=== PATIENT | female | born 1940 | race Caucasian/White ===

== ENCOUNTER → 2019-07-14 10:45 | Outpatient (CLI) | payer MEDICARE, OTHER, SELFPAY ==
--- NOTE | ~2019-07-14 | XR_ITS ---
XR lumbar spine 2-3V 07/14/2019 11:20 Indication: Low back pain Procedure: 3 views lumbar spine Comparison: 04/01/2016 Findings: There are compression fractures of T11-L4 with associated vertebroplasty changes. No acute fracture or traumatic malalignment. There is disc narrowing at all lumbar levels. No evidence for spo ndylolisthesis. There is mild multilevel facet hypertrophy. Impression: 1: Multiple lower thoracic and lumbar compression fractures treated with vertebroplasty. No acute abn ormality of the lumbar spine identified. Reviewed, dictated and finalized at location A. ENTICE PAINTER NECKTIES Impression: 1: Multiple lower thoracic and lumbar compression fractures treated with verteb roplasty. No acute abnormality of the lumbar spine identified.
--- NOTE | ~2019-07-14 | XR_ITS ---
XR thoracic spine 2V DATE: 07/14/2019 11:20 INDICATION: Thoracic back pain. Low back pain. TECHNIQUE: AP, lateral, swimmer views COMPARISON: None FINDINGS: Diffuse osteopenia. Status post vertebroplasty at T11, T12 and L1.There are compression fracture deformities of T11 and T 12. L1 is not optimally evaluated on this thoracic spine radiographic examination. There is degenerative spurring of the thoracic spine. There is old pulmonary granulomatous disease. There are pacemaker leads in the right atrium, right ventricle, coronary sinus. IMPRESSION: Status post vertebroplasty at T11, T12, L1 Diffuse osteopenia Reviewed, dictated and finalized at location B. ESSOR OF ENGINEERING
== END ==
PROVIDERS: PCP Nurse Practitioner Family; Visit Provider Nurse Practitioner Family
DX: M54.5 Low back pain (principal); M54.6 Pain in thoracic spine; M85.88 Other specified disorders of bone density and structure, other site
CPT/HCPCS: 72070; 72100

== ENCOUNTER → 2019-07-21 13:22 | Outpatient (CLI) | payer MEDICARE, OTHER, SELFPAY ==
--- NOTE | ~2019-07-21 | CT_ITS ---
EXAMINATION: CT lumbar spine wo con DATE: 07/21/2019 13:45 INDICATION: Lumbar spondylosis without myelopathy or radiculopathy. TECHNIQUE: Computed tomography (CT) of the lumbar spine was performed without intravenous contrast. A utomated exposure control and iterative reconstruction technique were employed. The dose-length produ ct was 930.57 mGy-cm. COMPARISON: CT lumbar spine 04/22/2016 FINDINGS: There is 8 degrees levocurvature of thoracolumbar spine. There is a burst fracture of T10 w ith less than 1/5 loss of height. There are chronic burst fractures of T11-L4 vertebral bodies with c hanges of vertebroplasty at each level. There is severely decreased disc height at L1-L2, mildly decr eased disc height at L2-L3 and L3-L4, severely decreased disc height at L4-L5, and moderately decreas ed disc height at L5-S1. The following disc levels are specifically discussed: L1-L2: The disc is bulging. There is mild bilateral facet joint osteoarthritis. There is moderate gillian ateral neural foraminal stenosis. There is mild central canal stenosis. L2-L3: The disc is bulging. There is severe bilateral facet joint osteoarthritis. There is moderate b ilateral neural foraminal stenosis. There is mild central canal stenosis. L3-L4: The disc is bulging. There is severe bilateral facet joint osteoarthritis. There is moderate b ilateral neural foraminal stenosis. There is mild central canal stenosis. L4-L5: The disc is bulging. There is ankylosis of the facet joints with severe hypertrophy. There is moderate bilateral neural foraminal stenosis. There is mild central canal stenosis. L5-S1: The disc is bulging. There is severe bilateral facet joint osteoarthritis. There is mild right and moderate left neural foraminal stenosis. There is mild central canal stenosis. IMPRESSION: 1. Acute versus subacute burst fracture of T10. 2. Severe lumbar spondylosis. Reviewed, dictated and finalized at location A. ORT DRIVER
== END ==
PROVIDERS: Visit Provider Nurse Practitioner Family
DX: M47.816 Spondylosis without myelopathy or radiculopathy, lumbar region (principal)
CPT/HCPCS: 72131

== ENCOUNTER 2020-02-10 00:57 | Inpatient (IN) | payer MEDICARE, OTHER, SELFPAY ==
[2020-02-10] VITALS (20 sets, daily range): BP systolic 111–151; BP diastolic 52–85; PULSE 72–91; RESP 14–24; TEMP 35.6–37.2; O2SAT 95–100; BMI 54.8
--- NOTE | ~2020-02-10 | XR_ITS ---
EXAMINATION: XR chest 2V DATE: 02/12/2020 11:13 INDICATION: Shortness of breath. TECHNIQUE: Frontal and lateral views of the chest were obtained. COMPARISON: Chest single view 02/10/2020, chest CT 02/10/2020 FINDINGS: There are mild airspace opacities in right lower lung zone. A calcified right lung nodule a nd calcified right hilar lymph nodes are consistent with old granulomatous disease. No pleural effusi on or pneumothorax. Cardiomegaly is noted. There is a left chest pacer with leads in right atrium, ri ght ventricle, and coronary sinus. There are changes of vertebroplasty at 3 levels. IMPRESSION: 1. Mild airspace opacities in right lower lung zone, consistent with atelectasis versus pneumonia. 2. Cardiomegaly. Reviewed, dictated and finalized at location A. IMPRESSION: 1. Mild airspace opacities in right lower lung zone, consistent with atelectasi s versus pneumonia. 2. Cardiomegaly.
--- NOTE | ~2020-02-10 | CT_ITS ---
EXAMINATION: CT brain wo con DATE: 02/12/2020 11:05 INDICATION: Cerebrovascular accident TECHNIQUE: Computed tomography (CT) of the head was performed without intravenous contrast. The mA wa s adjusted according to patient size. Iterative reconstruction technique was employed. Exam dose: 60 5.33 mGy-cm total exam DLP. COMPARISON: 02/10/[address] brain FINDINGS: There is vertebral, basilar and carotid siphon internal carotid artery calcification. There is nonspecific diminished attenuation of the cerebral white matter, likely due to chronic small vessel ischemic changes. Chronic small lacunar infarct of left basal ganglia. Minimal bilateral basal ganglia calcification. There is moderate cerebral and cerebellar volume loss. No intracranial mass lesion or hemorrhage, midline shift or mass effects. No subdural or epidural hem atoma. No fracture or bone destruction of the cranial vault. Included paranasal sinuses and mastoid air cells are normally developed and aerated. No fracture or b one destruction of the cranial vault. IMPRESSION: Cerebral atherosclerosis and chronic small vessel ischemic changes of the cerebral white matter; small lacunar infarct of the left basal ganglia Reviewed, dictated and finalized at Location A. Reviewed, dictated and finalized at location A.
--- NOTE | ~2020-02-10 | XR_ITS ---
EXAMINATION: XR chest 1V portable EXAM DATE: 02/10/2020 01:36 INDICATION: Transient alteration of awareness. TECHNIQUE: Portable AP frontal chest x-ray was obtained. Comparison is made to prior examination from 01/13/2019. FINDINGS: There is triple lead pacemaker/AICD device. Cardiomegaly and pulmonary vascular congestion. Right midlung zone granulomata. No confluent consolidation, pneumothorax or pleural effusion suspect ed. The bones are osteopenic. There are bony degenerative changes. IMPRESSION: 1. Cardiomegaly, congestive changes. Reviewed, dictated and finalized at location A.
--- NOTE | ~2020-02-10 | CT_ITS ---
EXAMINATION: CT chest abdomen pelvis wo con DATE: 02/10/2020 08:13 CDT INDICATION: Altered mental status. Low blood sugar. Sepsis. TECHNIQUE: Computed tomography (CT) of the chest, abdomen, and pelvis was performed without intraveno us contrast. The dose-length product was 1858.77 mGy-cm. Automated exposure control and iterative rec onstruction technique were employed. COMPARISON: None FINDINGS: CHEST CT: Cardiomegaly. There is atherosclerosis. No mediastinal or hilar lymphadenopathy. There are pacemaker leads present. Dependent atelectasis. No significant pleural or pericardial effusion. There is an 8 m m balloon some solid nodule in the right upper lobe calcified granulomas right lung base. 7 mm ground glass nodule in the lingula, image 59. No endobronchial lesions. ABDOMEN/PELVIS CT: There are calcified granulomas of the liver and spleen. There is pneumobilia. There is cirrhosis of t he liver. There is an atrophic left kidney with nonobstructing left renal stone. Colonic diverticulos is without diverticulitis. Nonobstructive bowel gas pattern. Uterus not visualized, likely surgically absent. There are multiple lower thoracic and lumbar compression fractures with vertebroplasty frank es. Advanced multilevel spondylosis. IMPRESSION: 1. No acute abnormality of the chest, abdomen or pelvis. 2: Bilateral subsolid nodules measuring up to 8 mm. Follow-up low dose CT chest in 3 months recommend ed. Reviewed, dictated and finalized at location B. IMPRESSION: 1. No acute abnormality of the chest, abdomen or pelvis. 2: Bilateral subsolid nodules measuring up to 8 mm. Follow-up low dose CT chest in 3 months recommended.
--- NOTE | ~2020-02-10 | CT_ITS ---
EXAMINATION: CT brain wo con EXAM DATE: 02/10/2020 01:33 INDICATION: Change in mental status. Unresponsive episode. Transient alteration of awareness. TECHNIQUE: Spiral CT of the head was performed without contrast. Axial, coronal and sagittal images were reviewed. The dose-length product (DLP) for this examination was 605.33 mGy-cm. The exposure w as tailored according to patient size, and iterative reconstruction (ASIR) was used as additional dos e reduction technique. Comparison is made to prior examination from 08/28/2015. FINDINGS: There is no acute intraparenchymal hemorrhage. No evidence of intraparenchymal brain mass lesion. No evidence of acute infarction. Please note that initial head CT has limited sensitivity f or small or acute infarctions. Old left basal ganglia lacunar infarction. There is mild periventric ular and subcortical hypodensity, nonspecific but probably related to small vessel ischemic disease. There is mild prominence of the sulci and ventricles related to cerebral atrophy. There is intrac ranial carotid arteriosclerosis. There are no extra-axial collections. There is no mass effect or m idline shift. Patient has had bilateral ocular lens surgery. Soft tissue is unremarkable. The visu alized sinuses and mastoid air cells are well aerated. IMPRESSION: 1. No acute intracranial findings. 2. Chronic age related findings. Reviewed, dictated and finalized at location A.
--- NOTE | 2020-02-10 01:03 | ECG_ITS ---
Measurements Intervals [place] Rate: 76 P: -79 DE: 204 QRS: 190 QRSD: 157 T: 32 QT: 485 QTc: 547 Interpretive Statements ELECTRONIC ATRIAL PACEMAKER ELECTRONIC VENTRICULAR PACEMAKER NO FURTHER INTERPRETATION IS POSSIBLE ATYPICAL ECG Electronically Signed On 02-10-2020 7:35:49 CDT by Yovany Forte D.O.
--- NOTE | 2020-02-10 01:03 | ED.RECABL ---
HPI - Recheck/Abnormal Lab/Rx General Chief Complaint: Recheck/Abnormal Lab/Rx Stated Complaint: UNRESPONSIVE Time Seen by Provider: 02/10/20 01:03 Source: family and EMS Mode of arrival: EMS Limitations: altered mental status History of Present Illness HPI narrative: Patient is an 80-year-old female with a history of hypertension, obstructive sleep apnea, diabetes who presents for evaluation of altered mental status. History is obtained solely through EMS and the patient's family. Patient's daughter reports that she heard her mother moaning this evening from her bedroom. They went to check on her mother, she was moaning and not responsive to them. They did a glucometer check and glucose was 29. Thus, they called EMS. At the time of EMS arrived, they confirmed hypoglycemia and gave the patient intramuscular glucose, began an IV and give the patient dextrose. Patient was moaning, however she was protecting her airway. She is not able to provide any history. Patient was transported to our facility with repeat glucoses in the 100s. Patient's daughter states she had a normal day today and typically is able to converse without any difficulty. Daughter did state the patient reported feeling tired, they did attend the of a family member today. Patient's daughter states that she had denied any chest pain, cough, fever, abdominal pain. No recent medication changes. Patient is DNR/DNI. Related Data Allergies Allergy/AdvReac Type Severity Reaction Status Date / Time meperidine Allergy Mild Itching Verified 01/13/19 15:10 niacin Allergy Mild Rash Verified 01/13/19 15:10 quetiapine Allergy Mild Swelling Verified 01/13/19 15:10 bupropion Allergy Unknown JERKY Verified 01/13/19 15:10 MOVEMENTS codeine Allergy Unknown Verified 01/13/19 15:10 enalapril Allergy Unknown Verified 01/13/19 15:10 fluoxetine Allergy Unknown Verified 01/13/19 15:10 lorazepam Allergy Unknown Verified 01/13/19 15:10 morphine Allergy Unknown Verified 01/13/19 15:10 Penicillins Allergy Unknown Verified 01/13/19 15:10 trazodone Allergy Unknown Dizziness Verified 01/13/19 15:10 enalaprilat AdvReac Mild PERSISTENT Verified 01/13/19 15:10 COUGH modafinil AdvReac Mild SORES Verified 01/13/19 15:10 oxycodone AdvReac Mild GI DISTRESS Verified 01/13/19 15:10 Review of Systems Review of Systems: ROS unobtainable: Yes unobtainable due to mental status PMFSH Family History Family History (Updated 12/22/15 @ 23:19 by DOCTOR UNKNOWN) Father Carcinoma of colon, Onset Age: 86 Family history of renal failure Mother Family history of diabetes mellitus in first degree relative, Onset Age: 80 Sibling No family history of malignant neoplasm Other Diabetes mellitus Family history of arthritis Family history of heart disease in male family member before age 55 Family history of malignant neoplasm Family history of mental disorder Family history of seizure disorder Hypertension Social History Social History Smoking status: Never smoker Alcohol intake: never Gender identity (if verbalized by the patient): Female Exam Narrative: Exam Narrative: GENERAL: Somnolent, arousable to painful and verbal stimuli, not conversant, moaning HEAD: Normocephalic, atraumatic. EYES: 3+ PERRLA and EOMI. patient cannot track when prompted. ENT: Nares clear, no rhinorrhea or epistaxis. Mucous membranes dry. NECK: Supple. CHEST: Shallow respirations, coarse lung sounds, no wheezing, mildly tachypneic HEART: Regular rate, sinus rhythm ABDOMEN: Obese, non distended, no grimace with palpation EXTREMITIES: Normal range of motion. No edema. SKIN: Warm, dry, no rash. NEURO:No focal deficits observed on assessment. Patient does not have any posturing. She is moving all extremities spontaneously. No clonus bilaterally. No hyperreflexia. Patient is able to complete digital advisor strength when prompted it is 4 out of 5 bilaterally. Not able to follow more complex comman
[2020-02-10 01:25] LABS: Basophils Absolute Auto 0.1 K/mm3 (0.0-0.1); Basophils Percent Auto 0.5 % (0.2-1.2); Eosinophils Absolute Auto 0.3 K/mm3 (0-0.3); Eosinophils Percent Auto 2.3 % (0-4.4); Hematocrit 40.3 % (37.0-47.0); Immature Granulocyte Absolute 0.03 K/mm3 (0.00-0.031); Immature Granulocyte Percent A 0.3 % (0-0.5); Lymphocytes Absolute Auto 1.89 K/mm3 (0.9-3.2); Lymphocytes Percent Auto 17.7 % (18.3-44.2); Mean Corpuscular HGB Conc 34.7 g/dl (32-36); Mean Corpuscular Hemoglobin 32.6 pg (26-34); Mean Corpuscular Volume 93.9 fl (80-100); Mean Platelet Volume 10.6 fl (7.4-10.4); Monocytes Absolute Auto 0.7 K/mm3 (0.1-0.6); Monocytes Percent Auto 6.2 % (2.6-8.5); Neutrophils Absolute Auto 7.8 K/mm3 (1.3-6.7); Platelet Count Result 123 k/mm3 (150-375); Red Blood Count 4.29 M/mm3 (4.2-5.4); Red Cell Distribution Width 12.3 % (11.5-14.5); White Blood Count 10.7 K/mm3 (4.5-10.0)
[2020-02-10 01:34] LABS: INR 1.2; Prothrombin Time 14.7 Seconds (11.1-14.7)
[2020-02-10 01:35] LABS: Partial Thromboplastin Time 34.9 SECONDS (22.3-36.8)
[2020-02-10 01:39] LABS: Lactic Acid Reflex 0.8 mmol/L (0.7-2.1)
[2020-02-10 01:40] LABS: Ammonia 10 umol/L (9-30)
[2020-02-10 01:41] LABS: Glucose Point of Care 183 (65-105)
[2020-02-10 01:45] LABS: Anion Gap 8 mmol/L (8-16); Blood Urea Nitrogen 85 mg/dL (7-17); Calcium 8.9 mg/dL (8.4-10.2); Carbon Dioxide 32 mmol/L (22-30); Chloride 95 mmol/L (98-107); Estimated Glomerular Filt Rate 19; Glucose 175 mg/dL (65-105); Sodium 135 mmol/L (137-145)
[2020-02-10 01:47] LABS: CRP 0.5 mg/dL (<1.0)
[2020-02-10 01:52] LABS: Troponin I 0.013 ng/mL (0.000-0.034)
[2020-02-10 02:48] LABS: Add Urine Microscopic? YES; Appearance Urine Cloudy (Clear); Bacteria Urine Trace /hpf; Bilirubin Urine Negative (Negative); Color Urine Yellow (Yellow); Glucose Urine UA Negative (Negative); Ketones Urine Negative (Negative); Leukocyte Esterase Ur 3+ LEU/UL (Negative); Nitrate Urine Positive (Negative); Protein Urine Negative (Negative); Specific Grav Ur 1.013 (1.001-1.035); Urobilinogen Urine Negative mg/dL (<2.0); WBC Urine >75 /hpf
[2020-02-10 03:09] LABS: Alveolar/Arterial O2 Gradient 37.1 mmHg; Base Excess ABG 3.9 mEq/l (+/-2.0); Carboxyhemoglobin 1.2 % THb (0-2.0); Device NASAL CANNULA; Fractional Inspired Oxygen 28 %; Methemoglobin ABG 0.3 %THb (0-1.5); Modified Allen's Test Unable to perform; Oxygen Content ABG 19.1 %vol (16.0-22.0); Oxygen Saturation ABG 96.9 % (95.0-100.0); Oxyhemoglobin 95.3 % THb (90.0-100.0); PCO2 ABG 56.9 mmHg (35.0-45.0); PO2 ABG 95.4 mmHg (80.0-100.0); PO2 FiO2 Ratio Arterial Blood 3.41 %; Reduced Hemoglobin 3.2 %THb (0-5.0); Site Drawn LEFT RADIAL; Total Hemoglobin 14.2 g/dL (12.0-18.0); pH ABG 7.354 (7.350-7.450)
[2020-02-10 03:19] LABS: Blood Urine Negative (Negative)
[2020-02-10 05:00] LABS: Glucose Point of Care 190 (65-105)
[2020-02-10] MEDS: levETIRAcetam 1000MG/NACL100ML 1,000 MG/100 ML BAG 400 MG IVPB (05:12)
[2020-02-10] MEDS: LORazepam INJ (*CRX) 2 MG/ML VIAL 0.5 MG IV PUSH (05:12)
--- NOTE | 2020-02-10 05:38 | PM.IMHP ---
H&P: HPI History of Present Illness Date/Time: 02/10/20 05:38 Chief complaint: Delirium, UTI, Hypoglycemia Narrative: This is an 80 year old Diabetic female who presented to the hospital for acute altered mental satatus. The patient's daughter is at bedside and explains that the patient is normally wheelchair bound and yesterday went to a and was talking to her family at that time. After dinner this evening her daughter heard her mother moaning in her bedroom. She found her mother poorly responsive. Blood sugar was checked and found to be 29. It's unknown how long the patient was like that but she had been in her room for about 3 hours. The family did not witness any seizure like activity. They do not believe that the patient has had any falls. The patient's blood sugar has been stable although she is very poorly responsive. She was found to be in hypercapnic respiratory failure on ABG. Bipap was initiated. CT brain was obtained. On my encounter with the patient she barely opens her eyes to painful stimuli. The patient's daughter verbalized to me that the patient is DNR/DNI and that the family does not want a central line placed or vasopressors. Routine labs demonstrated an abnormal urinalysis. In the ER the patient appeared to be possibly having a seizure with diffuse shaking and locked jaw. She was treated with Ativan and Neurology was consulted. Review of Systems Review of Systems: ROS unobtainable: Yes unobtainable due to mental status PMFSH Past Medical History Medical History (Updated 02/10/20 @ 06:09 by Gautam He MD) Diabetes mellitus Surgical History Surgical History (Updated 02/10/20 @ 06:00 by Gautam He MD) History of cholecystectomy Family History Family History (Updated 12/22/15 @ 23:19 by DOCTOR UNKNOWN) Father Carcinoma of colon, Onset Age: 86 Family history of renal failure Mother Family history of diabetes mellitus in first degree relative, Onset Age: 80 Sibling No family history of malignant neoplasm Other Diabetes mellitus Family history of arthritis Family history of heart disease in male family member before age 55 Family history of malignant neoplasm Family history of mental disorder Family history of seizure disorder Hypertension Social History Social History Smoking status: Never smoker Alcohol intake: former Substance use: never Gender identity (if verbalized by the patient): Female Spiritual care concerns: No Meds Home Medications and Allergies Allergies Allergy/AdvReac Type Severity Reaction Status Date / Time meperidine Allergy Mild Itching Verified 01/13/19 15:10 niacin Allergy Mild Rash Verified 01/13/19 15:10 quetiapine Allergy Mild Swelling Verified 01/13/19 15:10 bupropion Allergy Unknown JERKY Verified 01/13/19 15:10 MOVEMENTS codeine Allergy Unknown Verified 01/13/19 15:10 enalapril Allergy Unknown Verified 01/13/19 15:10 fluoxetine Allergy Unknown Verified 01/13/19 15:10 lorazepam Allergy Unknown Verified 01/13/19 15:10 morphine Allergy Unknown Verified 01/13/19 15:10 Penicillins Allergy Unknown Verified 01/13/19 15:10 trazodone Allergy Unknown Dizziness Verified 01/13/19 15:10 enalaprilat AdvReac Mild PERSISTENT Verified 01/13/19 15:10 COUGH modafinil AdvReac Mild SORES Verified 01/13/19 15:10 oxycodone AdvReac Mild GI DISTRESS Verified 01/13/19 15:10 Vital Signs Vital Signs - 24 hr 02/10/20 00:58 02/10/20 02:01 02/10/20 02:27 Temperature 37.2 C Pulse Rate 76 90 Respiratory Rate 23 H 19 Blood Pressure 111/53 L 130/85 Pulse Oximetry 95 98 97 02/10/20 03:15 02/10/20 03:55 02/10/20 04:01 Temperature Pulse Rate 79 87 76 Respiratory Rate 19 14 17 Blood Pressure 127/72 122/56 L Pulse Oximetry 100 99 98 02/10/20 04:37 02/10/20 05:32 Temperature Pulse Rate 91 76 Respiratory Rate 16 15 Blood Pressure 132/62 124/64 Pulse Oximetry 100 99 Exam Const: Gen
[2020-02-10] MEDS: SODIUM CHLORIDE 0.9% IV 1,000 ML 125 ML IV CONT ×2 (06:07→13:55)
[2020-02-10 06:24] LABS: Glucose Point of Care 238 (65-105)
--- NOTE | 2020-02-10 07:35 | ADMGEN ---
This patient, Roosevelt Penn, was admitted to IMU Room 206-01 FROM ER 0557 02/10/20 . Patient/family oriented to hospital policies and general routines including ID bracelet, bed and alarms, visiting hours, pain management, procedures, bathroom and other care routines, personal items, smoking policy, room service/diet, and visiting hours. Valuables list has been completed. Information on how to activate the Rapid Response Team has been discussed. Patient/Family are encouraged to report perceived risks to care and to ask questions if they do not understand what they are told or what they should do.
[2020-02-10 08:07] LABS: Vitamin B12 > 1000.0 pg/mL (239-931)
[2020-02-10 08:10] LABS: Alveolar/Arterial O2 Gradient 61.1 mmHg; Base Excess ABG 1.1 mEq/l (+/-2.0); Fractional Inspired Oxygen 28 %; HCO3 ABG 27.2 mEq/l (22.0-26.0); Oxygen Content ABG 18.5 %vol (16.0-22.0); Oxygen Saturation ABG 95.5 % (95.0-100.0); Oxyhemoglobin 94.3 % THb (90.0-100.0); PCO2 ABG 48.8 mmHg (35.0-45.0); PO2 FiO2 Ratio Arterial Blood 2.89 %; Total Hemoglobin 13.9 g/dL (12.0-18.0); pH ABG 7.364 (7.350-7.450)
[2020-02-10 08:11] LABS: Device BIPAP; Modified Allen's Test Pass; Site Drawn RIGHT RADIAL
[2020-02-10 08:12] LABS: Expiratory Pressure 5 cmH2O; Inspiratory Pressure 15 cmH2O
[2020-02-10 08:26] LABS: Folic Acid > 20.0 ng/mL (2.76->20)
[2020-02-10 09:11] LABS: Glucose Point of Care 193 (65-105)
--- NOTE | 2020-02-10 10:23 | WPDNEURCNPN ---
Assessment and Plan Assessment and plan (1) Acute on chronic renal failure: Qualifiers: Acute renal failure type: unspecified Chronic kidney disease stage: stage 3 (moderate) Qualified Code(s): N17.9 - Acute kidney failure, unspecified; N18.3 - Chronic kidney disease, stage 3 (moderate) Code(s): N17.9 - Acute kidney failure, unspecified; N18.9 - Chronic kidney disease, unspecified Status: Acute (2) Diabetes mellitus: Qualifiers: Diabetes mellitus type: type 2 Diabetes mellitus halfway insulin use: with costume shop coordinator use Diabetes mellitus complication status: with hypoglycemia Diabetes mellitus complication detail: with coma Qualified Code(s): E11.641 - Type 2 diabetes mellitus with hypoglycemia with coma; Z79.4 - [facility] (current) use of insulin Code(s): E11.9 - Type 2 diabetes mellitus without complications Status: Chronic (3) Acute encephalopathy: Code(s): G93.40 - Encephalopathy, unspecified Status: Acute Additional Plan patient will benefit from the ears observation considering the whole cord status if necessary we can obtain the EEG and the family wants to pursue further, further management can be done according Consult date: 02/10/20 Time Seen: 10:00 HPI: Roosevelt Penn is a 80 year old female has been admitted to the hospital for the complaints of change in the mental status when she was seen by Dr. gamez will add her daughter was at the bedside with reported to him the patient is normally wheelchair-bound and yesterday went to a and was talking to her family at that time after dinner in the evening her daughter heard her mother morning in her bedroom she found her poorly responsive blood sugar only 29 it was not clear how long the patient was out family did not witness any seizure-like activity and also they did not think that she had any falls since then the blood sugar was stable she was found to be hypercapnic in respiratory failure BiPAP was initiated CT of the brain was obtained patient does carry the history of DNR and they did not want any central lines placed in her UA was abnormal in the ER it was suggested that she could very well have had a seizure evaluation up until known documented normal CBC with low platelet count creatinine of 2.4 with BUN 85 and GFR only 19 B12 and folates are normal UA abnormal CT of the head revealed no acute finding on CT chest and abdominal documented only sub solid nodules bilaterally of 8mm size for which a repeat study was recommended Review of Systems Review of Systems: All systems reviewed & are unremarkable except as noted in HPI and below PMFSH Past Medical History Medical History (Updated 02/10/20 @ 06:09 by Gautam eH MD) Diabetes mellitus Surgical History Surgical History (Updated 02/10/20 @ 06:00 by Gautam He MD) History of cholecystectomy Family History Family History (Updated 12/22/15 @ 23:19 by DOCTOR UNKNOWN) Father Carcinoma of colon, Onset Age: 86 Family history of renal failure Mother Family history of diabetes mellitus in first degree relative, Onset Age: 80 Sibling No family history of malignant neoplasm Other Diabetes mellitus Family history of arthritis Family history of heart disease in male family member before age 55 Family history of malignant neoplasm Family history of mental disorder Family history of seizure disorder Hypertension Social History Social History Smoking status: Never smoker Alcohol intake: former Substance use: never Gender identity (if verbalized by the patient): Female Sexual Orientation (if Verbalized by the Patient): Straight or Heterosexual Spiritual care concerns: No Meds Home Medications and Allergies Home Medications Medication Instructions Recorded Confirmed Type allopurinol 100 mg PO DAILY 02/10/20 02/10/20 History amlodipine 5 mg PO DAILY 02/10/20 02/10/20 History aspirin 81 mg PO BID 02/10/20
--- NOTE | 2020-02-10 10:46 | PCNEURO ---
EEG on hold due to patient condition. Nurse will contact neurology dept when patient is able to tolerate.
--- NOTE | 2020-02-10 11:38 | PCOTNOTE ---
Attempted OT evaluation, pt. unresponsive at this time. Not medically appropriate. Hold per nursing.
--- NOTE | 2020-02-10 12:00 | PCPTNOTE ---
Attempted PT evaluation this date however RN stated that pt was unresponsive and to hold PT for today. Will attempt at a later date/time.
[2020-02-10 13:14] LABS: Glucose Point of Care 143 (65-105)
--- NOTE | 2020-02-10 13:31 | PM.IMPN ---
Progress Note: A&P Assessment and Plan (1) Acute encephalopathy: Code(s): G93.40 - Encephalopathy, unspecified Status: Acute Assessment and Plan: CT head negative, seen by neurology awaiting MRI. Pt is currently on IV keppra. much improvement with neurological status. Encephalopathy secondary to infection or seizure activity and hypoglycemia (2) Acute respiratory failure with hypercapnia: Code(s): J96.02 - Acute respiratory failure with hypercapnia Status: Acute Assessment and Plan: Pt can be weaned off BIPAP doing much better. (3) Hypoglycemia: Code(s): E16.2 - Hypoglycemia, unspecified Status: Resolved Assessment and Plan: Hypoglycemic orders are already ordered (4) Acute UTI: Code(s): N39.0 - Urinary tract infection, site not specified Status: Acute Assessment and Plan: Continue IV cefepimie and vancomycin, urine culture pending.CT chest abdo and pelvis shows- Bilateral subsolid nodules measuring up to 8 mm. Follow-up low dose CT chest in 3 months recommended. (5) Acute on chronic renal failure: Qualifiers: Acute renal failure type: unspecified Chronic kidney disease stage: stage 3 (moderate) Qualified Code(s): N17.9 - Acute kidney failure, unspecified; N18.3 - Chronic kidney disease, stage 3 (moderate) Code(s): N17.9 - Acute kidney failure, unspecified; N18.9 - Chronic kidney disease, unspecified Status: Acute Assessment and Plan: continue IV hydration. Creat is 2.4, pt can start eating and drinking. Continue to monitor kidney function (6) Diabetes mellitus: Qualifiers: Diabetes mellitus type: type 2 Diabetes mellitus superintendent marine oil terminal insulin use: with snf use Diabetes mellitus complication status: with hypoglycemia Diabetes mellitus complication detail: with coma Qualified Code(s): E11.641 - Type 2 diabetes mellitus with hypoglycemia with coma; Z79.4 - group home (current) use of insulin Code(s): E11.9 - Type 2 diabetes mellitus without complications Status: Chronic Assessment and Plan: Low dose SSI pt is eating now. hold pts home DM medications today. can restart tomorrow. Subjective Date/time seen: 02/10/20 13:31 Interval history: 80 year old Diabetic female who presented to the hospital for acute altered mental status, pts blood sugar was low on admission. pt was placed on BIPAP for hypercapnic respiratory failure. Pt is doing much better today sitting up off BIPAP. more alert. Review of Systems Constitutional: Constitutional: Reports fatigue and Reports weakness Respiratory: Respiratory: Reports dyspnea Genitourinary: Genitourinary: Reports nocturia and Reports dysuria Exam Const: Nutritional Appearance: obese morbidly obese Resp: Effort & Inspection: normal respiratory effort Auscultation: clear to auscultation bilaterally Cardio: Rate: regular rate Rhythm: regular rhythm Heart sounds: no murmurs GI: Inspection: normal to inspection Auscultation: normal bowel sounds Skin: General skin exam: normal color and no rashes or lesions noted Neuro: Other: Alert sitting up awake Extrem: General: normal to inspection and edema Objective Data Vital Signs Vital Signs: Vital Signs - 24 hr 02/10/20 00:58 02/10/20 02:01 02/10/20 02:27 Temperature 37.2 C Pulse Rate 76 90 Respiratory Rate 23 H 19 Blood Pressure 111/53 L 130/85 Pulse Oximetry 95 98 97 02/10/20 03:15 02/10/20 03:55 02/10/20 04:01 Temperature Pulse Rate 79 87 76 Respiratory Rate 19 14 17 Blood Pressure 127/72 122/56 L Pulse Oximetry 100 99 98 02/10/20 04:37 02/10/20 05:32 02/10/20 05:40 Temperature 37.0 C Pulse Rate 91 76 80 Respiratory Rate 16 15 19 Blood Pressure 132/62 124/64 124/64 Pulse Oximetry 100 99 100 02/10/20 06:00 02/10/20 06:07 02/10/20 08:00 Temperature 36.6 C 35.8 C L Pulse Rate 80 78 73 Respiratory Rate 20 22 H Blood Pressure 1
[2020-02-10] MEDS: levETIRAcetam 500MG/NACL 100ML 500 MG/100 ML BAG 400 MG IVPB (16:55)
[2020-02-10] MEDS: LIPASE/AMYLASE/PROTEASE 12,000 UNITS CAP 1 CAP PO (16:56)
[2020-02-10 17:38] LABS: Glucose Point of Care 116 (65-105)
[2020-02-10 21:08] LABS: Glucose Point of Care 189 (65-105)
[2020-02-10] MEDS: PANTOPRAZOLE 40 MG TABLET PO (21:29)
[2020-02-10] MEDS: carvediloL 12.5 MG TABLET PO (21:29)
[2020-02-10] MEDS: INSULIN GLARGINE (*BKC) 100 UNITS/ML 20 UNITS SUB-Q (21:29)
[2020-02-10] MEDS: LIPASE/AMYLASE/PROTEASE 12,000 UNITS CAP 2 CAP PO (21:30)
--- NOTE | 2020-02-10 22:00 | PC.NURSE ---
Received patient from IMU via bed. Belongings list was verified with patient at bedside.
--- NOTE | 2020-02-10 22:07 | PC.NURSE ---
This patient, Roosevelt Penn, was transferred to [facility] 02/10/20 at 2145. Personal belongings sent with patient. Belongings list checked and signed with receiving [ ]. Report given to MADONNA JUAREZ. Appropriate documentation sent with patient.
[2020-02-11] VITALS (12 sets, daily range): BP systolic 122–166; BP diastolic 50–66; PULSE 69–84; RESP 17–26; TEMP 36.3–37.2; O2SAT 92–99
[2020-02-11] MEDS: SODIUM CHLORIDE 0.9% IV 1,000 ML 125 ML IV CONT ×4 (04:10→20:21)
[2020-02-11] MEDS: levETIRAcetam 500MG/NACL 100ML 500 MG/100 ML BAG 400 MG IVPB ×2 (06:20→19:02)
[2020-02-11 06:47] LABS: Basophils Absolute Auto 0.1 K/mm3 (0.0-0.1); Basophils Percent Auto 0.8 % (0.2-1.2); Eosinophils Absolute Auto 0.4 K/mm3 (0-0.3); Eosinophils Percent Auto 4.3 % (0-4.4); Hematocrit 36.9 % (37.0-47.0); Hemoglobin 12.7 g/dL (12.0-15.0); Immature Granulocyte Absolute 0.03 K/mm3 (0.00-0.031); Immature Granulocyte Percent A 0.4 % (0-0.5); Immature Platelet Fraction Pct 2.6 % (0.9-11.2); Lymphocytes Absolute Auto 2.18 K/mm3 (0.9-3.2); Mean Corpuscular HGB Conc 34.4 g/dl (32-36); Mean Corpuscular Hemoglobin 32.8 pg (26-34); Mean Corpuscular Volume 95.3 fl (80-100); Mean Platelet Volume 10.8 fl (7.4-10.4); Monocytes Absolute Auto 0.5 K/mm3 (0.1-0.6); Monocytes Percent Auto 5.8 % (2.6-8.5); Neutrophils Absolute Auto 5.3 K/mm3 (1.3-6.7); Neutrophils Percent Auto 62.7 % (45.5-73.1); Platelet Count Result 125 k/mm3 (150-375); Red Blood Count 3.87 M/mm3 (4.2-5.4); Red Cell Distribution Width 12.5 % (11.5-14.5); White Blood Count 8.4 K/mm3 (4.5-10.0)
[2020-02-11 07:05] LABS: Anion Gap 6 mmol/L (8-16); Blood Urea Nitrogen 64 mg/dL (7-17); Calcium 8.6 mg/dL (8.4-10.2); Carbon Dioxide 28 mmol/L (22-30); Chloride 103 mmol/L (98-107); Estimated CRCL calculation 33 ml/min; Estimated Glomerular Filt Rate 29; Glucose 118 mg/dL (65-105); Potassium 4.1 mmol/L (3.4-5.0); Sodium 137 mmol/L (137-145)
[2020-02-11] MEDS: PYRIDOXINE HCL 50 MG TABLET 400 MG PO (08:52)
[2020-02-11] MEDS: LIPASE/AMYLASE/PROTEASE 12,000 UNITS CAP 1 CAP PO ×3 (08:53→17:30)
[2020-02-11] MEDS: PANTOPRAZOLE 40 MG TABLET PO ×2 (08:53→20:20)
[2020-02-11] MEDS: FUROSEMIDE 20 MG TABLET 60 MG PO (08:53)
[2020-02-11] MEDS: FLUTICASONE PROPIONATE 0.05% NA SPR 16 GM BTL (*BKC) 2 SPRAY NASAL (08:54)
[2020-02-11] MEDS: carvediloL 12.5 MG TABLET PO ×2 (08:54→20:20)
[2020-02-11] MEDS: amLODIPine BESYLATE 5 MG TABLET PO (08:54)
[2020-02-11] MEDS: metOLazone 2.5 MG TABLET PO (08:55)
[2020-02-11] MEDS: SPIRONOLACTONE 25 MG TABLET PO (08:55)
[2020-02-11] MEDS: VENLAFAXINE HCL XR 75 MG CAP.ER.24H 150 MG PO (08:55)
--- NOTE | 2020-02-11 09:08 | PCOTNOTE ---
On 02/11/20, the student, Dary Gunn, provided care and completed [facility] documentation on this patient. I have reviewed the student's documentation and agree with the findings.
[2020-02-11 10:11] LABS: Glucose Point of Care 112 (65-105)
--- NOTE | 2020-02-11 12:22 | WPDNEUROLOGY ---
Neurology EEG Report General Information Date of Study: 02/11/20 TEST EEG DIAGNOSIS change in the mental status with possibility of the seizure as the patient was found unresponsive and shaking all over CONDITION OF RECORDING drowsy and sleep EEG NUMBER [id number] CLINICAL HISTORY patient was found unresponsive and shaking which change in the mental status raising the possibility of seizures EEG DESCRIPTION background rhythm consists of low to medium voltage 5 to 7 hertz per 2nd theta admixed with intermittent 3 to 4 hertz per 2nd delta activity. And very poor amount of 8 to 9 hertz per 2nd low voltage alpha posteriorly. No evidence of paroxysmal discharge throughout the tracing. Non paroxysmal nonfocal. Nonlateralizing IMPRESSION abnormal EEG due to the presence of excessive amount of theta with bilateral delta activity raising the possibility of postictal state and the possibility of the encephalopathy clinical correlation recommended there is no evidence of paroxysmal discharge possibility of the focal structural lesion cannot be ruled out
[2020-02-11 12:58] LABS: Glucose Point of Care 217 (65-105)
--- NOTE | 2020-02-11 13:21 | WPDNEURCNPN ---
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 Diabetes mellitus complication status: with hypoglycemia Diabetes mellitus complication detail: with coma Qualified Code(s): E11.641 - Type 2 diabetes mellitus with hypoglycemia with coma; Z79.4 - retirement (current) use of insulin Code(s): E11.9 - Type 2 diabetes mellitus without complications Status: Chronic (3) Hypoglycemia: Code(s): E16.2 - Hypoglycemia, unspecified Status: Resolved (4) Acute alteration in mental status: Code(s): R41.82 - Altered mental status, unspecified Status: Acute (5) Delirium: Code(s): R41.0 - Disorientation, unspecified Status: Acute (6) Acute UTI: Code(s): N39.0 - Urinary tract infection, site not specified Status: Acute (7) Seizures: Code(s): R56.9 - Unspecified convulsions Status: Acute Additional Plan other the repeat CT head for tomorrow and continue the present management Consult date: 02/11/20 Time Seen: 12:30 HPI: Roosevelt Penn is a 80 year old female initially seen by my partner Dr. Dior because of what I suspect hypoglycemic seizure she is much more awake and alert she is crying and grieving the of the family member however able to recognize me her daughter's sitting at the bedside and gave me the same story as she had given about the a seizure which happened in the background of having had a sugar of in the 20s according to the daughter the patient's memory has not been the best in the past year so particularly the short-term and however wonders whether not she had stroke unfortunately we cannot do the brain MRI but we can certainly repeat the CT head at a later date the patient denies any headache nausea vomiting chest pain shortness of breath fever chills sore throat Review of Systems Review of Systems: All systems reviewed & are unremarkable except as noted in HPI and below PMFSH Past Medical History Medical History Diabetes mellitus Surgical History Surgical History History of cholecystectomy Family History Family History Father Carcinoma of colon, Onset Age: 86 Family history of renal failure Mother Family history of diabetes mellitus in first degree relative, Onset Age: 80 Sibling No family history of malignant neoplasm Other Diabetes mellitus Family history of arthritis Family history of heart disease in male family member before age 55 Family history of malignant neoplasm Family history of mental disorder Family history of seizure disorder Hypertension Social History Social History Smoking status: Never smoker Alcohol intake: former Substance use: never Gender identity (if verbalized by the patient): Female Sexual Orientation (if Verbalized by the Patient): Straight or Heterosexual Spiritual care concerns: No Meds Home Medications and Allergies Home Medications Medication Instructions Recorded Confirmed Type allopurinol 100 mg PO DAILY 02/10/20 02/10/20 History amlodipine 5 mg PO DAILY 02/10/20 02/10/20 History aspirin 81 mg PO BID 02/10/20 02/10/20 History carvedilol 12.5 mg PO BID 02/10/20 02/10/20 History cetirizine 10 mg PO DAILY 02/10/20 02/10/20 History cyanocobalamin (vitamin B-12) 400 mcg PO DAILY 02/10/20 02/10/20 History [Vitamin B-
[2020-02-11] MEDS: INSULIN ASPART (*BKC) 100 UNITS/ML SUB-Q (14:01)
--- NOTE | 2020-02-11 16:41 | PM.IMPN ---
Progress Note: A&P Assessment and Plan (1) Acute encephalopathy: Code(s): G93.40 - Encephalopathy, unspecified Status: Acute Assessment and Plan: CT head negative, seen by neurology awaiting MRI. Pt is currently on IV keppra. much improvement with neurological status. Encephalopathy secondary to infection or seizure activity and hypoglycemia 80 year old Diabetic female who presented to the hospital for acute altered mental status, pts blood sugar was low in 20s at the time of seizures, today 02/10 patient was seen by neurologist and suspect her seizure may have been related to hypoglycemia with blood sugar of 20s, though her CT scan of the head was negative for any acute injury. neurologist also concerned the patient may have stroke, however unable to do MRI because the body habitus, will repeat CT scan of the head and 3 days to further evaluate, currently patient having EEG will follow-up, will have a PT OT evaluate the patient, patient is quite under stress and depressed recently her family member , will have a PT OT evaluate the the patient patient will benefit home health and physical therapy at home. (2) Acute respiratory failure with hypercapnia: Code(s): J96.02 - Acute respiratory failure with hypercapnia Status: Acute Assessment and Plan: Pt can be weaned off BIPAP doing much better. patient is doing much better on room air (3) Hypoglycemia: Code(s): E16.2 - Hypoglycemia, unspecified Status: Resolved Assessment and Plan: Hypoglycemic orders are already ordered (4) Acute UTI: Code(s): N39.0 - Urinary tract infection, site not specified Status: Acute Assessment and Plan: Continue IV cefepimie and vancomycin, urine culture is growing Proteus mirabilis will follow-up on sensitivity and further recommendation to follow, CT chest abdo and pelvis shows- Bilateral subsolid nodules measuring up to 8 mm. Follow-up low dose CT chest in 3 months recommended. (5) Acute on chronic renal failure: Qualifiers: Acute renal failure type: unspecified Chronic kidney disease stage: stage 3 (moderate) Qualified Code(s): N17.9 - Acute kidney failure, unspecified; N18.3 - Chronic kidney disease, stage 3 (moderate) Code(s): N17.9 - Acute kidney failure, unspecified; N18.9 - Chronic kidney disease, unspecified Status: Acute Assessment and Plan: continue IV hydration. Creat is 2.4, pt can start eating and drinking. 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 hold pts home DM medications today. can restart tomorrow. Subjective Date/time seen: 02/11/20 16:41 Interval history: 80 year old Diabetic female who presented to the hospital for acute altered mental status, pts blood sugar was low in 20s at the time of seizures, today 02/10 patient was seen by neurologist and suspect her seizure may have been related to hypoglycemia with blood sugar of 20s, though her CT scan of the head was negative for any acute injury. neurologist also concerned the patient may have stroke, however unable to do MRI because the body habitus, will repeat CT scan of the head and 3 days to further evaluate, currently patient having EEG will follow-up, will have a PT OT evaluate the patient, patient is quite under stress and depressed recently her family member , will have a PT OT evaluate the the patient patient will benefit home health an
[2020-02-11 17:37] LABS: Glucose Point of Care 184 (65-105)
[2020-02-11] MEDS: ONDANSETRON INJ 4 MG/2 ML VIAL IV PUSH (19:02)
[2020-02-11] MEDS: LIPASE/AMYLASE/PROTEASE 12,000 UNITS CAP 2 CAP PO (20:21)
[2020-02-11 22:29] LABS: Glucose Point of Care 199 (65-105)
[2020-02-11] MEDS: hydrOXYzine HCL 25 MG TABLET PO (23:21)
[2020-02-12] VITALS (10 sets, daily range): BP systolic 121–144; BP diastolic 53–79; PULSE 68–90; RESP 20–34; TEMP 36.7–37; O2SAT 92–100
--- NOTE | 2020-02-12 00:32 | ECG_ITS ---
Measurements Intervals [place] Rate: 77 P: 205 PA: 208 QRS: 217 QRSD: 133 T: 31 QT: 462 QTc: 523 Interpretive Statements ELECTRONIC ATRIAL PACEMAKER ELECTRONIC VENTRICULAR PACEMAKER BASELINE ARTIFACT- I, II, III, AVR, AVL, AVF NO FURTHER INTERPRETATION IS POSSIBLE ATYPICAL ECG Electronically Signed On 02-12-2020 7:00:57 CDT by Yovany Forte D.O.
[2020-02-12 00:53] LABS: Glucose Point of Care 181 (65-105)
[2020-02-12 01:27] LABS: Troponin I 0.017 ng/mL (0.000-0.034)
--- NOTE | 2020-02-12 03:03 | PC.NURSE ---
At 2300 the patient called and began to complain of shortness of breath. Patient hyperventilating. Vital signs obtained and stable. Oxygen saturation 99% on room air. RN/RN FLOAT agreed to stay with patient. Complaints by the patient of extreme nervousness and multiple requests to see her daughter. The patient's daughter was called and the RN spoke with her on the phone personally. She said that her mother has anxiety attacks when she is admitted to the hospital and that she believes it is due to her IV fluids going at too fast a rate she believes that the patient begins 3rd spacing her fluids and feels like she cannot breathe . RN explained that the patient's oxygen saturation and the rest of her vitals are normal and stable other than her respiratory rate, due to her anxiety. Both patient and daughter requested that the daughter be allowed to stay overnight, RN explained current visitor policies to the both of them, but explained that I would ask the house officer if there was anything we could do. Patient began to complain of nausea, and PRN hydroxyzine given. Both synthetic department supervisor and Dr. Mccormick were notified of the situation and no new medication orders were received. synthetic department supervisor came and talked with the patient and assessed her personally. Precautionary EKG ordered due to patient new complaint of burning in her chest. Dr. Mccormick called again and Troponin level STAT and 2V chest x-ray ordered for the morning. Patient taken to the bathroom and placed in a recliner with a chair alarm. Began to say she felt a little bit better. patient calmed down enough for the RN to believe that she was safe to be left alone. Call light placed within reach of the patient. Patient has been and will continue to be monitored closely throughout the night.
[2020-02-12] MEDS: ONDANSETRON INJ 4 MG/2 ML VIAL IV PUSH (03:46)
[2020-02-12] MEDS: levETIRAcetam 500MG/NACL 100ML 500 MG/100 ML BAG 400 MG IVPB ×2 (05:34→17:38)
[2020-02-12] MEDS: hydrOXYzine HCL 25 MG TABLET PO ×2 (05:34→21:53)
[2020-02-12] MEDS: OLANZapine 10 MG INJ VIAL 2.5 MG IM ×2 (09:40→20:06)
[2020-02-12 09:45] LABS: Glucose Point of Care 194 (65-105)
[2020-02-12] MEDS: SODIUM CHLORIDE 0.9% IV 1,000 ML 125 ML IV CONT (09:55)
[2020-02-12] MEDS: LIPASE/AMYLASE/PROTEASE 12,000 UNITS CAP 1 CAP PO ×3 (10:00→17:38)
[2020-02-12] MEDS: PYRIDOXINE HCL 50 MG TABLET 400 MG PO (10:00)
[2020-02-12] MEDS: VENLAFAXINE HCL XR 75 MG CAP.ER.24H 150 MG PO (10:01)
[2020-02-12] MEDS: FLUTICASONE PROPIONATE 0.05% NA SPR 16 GM BTL (*BKC) 2 SPRAY NASAL (10:01)
[2020-02-12] MEDS: amLODIPine BESYLATE 5 MG TABLET PO (10:01)
[2020-02-12] MEDS: FUROSEMIDE 20 MG TABLET 60 MG PO (10:01)
[2020-02-12] MEDS: PANTOPRAZOLE 40 MG TABLET PO ×2 (10:01→20:06)
[2020-02-12] MEDS: carvediloL 12.5 MG TABLET PO ×2 (10:02→20:05)
[2020-02-12] MEDS: SPIRONOLACTONE 25 MG TABLET PO (10:03)
[2020-02-12] MEDS: metOLazone 2.5 MG TABLET PO (10:03)
[2020-02-12 10:29] LABS: Hematocrit 37.5 % (37.0-47.0); Immature Platelet Fraction Pct 2.4 % (0.9-11.2); Mean Corpuscular HGB Conc 34.7 g/dl (32-36); Mean Corpuscular Hemoglobin 32.7 pg (26-34); Mean Corpuscular Volume 94.2 fl (80-100); Mean Platelet Volume 10.8 fl (7.4-10.4); Platelet Count Result 120 k/mm3 (150-375); Red Blood Count 3.98 M/mm3 (4.2-5.4); Red Cell Distribution Width 12.4 % (11.5-14.5); White Blood Count 7.2 K/mm3 (4.5-10.0)
[2020-02-12 11:11] LABS: Anion Gap 8 mmol/L (8-16); Blood Urea Nitrogen 50 mg/dL (7-17); Carbon Dioxide 23 mmol/L (22-30); Chloride 105 mmol/L (98-107); Estimated CRCL calculation 29 ml/min; Estimated Glomerular Filt Rate 31; Glucose 200 mg/dL (65-105); Magnesium 1.8 mg/dL (1.6-2.3); Sodium 136 mmol/L (137-145)
[2020-02-12] MEDS: DOCUSATE SODIUM LIQ 100 MG/10 ML UDC 250 MG PO (12:20)
[2020-02-12 12:35] LABS: Glucose Point of Care 181 (65-105)
--- NOTE | 2020-02-12 14:59 | PM.IMPN ---
Progress Note: A&P Assessment and Plan (1) Acute encephalopathy: Code(s): G93.40 - Encephalopathy, unspecified Status: Acute Assessment and Plan: 02/12/20 14:59 CT head negative, seen by neurology awaiting MRI. Pt is currently on IV keppra. much improvement with neurological status. Encephalopathy secondary to infection or seizure activity and hypoglycemia 80 year old Diabetic female who presented to the hospital for acute altered mental status, pts blood sugar was low in 20s at the time of seizures, today 02/10 patient was seen by neurologist and suspect her seizure may have been related to hypoglycemia with blood sugar of 20s, though her CT scan of the head was negative for any acute injury. neurologist also concerned the patient may have stroke, however unable to do MRI because the body habitus, will repeat CT scan of the head and 3 days to further evaluate, today patient is quite anxious and somewhat agitated patient was given low-dose of Zyprexa time, daughter is present in the room, patient does have a psychiatric history and seen by psychiatrist, patient had a repeat CT scan of the head which is negative for any acute injury suggesting patient did not have a stroke patient clinically stable, EEG pending, and no seizure while in the hospital, patient urine is growing Proteus mirabilis sensitive to cefepime will continue and stop vancomycin, will stop the IV fluids as patient eating and drinking to avoid volume overload, will have a PT OT evaluate the patient and further recommendation to follow (2) Acute respiratory failure with hypercapnia: Code(s): J96.02 - Acute respiratory failure with hypercapnia Status: Acute Assessment and Plan: Pt can be weaned off BIPAP doing much better. patient is doing much better on room air (3) Hypoglycemia: Code(s): E16.2 - Hypoglycemia, unspecified Status: Resolved Assessment and Plan: Hypoglycemic orders are already ordered (4) Acute UTI: Code(s): N39.0 - Urinary tract infection, site not specified Status: Acute Assessment and Plan: Continue IV cefepimie and vancomycin, urine culture is growing Proteus mirabilis will follow-up on sensitivity and further recommendation to follow, CT chest abdo and pelvis shows- Bilateral subsolid nodules measuring up to 8 mm. Follow-up low dose CT chest in 3 months recommended. (5) Acute on chronic renal failure: Qualifiers: Acute renal failure type: unspecified Chronic kidney disease stage: stage 3 (moderate) Qualified Code(s): N17.9 - Acute kidney failure, unspecified; N18.3 - Chronic kidney disease, stage 3 (moderate) Code(s): N17.9 - Acute kidney failure, unspecified; N18.9 - Chronic kidney disease, unspecified Status: Acute Assessment and Plan: continue IV hydration. Creat is 2.4, pt can start eating and drinking. 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 hold pts home DM medications today. can restart tomorrow. Subjective Date/time seen: 02/12/20 14:59 CT head negative, seen by neurology awaiting MRI. Pt is currently on IV keppra. much improvement with neurological status. Encephalopathy secondary to infection or seizure activity and hypoglycemia 80 year old Diabetic female who presented to the hospital for acute altered mental status, pts blood sugar was low in 20s at the time of seizures, today 02/10 patient was seen by miah
[2020-02-12 17:36] LABS: Glucose Point of Care 236 (65-105)
[2020-02-12] MEDS: BENZONATATE 100 MG CAPSULE 200 MG PO (17:37)
[2020-02-12] MEDS: guaiFENesin 200 MG/10 ML UDC PO ×2 (17:37→21:53)
[2020-02-12] MEDS: INSULIN ASPART (*BKC) 100 UNITS/ML SUB-Q (17:39)
[2020-02-12] MEDS: INSULIN GLARGINE (*BKC) 100 UNITS/ML 20 UNITS SUB-Q (17:40)
[2020-02-12] MEDS: LIPASE/AMYLASE/PROTEASE 12,000 UNITS CAP 2 CAP PO (20:06)
[2020-02-12] MEDS: TOLNAFTATE 1% POWDER 45 GM BTL 1 APPLIC TOPICAL (20:10)
[2020-02-12 21:12] LABS: Glucose Point of Care 180 (65-105)
[2020-02-13 00:10] VITALS: BP 136/82; PULSE 89; RESP 42; O2SAT 98
[2020-02-13 00:39] LABS: Alveolar/Arterial O2 Gradient 99.8 mmHg; Base Excess ABG 2.4 mEq/l (+/-2.0); Carboxyhemoglobin 0.3 % THb (0-2.0); Fractional Inspired Oxygen 28 %; HCO3 ABG 18.9 mEq/l (22.0-26.0); Methemoglobin ABG 0.1 %THb (0-1.5); Oxygen Content ABG 19.5 %vol (16.0-22.0); Oxygen Saturation ABG 98.2 % (95.0-100.0); Oxyhemoglobin 96.8 % THb (90.0-100.0); PO2 ABG 82.3 mmHg (80.0-100.0); PO2 FiO2 Ratio Arterial Blood 2.94 %; Reduced Hemoglobin 2.8 %THb (0-5.0); Total Hemoglobin 14.3 g/dL (12.0-18.0)
[2020-02-13 00:42] LABS: Modified Allen's Test Pass; PCO2 ABG 14.9 mmHg (35.0-45.0); Site Drawn LEFT RADIAL
[2020-02-13 00:43] LABS: Device CPAP
[2020-02-13] MEDS: diazePAM INJ (*CRX) 10 MG/2 ML SYRINGE 2.5 MG IV PUSH (00:58)
[2020-02-13 01:20] VITALS: O2SAT 96
--- NOTE | 2020-02-13 02:00 | PC.NURSE ---
Patient is hyperventilating and will not follow commands on proper breathing. Patient is very anxious and will not keep her CPAP on.Patient wants someone at bedside at all times. This nurse stayed in the room with her and tried talk her through her breathing but will not follow direction. MD was notified and PRN medication was given and no change in breathing. Patient was instructed to breathing in paper bag with the help of this nurse and she refused several times. When patient finally used the paper bag her breathing slowed down and she became less anxious but continues to refuse to use bag after a minute of proper breathing.
[2020-02-13 06:00] VITALS: BP 148/68; PULSE 85; RESP 20; TEMP 36.8; O2SAT 96
[2020-02-13 06:10] LABS: Hematocrit 38.6 % (37.0-47.0); Mean Corpuscular HGB Conc 33.7 g/dl (32-36); Mean Corpuscular Hemoglobin 32.2 pg (26-34); Mean Corpuscular Volume 95.5 fl (80-100); Mean Platelet Volume 10.2 fl (7.4-10.4); Platelet Count Result 118 k/mm3 (150-375); Red Blood Count 4.04 M/mm3 (4.2-5.4); Red Cell Distribution Width 12.3 % (11.5-14.5); White Blood Count 7.9 K/mm3 (4.5-10.0)
[2020-02-13] MEDS: levETIRAcetam 500MG/NACL 100ML 500 MG/100 ML BAG 400 MG IVPB (06:24)
[2020-02-13 06:39] LABS: Anion Gap 6 mmol/L (8-16); Blood Urea Nitrogen 46 mg/dL (7-17); Calcium 9.3 mg/dL (8.4-10.2); Carbon Dioxide 30 mmol/L (22-30); Chloride 101 mmol/L (98-107); Estimated CRCL calculation 26 ml/min; Estimated Glomerular Filt Rate 27; Glucose 209 mg/dL (65-105); Potassium 3.7 mmol/L (3.4-5.0); Sodium 137 mmol/L (137-145)
[2020-02-13 08:00] VITALS: PULSE 85; RESP 20; O2SAT 96
[2020-02-13] MEDS: OLANZapine 10 MG INJ VIAL 5 MG IM (08:28)
[2020-02-13 09:47] LABS: Glucose Point of Care 148 (65-105)
--- NOTE | 2020-02-13 10:40 | PM.DS ---
DS: Admitting Diagnosis Admitting Diagnosis Admitting Diagnosis: Delirium, UTI, Hypoglycemia DS: Discharge Diagnosis Discharge Diagnosis (1) Acute encephalopathy: Code(s): G93.40 - Encephalopathy, unspecified Status: Acute Assessment and Plan: 02/12/20 14:59 CT head negative, seen by neurology awaiting MRI. Pt is currently on IV keppra. much improvement with neurological status. Encephalopathy secondary to infection or seizure activity and hypoglycemia 80 year old Diabetic female who presented to the hospital for acute altered mental status, pts blood sugar was low in 20s at the time of seizures, today 02/10 patient was seen by neurologist and suspect her seizure may have been related to hypoglycemia with blood sugar of 20s, though her CT scan of the head was negative for any acute injury. neurologist also concerned the patient may have stroke, however unable to do MRI because the body habitus, will repeat CT scan of the head and 3 days to further evaluate, today patient is quite anxious and somewhat agitated patient was given low-dose of Zyprexa time, daughter is present in the room, patient does have a psychiatric history and seen by psychiatrist, patient had a repeat CT scan of the head which is negative for any acute injury suggesting patient did not have a stroke patient clinically stable, EEG pending, and no seizure while in the hospital, patient urine is growing Proteus mirabilis sensitive to cefepime will continue and stop vancomycin, will stop the IV fluids as patient eating and drinking to avoid volume overload, will have a PT OT evaluate the patient and further recommendation to follow (2) Acute respiratory failure with hypercapnia: Code(s): J96.02 - Acute respiratory failure with hypercapnia Status: Acute Assessment and Plan: Pt can be weaned off BIPAP doing much better. patient is doing much better on room air (3) Hypoglycemia: Code(s): E16.2 - Hypoglycemia, unspecified Status: Resolved Assessment and Plan: Hypoglycemic orders are already ordered (4) Acute UTI: Code(s): N39.0 - Urinary tract infection, site not specified Status: Acute Assessment and Plan: Continue IV cefepimie and vancomycin, urine culture is growing Proteus mirabilis will follow-up on sensitivity and further recommendation to follow, CT chest abdo and pelvis shows- Bilateral subsolid nodules measuring up to 8 mm. Follow-up low dose CT chest in 3 months recommended. (5) Acute on chronic renal failure: Qualifiers: Acute renal failure type: unspecified Chronic kidney disease stage: stage 3 (moderate) Qualified Code(s): N17.9 - Acute kidney failure, unspecified; N18.3 - Chronic kidney disease, stage 3 (moderate) Code(s): N17.9 - Acute kidney failure, unspecified; N18.9 - Chronic kidney disease, unspecified Status: Acute Assessment and Plan: continue IV hydration. Creat is 2.4, pt can start eating and drinking. 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 hold pts home DM medications today. can restart tomorrow. DS: Summary Hospital Course Reason for hospitalization: Chief complaint: Delirium, UTI, Hypoglycemia Narrative: This is an 80 year old Diabetic female who presented to the hospital for acute altered mental satatus. The patient's daughter is at bedside and explains that the patient is normally wheelchair bound and yest
[2020-03-14 11:05] LABS: Glucose Point of Care < 20 (65-105)
[2020-03-14 11:07] LABS: Glucose Point of Care < 20 (65-105)
== END 2020-02-13 11:30 | disposition home health service (06) | DRG 689 ==
LOC: ANHED 05:13 → ANHIMU 05:35 → ANH3MEDSUR 02-11 13:13 → ANHIMU 02-16 13:44
PROVIDERS: Internal Medicine; Admitting Provider Family Medicine; Emergency Provider Emergency Medicine; PCP Internal Medicine; Visit Provider Family Medicine
DX: N39.0 Urinary tract infection, site not specified (principal); J96.02 Acute respiratory failure with hypercapnia; E11.641 Type 2 diabetes mellitus with hypoglycemia with coma; G93.40 Encephalopathy, unspecified; N17.9 Acute kidney failure, unspecified; N18.3 Chronic kidney disease, stage 3 (moderate); B96.4 Proteus (mirabilis) (morganii) as the cause of diseases classified elsewhere
CPT/HCPCS: 36415; 36600; 51701; 70450; 71045; 71046; 71250; 74176; 80048; 81001; 82140; 82375; 82607; 82746; 82805; 82948; 83050; 83605; 83735; 84443; 84484; 85025; 85027; 85055; 85610; 85730; 86140; 87040; 87077; 87086; 87088; 87186; 93005; 95816; 96361; 96365; 96367; 96375; 97110; 97161; 97165; 97530; 99285; A9270; G0378; J0692; J1815; J1953; J2060; J2405; J3360; J3370; J7030

== ENCOUNTER 2020-10-24 16:44 | Emergency (ER) | payer MEDICARE, OTHER, SELFPAY ==
[2020-10-24 16:50] VITALS: BP 148/74; PULSE 82; RESP 24; TEMP 37.2; O2SAT 100
--- NOTE | 2020-10-24 16:57 | ED.FEMALEGU ---
HPI - Female Genitourinary General Chief complaint: Urogenital-Female Stated complaint: epigastric pain/painful urination Time Seen by Provider: 10/24/20 16:57 Source: patient and RN notes reviewed Mode of arrival: ambulatory Limitations: no limitations History of Present Illness HPI Narrative: 80-year-old female presents with concern for bilateral upper abdominal pain, dysuria. Reports 3-week history of worsening upper abdominal pain, 2-week history of dysuria. She reports shortness of breath and swollen feet. She denies nausea, vomiting, diarrhea, constipation, decreased appetite. Reports she has been without her lift chair and has been having to lift herself manually from seated position to which she attributes the abdominal pain. MD elicited complaint: dysuria Related Data Home Medications Medication Instructions Recorded Confirmed Airborne Gummy 250 mg PO DAILY 02/10/20 02/10/20 Creon 1 cap PO HS 02/10/20 02/10/20 Creon 1 cap PO TID 02/10/20 02/10/20 Lantus U-100 Insulin 20 unit SUBCUT QPM 02/10/20 02/10/20 Lantus U-100 Insulin 50 unit SUBCUT DAILY 02/10/20 02/10/20 Linzess 75 mcg PO DAILY 02/10/20 02/10/20 amlodipine 5 mg PO DAILY 02/10/20 02/10/20 aspirin 81 mg PO BID 02/10/20 02/10/20 carvedilol 12.5 mg PO BID 02/10/20 02/10/20 cyanocobalamin (vitamin B-12) 400 mcg PO DAILY 02/10/20 02/10/20 [Vitamin B-12] docusate sodium [Colace] 250 mg PO QNOON 02/10/20 02/10/20 ergocalciferol (vitamin D2) 50,000 unit PO WEEKLY 02/10/20 02/10/20 fluticasone propionate [Flonase 2 spray INTRANASAL DAILY 02/10/20 02/10/20 Allergy Relief] furosemide 60 mg PO DAILY 02/10/20 02/10/20 gabapentin 300 mg PO QID 02/10/20 02/10/20 glucosamine sulfate [Glucosamine] 500 mg PO QNOON 02/10/20 02/10/20 insulin aspart U-100 [Novolog 1 sliding scale dose SUBCUT AC 02/10/20 02/10/20 U-100 Insulin aspart] insulin aspart U-100 [Novolog 1 sliding scale dose SUBCUT TID 02/10/20 02/10/20 U-100 Insulin aspart] levothyroxine [Synthroid] 150 mcg PO DAILY 02/10/20 02/10/20 nystatin [Nystop] 1 applic TOPICAL BID PRN 02/10/20 02/10/20 omeprazole 40 mg PO DAILY 02/10/20 02/10/20 pyridoxine (vitamin B6) 400 mg PO DAILY 02/10/20 02/10/20 spironolactone 25 mg PO DAILY 02/10/20 02/10/20 venlafaxine 150 mg PO DAILY 02/10/20 02/10/20 Allergies Allergy/AdvReac Type Severity Reaction Status Date / Time meperidine Allergy Mild Itching Verified 01/13/19 15:10 niacin Allergy Mild Rash Verified 01/13/19 15:10 quetiapine Allergy Mild Swelling Verified 01/13/19 15:10 bupropion Allergy Unknown JERKY Verified 01/13/19 15:10 MOVEMENTS codeine Allergy Unknown Verified 01/13/19 15:10 enalapril Allergy Unknown Verified 01/13/19 15:10 fluoxetine Allergy Unknown Verified 01/13/19 15:10 lorazepam Allergy Unknown Verified 01/13/19 15:10 morphine Allergy Unknown Verified 01/13/19 15:10 Penicillins Allergy Unknown Verified 01/13/19 15:10 trazodone Allergy Unknown Dizziness Verified 01/13/19 15:10 enalaprilat AdvReac Mild PERSISTENT Verified 01/13/19 15:10 COUGH modafinil AdvReac Mild SORES Verified 01/13/19 15:10 oxycodone AdvReac Mild GI DISTRESS Verified 01/13/19 15:10 Review of Systems Review of Systems: Narrative: CONSTITUTIONAL: Denies malaise, chills, sweats, or fever. ENT: Denies rhinorrhea, congestion, sinus pain, otalgia or sore throat. CARDIOVASCULAR: Denies chest pain, palpitations. Reports bilateral lower leg edema. RESPIRATORY: Denies cough. Reports dyspnea. GASTROINTESTINAL: Reports bilateral upper abdominal pain, nausea. Denies vomiting, diarrhea, bloody, or mucous stools. GENITOURINARY: Reports dysuria, foul-smelling urine SKIN: Denies bruising, redness, open skin MUSCULOSKELETAL: Denies back pain, joint pain, or myalgia. NEUROLOGIC: Denies numbness, weakness, confusion, or headache. All systems reviewed & are unremarkable except as noted in HPI and below PMFSH Past Medical History Medical History (Updated 10/24/20 @ 17:19 by Marce Jon
[2020-10-24 17:05] VITALS: BP 148/74; PULSE 82; RESP 24; TEMP 37.2; O2SAT 100
== END 2020-10-24 17:21 | disposition short-term general hospital (02) ==
PROVIDERS: Emergency Provider Nurse Practitioner
DX: R10.12 Left upper quadrant pain (principal); R10.11 Right upper quadrant pain; E11.9 Type 2 diabetes mellitus without complications; Z79.4 Long term (current) use of insulin; Z79.82 Long term (current) use of aspirin; I48.91 Unspecified atrial fibrillation; E78.00 Pure hypercholesterolemia, unspecified; I10 Essential (primary) hypertension; Z95.0 Presence of cardiac pacemaker; J44.9 Chronic obstructive pulmonary disease, unspecified; G47.30 Sleep apnea, unspecified; Z98.1 Arthrodesis status; M19.90 Unspecified osteoarthritis, unspecified site; E89.0 Postprocedural hypothyroidism; F41.9 Anxiety disorder, unspecified; F32.9 Major depressive disorder, single episode, unspecified
CPT/HCPCS: 81003; 99212; G0463

== ENCOUNTER 2020-10-24 17:48 | Inpatient (IN) | payer MEDICARE, OTHER, SELFPAY ==
[2020-10-24] VITALS (8 sets, daily range): BP systolic 132–180; BP diastolic 49–79; PULSE 79–89; RESP 16–22; TEMP 36.4–36.8; O2SAT 95–100; BMI 41.7
--- NOTE | ~2020-10-24 | XR_ITS ---
EXAMINATION: XR abdomen obstructive series DATE: 10/26/2020 10:45 INDICATION: Elevated lactic acid. Diarrhea. TECHNIQUE: Frontal supine and upright views of the abdomen were obtained. COMPARISON: None. FINDINGS: Moderate amount of gas and stool scattered throughout the colon. No dilated gas-filled loops of bowel to suggest obstruction. No free intraperitoneal gas. Calcified nodules in the right lower lung and c alcified bilateral hilar lymph nodes consistent with old granulomatous disease. Cardiomegaly. Three l ead pacemaker seen with leads projecting over the expected locations of the right atrial appendage, a pex of the right ventricle and overlying the left ventricle likely having traversed the coronary sinu s. Multiple chronic compression fractures with change of vertebroplasty at T11-L4. IMPRESSION: 1. No free intraperitoneal gas or dilated gas-filled loops of bowel to suggest obstruction. Reviewed, dictated and finalized at location A.
--- NOTE | ~2020-10-24 | CT_ITS ---
EXAMINATION: CT brain wo con DATE: 10/26/2020 09:28 INDICATION: Altered mental status. TECHNIQUE: Computed tomography (CT) of the head was performed without intravenous contrast. The mA wa s adjusted according to patient size. Iterative reconstruction technique was employed. The dose-lengt h product was 605.33 mGy-cm. COMPARISON: Head CT 02/12/2020 FINDINGS: There is an old lacunar infarct in the canelo. There are scattered areas of low attenuation i n the cerebral white matter. There is no intracranial hemorrhage, acute infarction, or abnormal intra cranial mass lesion. The ventricles are normal in size. The paranasal sinuses are clear. The mastoid air cells are normal. There are likely changes of ocular lens replacement surgeries. There are multip le areas of skin thickening of the scalp. IMPRESSION: 1. 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 2. Stable moderate nonspecific cerebral white matter disease, which likely represents chronic small v essel ischemic disease. Reviewed, dictated and finalized at location A. IMPRESSION: 1. 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 2. Stable moderate nonspecific cerebral white matter disease, which likely repr esents chronic small vessel ischemic disease.
--- NOTE | ~2020-10-24 | XR_ITS ---
XR chest 1V portable DATE: 10/27/2020 16:31 INDICATION: Shortness of breath. Atrial fibrillation, COPD, hypertension TECHNIQUE: Portable AP chest on 10/27/2020 at 1629 hours COMPARISON: 02/11/2022 view chest FINDINGS: Left-sided triple lead pacemaker device with leads overlying right atrium, right ventricle and coronary sinus. Cardiomegaly. There is old pulmonary granulomatous disease. Minimal infiltrate or atelectasis in the lower lung zones. The lungs are otherwise clear. No pulmonar y vascular congestion or pleural effusion or pneumothorax. Diffuse osteopenia. Vertebroplasty is noted at the included 2 contiguous lower thoracic vertebral bod ies. IMPRESSION: Cardiomegaly Triple lead left-sided pacemaker device Minimal infiltrate or atelectasis at the lung bases Reviewed, dictated and finalized at location A.
--- NOTE | ~2020-10-24 | CT_ITS ---
EXAMINATION: CT abdomen pelvis wo con DATE: 10/24/2020 18:27 INDICATION: Generalized abdominal pain. Recent urinary tract infection. TECHNIQUE: Computed tomography (CT) of the abdomen and pelvis was performed without intravenous contr ast. Automated exposure control and iterative reconstruction technique were employed. Exam dose: 111 5.77 mGy-cm total exam DLP. COMPARISON: None. FINDINGS: Cardiomegaly. Right atrial, right ventricular and coronary sinus pacemaker leads. No perica rdial effusion. Small sliding hiatal hernia. There is pneumobilia. There is one or more common bile duct stone(s) or common bile duct mass measuring up to 10.7 x 19 mm maximal dimension. Consider MRCP or ERCP for further evaluation. Status post cholecystectomy. There is surface nodularity of the lower suggesting possible cirrhosis; clinical correlation is recommended. The spleen measures 12.4 cm vertical dimension, with 14 cm being upper limits of normal. There are numerous hepatic and splenic calcified granulomas consistent with old granulomatous disease. There is severe atrophy and scarring of the left kidney. Approximately 2 subtle nonobstructing pinpoi nt left renal calculi are noted. No other urinary tract calculi are evident. There is moderate diffuse thickening of the wall of the urinary bladder. Status post hysterectomy. There is atherosclerotic calcification of the abdominal aorta and branches but no abdominal aortic an eurysm. No intraperitoneal or retroperitoneal or pelvic mass lesion or adenopathy or ascites is evide nt. Diverticulosis of the colon; no CT evidence of diverticulitis. The appendix is not visualized. No bowel obstruction, bowel wall thickening, pneumatosis or intraperi toneal free air. Small fat-containing umbilical hernia, bilateral fat-containing inguinal hernias, larger on the left. Numerous lower thoracic and lumbar vertebral fracture deformities and vertebroplasties. Multilevel de generative disc disease. IMPRESSION: Cardiomegaly; triple lead pacemaker Small sliding hiatal hernia Status post cholecystectomy; pneumobilia 10.7 x 19 mm common bile duct stone(s) or mass Surface nodularity of liver suggesting cirrhosis, borderline splenic size Severe atrophy and scarring of left kidney 2. 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 Reviewed, dictated and finalized at location A. IMPRESSION: Cardiomegaly; triple lead pacemaker Small sliding hiatal hernia Status post cholecystectomy; pneumobilia 10.7 x 19 mm common bile duct stone(s) or mass Surface nodularity of liver suggesting cirrhosis, borderline splenic size Severe atrophy and scarring of left kidney 2. 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
--- NOTE | ~2020-10-24 | XR_ITS ---
XR ERCP DATE: 10/25/2020 16:51 INDICATION: Cholelithiasis TECHNIQUE: 3 spot C-arm images of the right upper quadrant 276.9 seconds fluoroscopy time 81.99 mGy COMPARISON: 10/24/2020 CT abdomen pelvis FINDINGS: An endoscope is present on 2 of 3 views, with guidewire and catheter extending into the gillian iary tree and some injection of contrast material, with opacification of some intrahepatic bile ducts . The extrahepatic bile ducts are largely if not completely unopacified. Some air is noted within the biliary tree. IMPRESSION: Recommend reference to the endoscopic procedure report. Reviewed, dictated and finalized at [facility]. Reviewed, dictated and finalized at location A.
[2020-10-24] MEDS: SODIUM CHLORIDE 0.9% IV 500 ML 999 ML IV CONT (18:39)
[2020-10-24 18:46] LABS: Basophils Absolute Auto 0.1 K/mm3 (0.0-0.1); Basophils Percent Auto 0.7 % (0.2-1.2); Eosinophils Absolute Auto 0.2 K/mm3 (0-0.3); Eosinophils Percent Auto 2.6 % (0-4.4); Hematocrit 39.1 % (37.0-47.0); Hemoglobin 13.1 g/dL (12.0-15.0); Immature Granulocyte Absolute 0.03 K/mm3 (0.00-0.031); Immature Granulocyte Percent A 0.3 % (0-0.5); Immature Platelet Fraction Pct 4.5 % (0.9-11.2); Lymphocytes Absolute Auto 1.92 K/mm3 (0.9-3.2); Lymphocytes Percent Auto 20.5 % (18.3-44.2); Mean Corpuscular HGB Conc 33.5 g/dl (32-36); Mean Corpuscular Hemoglobin 32.3 pg (26-34); Mean Corpuscular Volume 96.5 fl (80-100); Monocytes Absolute Auto 0.6 K/mm3 (0.1-0.6); Monocytes Percent Auto 6.2 % (2.6-8.5); Neutrophils Absolute Auto 6.5 K/mm3 (1.3-6.7); Neutrophils Percent Auto 69.7 % (45.5-73.1); Platelet Count Result 136 k/mm3 (150-375); Red Blood Count 4.05 M/mm3 (4.2-5.4); Red Cell Distribution Width 12.4 % (11.5-14.5); White Blood Count 9.4 K/mm3 (4.5-10.0)
[2020-10-24 18:53] LABS: Alanine Aminotransferase 52 U/L (4-35); Albumin Level 4.1 g/dL (3.5-5.1); Alkaline Phosphatase 149 U/L (38-126); Anion Gap 9 mmol/L (8-16); Aspartate Amino Transferase 78 U/L (14-36); Bilirubin,Total 0.8 mg/dL (0.2-1.3); Blood Urea Nitrogen 49 mg/dL (7-17); Calcium 9.3 mg/dL (8.4-10.2); Carbon Dioxide 30 mmol/L (22-30); Chloride 100 mmol/L (98-107); Estimated CRCL calculation 24 ml/min; Estimated Glomerular Filt Rate 25; Glucose 115 mg/dL (65-105); Lipase 200 U/L (23-300); Potassium 4.9 mmol/L (3.4-5.0); Sodium 139 mmol/L (137-145)
[2020-10-24] MEDS: PROMETHAZINE HCL 25 MG/ML AMPUL 12.5 MG IV PUSH (19:02)
[2020-10-24 19:15] LABS: Add Urine Microscopic? YES; Appearance Urine Cloudy (Clear); Bacteria Urine Trace /hpf; Bilirubin Urine Negative (Negative); Color Urine Yellow (Yellow); Glucose Urine UA Negative (Negative); Ketones Urine Negative (Negative); Leukocyte Esterase Ur 3+ LEU/UL (Negative); Nitrate Urine Negative (Negative); Protein Urine Negative (Negative); Squamous Epithelial Cell Urine Rare /hpf (Few); Urobilinogen Urine Negative mg/dL (<2.0); WBC Clumps Urine Present /HPF; WBC Urine >75 /hpf
[2020-10-24 19:16] LABS: Blood Urine Negative (Negative)
--- NOTE | 2020-10-24 19:41 | ED.ABDPAIN ---
HPI - Abdominal Pain General Chief Complaint: Abdominal Pain Stated Complaint: abd pain, possible uti, from urgent care Time Seen by Provider: 10/24/20 18:01 Source: patient, family, RN notes reviewed and old records reviewed Mode of arrival: ambulatory Limitations: no limitations History of Present Illness HPI narrative: Patient is a 80-year-old female who presents with several days of worsening abdominal pain that is generalized in nature patient was seen at an urgent care diagnosed with urinary tract infection but referred to ER for abdominal pain patient notes some nausea denies emesis no she has had frequent urinary tract infections. Patient has not taken anything for her symptoms on arrival appears uncomfortable but not distressed Related Data Home Medications Medication Instructions Recorded Confirmed Airborne Gummy 250 mg PO DAILY 02/10/20 02/10/20 Creon 1 cap PO HS 02/10/20 02/10/20 Creon 1 cap PO TID 02/10/20 02/10/20 Lantus U-100 Insulin 20 unit SUBCUT QPM 02/10/20 02/10/20 Lantus U-100 Insulin 50 unit SUBCUT DAILY 02/10/20 02/10/20 Linzess 75 mcg PO DAILY 02/10/20 02/10/20 amlodipine 5 mg PO DAILY 02/10/20 02/10/20 aspirin 81 mg PO BID 02/10/20 02/10/20 carvedilol 12.5 mg PO BID 02/10/20 02/10/20 cyanocobalamin (vitamin B-12) 400 mcg PO DAILY 02/10/20 02/10/20 [Vitamin B-12] docusate sodium [Colace] 250 mg PO QNOON 02/10/20 02/10/20 ergocalciferol (vitamin D2) 50,000 unit PO WEEKLY 02/10/20 02/10/20 fluticasone propionate [Flonase 2 spray INTRANASAL DAILY 02/10/20 02/10/20 Allergy Relief] furosemide 60 mg PO DAILY 02/10/20 02/10/20 gabapentin 300 mg PO QID 02/10/20 02/10/20 glucosamine sulfate [Glucosamine] 500 mg PO QNOON 02/10/20 02/10/20 insulin aspart U-100 [Novolog 1 sliding scale dose SUBCUT AC 02/10/20 02/10/20 U-100 Insulin aspart] insulin aspart U-100 [Novolog 1 sliding scale dose SUBCUT TID 02/10/20 02/10/20 U-100 Insulin aspart] levothyroxine [Synthroid] 150 mcg PO DAILY 02/10/20 02/10/20 nystatin [Nystop] 1 applic TOPICAL BID PRN 02/10/20 02/10/20 omeprazole 40 mg PO DAILY 02/10/20 02/10/20 pyridoxine (vitamin B6) 400 mg PO DAILY 02/10/20 02/10/20 spironolactone 25 mg PO DAILY 02/10/20 02/10/20 venlafaxine 150 mg PO DAILY 02/10/20 02/10/20 Allergies Allergy/AdvReac Type Severity Reaction Status Date / Time meperidine Allergy Mild Itching Verified 10/24/20 18:11 niacin Allergy Mild Rash Verified 10/24/20 18:11 quetiapine Allergy Mild Swelling Verified 10/24/20 18:11 bupropion Allergy Unknown JERKY Verified 10/24/20 18:11 MOVEMENTS codeine Allergy Unknown Unknown Verified 10/24/20 18:11 enalapril Allergy Unknown Unknown Verified 10/24/20 18:11 fluoxetine Allergy Unknown Unknown Verified 10/24/20 18:11 lorazepam Allergy Unknown Unknown Verified 10/24/20 18:11 morphine Allergy Unknown Unknown Verified 10/24/20 18:11 Penicillins Allergy Unknown Unknown Verified 10/24/20 18:11 trazodone Allergy Unknown Dizziness Verified 10/24/20 18:11 enalaprilat AdvReac Mild PERSISTENT Verified 10/24/20 18:11 COUGH modafinil AdvReac Mild SORES Verified 10/24/20 18:11 oxycodone AdvReac Mild GI DISTRESS Verified 10/24/20 18:11 Review of Systems Review of Systems: All systems reviewed & are unremarkable except as noted in HPI and below PMFSH Past Medical History Medical History Diabetes mellitus Hypertension Surgical History Surgical History History of cholecystectomy Family History Family History Father Carcinoma of colon, Onset Age: 86 Family history of renal failure Mother Family history of diabetes mellitus in first degree relative, Onset Age: 80 Sibling No family history of malignant neoplasm Other Diabetes mellitus Family history of arthritis Family history of heart disease in male family member before age 55 Family
--- NOTE | 2020-10-24 20:58 | PC.NURSE ---
Report given to Lena RN on [facility], Nurse to call when room is clean.
--- NOTE | 2020-10-24 21:50 | ADMGEN ---
This patient, Roosevelt Penn, was admitted to Medical Room 341-01. Patient/family oriented to hospital policies and general routines including ID bracelet, bed and alarms, visiting hours, pain management, procedures, bathroom and other care routines, personal items, smoking policy, room service/diet, and visiting hours. Information on how to activate the Rapid Response Team has been discussed. Patient/Family are encouraged to report perceived risks to care and to ask questions if they do not understand what they are told or what they should do.
[2020-10-24 22:11] LABS: Glucose Point of Care 112 mg/dl (65-105)
[2020-10-24] MEDS: FAMOTIDINE 20 MG/2 ML VIAL IV PUSH (22:16)
[2020-10-24] MEDS: LACTATED RINGERS 1,000 ML 80 ML IV CONT (22:16)
--- NOTE | 2020-10-24 22:51 | PM.IMHP ---
H&P: HPI History of Present Illness Date/Time: 10/24/20 22:51 Chief Complaint: abdominal pain Narrative: Patient is a 80-year-old female who presents with 3 days of suddenly worsening abdominal pain that is generalized in nature, but mostly in the upper abdominal area. She was initially seen in the urgent care and was referee to ED. she reports she does get frequent UTi and this was also going on since past week or so. she admits to getting frequent UTIs. she denies any fever, chills. she started having sudden onset abdominal pain which was new and in hte upper area. she was evaluated in the ed to find a uti. however ct also revels pneumobilia when compared from ct done last year was much more pronounced. she also has possible stone or mass in CBD and hence getting admitted for further evaluation. Review of Systems Review of Systems: Narrative: - CONSTITUTIONAL: Denies weight loss, fever and chills. - HEENT: Denies changes in vision and hearing - RESPIRATORY: Denies SOB and cough. - CV: Denies palpitations and CP. - GI: reports abdominal pain, denies nausea, vomiting and diarrhea. - : reports dysuria and urinary frequency. - MSK: Denies myalgia and joint pain. - SKIN: Denies rash and pruritus. - NEUROLOGICAL: Denies headache and syncope. - PSYCHIATRIC: Denies recent changes in mood. Denies anxiety and depression. All systems reviewed & are unremarkable except as noted in HPI and below Constitutional: Constitutional: Reports fatigue and Reports weakness Neurologic: Reports weakness Endocrine: Endocrine: Reports fatigue PMFSH Past Medical History Medical History (Updated 10/25/20 @ 02:02 by Td Lloyd MD) Anxiety Arthritis Atrial fibrillation COPD (chronic obstructive pulmonary disease) Depression Diabetes mellitus Hypercholesteremia Hypertension Hypothyroidism Pacemaker Sleep apnea Surgical History Surgical History (Updated 10/25/20 @ 01:56 by Td Lloyd MD) History of cholecystectomy Hx of thyroidectomy Family History Family History Father Carcinoma of colon, Onset Age: 86 Family history of renal failure Mother Family history of diabetes mellitus in first degree relative, Onset Age: 80 Sibling No family history of malignant neoplasm Other Diabetes mellitus Family history of arthritis Family history of heart disease in male family member before age 55 Family history of malignant neoplasm Family history of mental disorder Family history of seizure disorder Hypertension Social History Social History (Updated 10/24/20 @ 22:30 by Liana Lyn RN) Smoking status: Never smoker Alcohol intake: former Substance use: never Living arrangements: with family Occupation/Education: retired Gender identity (if verbalized by the patient): Female Spiritual care concerns: No Meds Home Medications and Allergies Home Medications Medication Instructions Recorded Confirmed Type Airborne Gummy 250 mg PO DAILY 02/10/20 10/24/20 History Creon 1 cap PO HS 02/10/20 10/24/20 History Creon 1 cap PO TID 02/10/20 10/24/20 History Lantus U-100 Insulin 20 unit SUBCUT QPM 02/10/20 10/24/20 History Lantus U-100 Insulin 50 unit SUBCUT DAILY 02/10/20 10/24/20 History Linzess 75 mcg PO DAILY 02/10/20 10/24/20 History amlodipine 5 mg PO HS 02/10/20 10/24/20 History aspirin 81 mg PO DAILY 02/10/20 10/24/20 History carvedilol 12.5 mg PO BID 02/10/20 10/24/20 History docusate sodium [Colace] 250 mg PO QNOON 02/10/20 10/24/20 History ergocalciferol (vitamin D2) 50,000 unit PO WEEKLY 02/10/20 10/24/20 History fluticasone propionate [Flonase 2 spray INTRANASAL DAILY PRN 02/10/20 10/24/20 History Allergy Relief] furosemide 60 mg PO DAILY 02/10/20 10/24/20 History gabapentin 300 mg PO QID 02/10/20 10/24/20 History glucosamine sulfate [Glucosamine] 500 mg PO BID 02/10/20 10/24/20 History insulin aspart U-100 [Novolog 1
[2020-10-25] VITALS (12 sets, daily range): BP systolic 137–176; BP diastolic 55–92; PULSE 70–90; RESP 18–31; TEMP 36.2–36.4; O2SAT 95–100
[2020-10-25] MEDS: metroNIDAZOLE 500 MG/ISO 100ML 500 MG/100 ML BAG 100 MG IVPB ×3 (01:15→19:16)
[2020-10-25 05:45] LABS: Basophils Absolute Auto 0.1 K/mm3 (0.0-0.1); Eosinophils Absolute Auto 0.3 K/mm3 (0-0.3); Eosinophils Percent Auto 4.2 % (0-4.4); Hematocrit 35.7 % (37.0-47.0); Hemoglobin 12.2 g/dL (12.0-15.0); Immature Granulocyte Absolute 0.02 K/mm3 (0.00-0.031); Immature Granulocyte Percent A 0.3 % (0-0.5); Immature Platelet Fraction Pct 4.3 % (0.9-11.2); Lymphocytes Absolute Auto 2.22 K/mm3 (0.9-3.2); Lymphocytes Percent Auto 32.2 % (18.3-44.2); Mean Corpuscular HGB Conc 34.2 g/dl (32-36); Mean Corpuscular Hemoglobin 32.2 pg (26-34); Mean Corpuscular Volume 94.2 fl (80-100); Mean Platelet Volume 10.9 fl (7.4-10.4); Monocytes Absolute Auto 0.4 K/mm3 (0.1-0.6); Monocytes Percent Auto 6.4 % (2.6-8.5); Neutrophils Absolute Auto 3.9 K/mm3 (1.3-6.7); Neutrophils Percent Auto 55.9 % (45.5-73.1); Platelet Count Result 115 k/mm3 (150-375); Red Blood Count 3.79 M/mm3 (4.2-5.4); Red Cell Distribution Width 12.2 % (11.5-14.5); White Blood Count 6.9 K/mm3 (4.5-10.0)
[2020-10-25 05:52] LABS: Alanine Aminotransferase 43 U/L (4-35); Albumin Level 3.5 g/dL (3.5-5.1); Alkaline Phosphatase 120 U/L (38-126); Anion Gap 7 mmol/L (8-16); Aspartate Amino Transferase 49 U/L (14-36); Bilirubin,Total 0.8 mg/dL (0.2-1.3); Blood Urea Nitrogen 43 mg/dL (7-17); Calcium 9.1 mg/dL (8.4-10.2); Carbon Dioxide 27 mmol/L (22-30); Chloride 104 mmol/L (98-107); Estimated CRCL calculation 27 ml/min; Estimated Glomerular Filt Rate 29; Glucose 86 mg/dL (65-105); Potassium 4.3 mmol/L (3.4-5.0); Sodium 138 mmol/L (137-145)
[2020-10-25] MEDS: LEVOTHYROXINE SODIUM 150 MCG TABLET PO (06:13)
--- NOTE | 2020-10-25 07:53 | WPDGICN ---
Assessment and Plan Assessment and plan (1) Common bile duct mass: Code(s): K83.8 - Other specified diseases of biliary tract Status: Acute Assessment and Plan: will assess with ercp with spyglass (? stone, stricture, mass), she had cholecystectomy pain for last 3 days and still uncomfortable she is agreeable for ERCP today (2) Cirrhosis: Code(s): K74.60 - Unspecified cirrhosis of liver Status: Acute Assessment and Plan: diagnosed few years ago by biopsy, ? MARCUS compensated will get INR (3) Pneumobilia: Code(s): K83.8 - Other specified diseases of biliary tract Status: Acute Assessment and Plan: noted in previous CT Scan 2019, I wonder if she had ERCP in the past (4) Thrombocytopenia: Code(s): D69.6 - Thrombocytopenia, unspecified Status: Acute Assessment and Plan: probably from cirrhosis (5) History of cholecystectomy: Code(s): Z90.49 - Acquired absence of other specified parts of digestive tract Status: Acute (6) Diabetes mellitus: Qualifiers: Diabetes mellitus complication detail: with coma Diabetes mellitus complication status: with hypoglycemia 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 Diabetes mellitus type: type 2 Qualified Code(s): E11.641 - Type 2 diabetes mellitus with hypoglycemia with coma; 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 Code(s): E11.9 - Type 2 diabetes mellitus without complications Status: Chronic (7) Acute on chronic renal failure: Qualifiers: Acute renal failure type: unspecified Chronic kidney disease stage: stage 3 (moderate) Qualified Code(s): N17.9 - Acute kidney failure, unspecified; N18.3 - Chronic kidney disease, stage 3 (moderate) Code(s): N17.9 - Acute kidney failure, unspecified; N18.9 - Chronic kidney disease, unspecified Status: Acute Assessment and Plan: medical treatment (8) Acute UTI: Code(s): N39.0 - Urinary tract infection, site not specified Status: Acute Assessment and Plan: she is on antibiotics GI Consult Note Consult date/time: 10/25/20 07:53 Reason for consult: upper abdominal pain, lesion in bile duct HPI: Roosevelt Penn is a 80 year old female with history of HTN, DM, CKD stage 3, cirrhosis (diagnosed about 7 years ago with biopsy), previous cholecystectomy, s/p pacemaker, constipation here with new onset of 3 days of worsening general abdominal pain but mostly localized in upper abdoment that got severe day of admission, initially went to urgent care because thought could be UTI. She denies any fever, chills. CT scan a/p reviewed and showed cardiomegaly; triple lead pacemaker, small sliding hiatal hernia, status post cholecystectomy with pneumobilia 10.7 x 19 mm common bile duct stone(s) or mass, surface nodularity of liver suggesting cirrhosis, borderline splenic size, severe atrophy and scarring of left kidney, diffuse thickening of the urinary bladder wall; cannot exclude cystitis, status post hysterectomy, diverticulosis of the colon, numerous fracture deformities and vertebroplasty of the thoracic and lumbar spine. Blood work showed platelets 115, transaminases 40-50, bili 0.8, creat 1.7 (near baseline), also UTI started on antibiotics. She is still having abdominal pain and nausea. Review of Systems Constitutional: Constitutional: Denies chills Eyes: Eyes: Denies blurry vision ENT: Reports Normal hearing present Cardiovascular: Cardiovascular: Denies chest pain Respiratory: Respiratory: Denies dyspnea Gastrointestinal: Gastrointestinal: Reports abdominal pain and Reports nausea Genitourinary: Genitourinary: Denies hematuria Musculoskeletal: Musculoskeletal: Denies neck pain Integumentary/Breasts: Skin/Breast: Denies dry skin Neurologic: Denies headache(s) Psychiatric: Psychiatric: Reports no additional psychiatric complaints PMFSH Past Medical History Medic
[2020-10-25 08:16] LABS: Glucose Point of Care 102 mg/dl (65-105)
[2020-10-25] MEDS: FLUTICASONE PROPIONATE 0.05% NA SPR 16 GM BTL (*BKC) 2 SPRAY NASAL (08:52)
[2020-10-25] MEDS: FAMOTIDINE 20 MG/2 ML VIAL IV PUSH ×2 (08:52→20:17)
[2020-10-25] MEDS: FUROSEMIDE 20 MG TABLET 60 MG PO (08:53)
[2020-10-25] MEDS: VENLAFAXINE HCL XR 75 MG CAP.ER.24H 150 MG PO (08:53)
[2020-10-25] MEDS: SPIRONOLACTONE 25 MG TABLET PO (08:54)
[2020-10-25] MEDS: GABAPENTIN 300 MG CAPSULE PO ×2 (08:55→20:18)
[2020-10-25] MEDS: carvediloL 12.5 MG TABLET PO ×2 (08:55→20:18)
[2020-10-25 09:41] LABS: INR 1.1
--- NOTE | 2020-10-25 12:22 | PM.IMPN ---
Progress Note: A&P Assessment and Plan (1) Common bile duct mass: Code(s): K83.8 - Other specified diseases of biliary tract Status: Acute Assessment and Plan: Ct shows 10.7 x 19 mm common bile duct stone(s) or mass with pneumobilia -liver enzymes slightly elevated -s/p cholecystectomy in the past -Pt unable to get an MRCP due to pacemaker -Plan for ERCP later today -Pt continues to have pain but more so in the left upper quadrant with a borderline splenic size. -Continue ceftriaxone and flagyl (2) Acute UTI: Code(s): N39.0 - Urinary tract infection, site not specified Status: Acute Assessment and Plan: UA suggestive of UTI but pt not having any pain to palpation but is having frquency -continue ceftriaxone and flagyl (3) Seizures: Code(s): R56.9 - Unspecified convulsions Status: Acute Assessment and Plan: Pt states she has seizures if her glucose gets too low and that the gabapentin is for neuropathy -Last stay she was placed on keppra but I don't believe she takes it anymore (4) Diabetes mellitus: Qualifiers: Diabetes mellitus type: type 2 Diabetes mellitus fdc insulin use: with fdc use Diabetes mellitus complication status: with hypoglycemia Diabetes mellitus complication detail: with coma Qualified Code(s): E11.641 - Type 2 diabetes mellitus with hypoglycemia with coma; Z79.4 - assisted (current) use of insulin Code(s): E11.9 - Type 2 diabetes mellitus without complications Status: Chronic Assessment and Plan: T2DM with her Last glucose 102 -Pt takes a lot of insulin at home (40u aspart in the AM, 25 at noon, 40u in the PM). She also takes 20u lantus in the PM and 50 in the AM -Will hold her scheduled insulin at this time and start SSI. I do suspect this will need to be adjusted once she starts eating -Will continue half the dose of her nighttime lantus -Will increase insulin as needed -check a1c in the AM (5) Sleep apnea: Code(s): G47.30 - Sleep apnea, unspecified Status: Inactive Assessment and Plan: Chronic (6) Pacemaker: Code(s): Z95.0 - Presence of cardiac pacemaker Status: Inactive Assessment and Plan: Chronic, no issues (7) Hypothyroidism: Code(s): E03.9 - Hypothyroidism, unspecified Status: Inactive Assessment and Plan: continue levothyroxine (8) Hypertension: Code(s): I10 - Essential (primary) hypertension Status: Inactive Assessment and Plan: Last blood pressure 149/60 -Continue norvasc, carvediolol, lasix and spironolactone (9) COPD (chronic obstructive pulmonary disease): Code(s): J44.9 - Chronic obstructive pulmonary disease, unspecified Status: Inactive Assessment and Plan: No acute problems (10) Atrial fibrillation: Code(s): I48.91 - Unspecified atrial fibrillation Status: Inactive Assessment and Plan: Pt has an A/V pacemaker -Rate controlled -not on any anticoagulation (11) Pneumobilia: Code(s): K83.8 - Other specified diseases of biliary tract Status: Acute Assessment and Plan: Await ERCP (12) CHF (congestive heart failure): Code(s): I50.9 - Heart failure, unspecified Status: Acute Assessment and Plan: Unknown type and pt can't remember her chief communications officer's name but knows he is in [facility] -worrisome for systolic dysfunction due to home medications of spironolactone and carvedilol although I cannot confirm and patient does not know -will stop IV fluids at this time as the ERCP is soon and she sounds a bit crackly. Continue Lasix -will place back on fluids if she continues to be NPO or looks dehydrated Time Spent With Patient Time with patient: 25 - 35 minutes Subjective Date/time seen: 10/25/20 12:22 Interval history: Pt is a 80 year old female her
[2020-10-25] MEDS: PROMETHAZINE HCL 25 MG/ML AMPUL 12.5 MG IV PUSH (12:52)
[2020-10-25] MEDS: LACTATED RINGERS 1,000 ML 150 ML IV CONT (13:35)
[2020-10-25 13:36] LABS: Glucose Point of Care 135 mg/dl (65-105)
--- NOTE | 2020-10-25 13:40 | WPDANESEPPF ---
Anes - Initial Pre Proc Eval Procedure: Operation Date: 10/25/20 14:30 Proposed Procedures p Endoscopic Retro Cholangiopancreatogram - Jair Sepulveda MD Date/Time: 10/25/20 13:40 Surgeon: Demetra Nazario PA-C Pre Op Diagnosis: UTI, common bile duct stone Patient Data Age: 80 Gender: F Height: 5 ft 3 in Weight: 106.9 kg Last Vital Signs Temp 97.2 F L 10/25/20 13:30 Pulse 75 10/25/20 13:30 Resp 18 10/25/20 13:30 BP 138/55 L 10/25/20 13:30 Pulse Ox 99 10/25/20 13:30 Allergies Allergy/AdvReac Type Severity Reaction Status Date / Time meperidine Allergy Mild Itching Verified 10/24/20 22:26 niacin Allergy Mild Rash Verified 10/24/20 22:26 quetiapine Allergy Mild Swelling Verified 10/24/20 22:26 allopurinol Allergy Unknown Unknown Verified 10/24/20 23:34 bupropion Allergy Unknown JERKY Verified 10/24/20 22:26 MOVEMENTS carbamazepine Allergy Unknown Unknown Verified 10/24/20 23:34 [From Carbatrol] codeine Allergy Unknown Unknown Verified 10/24/20 22:26 enalapril Allergy Unknown Unknown Verified 10/24/20 22:26 fluoxetine Allergy Unknown Unknown Verified 10/24/20 22:26 lorazepam Allergy Unknown Unknown Verified 10/24/20 22:26 morphine Allergy Unknown Unknown Verified 10/24/20 22:26 Penicillins Allergy Unknown Rash Verified 10/24/20 23:30 trazodone Allergy Unknown Dizziness Verified 10/24/20 22:26 enalaprilat AdvReac Mild PERSISTENT Verified 10/24/20 22:26 COUGH modafinil AdvReac Mild SORES Verified 10/24/20 22:26 oxycodone AdvReac Mild GI DISTRESS Verified 10/24/20 22:26 Home Medications Medication Instructions Recorded Confirmed Type Airborne Gummy 250 mg PO DAILY 02/10/20 10/24/20 History Creon 1 cap PO HS 02/10/20 10/24/20 History Creon 1 cap PO TID 02/10/20 10/24/20 History Lantus U-100 Insulin 20 unit SUBCUT QPM 02/10/20 10/24/20 History Lantus U-100 Insulin 50 unit SUBCUT DAILY 02/10/20 10/24/20 History Linzess 72 mcg PO DAILY 02/10/20 10/25/20 History amlodipine 5 mg PO HS 02/10/20 10/24/20 History aspirin 81 mg PO DAILY 02/10/20 10/24/20 History carvedilol 12.5 mg PO BID 02/10/20 10/24/20 History docusate sodium [Colace] 250 mg PO QNOON 02/10/20 10/24/20 History ergocalciferol (vitamin D2) 50,000 unit PO WEEKLY 02/10/20 10/24/20 History fluticasone propionate [Flonase 2 spray INTRANASAL DAILY PRN 02/10/20 10/24/20 History Allergy Relief] furosemide 60 mg PO DAILY 02/10/20 10/24/20 History gabapentin 300 mg PO QID 02/10/20 10/24/20 History glucosamine sulfate [Glucosamine] 500 mg PO BID 02/10/20 10/24/20 History insulin aspart U-100 [Novolog 1 sliding scale dose SUBCUT AC 02/10/20 10/24/20 History U-100 Insulin aspart] insulin aspart U-100 [Novolog 1 sliding scale dose SUBCUT TID 02/10/20 10/24/20 History U-100 Insulin aspart] levothyroxine [Synthroid] 150 mcg PO DAILY 02/10/20 10/24/20 History nystatin [Nystop] 1 applic TOPICAL BID PRN 02/10/20 10/24/20 History omeprazole 40 mg PO DAILY 02/10/20 10/24/20 History pyridoxine (vitamin B6) 400 mg PO DAILY 02/10/20 10/24/20 History spironolactone 25 mg PO DAILY 02/10/20 10/24/20 History venlafaxine 150 mg PO DAILY 02/10/20 10/24/20 History budesonide 0.25 mg INHALATION BID 10/24/20 10/24/20 History cetirizine [Zyrtec] 10 mg PO DAILY 10/24/20 10/24/20 History cyanocobalamin (vitamin B-12) 5,000 mcg PO DAILY 10/24/20 10/24/20 History hydroxyzine HCl [Atarax] 25 mg PO QID PRN 10/24/20 10/24/20 History ipratropium-albuterol 3 ml INHALATION QID PRN 10/24/20 10/24/20 History melatonin 3 mg PO HS PRN 10/24/20 10/24/20 History vqsrtwawchph-xgpimvmm-zzgzvt 1 tablet PO DAILY 10/24/20 10/24/20 History [Centrum Silver] oxycodone 5 mg PO Q8H PRN 10/24/20 10/24/20 History polyethylene glycol 3350 [Miralax] 17 g PO DAILY 10/24/20 10/24/20 History Laboratory Tests 10/24/20 10/24/20 10/24/20 18:36 18:36 18:57 WBC 9.4 K/mm3 K/mm3 (4.5-10.0) RBC 4.05 M/mm3 L M/mm3 (4.2-5.4) Hgb 13.1 g/dL g/dL
--- NOTE | 2020-10-25 13:41 | SUR.PREOP ---
DR MIRANDA NOTIFIED PT ALERT AND ORIENTED X3, HALLUCINATING OCCASIONALLY. PT STATES SHE SEES A PIG IN THE AIR VENT AND THEN SHE SAW A MAN, A WOMAN, AND A BABY STANDING ON THE CEILING. PT MADE AWARE THAT THOSE IMAGES ARE NOT ACTUALLY THERE. PT STATES UNDERSTANDING BUT CAN STILL SEE THEM. LARRY KAN ALSO MADE AWARE. DR MIRANDA SEEING PT. NO NEW ORDERS.
[2020-10-25 16:59] LABS: Glucose Point of Care 139 mg/dl (65-105)
--- NOTE | 2020-10-25 18:00 | PCRCNOTE ---
Window of time for administration has passed. See next scheduled administration.
[2020-10-25 18:17] LABS: Glucose Point of Care 168 mg/dl (65-105)
[2020-10-25] MEDS: ONDANSETRON INJ 4 MG/2 ML VIAL IV PUSH ×2 (18:33→22:25)
[2020-10-25] MEDS: hydrOXYzine HCL 25 MG TABLET PO (18:41)
[2020-10-25] MEDS: ASPIRIN 81 MG CHEWABLE TABLET PO (18:51)
[2020-10-25] MEDS: LIPASE/AMYLASE/PROTEASE 12,000 UNITS CAP 1 CAP PO (18:51)
[2020-10-25] MEDS: PANTOPRAZOLE 40 MG TABLET PO (18:51)
[2020-10-25] MEDS: amLODIPine BESYLATE 5 MG TABLET PO (20:18)
[2020-10-25] MEDS: LIPASE/AMYLASE/PROTEASE 12,000 UNITS CAP 2 CAP PO (20:19)
[2020-10-25] MEDS: BUDESONIDE RESPULE NEB 0.5 MG/2 ML AMP 0.25 MG INHALATION (21:03)
[2020-10-25 22:10] LABS: Glucose Point of Care 245 mg/dl (65-105)
[2020-10-25] MEDS: BENZONATATE 100 MG CAPSULE 200 MG PO (22:32)
[2020-10-26] VITALS (14 sets, daily range): BP systolic 112–150; BP diastolic 50–64; PULSE 76–89; RESP 18–28; TEMP 35.9–37.1; O2SAT 94–99
[2020-10-26] MEDS: metroNIDAZOLE 500 MG/ISO 100ML 500 MG/100 ML BAG 100 MG IVPB ×4 (00:02→18:42)
[2020-10-26] MEDS: oxyCODONE HCL (*CRX) 5 MG TAB IR PO (01:00)
[2020-10-26 05:57] LABS: Hematocrit 36.2 % (37.0-47.0); Hemoglobin 12.7 g/dL (12.0-15.0); Mean Corpuscular HGB Conc 35.1 g/dl (32-36); Mean Corpuscular Hemoglobin 32.9 pg (26-34); Mean Corpuscular Volume 93.8 fl (80-100); Mean Platelet Volume 11.2 fl (7.4-10.4); Platelet Count Result 117 k/mm3 (150-375); Red Blood Count 3.86 M/mm3 (4.2-5.4); Red Cell Distribution Width 12.2 % (11.5-14.5); White Blood Count 16.8 K/mm3 (4.5-10.0)
[2020-10-26 06:06] LABS: Alanine Aminotransferase 153 U/L (4-35); Albumin Level 3.6 g/dL (3.5-5.1); Alkaline Phosphatase 274 U/L (38-126); Anion Gap 12 mmol/L (8-16); Aspartate Amino Transferase 245 U/L (14-36); Bilirubin Direct 3.7 mg/dL (0-0.3); Bilirubin,Total 5.9 mg/dL (0.2-1.3); Blood Urea Nitrogen 45 mg/dL (7-17); Carbon Dioxide 24 mmol/L (22-30); Chloride 100 mmol/L (98-107); Estimated CRCL calculation 21 ml/min; Estimated Glomerular Filt Rate 21; Glucose 267 mg/dL (65-105); Magnesium 1.6 mg/dL (1.6-2.3); Potassium 5.1 mmol/L (3.4-5.0); Sodium 136 mmol/L (137-145)
[2020-10-26] MEDS: LEVOTHYROXINE SODIUM 150 MCG TABLET PO (06:11)
[2020-10-26] MEDS: MORPHINE SULFATE (*CRX) 2 MG/ML INJ IV PUSH (06:12)
--- NOTE | 2020-10-26 07:54 | WPDANESPN ---
Anes - Prog Note Post-Op Date/Time: 10/26/20 07:55 Cardiovascular status: normal Respiratory status: normal Airway patency: baseline Mental status: baseline Post-Op hydration status: normal Vital Signs: Last Vital Signs Temp 37.1 C 10/26/20 05:14 Pulse 89 10/26/20 05:14 Resp 20 10/26/20 05:14 BP 135/56 L 10/26/20 05:14 Pulse Ox 95 10/26/20 05:14 Pain Score (VAS): 06/04 I/O: Intake & Output 10/25/20 10/25/20 10/26/20 15:59 23:59 07:59 Intake Total 750 100 Output Total 500 600 Balance 250 -500 Laboratory Tests 10/26/20 05:28 10/26/20 05:28 10/25/20 10/25/20 10/25/20 08:12 09:08 13:34 WBC RBC Hgb Hct MCV MCH MCHC RDW Plt Count MPV PT 15.0 H INR 1.1 Sodium Potassium Chloride Carbon Dioxide Anion Gap BUN Creatinine Estim Creat Clear Calc Estimated GFR Glucose POC Capillary Glucose 102 135 H Hemoglobin A1c Calcium Magnesium Total Bilirubin Direct Bilirubin AST ALT Alkaline Phosphatase Total Protein Albumin 10/25/20 10/25/20 10/25/20 16:56 18:10 22:08 WBC RBC Hgb Hct MCV MCH MCHC RDW Plt Count MPV PT INR Sodium Potassium Chloride Carbon Dioxide Anion Gap BUN Creatinine Estim Creat Clear Calc Estimated GFR Glucose POC Capillary Glucose 139 H 168 H 245 H Hemoglobin A1c Calcium Magnesium Total Bilirubin Direct Bilirubin AST ALT Alkaline Phosphatase Total Protein Albumin 10/26/20 10/26/20 10/26/20 05:28 05:28 05:28 WBC 16.8 H RBC 3.86 L Hgb 12.7 Hct 36.2 L MCV 93.8 MCH 32.9 MCHC 35.1 RDW 12.2 Plt Count 117 L MPV 11.2 H PT INR Sodium 136 L Potassium 5.1 H Chloride 100 Carbon Dioxide 24 Anion Gap 12 BUN 45 H Creatinine 2.20 H Estim Creat Clear Calc 21 Estimated GFR 21 L Glucose 267 H POC Capillary Glucose Hemoglobin A1c 6.0 H Calcium 9.0 Magnesium 1.6 Total Bilirubin 5.9 H Direct Bilirubin 3.7 H AST 245 H ALT 153 H Alkaline Phosphatase 274 H Total Protein 7.0 Albumin 3.6 Microbiology 10/24/20 18:57 Urine Clean Catch Urine Culture - Final Post-procedural complaints: none Patient Feedback: Patient satisfied with anesthetic care.
[2020-10-26 08:19] LABS: Glucose Point of Care 261 mg/dl (65-105)
[2020-10-26] MEDS: INSULIN ASPART (*BKC) 100 UNITS/ML SUB-Q ×4 (08:28→17:10)
[2020-10-26] MEDS: VENLAFAXINE HCL XR 75 MG CAP.ER.24H 150 MG PO (08:35)
[2020-10-26] MEDS: LIPASE/AMYLASE/PROTEASE 12,000 UNITS CAP 1 CAP PO ×3 (08:35→17:11)
[2020-10-26] MEDS: carvediloL 12.5 MG TABLET PO ×2 (08:36→21:48)
[2020-10-26] MEDS: FAMOTIDINE 20 MG/2 ML VIAL IV PUSH ×2 (08:38→21:48)
[2020-10-26] MEDS: CYANOCOBALAMIN 1,000 MCG TABLET 5000 MCG PO (08:38)
[2020-10-26] MEDS: FUROSEMIDE 20 MG TABLET 60 MG PO (08:38)
[2020-10-26] MEDS: LORATADINE 10 MG TABLET PO (08:39)
[2020-10-26] MEDS: OPTI-GEN TAB 1 TABLET PO (08:39)
[2020-10-26] MEDS: GABAPENTIN 300 MG CAPSULE PO ×4 (08:39→21:48)
[2020-10-26] MEDS: MULTIVITAMINS THERAPEUTIC TAB (*BKC) 1 TABLET PO (08:39)
[2020-10-26] MEDS: polyethylene glycoL 3350 17 GM POWD.PACK PO (08:40)
[2020-10-26] MEDS: SPIRONOLACTONE 25 MG TABLET PO (08:40)
[2020-10-26] MEDS: PANTOPRAZOLE 40 MG TABLET PO ×2 (08:40→17:11)
[2020-10-26] MEDS: PYRIDOXINE HCL 50 MG TABLET 400 MG PO (08:54)
[2020-10-26] MEDS: BUDESONIDE RESPULE NEB 0.5 MG/2 ML AMP 0.25 MG INHALATION ×2 (08:55→17:58)
[2020-10-26] MEDS: IPRATROPIUM BR 0.02% INH SOLN 0.5 MG/2.5 ML VIAL INHALATION (09:00)
[2020-10-26] MEDS: ALBUTEROL SULFATE NEB 2.5 MG/0.5 ML INH INHALATION (09:00)
--- NOTE | 2020-10-26 09:12 | PM.IMPN ---
Progress Note: A&P Assessment and Plan (1) Choledocholithiasis: Code(s): K80.50 - Calculus of bile duct without cholangitis or cholecystitis without obstruction Status: Acute Assessment and Plan: CT showed a 10.7x19mm stone in the CBD on admission and pt was having abdominal pain -ERCP showed a stone which was treated with EHL which broke them into smaller pieces and removed with the balloon extractor -Continue ceftriaxone and flagyl per GI -WBC elevated today, likely due to procedure. Will order blood cultures to be sure. Pt is afebrile but more confused today. -Continue with GI recommendations and advance diet as tolerated (2) Acute metabolic encephalopathy: Code(s): G93.41 - Metabolic encephalopathy Status: Acute Assessment and Plan: New this morning, no neurological deficits on exam except for confusion -CT of the brain neg for acute pathology -Will order lactic and ammonia level since WBC and liver enzymes are up -pt daughter states that this happens when she is sick or gets anesthesia -Continue neurochecks -Pt used cpap overnight, o2 sat on exam was 96% on room air. glucose 261 co2 on BNP 24 -Monitor throughout the day, nurse to call if it worsens (3) Elevated liver enzymes: Code(s): R74.8 - Abnormal levels of other serum enzymes Status: Acute Assessment and Plan: Likely due to procedure and hopefully will trend down with time -Pt also has a hx of possible cirrhosis with mild elevated in liver enzymes at baseline (daughter just states she has liver disease ) -monitor with daily labs, check ammonia due to confusion (4) Leukocytosis: Code(s): D72.829 - Elevated white blood cell count, unspecified Status: Acute Assessment and Plan: Likely due to procedure since pt is afebrile -it is concerning she is more confused today, blood cultures were drawn -contiue ceftriaxone and flagyl at this time per GI. Consider broadening if pt worsens (5) Seizures: Code(s): R56.9 - Unspecified convulsions Status: Acute Assessment and Plan: Pt states she has seizures if her glucose gets too low and that the gabapentin is for neuropathy -Last stay she was placed on keppra but I don't believe she takes it anymore. 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 Diabetes mellitus type: type 2 Qualified Code(s): E11.641 - Type 2 diabetes mellitus with hypoglycemia with coma; Z79.4 - FPC (current) use of insulin Code(s): E11.9 - Type 2 diabetes mellitus without complications Status: Chronic Assessment and Plan: Last glucose 261 now that she is eating -Pt was 102-130 yesterday and was NPO so her home regimen was held -A1c 6.0; I suspect this is a little too low for her at 80 and would recommend lowering her insulin at d/c -She is on clear liquids this morning and will be advanced as tolerated -For now i'll do 15u on lantus this morning (since she is just eating liquids) and this will need to be increased if she tolerates at diet -Continue SSI but change it to high dose sliding scale. She may need scheduled insulin once she is eating more -Will do 15u of lantus at night for now (usually she takes 20) -Will adjust throughout the day if she continues to run high but daughter states she has brittle diabetes especially when she is sick and has gotten down as low as 20 in the past. insulin regimen as follows at home: in the morning: No matter what her glucose is she gets Lantus 50u in the morning. She has 40u novolog pretty often 90% of the time. Sometimes this is decreased if her glucose is low per daughter at lunch time: she takes 25 units of NovoLog everyday. dinner: Lantus 20 at night. The Novolog is adjusted the mos here, and she usually gets abou
[2020-10-26 10:02] LABS: Ammonia < 9 umol/L (9-30)
[2020-10-26] MEDS: LACTATED RINGERS 500 ML 100 ML IV CONT ×2 (10:53→18:38)
[2020-10-26 11:41] LABS: Glucose Point of Care 320 mg/dl (65-105)
[2020-10-26] MEDS: INSULIN GLARGINE (*BKC) 100 UNITS/ML 15 UNITS SUB-Q (11:52)
[2020-10-26] MEDS: ASPIRIN 81 MG CHEWABLE TABLET PO (11:54)
[2020-10-26] MEDS: DOCUSATE SODIUM 100 MG CAPSULE 200 MG PO (11:54)
[2020-10-26 12:52] LABS: Reflex Lactic Acid Yes or No Add Lactic
[2020-10-26 13:26] LABS: Lactic Acid 3.1 mmol/L (0.7-2.1)
--- NOTE | 2020-10-26 14:38 | WPDGIPROGNO ---
Progress Note: A&P Assessment and Plan (1) Choledocholithiasis: Code(s): K80.50 - Calculus of bile duct without cholangitis or cholecystitis without obstruction Status: Acute Assessment and Plan: yesterday ercp with ehl, expected to have elevated lft but continue to monitor on iv antibiotics advance diet as tolerated (2) Elevated liver enzymes: Code(s): R74.8 - Abnormal levels of other serum enzymes Status: Acute Assessment and Plan: monitor (3) Cirrhosis: Code(s): K74.60 - Unspecified cirrhosis of liver Status: Acute Assessment and Plan: compensated, ? aguilera (4) Delirium: Code(s): R41.0 - Disorientation, unspecified Status: Acute Subjective Date/time seen: 10/26/20 08:00 Interval history: yesterday ERCP with large bile duct stone, used spyglass with EHL and removed stone fragments. had abdominal pain last night but improved yesterday and tolerating diet Review of Systems Review of Systems: All systems reviewed & are unremarkable except as noted in HPI and below Exam Const: General: comfortable and no acute distress Other: obese HENMT: General nose exam: Normal nares present Eyes: General: appearance normal, both eyes and all related structures Neck: Neck: supple Resp: Auscultation: clear to auscultation bilaterally Cardio: Rate: regular rate GI: Inspection: non-distended GI Palp: Yes Soft to palpation and Yes Tenderness to palpation present (GI) (less ttp in ruq and epigastric, no rebound) Auscultation: normal bowel sounds Skin: General skin exam: normal color Neuro: Speech: normal speech Motor exam (neuro): Normal motor muscle tone present throughout Extrem: General: normal to inspection Psych: Other: she has been slightly confused earlier Objective Data Vital Signs Vital Signs: Vital Signs - 24 hr 10/25/20 16:39 10/25/20 16:49 10/25/20 16:59 Temperature 97.6 F Pulse Rate 90 77 78 Respiratory Rate 26 H 29 H 31 H Blood Pressure 176/92 H 164/70 H 156/82 H Pulse Oximetry 99 100 97 10/25/20 17:09 10/25/20 17:19 10/25/20 17:29 Temperature Pulse Rate 70 77 76 Respiratory Rate 22 H 25 H 23 H Blood Pressure 139/84 140/85 137/91 H Pulse Oximetry 95 97 96 10/25/20 20:18 10/25/20 21:05 10/25/20 21:10 Temperature Pulse Rate 72 76 80 Respiratory Rate 20 20 Blood Pressure Pulse Oximetry 97 10/26/20 00:00 10/26/20 05:14 10/26/20 08:00 Temperature 97.7 F 98.7 F 96.9 F L Pulse Rate 82 89 87 Respiratory Rate 24 H 20 28 H Blood Pressure 150/64 H 135/56 L 140/58 L Pulse Oximetry 99 95 95 10/26/20 08:36 10/26/20 08:55 10/26/20 09:13 Temperature Pulse Rate 87 80 76 Respiratory Rate 24 H 20 Blood Pressure Pulse Oximetry 95 10/26/20 12:51 10/26/20 13:00 10/26/20 13:55 Temperature 97.2 F L 96.6 F L Pulse Rate 78 82 Respiratory Rate 18 22 H 24 H Blood Pressure 124/53 L 129/58 L Pulse Oximetry 96 94 Intake/Output Intake/Output: Intake & Output 10/23/20 10/24/20 10/25/20 10/26/20 23:59 23:59 23:59 23:59 Intake Total 650 1015 1750 Output Total 800 1000 850 Balance -150 15 900 Meds/Results Medications: Active Medications Generic Name Dose Route Start Last Admin Trade Name Freq PRN Reason Stop Dose Admin Albuterol 2.5 mg 10/26/20 09:03 10/26/20 09:00 Albuterol Sulfate Neb 2.5 Mg/0.5 Ml Inh INHALATION 2.5 mg Q6HRT PRN Administration Shortness Of Breath Amlodipine Besylate 5 mg 10/25/20 03:30 10/25/20 20:18 Amlodipine Besylate 5 Mg Tablet PO 5 mg HS MILIND Administration Lipase/Protease/Amylase 1 cap 10/25/20 08:00 10/26/20 11:54 Lipase/Amylase/Protease 12,000 Units Cap PO 1 cap TIDWM MILIND Administration Lipase/Protease/Amylase 2 cap 10/25/20 21:00 10/25/20 20:19 Lipase/Amylase/Protease 12,000 Units Cap PO 11/24/20 21:01 2 cap HS MILIND Administration Aspirin 81 mg 10/25/20 08:00 10/26/20 11:54 Aspirin 81 Mg
--- NOTE | 2020-10-26 15:42 | PC.NURSE ---
On 10/26/20, the student, [ Ryan Cornell], provided care and completed [facility] documentation on this patient. I have reviewed the student's documentation and agree with the findings.
[2020-10-26] MEDS: ACETAMINOPHEN 325 MG TABLET 650 MG PO (15:55)
[2020-10-26 16:06] LABS: Hematocrit 35.3 % (37.0-47.0); Hemoglobin 11.7 g/dL (12.0-15.0); Immature Platelet Fraction Pct 5.3 % (0.9-11.2); Mean Corpuscular HGB Conc 33.1 g/dl (32-36); Mean Corpuscular Hemoglobin 32.1 pg (26-34); Mean Platelet Volume 11.1 fl (7.4-10.4); Platelet Count Result 115 k/mm3 (150-375); Red Blood Count 3.64 M/mm3 (4.2-5.4); Red Cell Distribution Width 12.8 % (11.5-14.5); White Blood Count 12.4 K/mm3 (4.5-10.0)
[2020-10-26 16:17] LABS: Lactic Acid Reflex 2.8 mmol/L (0.7-2.1)
[2020-10-26 16:17] LABS: Anion Gap 11 mmol/L (8-16); Blood Urea Nitrogen 54 mg/dL (7-17); Calcium 8.8 mg/dL (8.4-10.2); Carbon Dioxide 24 mmol/L (22-30); Chloride 96 mmol/L (98-107); Estimated CRCL calculation 17 ml/min; Estimated Glomerular Filt Rate 16; Glucose 333 mg/dL (65-105); Sodium 131 mmol/L (137-145)
[2020-10-26] MEDS: INSULIN GLARGINE (*BKC) 100 UNITS/ML 20 UNITS SUB-Q (17:08)
[2020-10-26 17:10] LABS: Glucose Point of Care 325 mg/dl (65-105)
[2020-10-26] MEDS: amLODIPine BESYLATE 5 MG TABLET PO (21:48)
[2020-10-26] MEDS: LIPASE/AMYLASE/PROTEASE 12,000 UNITS CAP 2 CAP PO (21:48)
[2020-10-26 22:05] LABS: Glucose Point of Care 234 mg/dl (65-105)
[2020-10-27] VITALS (15 sets, daily range): BP systolic 118–146; BP diastolic 50–70; PULSE 68–87; RESP 18–24; TEMP 36.1–38.8; O2SAT 91–99
[2020-10-27] MEDS: metroNIDAZOLE 500 MG/ISO 100ML 500 MG/100 ML BAG 100 MG IVPB ×3 (00:16→12:38)
[2020-10-27] MEDS: ONDANSETRON INJ 4 MG/2 ML VIAL IV PUSH ×2 (00:25→14:32)
[2020-10-27] MEDS: MORPHINE SULFATE (*CRX) 2 MG/ML INJ IV PUSH (00:29)
[2020-10-27] MEDS: oxyCODONE HCL (*CRX) 5 MG TAB IR PO ×2 (01:38→12:54)
[2020-10-27] MEDS: ACETAMINOPHEN 325 MG TABLET 650 MG PO (05:24)
[2020-10-27] MEDS: LEVOTHYROXINE SODIUM 150 MCG TABLET PO (05:24)
[2020-10-27 06:05] LABS: Basophils Percent Auto 0.1 % (0.2-1.2); Eosinophils Percent Auto 0.2 % (0-4.4); Hematocrit 34.6 % (37.0-47.0); Hemoglobin 11.4 g/dL (12.0-15.0); Immature Granulocyte Absolute 0.04 K/mm3 (0.00-0.031); Immature Granulocyte Percent A 0.4 % (0-0.5); Immature Platelet Fraction Pct 5.8 % (0.9-11.2); Lymphocytes Absolute Auto 0.79 K/mm3 (0.9-3.2); Lymphocytes Percent Auto 8.9 % (18.3-44.2); Mean Corpuscular HGB Conc 32.9 g/dl (32-36); Mean Corpuscular Hemoglobin 31.5 pg (26-34); Mean Corpuscular Volume 95.6 fl (80-100); Mean Platelet Volume 11.7 fl (7.4-10.4); Monocytes Absolute Auto 0.5 K/mm3 (0.1-0.6); Monocytes Percent Auto 5.2 % (2.6-8.5); Neutrophils Absolute Auto 7.6 K/mm3 (1.3-6.7); Neutrophils Percent Auto 85.2 % (45.5-73.1); Platelet Count Result 105 k/mm3 (150-375); Red Blood Count 3.62 M/mm3 (4.2-5.4); Red Cell Distribution Width 12.7 % (11.5-14.5); White Blood Count 8.9 K/mm3 (4.5-10.0)
[2020-10-27 06:17] LABS: Alanine Aminotransferase 151 U/L (4-35); Albumin Level 3.5 g/dL (3.5-5.1); Alkaline Phosphatase 208 U/L (38-126); Anion Gap 13 mmol/L (8-16); Aspartate Amino Transferase 140 U/L (14-36); Bilirubin Direct 3.7 mg/dL (0-0.3); Bilirubin,Total 6.2 mg/dL (0.2-1.3); Blood Urea Nitrogen 65 mg/dL (7-17); Calcium 8.9 mg/dL (8.4-10.2); Carbon Dioxide 24 mmol/L (22-30); Chloride 96 mmol/L (98-107); Estimated CRCL calculation 15 ml/min; Estimated Glomerular Filt Rate 14; Glucose 202 mg/dL (65-105); Potassium 4.9 mmol/L (3.4-5.0); Sodium 133 mmol/L (137-145)
[2020-10-27 08:17] LABS: Lipase 21 U/L (23-300)
[2020-10-27 08:35] LABS: Glucose Point of Care 179 mg/dl (65-105)
[2020-10-27] MEDS: BUDESONIDE RESPULE NEB 0.5 MG/2 ML AMP 0.25 MG INHALATION ×2 (08:35→21:05)
[2020-10-27] MEDS: polyethylene glycoL 3350 17 GM POWD.PACK PO (08:49)
[2020-10-27] MEDS: MULTIVITAMINS THERAPEUTIC TAB (*BKC) 1 TABLET PO (08:50)
[2020-10-27] MEDS: CYANOCOBALAMIN 1,000 MCG TABLET 5000 MCG PO (08:50)
[2020-10-27] MEDS: FAMOTIDINE 20 MG/2 ML VIAL IV PUSH ×2 (08:50→21:55)
[2020-10-27] MEDS: FLUTICASONE PROPIONATE 0.05% NA SPR 16 GM BTL (*BKC) 2 SPRAY NASAL (08:50)
[2020-10-27] MEDS: PYRIDOXINE HCL 50 MG TABLET 400 MG PO (08:50)
[2020-10-27] MEDS: LIPASE/AMYLASE/PROTEASE 12,000 UNITS CAP 1 CAP PO ×3 (08:50→18:23)
[2020-10-27] MEDS: VENLAFAXINE HCL XR 75 MG CAP.ER.24H 150 MG PO (08:51)
[2020-10-27] MEDS: OPTI-GEN TAB 1 TABLET PO (08:51)
[2020-10-27] MEDS: PANTOPRAZOLE 40 MG TABLET PO ×2 (08:51→18:23)
[2020-10-27] MEDS: GABAPENTIN 300 MG CAPSULE PO ×4 (08:51→21:52)
[2020-10-27] MEDS: ASPIRIN 81 MG CHEWABLE TABLET PO (08:51)
[2020-10-27] MEDS: LORATADINE 10 MG TABLET PO (08:51)
[2020-10-27] MEDS: ERGOCALCIFEROL 50,000 UNIT CAPSULE 50000 UNITS PO (08:51)
[2020-10-27] MEDS: carvediloL 12.5 MG TABLET PO ×2 (08:51→21:51)
[2020-10-27] MEDS: INSULIN ASPART (*BKC) 100 UNITS/ML SUB-Q ×5 (08:56→18:28)
[2020-10-27] MEDS: INSULIN GLARGINE (*BKC) 100 UNITS/ML 25 UNITS SUB-Q (08:59)
--- NOTE | 2020-10-27 09:10 | PM.IMPN ---
Progress Note: A&P Assessment and Plan (1) Choledocholithiasis: Code(s): K80.50 - Calculus of bile duct without cholangitis or cholecystitis without obstruction Status: Acute Assessment and Plan: CT showed a 10.7x19mm stone in the CBD on admission and pt was having abdominal pain -ERCP showed a stone which was treated with EHL which broke them into smaller pieces and removed with the balloon extractor 10/26/20 -remains on ceftriaxone and flagyl pt febrile this morning -leukocytosis resolved -Continue with GI recommendations and advance diet as tolerated (2) Acute metabolic encephalopathy: Code(s): G93.41 - Metabolic encephalopathy Status: Acute Assessment and Plan: RESOLVED New this morning, no neurological deficits on exam today AAOx3 -CT of the brain neg for acute pathology -Continue neurochecks -Pt used cpap overnight, o2 sat on exam was 96% on room air. glucose 261 co2 on BNP 24 (3) Elevated liver enzymes: Code(s): R74.8 - Abnormal levels of other serum enzymes Status: Acute Assessment and Plan: Likely due to procedure and hopefully will trend down with time -Pt also has a hx of possible cirrhosis with mild elevated in liver enzymes at baseline (daughter just states she has liver disease ) -monitor with daily labs -GI on board (4) Leukocytosis: Code(s): D72.829 - Elevated white blood cell count, unspecified Status: Acute Assessment and Plan: RESOLVED Likely due to procedure since pt is afebrile -blood cultures were drawn -contiue ceftriaxone and flagyl at this time per GI. Consider broadening if pt worsens (5) Seizures: Code(s): R56.9 - Unspecified convulsions Status: Acute Assessment and Plan: No seizure activity since admission Pt states she has seizures if her glucose gets too low and that the gabapentin is for neuropathy -Last stay she was placed on keppra but I don't believe she takes it anymore. 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 Diabetes mellitus type: type 2 Qualified Code(s): E11.641 - Type 2 diabetes mellitus with hypoglycemia with coma; Z79.4 - detention (current) use of insulin Code(s): E11.9 - Type 2 diabetes mellitus without complications Status: Chronic Assessment and Plan: BG in the 200s this morning will watch today to assess changes made to insulin dosing yesterday and then adjust again in am -A1c 6.0; this appears a little too low for her at 80 and would recommend lowering her insulin at d/c -She is on clear liquids this morning and will be advanced as tolerated -For now i'll do 15u on lantus this morning (since she is just eating liquids) and this will need to be increased if she tolerates at diet -Continue SSI but change it to high dose sliding scale. She may need scheduled insulin once she is eating more insulin regimen as follows at home: in the morning: No matter what her glucose is she gets Lantus 50u in the morning. She has 40u novolog pretty often 90% of the time. Sometimes this is decreased if her glucose is low per daughter at lunch time: she takes 25 units of NovoLog everyday. dinner: Lantus 20 at night. The Novolog is adjusted the mos here, and she usually gets about 25 at night but 40 is ordered by her doctor. (7) Sleep apnea: Code(s): G47.30 - Sleep apnea, unspecified Status: Inactive Assessment and Plan: Chronic -she uses her cpap at night and with naps (8) Pacemaker: Code(s): Z95.0 - Presence of cardiac pacemaker Status: Inactive Assessment and Plan: Chronic, no issues (9) Hypothyroidism: Code(s): E03.9 - Hypothyroidism, unspecified Status: Inactive Assessment and Plan:
[2020-10-27] MEDS: FUROSEMIDE INJ 40 MG/4 ML VIAL IV PUSH (10:07)
--- NOTE | 2020-10-27 11:26 | PCOTNOTE ---
Attempted to see pt for therapy this AM. Pt observed to shake her head No and states that she is too tired and does not want to do anything. Will attempt later today if able. Will continue per POC frequency/duration tomorrow.
--- NOTE | 2020-10-27 12:32 | PCPTNOTE ---
Attempted to see patient at 11:21 AM and pt. stated that she was too tired and wanted to sleep. RN notified. Attempted to see patient again at 12:29 PM and patient refused to do exercises and ambulate. Pt. stated, I don't think so. Patient's daughter was in the room and stated that she did not think that patient looked as good as what she did yesterday. RN notified of patient refusing and what patient's daughter said.
[2020-10-27] MEDS: DOCUSATE SODIUM 100 MG CAPSULE 200 MG PO (12:40)
[2020-10-27 13:27] LABS: Glucose Point of Care 275 mg/dl (65-105)
--- NOTE | 2020-10-27 14:58 | PC.NURSE ---
On 10/27/20, the student, [Ryan Cornell ], provided care and completed [facility] documentation on this patient. I have reviewed the student's documentation and agree with the findings.
--- NOTE | 2020-10-27 16:22 | WPDGIPROGNO ---
Progress Note: A&P Assessment and Plan (1) Choledocholithiasis: Code(s): K80.50 - Calculus of bile duct without cholangitis or cholecystitis without obstruction Status: Acute Assessment and Plan: had ercp 10/25, found to have large stone and treated with sphincterotomy and EHL using spyglass, large amount of debris after lithotripsy removed from bile duct. noted elevated liver enzymes after procedure and also leukocytosis with elevated lactic- now trending down, also had KUB she has been on antibiotics all this time (flagyl and rocephin), discussed with primary and will expand antibiotic coverage, also blood cultures obtained yesterday (2) Acute metabolic encephalopathy: Code(s): G93.41 - Metabolic encephalopathy Status: Acute Assessment and Plan: get abg (h/o william), maybe sepsis ammonia level normal (she has h/o cirrhosis) CT head no acute findings (3) Elevated liver enzymes: Code(s): R74.8 - Abnormal levels of other serum enzymes Status: Acute Assessment and Plan: trend liver enzymes and check lactic again (4) Acute on chronic kidney failure: Code(s): N17.9 - Acute kidney failure, unspecified; N18.9 - Chronic kidney disease, unspecified Status: Acute Assessment and Plan: raising creatinine (she has ckd), monitor and may need nephrology consult (5) Leukocytosis: Code(s): D72.829 - Elevated white blood cell count, unspecified Status: Acute Assessment and Plan: today normal (6) Cirrhosis: Code(s): K74.60 - Unspecified cirrhosis of liver Status: Acute (7) Acute respiratory failure with hypercapnia: Code(s): J96.02 - Acute respiratory failure with hypercapnia Status: Acute Assessment and Plan: get abg, supportive care, she got lasix by primary team Subjective Date/time seen: 10/27/20 16:22 Interval history: she has been more tachypneic today and confused, also moaning and seems uncomfortable Review of Systems Review of Systems: All systems reviewed & are unremarkable except as noted in HPI and below Exam Const: General: uncomfortable Other: tachypneic with RR 24 HENMT: General nose exam: Normal nares present Neck: Neck: supple Resp: Auscultation: diminished lung sounds Cardio: Rate: regular rate GI: Inspection: distended GI Palp: Yes Tenderness to palpation present (GI) (epigastric area, no rebound) Auscultation: normal bowel sounds Skin: General skin exam: no erythema Neuro: Cognition (Neuro): abnormal cognition Other: more confused today Extrem: General: pedal edema Objective Data Vital Signs Vital Signs: Vital Signs - 24 hr 10/26/20 17:59 10/26/20 18:07 10/26/20 21:48 Temperature Pulse Rate 78 78 78 Respiratory Rate 20 20 Blood Pressure Pulse Oximetry 10/26/20 22:03 10/27/20 05:17 10/27/20 05:24 Temperature 97.6 F 101.8 F H 101.8 F H Pulse Rate 76 80 Respiratory Rate 20 20 Blood Pressure 112/50 L 140/50 L Pulse Oximetry 94 91 10/27/20 06:24 10/27/20 08:35 10/27/20 08:51 Temperature 99.9 F H Pulse Rate 80 80 Respiratory Rate 20 Blood Pressure Pulse Oximetry 10/27/20 09:35 10/27/20 11:11 10/27/20 12:00 Temperature 97.9 F 97.0 F L Pulse Rate 77 78 Respiratory Rate 22 H 18 Blood Pressure 129/69 118/70 Pulse Oximetry 99 94 96 10/27/20 14:05 10/27/20 14:33 Temperature 97 F L Pulse Rate 82 Respiratory Rate 24 H Blood Pressure 142/59 H Pulse Oximetry 99 Intake/Output Intake/Output: Intake & Output 10/24/20 10/25/20 10/26/20 10/27/20 23:59 23:59 23:59 23:59 Intake Total 650 1015 2900 1540 Output Total 800 1000 1350 400 Balance -712 02 1888 1140 Meds/Results Medications: Active Medications Generic Name Dose Route Start Last Admin Trade Name Freq PRN Reason Stop Dose Admin Albuterol 2.5 mg 10/26/20 09:03 10/26/20 09:00 Albuterol Sulfate Neb 2.5 Mg/0.5 Ml Inh INHALATION 2.5 mg Q
[2020-10-27 16:26] LABS: Base Excess ABG 0.8 mEq/l (+/-2.0); Fractional Inspired Oxygen 21 %; HCO3 ABG 25.5 mEq/l (22.0-26.0); Oxygen Content ABG 15.6 %vol (16.0-22.0); Oxygen Saturation ABG 91.3 % (95.0-100.0); Oxyhemoglobin 91.6 % THb (90.0-100.0); PCO2 ABG 40.8 mmHg (35.0-45.0); PO2 ABG 59.9 mmHg (80.0-100.0); PO2 FiO2 Ratio Arterial Blood 2.85 %; Total Hemoglobin 12.1 g/dL (12.0-18.0); pH ABG 7.413 (7.350-7.450)
[2020-10-27 16:28] LABS: Device ROOM AIR; Modified Allen's Test Pass; Site Drawn LEFT RADIAL
[2020-10-27 17:32] LABS: Glucose Point of Care 233 mg/dl (65-105)
[2020-10-27 17:43] LABS: Lactic Acid Reflex 1.3 mmol/L (0.7-2.1)
[2020-10-27 17:44] LABS: Alanine Aminotransferase 132 U/L (4-35); Albumin Level 3.6 g/dL (3.5-5.1); Alkaline Phosphatase 208 U/L (38-126); Anion Gap 13 mmol/L (8-16); Aspartate Amino Transferase 109 U/L (14-36); Bilirubin,Total 5.9 mg/dL (0.2-1.3); Blood Urea Nitrogen 66 mg/dL (7-17); Calcium 8.8 mg/dL (8.4-10.2); Carbon Dioxide 23 mmol/L (22-30); Chloride 96 mmol/L (98-107); Estimated CRCL calculation 15 ml/min; Estimated Glomerular Filt Rate 14; Glucose 231 mg/dL (65-105); Potassium 4.8 mmol/L (3.4-5.0); Sodium 132 mmol/L (137-145)
[2020-10-27] MEDS: SODIUM CHLORIDE 0.9% IV 1,000 ML 50 ML IV CONT (18:21)
[2020-10-27] MEDS: hydrOXYzine HCL 25 MG TABLET 50 MG PO (18:23)
[2020-10-27] MEDS: INSULIN GLARGINE (*BKC) 100 UNITS/ML 20 UNITS SUB-Q (18:27)
[2020-10-27] MEDS: ALBUTEROL SULFATE NEB 2.5 MG/0.5 ML INH INHALATION (21:05)
[2020-10-27] MEDS: IPRATROPIUM BR 0.02% INH SOLN 0.5 MG/2.5 ML VIAL INHALATION (21:05)
[2020-10-27] MEDS: amLODIPine BESYLATE 5 MG TABLET PO (21:53)
[2020-10-27] MEDS: LIPASE/AMYLASE/PROTEASE 12,000 UNITS CAP 2 CAP PO (21:53)
[2020-10-27] MEDS: diphenhydrAMINE HCl INJ 50 MG/ML VIAL IV PUSH (21:57)
[2020-10-27 22:00] LABS: Glucose Point of Care 167 mg/dl (65-105)
[2020-10-28] VITALS (14 sets, daily range): BP systolic 129–149; BP diastolic 51–67; PULSE 73–86; RESP 17–20; TEMP 36.1–36.6; O2SAT 94–99
[2020-10-28] MEDS: LEVOTHYROXINE SODIUM 150 MCG TABLET PO (05:30)
[2020-10-28 06:25] LABS: Lactic Acid Reflex 0.8 mmol/L (0.7-2.1)
[2020-10-28 06:30] LABS: INR 1.3; Prothrombin Time 16.9 Seconds (11.1-14.7)
[2020-10-28 06:37] LABS: Alanine Aminotransferase 117 U/L (4-35); Albumin Level 3.4 g/dL (3.5-5.1); Alkaline Phosphatase 209 U/L (38-126); Anion Gap 14 mmol/L (8-16); Aspartate Amino Transferase 95 U/L (14-36); Bilirubin,Total 5.8 mg/dL (0.2-1.3); Blood Urea Nitrogen 68 mg/dL (7-17); Calcium 8.9 mg/dL (8.4-10.2); Carbon Dioxide 23 mmol/L (22-30); Chloride 96 mmol/L (98-107); Estimated CRCL calculation 16 ml/min; Estimated Glomerular Filt Rate 16; Glucose 117 mg/dL (65-105); Potassium 4.2 mmol/L (3.4-5.0); Sodium 133 mmol/L (137-145)
[2020-10-28] MEDS: FAMOTIDINE 20 MG/2 ML VIAL IV PUSH ×2 (08:23→22:27)
[2020-10-28] MEDS: CYANOCOBALAMIN 1,000 MCG TABLET 5000 MCG PO (08:23)
[2020-10-28] MEDS: FLUTICASONE PROPIONATE 0.05% NA SPR 16 GM BTL (*BKC) 2 SPRAY NASAL (08:23)
[2020-10-28] MEDS: carvediloL 12.5 MG TABLET PO ×2 (08:24→21:58)
[2020-10-28] MEDS: PANTOPRAZOLE 40 MG TABLET PO ×2 (08:24→17:15)
[2020-10-28] MEDS: MULTIVITAMINS THERAPEUTIC TAB (*BKC) 1 TABLET PO (08:24)
[2020-10-28] MEDS: LIPASE/AMYLASE/PROTEASE 12,000 UNITS CAP 1 CAP PO ×3 (08:24→17:14)
[2020-10-28] MEDS: OPTI-GEN TAB 1 TABLET PO (08:24)
[2020-10-28] MEDS: ASPIRIN 81 MG CHEWABLE TABLET PO (08:24)
[2020-10-28] MEDS: PYRIDOXINE HCL 50 MG TABLET 400 MG PO (08:24)
[2020-10-28] MEDS: GABAPENTIN 300 MG CAPSULE PO ×4 (08:24→22:27)
[2020-10-28] MEDS: VENLAFAXINE HCL XR 75 MG CAP.ER.24H 150 MG PO (08:24)
[2020-10-28] MEDS: polyethylene glycoL 3350 17 GM POWD.PACK PO (08:25)
[2020-10-28] MEDS: INSULIN ASPART (*BKC) 100 UNITS/ML SUB-Q ×3 (08:43→17:15)
[2020-10-28] MEDS: INSULIN GLARGINE (*BKC) 100 UNITS/ML 25 UNITS SUB-Q (08:43)
[2020-10-28] MEDS: LORATADINE 10 MG TABLET PO (08:44)
[2020-10-28 08:54] LABS: Glucose Point of Care 121 mg/dl (65-105)
[2020-10-28] MEDS: BUDESONIDE RESPULE NEB 0.5 MG/2 ML AMP 0.25 MG INHALATION ×2 (09:09→19:46)
--- NOTE | 2020-10-28 10:10 | PM.IMPN ---
Progress Note: A&P Assessment and Plan (1) Choledocholithiasis: Code(s): K80.50 - Calculus of bile duct without cholangitis or cholecystitis without obstruction Status: Acute Assessment and Plan: CT showed a 10.7x19mm stone in the CBD on admission and pt was having abdominal pain -ERCP showed a stone which was treated with EHL which broke them into smaller pieces and removed with the balloon extractor 10/26/20 -remains on ceftriaxone and flagyl pt febrile this morning -leukocytosis resolved -Continue with GI recommendations and advance diet as tolerated (2) Acute metabolic encephalopathy: Code(s): G93.41 - Metabolic encephalopathy Status: Acute Assessment and Plan: RESOLVED New this morning, no neurological deficits on exam today AAOx3 -CT of the brain neg for acute pathology -Continue neurochecks -Pt used cpap overnight, o2 sat on exam was 96% on room air. glucose 261 co2 on BNP 24 (3) Elevated liver enzymes: Code(s): R74.8 - Abnormal levels of other serum enzymes Status: Acute Assessment and Plan: Likely due to procedure and hopefully will trend down with time -Pt also has a hx of possible cirrhosis with mild elevated in liver enzymes at baseline (daughter just states she has liver disease ) -monitor with daily labs -GI on board (4) Leukocytosis: Code(s): D72.829 - Elevated white blood cell count, unspecified Status: Acute Assessment and Plan: RESOLVED Likely due to procedure since pt is afebrile -blood cultures were drawn -contiue ceftriaxone and flagyl at this time per GI. Consider broadening if pt worsens (5) Seizures: Code(s): R56.9 - Unspecified convulsions Status: Acute Assessment and Plan: No seizure activity since admission Pt states she has seizures if her glucose gets too low and that the gabapentin is for neuropathy -Last stay she was placed on keppra but I don't believe she takes it anymore. (6) Diabetes mellitus: Qualifiers: Diabetes mellitus type: type 2 Diabetes mellitus middle or intermediate school principal insulin use: with fci use Diabetes mellitus complication status: with hypoglycemia Diabetes mellitus complication detail: with coma Qualified Code(s): E11.641 - Type 2 diabetes mellitus with hypoglycemia with coma; Z79.4 - alf (current) use of insulin Code(s): E11.9 - Type 2 diabetes mellitus without complications Status: Chronic Assessment and Plan: BG in the 200s this morning will watch today to assess changes made to insulin dosing yesterday and then adjust again in am -A1c 6.0; this appears a little too low for her at 80 and would recommend lowering her insulin at d/c -She is on clear liquids this morning and will be advanced as tolerated -For now i'll do 15u on lantus this morning (since she is just eating liquids) and this will need to be increased if she tolerates at diet -Continue SSI but change it to high dose sliding scale. She may need scheduled insulin once she is eating more insulin regimen as follows at home: in the morning: No matter what her glucose is she gets Lantus 50u in the morning. She has 40u novolog pretty often 90% of the time. Sometimes this is decreased if her glucose is low per daughter at lunch time: she takes 25 units of NovoLog everyday. dinner: Lantus 20 at night. The Novolog is adjusted the mos here, and she usually gets about 25 at night but 40 is ordered by her doctor. (7) Sleep apnea: Code(s): G47.30 - Sleep apnea, unspecified Status: Inactive Assessment and Plan: Chronic -she uses her cpap at night and with naps (8) Pacemaker: Code(s): Z95.0 - Presence of cardiac pacemaker Status: Inactive Assessment and Plan: Chronic, no issues (9) Hypothyroidism: Code(s): E03.9 - Hypothyroidism, unspecified Status: Inactive Assessment and Plan:
--- NOTE | 2020-10-28 10:59 | PCPTNOTE ---
Patient declined therapy services this date. She states she just got back into bed and is too tired. Will check back as time allows.
[2020-10-28 11:16] LABS: Basophils Percent Auto 0.4 % (0.2-1.2); Eosinophils Absolute Auto 0.1 K/mm3 (0-0.3); Hematocrit 34.6 % (37.0-47.0); Hemoglobin 11.4 g/dL (12.0-15.0); Immature Granulocyte Absolute 0.02 K/mm3 (0.00-0.031); Immature Granulocyte Percent A 0.3 % (0-0.5); Immature Platelet Fraction Pct 5.5 % (0.9-11.2); Lymphocytes Absolute Auto 0.91 K/mm3 (0.9-3.2); Lymphocytes Percent Auto 12.7 % (18.3-44.2); Mean Corpuscular HGB Conc 32.9 g/dl (32-36); Mean Corpuscular Volume 97.2 fl (80-100); Mean Platelet Volume 11.4 fl (7.4-10.4); Monocytes Absolute Auto 0.5 K/mm3 (0.1-0.6); Monocytes Percent Auto 7.4 % (2.6-8.5); Neutrophils Absolute Auto 5.6 K/mm3 (1.3-6.7); Neutrophils Percent Auto 78.2 % (45.5-73.1); Platelet Count Result 111 k/mm3 (150-375); Red Blood Count 3.56 M/mm3 (4.2-5.4); White Blood Count 7.2 K/mm3 (4.5-10.0)
[2020-10-28 12:06] LABS: Glucose Point of Care 195 mg/dl (65-105)
[2020-10-28] MEDS: DOCUSATE SODIUM 100 MG CAPSULE 200 MG PO (12:44)
--- NOTE | 2020-10-28 13:09 | WPDGIPROGNO ---
Progress Note: A&P Assessment and Plan (1) Choledocholithiasis: Code(s): K80.50 - Calculus of bile duct without cholangitis or cholecystitis without obstruction Status: Acute Assessment and Plan: large stone in bile duct treated with ercp and spyglass with lithotripsy (2) Cholangitis: Code(s): K83.09 - Other cholangitis Status: Acute Assessment and Plan: probably patient had cholangitis given fever, leukocytosis, high lactic acid and elevated liver enzymes but now afebrile and numbers improving on iv antibiotics (3) Elevated liver enzymes: Code(s): R74.8 - Abnormal levels of other serum enzymes Status: Acute Assessment and Plan: continue to monitor diet as tolerate medical support (4) Acute on chronic kidney failure: Code(s): N17.9 - Acute kidney failure, unspecified; N18.9 - Chronic kidney disease, unspecified Status: Acute Assessment and Plan: creatinine slowly trending down (5) CHF (congestive heart failure): Code(s): I50.9 - Heart failure, unspecified Status: Acute (6) History of cholecystectomy: Code(s): Z90.49 - Acquired absence of other specified parts of digestive tract Status: Acute (7) Cirrhosis: Code(s): K74.60 - Unspecified cirrhosis of liver Status: Acute Subjective Date/time seen: 10/28/20 13:09 Interval history: better than yesterday, no more fever today (she was febrile) and overall better with less abdominal pain Review of Systems Review of Systems: All systems reviewed & are unremarkable except as noted in HPI and below Exam Const: Other: she is more comfortable today but still not back to baseline HENMT: General nose exam: Normal nares present Neck: Neck: supple Resp: Auscultation: wheezes scattered wheezes and diminished lung sounds Cardio: Rate: regular rate GI: Inspection: distended GI Palp: Yes Tenderness to palpation present (GI) (less tender today) and No Guarding due to palpation present (GI) Auscultation: normal bowel sounds Skin: General skin exam: no erythema Neuro: Speech: normal speech Extrem: General: pedal edema Psych: Affect: Anxious affect present Objective Data Vital Signs Vital Signs: Vital Signs - 24 hr 10/27/20 14:05 10/27/20 14:33 10/27/20 19:22 Temperature 97 F L 98 F Pulse Rate 82 77 Respiratory Rate 24 H 22 H Blood Pressure 142/59 H 146/62 H Pulse Oximetry 99 98 10/27/20 21:08 10/27/20 21:13 10/27/20 21:51 Temperature Pulse Rate 76 87 68 Respiratory Rate 22 H 22 H Blood Pressure Pulse Oximetry 97 10/27/20 23:50 10/28/20 05:27 10/28/20 08:24 Temperature 97.7 F 98 F Pulse Rate 73 76 82 Respiratory Rate 24 H 17 Blood Pressure 134/57 L 135/51 L Pulse Oximetry 97 99 10/28/20 08:45 10/28/20 09:10 10/28/20 09:11 Temperature Pulse Rate 85 74 Respiratory Rate 20 20 Blood Pressure Pulse Oximetry 99 97 10/28/20 12:00 Temperature 97.1 F L Pulse Rate 79 Respiratory Rate 18 Blood Pressure 129/62 Pulse Oximetry 98 Intake/Output Intake/Output: Intake & Output 10/25/20 10/26/20 10/27/20 10/28/20 23:59 23:59 23:59 23:59 Intake Total 1015 2900 1740 660 Output Total 1000 1350 1660 800 Balance 15 1550 80 -140 Meds/Results Medications: Active Medications Generic Name Dose Route Start Last Admin Trade Name Alecq PRN Reason Stop Dose Admin Albuterol 2.5 mg 10/26/20 09:03 10/27/20 21:05 Albuterol Sulfate Neb 2.5 Mg/0.5 Ml Inh INHALATION 2.5 mg Q6HRT PRN Administration Shortness Of Breath Amlodipine Besylate 5 mg 10/25/20 03:30 10/27/20 21:53 Amlodipine Besylate 5 Mg Tablet PO 5 mg HS MILIND Administration Lipase/Protease/Amylase 1 cap 10/25/20 08:00 10/28/20 12:44 Lipase/Amylase/Protease 12,000 Units Cap PO 1 cap TIDWM MILIND Administration Lipase/Protease/Amylase 2 cap 10/25/20 21:00 10/27/20 21:53 Lipase/Amylase/Protease 12,000 Units
[2020-10-28] MEDS: BENZONATATE 100 MG CAPSULE 200 MG PO (13:55)
[2020-10-28] MEDS: IPRATROPIUM BR 0.02% INH SOLN 0.5 MG/2.5 ML VIAL INHALATION (14:52)
[2020-10-28] MEDS: ALBUTEROL SULFATE NEB 2.5 MG/0.5 ML INH INHALATION (14:53)
[2020-10-28] MEDS: SODIUM CHLORIDE 0.9% IV 1,000 ML 50 ML IV CONT (15:34)
[2020-10-28] MEDS: FUROSEMIDE INJ 40 MG/4 ML VIAL IV PUSH (15:34)
[2020-10-28] MEDS: INSULIN GLARGINE (*BKC) 100 UNITS/ML 20 UNITS SUB-Q (17:16)
[2020-10-28 17:36] LABS: Glucose Point of Care 163 mg/dl (65-105)
[2020-10-28 21:08] LABS: Glucose Point of Care 163 mg/dl (65-105)
[2020-10-28] MEDS: amLODIPine BESYLATE 5 MG TABLET PO (21:58)
[2020-10-28] MEDS: LIPASE/AMYLASE/PROTEASE 12,000 UNITS CAP 2 CAP PO (21:58)
[2020-10-28] MEDS: oxyCODONE HCL (*CRX) 5 MG TAB IR PO (22:28)
[2020-10-29 06:09] VITALS: BP 124/53; PULSE 77; RESP 17; TEMP 36.1; O2SAT 100
[2020-10-29] MEDS: LEVOTHYROXINE SODIUM 150 MCG TABLET PO (06:13)
[2020-10-29 06:26] LABS: Basophils Percent Auto 0.5 % (0.2-1.2); Eosinophils Absolute Auto 0.2 K/mm3 (0-0.3); Eosinophils Percent Auto 2.9 % (0-4.4); Hematocrit 34.4 % (37.0-47.0); Hemoglobin 11.4 g/dL (12.0-15.0); Immature Granulocyte Absolute 0.03 K/mm3 (0.00-0.031); Immature Granulocyte Percent A 0.5 % (0-0.5); Immature Platelet Fraction Pct 6.1 % (0.9-11.2); Lymphocytes Absolute Auto 0.97 K/mm3 (0.9-3.2); Lymphocytes Percent Auto 16.8 % (18.3-44.2); Mean Corpuscular HGB Conc 33.1 g/dl (32-36); Mean Corpuscular Hemoglobin 32.3 pg (26-34); Mean Corpuscular Volume 97.5 fl (80-100); Mean Platelet Volume 11.1 fl (7.4-10.4); Monocytes Absolute Auto 0.5 K/mm3 (0.1-0.6); Monocytes Percent Auto 8.1 % (2.6-8.5); Neutrophils Absolute Auto 4.1 K/mm3 (1.3-6.7); Neutrophils Percent Auto 71.2 % (45.5-73.1); Platelet Count Result 121 k/mm3 (150-375); Red Blood Count 3.53 M/mm3 (4.2-5.4); Red Cell Distribution Width 13.1 % (11.5-14.5); White Blood Count 5.8 K/mm3 (4.5-10.0)
[2020-10-29 06:43] LABS: Alanine Aminotransferase 91 U/L (4-35); Albumin Level 3.4 g/dL (3.5-5.1); Alkaline Phosphatase 293 U/L (38-126); Anion Gap 11 mmol/L (8-16); Aspartate Amino Transferase 86 U/L (14-36); Blood Urea Nitrogen 71 mg/dL (7-17); Carbon Dioxide 25 mmol/L (22-30); Chloride 98 mmol/L (98-107); Estimated CRCL calculation 19 ml/min; Estimated Glomerular Filt Rate 19; Glucose 98 mg/dL (65-105); Magnesium 1.8 mg/dL (1.6-2.3); Phosphorus 4.5 mg/dL (2.5-4.5); Sodium 134 mmol/L (137-145)
[2020-10-29 07:45] VITALS: PULSE 80; RESP 20; O2SAT 96
[2020-10-29] MEDS: IPRATROPIUM BR 0.02% INH SOLN 0.5 MG/2.5 ML VIAL INHALATION (07:53)
[2020-10-29] MEDS: BUDESONIDE RESPULE NEB 0.5 MG/2 ML AMP 0.25 MG INHALATION (07:53)
[2020-10-29] MEDS: ALBUTEROL SULFATE NEB 2.5 MG/0.5 ML INH INHALATION (07:53)
[2020-10-29 07:55] VITALS: PULSE 84; RESP 20
[2020-10-29 08:30] VITALS: PULSE 84; RESP 20; O2SAT 100
[2020-10-29] MEDS: INSULIN GLARGINE (*BKC) 100 UNITS/ML 25 UNITS SUB-Q (09:29)
[2020-10-29] MEDS: INSULIN ASPART (*BKC) 100 UNITS/ML SUB-Q (09:30)
[2020-10-29] MEDS: LIPASE/AMYLASE/PROTEASE 12,000 UNITS CAP 1 CAP PO ×2 (09:34→11:42)
[2020-10-29] MEDS: ASPIRIN 81 MG CHEWABLE TABLET PO (09:34)
[2020-10-29] MEDS: PANTOPRAZOLE 40 MG TABLET PO (09:34)
[2020-10-29] MEDS: MULTIVITAMINS THERAPEUTIC TAB (*BKC) 1 TABLET PO (09:34)
[2020-10-29] MEDS: VENLAFAXINE HCL XR 75 MG CAP.ER.24H 150 MG PO (09:34)
[2020-10-29] MEDS: OPTI-GEN TAB 1 TABLET PO (09:34)
[2020-10-29 09:35] VITALS: PULSE 84
[2020-10-29] MEDS: CYANOCOBALAMIN 1,000 MCG TABLET 5000 MCG PO (09:35)
[2020-10-29] MEDS: GABAPENTIN 300 MG CAPSULE PO ×2 (09:35→13:40)
[2020-10-29] MEDS: carvediloL 12.5 MG TABLET PO (09:35)
[2020-10-29] MEDS: FAMOTIDINE 20 MG/2 ML VIAL IV PUSH (09:36)
[2020-10-29] MEDS: LORATADINE 10 MG TABLET PO (09:36)
[2020-10-29] MEDS: PYRIDOXINE HCL 50 MG TABLET 400 MG PO (09:36)
--- NOTE | 2020-10-29 10:28 | PM.DS ---
DS: Admitting Diagnosis Admitting Diagnosis Admitting Diagnosis: (1) Common bile duct mass: Code(s): K83.8 - Other specified diseases of biliary tract Status: Acute (2) Acute UTI: Code(s): N39.0 - Urinary tract infection, site not specified Status: Acute (3) Seizures: Code(s): R56.9 - Unspecified convulsions Status: Acute (4) Diabetes mellitus: Qualifiers: Diabetes mellitus type: type 2 Diabetes mellitus skilled nursing insulin use: with manager intermediate use Diabetes mellitus complication status: with hypoglycemia Diabetes mellitus complication detail: with coma Qualified Code(s): E11.641 - Type 2 diabetes mellitus with hypoglycemia with coma; Z79.4 - termite helper (current) use of insulin Code(s): E11.9 - Type 2 diabetes mellitus without complications Status: Chronic (5) Sleep apnea: Code(s): G47.30 - Sleep apnea, unspecified Status: Inactive (6) Pacemaker: Code(s): Z95.0 - Presence of cardiac pacemaker Status: Inactive (7) Hypothyroidism: Code(s): E03.9 - Hypothyroidism, unspecified Status: Inactive (8) Hypertension: Code(s): I10 - Essential (primary) hypertension Status: Inactive (9) Hypercholesteremia: Code(s): E78.00 - Pure hypercholesterolemia, unspecified Status: Inactive (10) Depression: Code(s): F32.9 - Major depressive disorder, single episode, unspecified Status: Inactive (11) COPD (chronic obstructive pulmonary disease): Code(s): J44.9 - Chronic obstructive pulmonary disease, unspecified Status: Inactive (12) Atrial fibrillation: Code(s): I48.91 - Unspecified atrial fibrillation Status: Inactive (13) Anxiety: Code(s): F41.9 - Anxiety disorder, unspecified Status: Inactive (14) Arthritis: Code(s): M19.90 - Unspecified osteoarthritis, unspecified site Status: Inactive (15) Pneumobilia: Code(s): K83.8 - Other specified diseases of biliary tract Status: Acute DS: Discharge Diagnosis Discharge Diagnosis (1) Choledocholithiasis: Code(s): K80.50 - Calculus of bile duct without cholangitis or cholecystitis without obstruction Status: Acute Assessment and Plan: CT showed a 10.7x19mm stone in the CBD on admission and pt was having abdominal pain -ERCP showed a stone which was treated with EHL which broke them into smaller pieces and removed with the balloon extractor 10/26/20 -remains on ceftriaxone and flagyl pt febrile this morning -leukocytosis resolved -Continue with GI recommendations and advance diet as tolerated (2) Acute metabolic encephalopathy: Code(s): G93.41 - Metabolic encephalopathy Status: Acute Assessment and Plan: RESOLVED New this morning, no neurological deficits on exam today AAOx3 -CT of the brain neg for acute pathology -Continue neurochecks -Pt used cpap overnight, o2 sat on exam was 96% on room air. glucose 261 co2 on BNP 24 (3) Elevated liver enzymes: Code(s): R74.8 - Abnormal levels of other serum enzymes Status: Acute Assessment and Plan: Likely due to procedure and hopefully will trend down with time -Pt also has a hx of possible cirrhosis with mild elevated in liver enzymes at baseline (daughter just states she has liver disease ) -monitor with daily labs -GI on board (4) Leukocytosis: Code(s): D72.829 - Elevated white blood cell count, unspecified Status: Acute Assessment and Plan: RESOLVED Likely due to procedure since pt is afebrile -blood cultures were drawn -contiue ceftriaxone and flagyl at this time per GI. Consider broadening if pt worsens (5) Seizures: Code(s): R56.9 - Unspecified convulsions Status: Acute Assessment and Plan: No seizure activity since admission Pt states she has seizures if her glucose gets too low and that the gabapentin is for neuropathy -Last stay she wa
--- NOTE | 2020-10-29 11:32 | WPDGIPROGNO ---
Progress Note: A&P Assessment and Plan (1) Choledocholithiasis: Code(s): K80.50 - Calculus of bile duct without cholangitis or cholecystitis without obstruction Status: Acute Assessment and Plan: large stone in bile duct treated with ercp and spyglass with lithotripsy recovering she can go home with 5 more days of oral antibiotics, then follow-up in office in about 2 weeks with repeat CMP (2) Cholangitis: Code(s): K83.09 - Other cholangitis Status: Acute Assessment and Plan: continue oral antibiotics no more fever and normal wbc for last 3 days (3) Elevated liver enzymes: Code(s): R74.8 - Abnormal levels of other serum enzymes Status: Acute Assessment and Plan: transaminases trending down, expect that bili also will come down- repeat as outpatient and follow-up in office low fat diet (4) Acute on chronic kidney failure: Code(s): N17.9 - Acute kidney failure, unspecified; N18.9 - Chronic kidney disease, unspecified Status: Acute Assessment and Plan: improved (5) CHF (congestive heart failure): Code(s): I50.9 - Heart failure, unspecified Status: Acute (6) History of cholecystectomy: Code(s): Z90.49 - Acquired absence of other specified parts of digestive tract Status: Acute (7) Cirrhosis: Code(s): K74.60 - Unspecified cirrhosis of liver Status: Acute Assessment and Plan: will need also liver imaging as outpatient every 6 months for hcc screening (she can see us in office) Subjective Date/time seen: 10/29/20 11:32 Interval history: she is doing much better and feeling like leaving the hospital today, tolerating diet and less abdominal pain Review of Systems Review of Systems: All systems reviewed & are unremarkable except as noted in HPI and below Exam Const: General: no acute distress Other: she is more comfortable HENMT: General nose exam: Normal nares present Neck: Neck: supple Resp: Auscultation: wheezes scattered wheezes and diminished lung sounds Cardio: Rate: regular rate GI: Inspection: non-distended GI Palp: Yes Soft to palpation, No Firmness to palpation present (GI), Yes Tenderness to palpation present (GI) (less tender today) and No Guarding due to palpation present (GI) Auscultation: normal bowel sounds Skin: General skin exam: no erythema Neuro: Speech: normal speech Extrem: General: pedal edema Psych: Affect: Anxious affect present Objective Data Vital Signs Vital Signs: Vital Signs - 24 hr 10/28/20 12:00 10/28/20 14:54 10/28/20 16:00 Temperature 97.1 F L 97.1 F L Pulse Rate 79 84 86 Respiratory Rate 18 20 18 Blood Pressure 129/62 132/67 Pulse Oximetry 98 99 10/28/20 19:26 10/28/20 19:49 10/28/20 19:50 Temperature 97.7 F Pulse Rate 76 78 Respiratory Rate 20 20 Blood Pressure 149/58 H Pulse Oximetry 98 96 10/28/20 21:58 10/28/20 23:57 10/29/20 06:09 Temperature 97 F L 97 F L Pulse Rate 84 73 77 Respiratory Rate 19 17 Blood Pressure 139/54 L 124/53 L Pulse Oximetry 94 100 10/29/20 07:45 10/29/20 07:55 10/29/20 08:30 Temperature Pulse Rate 80 84 84 Respiratory Rate 20 20 20 Blood Pressure Pulse Oximetry 96 100 10/29/20 09:35 Temperature Pulse Rate 84 Respiratory Rate Blood Pressure Pulse Oximetry Intake/Output Intake/Output: Intake & Output 10/26/20 10/27/20 10/28/20 10/29/20 23:59 23:59 23:59 23:59 Intake Total 2900 1740 2700 890 Output Total 1350 1660 1950 3000 Balance 1550 80 750 -2110 Meds/Results Medications: Active Medications Generic Name Dose Route Start Last Admin Trade Name Tom PRN Reason Stop Dose Admin Albuterol 2.5 mg 10/26/20 09:03 10/29/20 07:53 Albuterol Sulfate Neb 2.5 Mg/0.5 Ml Inh INHALATION 2.5 mg Q6HRT PRN Administration Shortness Of Breath Amlodipine Besylate 5 mg 10/25/20 03:30 10/28/20 21:58 Amlodipine Besylate 5 Mg Tablet PO 5 mg
[2020-10-29 12:00] VITALS: BP 118/70; PULSE 72; RESP 18; TEMP 36.1; O2SAT 100
[2020-10-29 12:07] LABS: Glucose Point of Care 149 mg/dl (65-105)
--- NOTE | 2020-10-29 12:39 | PC.NURSE ---
call to [facility], message left to phone as that was the only option at this time
[2020-10-31 15:35] LABS: Glucose Point of Care 103 mg/dl (65-105)
== END 2020-10-29 14:23 | DRG 444 ==
LOC: ANHED 19:58 → ANH3MED 20:18
PROVIDERS: Emergency Medicine Emergency Medical Services; Internal Medicine Gastroenterology; Physician Assistant; Admitting Provider Internal Medicine; Emergency Provider Emergency Medicine; Visit Provider Hospitalist
PROC: 0FC98ZZ Extirpation of Matter from Common Bile Duct, Via Natural or Artificial Opening Endoscopic (ICD-10-PCS; CPT 43260; principal; 2020-10-25 14:30)
DX: K80.30 Calculus of bile duct with cholangitis, unspecified, without obstruction (principal); G93.41 Metabolic encephalopathy; J96.02 Acute respiratory failure with hypercapnia; N39.0 Urinary tract infection, site not specified; N17.9 Acute kidney failure, unspecified; I13.0 Hypertensive heart and chronic kidney disease with heart failure and stage 1 through stage 4 chronic kidney disease, or unspecified chronic kidney disease; N18.4 Chronic kidney disease, stage 4 (severe); K83.8 Other specified diseases of biliary tract; I50.9 Heart failure, unspecified; E11.22 Type 2 diabetes mellitus with diabetic chronic kidney disease; E11.649 Type 2 diabetes mellitus with hypoglycemia without coma; E11.40 Type 2 diabetes mellitus with diabetic neuropathy, unspecified; N26.1 Atrophy of kidney (terminal); I48.91 Unspecified atrial fibrillation; G47.30 Sleep apnea, unspecified; E03.9 Hypothyroidism, unspecified; K74.60 Unspecified cirrhosis of liver; R74.8 Abnormal levels of other serum enzymes; J44.9 Chronic obstructive pulmonary disease, unspecified; R56.9 Unspecified convulsions; D69.6 Thrombocytopenia, unspecified; E78.5 Hyperlipidemia, unspecified; E78.00 Pure hypercholesterolemia, unspecified; F32.9 Major depressive disorder, single episode, unspecified; M19.90 Unspecified osteoarthritis, unspecified site; M43.8X5 Other specified deforming dorsopathies, thoracolumbar region; F41.9 Anxiety disorder, unspecified; E87.5 Hyperkalemia; Z79.4 Long term (current) use of insulin; Z79.82 Long term (current) use of aspirin; Z79.899 Other long term (current) drug therapy; Z90.49 Acquired absence of other specified parts of digestive tract; Z95.0 Presence of cardiac pacemaker
CPT/HCPCS: 36415; 36600; 51701; 70450; 71045; 74019; 74176; 74329; 80048; 80053; 80076; 81001; 81003; 82140; 82805; 82948; 83036; 83605; 83690; 83735; 84100; 85025; 85027; 85055; 85610; 87040; 87086; 87088; 94640; 96361; 96365; 96366; 96367; 96375; 96376; 97110; 97116; 97161; 97165; 97530; 97535; 99285; A9270; C1769; G0378; J0131; J0330; J0696; J0743; J1100; J1200; J1815; J1940; J2270; J2405; J2550; J2704; J3010; J7030; J7040; J7120

== ENCOUNTER 2020-12-07 18:40 | Inpatient (IN) | payer MEDICARE, OTHER, SELFPAY ==
--- NOTE | ~2020-12-07 | US_ITS ---
EXAMINATION: US right upper quadrant DATE: 12/09/2020 13:20 INDICATION: Elevated liver enzymes TECHNIQUE: Multiple grayscale and Doppler ultrasound images of the abdomen were obtained. COMPARISON: CT, 12/07/2020 FINDINGS: The head and body of the pancreas are normal. The pancreatic tail is obscured by bowel gas. Foci of gas throughout the liver are consistent with pneumobilia demonstrated on the comparison CT s can. The liver is otherwise normal with normal echogenicity and echotexture. No surface nodularity. N ormal hepatopetal flow in the main portal vein. The gallbladder is surgically absent. The mildly dila kassy common bile duct measures 8 mm, consistent with post cholecystectomy state. IMPRESSION: 1. Unremarkable postcholecystectomy ultrasound. Reviewed, dictated and finalized at location A.
--- NOTE | ~2020-12-07 | XR_ITS ---
EXAMINATION: XR chest 1V portable EXAM DATE: 12/08/2020 15:45 INDICATION: Hyperventilation. TECHNIQUE: Portable AP frontal chest x-ray was obtained. Comparison is made to prior examination from 10/27/2020. FINDINGS: Multi lead pacemaker/AICD device. There is cardiomegaly. Right midlung zone granuloma. No c onfluent consolidation, pneumothorax or pleural effusion suspected. Treated lower thoracic compressio n fractures. Compared to prior study, improvement in heart size and pulmonary vascular congestion. IMPRESSION: Mild cardiomegaly. Reviewed, dictated and finalized at location G. IMPRESSION: Mild cardiomegaly.
--- NOTE | ~2020-12-07 | CT_ITS ---
EXAMINATION: CT abdomen pelvis wo con DATE: 12/07/2020 21:48 INDICATION: Epigastric pain. TECHNIQUE: Computed tomography (CT) of the abdomen and pelvis was performed without intravenous contr ast. Automated exposure control and iterative reconstruction technique were employed. The dose-length product was 1349.04 mGy-cm. COMPARISON: 10/24/2020 FINDINGS: Mild dependent atelectasis in the bilateral lower lobes. Mild cardiomegaly. 3-lead cardiac pacemaker with lead tips at the right atrium, apex of the right ventricle and in a coronary vein overlying the lateral wall of the left ventricle having traversed the coronary sinus. No pericardial or pleural eff usion. Again seen is dilation of the common bile duct and pneumobilia in the nondependent liver likel y related to prior cholecystectomy and sphincterotomy. There is a nodular liver surface contour consi stent with cirrhosis. Small hepatic and splenic calcification consistent with old granulomatous disea se. Fatty atrophy of the pancreas. Bilateral adrenal glands and right kidney are normal. Moderate to severe left renal atrophy with parenchymal scarring. There is mild colonic diverticulosis with a sigm oid predominance. There is no adjacent inflammatory change to suggest diverticulitis. No bowel obstr uction. The appendix is not visualized. No pericecal inflammatory change to suggest acute appendiciti s. Bladder is normal. The uterus is not identified and has likely been surgically resected. Small gillian ateral fat-containing inguinal hernias. No free intraperitoneal gas or fluid. No pathologically enlar ged abdominal or pelvic lymphadenopathy. Severe lumbar spondylosis. Multiple compression and burst fr actures throughout the lumbar and lower thoracic spine with vertebral plasties at each level from T11 through L4. IMPRESSION: 1. No acute intra-abdominal/pelvic process. 2. Cardiomegaly. 3. Cirrhosis with pneumobilia and dilation the common bile duct likely related to prior cholecystecto my and sphincterotomy. 4. Moderate to severe left renal atrophy with parenchymal scarring. 5. Mild diverticulosis. Reviewed, dictated and finalized at location A. IMPRESSION: 1. No acute intra-abdominal/pelvic process. 2. Cardiomegaly. 3. Cirrhosis with pneumobilia and dilation the common bile duct likely related to prior cholecystectomy and sphincterotomy. 4. Moderate to severe left renal atrophy with parenchymal scarring. 5. Mild diverticulosis.
[2020-12-07 18:47] VITALS: BP 146/84; PULSE 92; RESP 22; TEMP 37; O2SAT 100
[2020-12-07 19:04] LABS: Basophils Absolute Auto 0.1 K/mm3 (0.0-0.1); Basophils Percent Auto 0.7 % (0.2-1.2); Eosinophils Absolute Auto 0.1 K/mm3 (0-0.3); Eosinophils Percent Auto 0.8 % (0-4.4); Hematocrit 40.2 % (37.0-47.0); Hemoglobin 13.7 g/dL (12.0-15.0); Immature Granulocyte Absolute 0.03 K/mm3 (0.00-0.031); Immature Granulocyte Percent A 0.4 % (0-0.5); Immature Platelet Fraction Pct 5.1 % (0.9-11.2); Lymphocytes Percent Auto 31.6 % (18.3-44.2); Mean Corpuscular HGB Conc 34.1 g/dl (32-36); Mean Corpuscular Hemoglobin 31.7 pg (26-34); Mean Corpuscular Volume 93.1 fl (80-100); Mean Platelet Volume 11.2 fl (7.4-10.4); Monocytes Absolute Auto 0.4 K/mm3 (0.1-0.6); Monocytes Percent Auto 4.6 % (2.6-8.5); Neutrophils Absolute Auto 4.7 K/mm3 (1.3-6.7); Neutrophils Percent Auto 61.9 % (45.5-73.1); Platelet Count Result 151 k/mm3 (150-375); Red Blood Count 4.32 M/mm3 (4.2-5.4); Red Cell Distribution Width 12.9 % (11.5-14.5); White Blood Count 7.6 K/mm3 (4.5-10.0)
--- NOTE | 2020-12-07 19:08 | ED.NAVMDI ---
HPI - Nausea/Vomiting/Diarrhea General Chief complaint: Nausea/Vomiting/Diarrhea Stated complaint: Nausea Time Seen by Provider: 12/07/20 19:08 History of Present Illness HPI Narrative: 80 yo female w/ multiple medical problem including DM, HTN, CHF, cirrhosis, anxiety presents to the ED for nausea and abdominal pain. She reports that she has had severe nausea for several days. She has reportedly not been eating anything since onset. She is able to tolerate some fluids. She has now developed constant epigastric pain. It is a dull ache. Moderate intensity. Radiates to between the shoulder blades at times. She was admitted here six weeks ago for for a common bile duct stone. She had here gall bladder removed many years ago. This was removed with ERCP and symptoms improved. Related Data Home Medications Medication Instructions Recorded Confirmed Creon 1 cap PO HS 02/10/20 12/08/20 Creon 1 cap PO TID 02/10/20 12/08/20 Linzess 72 mcg PO DAILY 02/10/20 12/08/20 amlodipine 5 mg PO HS 02/10/20 12/08/20 aspirin 81 mg PO DAILY 02/10/20 12/08/20 carvedilol 12.5 mg PO BID 02/10/20 12/08/20 docusate sodium [Colace] 250 mg PO DAILY PRN 02/10/20 12/08/20 ergocalciferol (vitamin D2) 50,000 unit PO WEEKLY 02/10/20 12/08/20 fluticasone propionate [Flonase 2 spray INTRANASAL DAILY PRN 02/10/20 12/08/20 Allergy Relief] gabapentin 300 mg PO QID 02/10/20 12/08/20 insulin aspart U-100 [Novolog 1 sliding scale dose SUBCUT AC 02/10/20 10/24/20 U-100 Insulin aspart] pyridoxine (vitamin B6) 400 mg PO DAILY 02/10/20 12/08/20 spironolactone 25 mg PO DAILY 02/10/20 12/08/20 venlafaxine 150 mg PO DAILY 02/10/20 12/08/20 cetirizine [Zyrtec] 10 mg PO DAILY 10/24/20 12/08/20 cyanocobalamin (vitamin B-12) 5,000 mcg PO DAILY 10/24/20 12/08/20 melatonin 3 mg PO HS PRN 10/24/20 12/08/20 [id number] 1 tablet PO DAILY 10/24/20 12/08/20 polyethylene glycol 3350 [Miralax] 17 g PO DAILY 10/24/20 12/08/20 febuxostat [Uloric] 40 mg PO DAILY 12/08/20 12/08/20 levothyroxine [Tirosint] 150 mcg PO DAILY 12/08/20 12/08/20 omeprazole 20 mg PO BID 12/08/20 12/08/20 Allergies Allergy/AdvReac Type Severity Reaction Status Date / Time meperidine Allergy Mild Itching Verified 12/07/20 18:51 niacin Allergy Mild Rash Verified 12/07/20 18:51 quetiapine Allergy Mild Swelling Verified 12/07/20 18:51 allopurinol Allergy Unknown Unknown Verified 12/07/20 18:51 bupropion Allergy Unknown JERKY Verified 12/07/20 18:51 MOVEMENTS carbamazepine Allergy Unknown Unknown Verified 12/07/20 18:51 [From Carbatrol] codeine Allergy Unknown Unknown Verified 12/07/20 18:51 enalapril Allergy Unknown Unknown Verified 12/07/20 18:51 fluoxetine Allergy Unknown Unknown Verified 12/07/20 18:51 lorazepam Allergy Unknown Unknown Verified 12/07/20 18:51 morphine Allergy Unknown Unknown Verified 12/07/20 18:51 Penicillins Allergy Unknown Rash Verified 12/07/20 18:51 trazodone Allergy Unknown Dizziness Verified 12/07/20 18:51 promethazine [From Phenergan] AdvReac Intermediate Hallucinati Verified 12/07/20 18:51 ng enalaprilat AdvReac Mild PERSISTENT Verified 12/07/20 18:51 COUGH modafinil AdvReac Mild SORES Verified 12/07/20 18:51 oxycodone AdvReac Mild GI DISTRESS Verified 12/07/20 18:51 Review of Systems Review of Systems: All systems reviewed & are unremarkable except as noted in HPI and below Constitutional: Constitutional: Denies chills and Denies fever(s) Eyes: Eyes: Reports no additional eye complaints ENT: Reports system reviewed and no additional complaints, except as documented Cardiovascular: Cardiovascular: Denies chest pain Respiratory: Respiratory: Reports dyspnea Gastrointestinal: Gastrointestinal: Reports abdominal pain, Denies constipation, Denies diarrhea, Reports nausea and Reports vomiting Genitourinary: Genitourinary: Denies hematuria, Reports nocturia and Denies dysuria Musculoskeletal: Musculoskeletal: Reports back pain Neurologic: Denies di
[2020-12-07 19:14] LABS: INR 1.1; Prothrombin Time 14.1 Seconds (11.1-14.7)
--- NOTE | 2020-12-07 19:15 | PC.NURSE ---
report to LARRY Mcdermott
[2020-12-07 19:16] LABS: Partial Thromboplastin Time 30.3 SECONDS (22.3-36.8)
[2020-12-07 19:22] LABS: Alanine Aminotransferase 56 U/L (4-35); Albumin Level 4.4 g/dL (3.5-5.1); Alkaline Phosphatase 410 U/L (38-126); Anion Gap 12 mmol/L (8-16); Aspartate Amino Transferase 79 U/L (14-36); Bilirubin,Total 1.5 mg/dL (0.2-1.3); Blood Urea Nitrogen 29 mg/dL (7-17); Calcium 9.6 mg/dL (8.4-10.2); Carbon Dioxide 22 mmol/L (22-30); Chloride 100 mmol/L (98-107); Estimated CRCL calculation 25 ml/min; Estimated Glomerular Filt Rate 27; Glucose 247 mg/dL (65-105); Lipase 61 U/L (23-300); Potassium 4.8 mmol/L (3.4-5.0); Sodium 134 mmol/L (137-145)
[2020-12-07 19:55] VITALS: BP 126/66; PULSE 92; RESP 22; O2SAT 99
[2020-12-07] MEDS: ONDANSETRON INJ 4 MG/2 ML VIAL IV PUSH ×2 (19:55→23:55)
[2020-12-07] MEDS: diazePAM INJ (*CRX) 10 MG/2 ML SYRINGE 2.5 MG IV PUSH (20:09)
[2020-12-07 20:59] VITALS: BP 133/75; PULSE 92; RESP 16; O2SAT 100
[2020-12-07 22:18] LABS: Add Urine Microscopic? YES; Appearance Urine Clear (Clear); Bacteria Urine Trace /hpf; Bilirubin Urine Negative (Negative); Blood Urine Negative (Negative); Color Urine Yellow (Yellow); Glucose Urine UA Negative (Negative); Ketones Urine Negative (Negative); Leukocyte Esterase Ur Negative LEU/UL (Negative); Nitrate Urine Negative (Negative); Protein Urine Negative (Negative); RBC Urine 0-2 /hpf (0-2); Squamous Epithelial Cell Urine Rare /hpf (Few); WBC Urine 0-3 /hpf
[2020-12-07 22:34] VITALS: BP 155/87; PULSE 86; RESP 20; TEMP 36.9; O2SAT 96
[2020-12-07 23:56] VITALS: BP 128/81; PULSE 88; RESP 18; O2SAT 98
[2020-12-08] VITALS (9 sets, daily range): BP systolic 130–148; BP diastolic 71–84; PULSE 68–90; RESP 14–24; TEMP 36.5–36.6; O2SAT 95–100; BMI 38.8
--- NOTE | 2020-12-08 01:01 | ADMGEN ---
This patient, Roosevelt Penn, was admitted to 3 Med Surg Room 330-01. Patient/family oriented to hospital policies and general routines including ID bracelet, bed and alarms, visiting hours, pain management, procedures, bathroom and other care routines, personal items, smoking policy, room service/diet, and visiting hours. Information on how to activate the Rapid Response Team has been discussed. Patient/Family are encouraged to report perceived risks to care and to ask questions if they do not understand what they are told or what they should do.
[2020-12-08] MEDS: LORazepam (*CRX) 1 MG TABLET PO (01:50)
[2020-12-08] MEDS: SODIUM CHLORIDE 0.9% IV 1,000 ML 50 ML IV CONT (01:50)
--- NOTE | 2020-12-08 02:31 | PM.IMHP ---
H&P: HPI History of Present Illness Date/Time: 12/08/20 01:31 Chief Complaint: Nausea, abdominal pain, anxiety Narrative: 80-year-old female with past medical history of CHF, obstructive sleep apnea, type 2 diabetes, MARCUS, cirrhosisanxiety and depression, and recent hospitalization for biliary duct stone who presented to the ER with nausea, abdominal pain and anxiety. patient reports that she has not been eating anything for a couple of weeks. But at the time my evaluation she told me that she was able to eat 2 scrambled eggs this morning without difficulty. She has been having persistent nausea but not really Any vomiting. She has been able to the tolerate fluids. The patient reports persistent constant right upper quadrant abdominal pain. His dull ache. It is moderate in intensity. It is worse with palpation. She denied any radiation of the pain at the time my evaluation but stated that the pain radiated to her back to the ER staff. She has been having normal bowel movements. She denies having any fevers or chills. She reports to me that she has been having shortness of breath. In the ER and at the time of my evaluation the patient was noted to be hyperventilating. She was quite anxious. She reports that she is going through some family stressors. Evidently her son who she was residing with was recently arrested. She does not want anyone to know that her son has been arrested. Every time she talks about her son she becomes tachypneic and complains of shortness of breath. She has a history of panic attacks in the past and was on Valium for many years. She reports chronic dyspnea on exertion when ambulating to the bathroom. This is been ongoing for years and from what I can tell is unchanged from baseline. She denies any cough or congestion. She reports that she becomes fluid overloaded very easily. her legs are not swollen at this time. She denies orthopnea. She does wear a CPAP at home. According to the ER physician of patient daughter feels that the good portion of the patient's symptoms are due to his anxiety. The patient does follow with a psychiatrist as outpatient. Reportedly, her daughter thinks the patient may benefit from some inpatient psychiatric care. The patient reports progressive loss of short-term memory. She has never received a formal diagnosis of dementia. Review of Systems Review of Systems: Narrative: 12 systems were reviewed with pertinent positives and negatives per HPI. Except as documented in the HPI, all other systems were reviewed and are negative. [facility] Past Medical History Medical History (Updated 12/08/20 @ 03:19 by Shanita Mccormick DO) Anxiety and depression Atrial fibrillation Bladder prolapse CHF (congestive heart failure) Cholangitis Chronic kidney disease Cirrhosis COPD (chronic obstructive pulmonary disease) Diabetes mellitus Fibromyalgia Hyperlipidemia Hypertension Hypothyroidism Kidney stones MARCUS (nonalcoholic steatohepatitis) Sleep apnea Thrombocytopenia Surgical History Surgical History (Updated 12/08/20 @ 03:18 by Shanita Mccormick DO) AICD (automatic cardioverter/defibrillator) present History of cholecystectomy Hx of thyroidectomy Pacemaker S/P cervical spinal fusion Status post cataract extraction of both eyes with insertion of intraocular lens Family History Family History Father Carcinoma of colon, Onset Age: 86 Renal failure Mother Diabetes mellitus Daughter Brain tumor Son Family history of heart disease in male family member before age 55 Family history of mental disorder Other Hypertension Social History Social History (Updated 12/08/20 @ 02:53 by Shanita Mccormick DO) Social History: 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 She has been living at [facility] for the last 2 weeks. Prior to that she lives with her son. She usually ambulates with a walker. According to arabella
[2020-12-08 07:22] LABS: Alanine Aminotransferase 55 U/L (4-35); Albumin Level 3.9 g/dL (3.5-5.1); Alkaline Phosphatase 366 U/L (38-126); Anion Gap 10 mmol/L (8-16); Aspartate Amino Transferase 68 U/L (14-36); Bilirubin,Total 1.5 mg/dL (0.2-1.3); Blood Urea Nitrogen 30 mg/dL (7-17); Calcium 9.3 mg/dL (8.4-10.2); Carbon Dioxide 28 mmol/L (22-30); Chloride 97 mmol/L (98-107); Estimated CRCL calculation 20 ml/min; Estimated Glomerular Filt Rate 21; Glucose 216 mg/dL (65-105); Potassium 4.2 mmol/L (3.4-5.0); Sodium 135 mmol/L (137-145)
[2020-12-08 09:23] LABS: Glucose Point of Care 212 mg/dl (65-105)
[2020-12-08] MEDS: carvediloL 12.5 MG TABLET PO ×2 (09:43→17:14)
[2020-12-08] MEDS: PYRIDOXINE HCL 50 MG TABLET 400 MG PO (09:43)
[2020-12-08] MEDS: polyethylene glycoL 3350 17 GM POWD.PACK PO (09:43)
[2020-12-08] MEDS: VENLAFAXINE HCL XR 75 MG CAP.ER.24H 150 MG PO (09:44)
[2020-12-08] MEDS: CYANOCOBALAMIN 1,000 MCG TABLET 5000 MCG PO (09:44)
[2020-12-08] MEDS: GABAPENTIN 300 MG CAPSULE PO ×4 (09:44→21:22)
[2020-12-08] MEDS: LORATADINE 10 MG TABLET PO (09:44)
[2020-12-08] MEDS: PANTOPRAZOLE 40 MG TABLET PO ×2 (09:44→17:14)
[2020-12-08] MEDS: SPIRONOLACTONE 25 MG TABLET PO (09:45)
[2020-12-08] MEDS: FLUTICASONE PROPIONATE 0.05% NA SPR 16 GM BTL (*BKC) 2 SPRAY NASAL (09:45)
[2020-12-08] MEDS: FUROSEMIDE 40 MG TABLET PO (09:45)
[2020-12-08] MEDS: ASPIRIN 81 MG CHEWABLE TABLET PO (09:45)
[2020-12-08] MEDS: LIPASE/AMYLASE/PROTEASE 12,000 UNITS CAP 1 CAP PO ×3 (09:45→17:14)
[2020-12-08] MEDS: OPTI-GEN TAB 1 TABLET PO (09:45)
[2020-12-08] MEDS: INSULIN ASPART (*BKC) 100 UNITS/ML SUB-Q ×3 (09:48→17:14)
[2020-12-08] MEDS: ONDANSETRON INJ 4 MG/2 ML VIAL IV PUSH (09:53)
[2020-12-08 12:14] LABS: Glucose Point of Care 327 mg/dl (65-105)
--- NOTE | 2020-12-08 14:31 | PM.IMPN ---
Progress Note: A&P Assessment and Plan (1) Nausea: Code(s): R11.0 - Nausea Status: Acute Assessment and Plan: the patient has nausea with reported right upper quadrant abdominal pain labs have improved significantly compared to last month no leukocytosis or evidence of acute infection She has been tolerating liquids at home Continue with IVF follow bmp Will provide pain medications with Tylenol not to exceed 3 g a day. P.r.n. Zofran q.6 hours for nausea. (2) Type 2 diabetes mellitus with hyperglycemia: Qualifiers: Diabetes mellitus terminal carman insulin use: without terminal carman use Qualified Code(s): E11.65 - Type 2 diabetes mellitus with hyperglycemia Code(s): E11.65 - Type 2 diabetes mellitus with hyperglycemia Status: Acute Assessment and Plan: Will resume patient's home diabetic medications once med rec has been verified. Will start moderate sliding scale insulin and Accu-Cheks a.c. HS and hypoglycemia protocol (3) Hyperventilating: Code(s): R06.4 - Hyperventilation Status: Acute Assessment and Plan: hyperventilation due to acute anxiety and panic. Patient responds well to breathing Into a brown paper bag Patient received Valium in the ER and is requesting more volume S/p 1 dose of p.o. Ativan and re-evaluate patient's condition (4) Anxiety: Code(s): F41.9 - Anxiety disorder, unspecified Status: Acute (5) Obstructive sleep apnea on CPAP: Code(s): G47.33 - Obstructive sleep apnea (adult) (pediatric); Z99.89 - Dependence on other enabling machines and devices Status: Acute Assessment and Plan: auto titrating CPAP/BiPAP ordered (6) Acute on chronic kidney failure: Code(s): N17.9 - Acute kidney failure, unspecified; N18.9 - Chronic kidney disease, unspecified Status: Acute Assessment and Plan: Cr 2.2, hx 1.7-3.10 Continue with IVF Avoid nephrotoxins Monitor Additional Plan Patient has been admitted as observation status. According to Angelica JENKINS; the patient had been expressing some hopelessness at the [place] facility and family is wanting pt to be evaluated for inpatient psych treatment. Subjective Date/time seen: 12/08/20 14:31 Pt seen and evaluated; continues with nausea; denies any vomiting Review of Systems Review of Systems: All systems reviewed & are unremarkable except as noted in HPI and below Exam Const: General: no acute distress, alert and awake Orientation/consciousness: patient oriented x3 HENMT: Head: normocephalic and atraumatic Ears: hearing grossly normal bilaterally and external ears normal Face and sinus: face symmetric Mouth: Yes Normal oral and palatal mucosa present Eyes: Pupils: Equal, round and reactive pupils present EOM: EOMs intact bilaterally Neck: Neck: full ROM, trachea midline and no JVD Thyroid: thyroid normal Chest: Chest palpation & inspection: normal inspection of the chest Resp: Effort & Inspection: normal respiratory effort Auscultation: clear to auscultation bilaterally Cardio: Jugular venous distension: no JVD Rate: regular rate Rhythm: regular rhythm Heart sounds: S1 normal heart sound present and S2 normal heart sound present GI: Inspection: normal to inspection GI Palp: Yes Soft to palpation Percussion: Yes normal to percussion Auscultation: normal bowel sounds : General: Yes no CVA tenderness Back/Spine/Pelvis: Back: no CVA tenderness Skin: General skin exam: normal color Rashes: no rashes Neuro: General: patient oriented x3 and CN's II-XI intact bilaterally Cranial nerves: Yes Equal, round and reactive pupils present Speech: normal speech Psych: Appearance: grossly normal Affect: normal affect Attitude: cooperative Thought content: Yes Normal thought content present Objective Data Vital Signs Vital Signs: Vital Signs - 24 hr 12/07/20 18:47 12/07/20 19:55 12/07/20 20:59 Temper
[2020-12-08] MEDS: amLODIPine BESYLATE 5 MG TABLET PO (21:22)
[2020-12-08] MEDS: LIPASE/AMYLASE/PROTEASE 12,000 UNITS CAP 2 CAP PO (21:22)
[2020-12-08 21:29] LABS: Glucose Point of Care 335 mg/dl (65-105)
[2020-12-08 21:29] LABS: Glucose Point of Care 288 mg/dl (65-105)
[2020-12-09] VITALS (7 sets, daily range): BP systolic 129–136; BP diastolic 63–69; PULSE 60–91; RESP 15–18; TEMP 36.1–36.6; O2SAT 94–98
[2020-12-09 07:36] LABS: Glucose Point of Care 245 mg/dl (65-105)
[2020-12-09] MEDS: ASPIRIN 81 MG CHEWABLE TABLET PO (08:32)
[2020-12-09] MEDS: PYRIDOXINE HCL 50 MG TABLET 400 MG PO (08:33)
[2020-12-09] MEDS: FUROSEMIDE 40 MG TABLET PO (08:33)
[2020-12-09] MEDS: GABAPENTIN 300 MG CAPSULE PO ×4 (08:33→20:13)
[2020-12-09] MEDS: CYANOCOBALAMIN 1,000 MCG TABLET 5000 MCG PO (08:33)
[2020-12-09] MEDS: VENLAFAXINE HCL XR 75 MG CAP.ER.24H 150 MG PO (08:33)
[2020-12-09] MEDS: polyethylene glycoL 3350 17 GM POWD.PACK PO (08:33)
[2020-12-09] MEDS: LIPASE/AMYLASE/PROTEASE 12,000 UNITS CAP 1 CAP PO ×3 (08:33→16:31)
[2020-12-09] MEDS: PANTOPRAZOLE 40 MG TABLET PO ×2 (08:33→16:32)
[2020-12-09] MEDS: carvediloL 12.5 MG TABLET PO ×2 (08:34→16:30)
[2020-12-09] MEDS: LORATADINE 10 MG TABLET PO (08:35)
[2020-12-09] MEDS: SPIRONOLACTONE 25 MG TABLET PO (08:35)
[2020-12-09] MEDS: OPTI-GEN TAB 1 TABLET PO (08:35)
[2020-12-09] MEDS: INSULIN ASPART (*BKC) 100 UNITS/ML SUB-Q (08:42)
--- NOTE | 2020-12-09 11:00 | P.PNIM_ITS ---
Progress Note: A&P Assessment and Plan (1) Nausea: Code(s): R11.0 - Nausea Status: Acute Assessment and Plan: * the patient has nausea with reported right upper quadrant abdominal pain * labs have improved significantly compared to last month * no leukocytosis or evidence of acute infection * She has been tolerating liquids at home * Continue with IVF * follow bmp * Will provide pain medications with Tylenol not to exceed 3 g a day. * P.r.n. Zofran q.6 hours for nausea. * She is status post ERCP with removal of bile duct stone on 10/2020. On review of her lab work her bilirubin has improved along with her AST/ALT however she has persistent /worsening of her alkaline phosphatase. CT scan done this admission shows dilated common bile duct and pneumobilia. * concern for persistence of stone /sludge/ other etiologies with her persistent open hospitalist elevation * Pneumobilia likely due to her recent ERCP * Will do ultrasound right upper quadrant. If negative may need to do MRCP. (2) Type 2 diabetes mellitus with hyperglycemia: Qualifiers: Diabetes mellitus lobsterman insulin use: without skilled nursing use Qualified Code(s): E11.65 - Type 2 diabetes mellitus with hyperglycemia Code(s): E11.65 - Type 2 diabetes mellitus with hyperglycemia Status: Acute Assessment and Plan: * Will resume patient's home diabetic medications once med rec has been verified. * Will start moderate sliding scale insulin and Accu-Cheks a.c. HS and hypoglycemia protocol * Restart her home insulin Lantus twice a day and 70 30 with meals * Will lower the insulin dose Due to lower oral intake (3) Hyperventilating: Code(s): R06.4 - Hyperventilation Status: Acute Assessment and Plan: * hyperventilation due to acute anxiety and panic. Patient responds well to breathing Into a brown paper bag * Patient received Valium in the ER and is requesting more Valium * S/p 1 dose of p.o. Ativan and re-evaluate patient's condition (4) Anxiety: Code(s): F41.9 - Anxiety disorder, unspecified Status: Acute (5) Obstructive sleep apnea on CPAP: Code(s): G47.33 - Obstructive sleep apnea (adult) (pediatric); Z99.89 - Dependence on other enabling machines and devices Status: Acute Assessment and Plan: * auto titrating CPAP/BiPAP ordered (6) Acute on chronic kidney failure: Code(s): N17.9 - Acute kidney failure, unspecified; N18.9 - Chronic kidney disease, unspecified Status: Acute Assessment and Plan: Cr 2.2, hx 1.7-3.10 Continue with IVF Avoid nephrotoxins Monitor Additional Plan 80-year-old female with past medical history of CHF, obstructive sleep apnea, ty pe 2 diabetes, MARCUS, cirrhosis, anxiety and depression, and recent hospitalization for biliary duct stone who presented to the ER with nausea, abdominal pain and anxiety. patient reports that she has not been eating anything for a couple of weeks. But at the time my evaluation she told me that she was able to eat 2 scrambled eggs this morning without difficulty. She has been having persistent nausea but not really Any vomiting. She has been able to the tolerate fluids. The patient reports persistent constant right upper quadrant abdominal pain. His dull ache. It is moderate in intensity. It is worse with palpation. She denied any radiation of the pain at the time my evaluation but stated that the pain radiated to her back to the ER staff. She has been having normal bowel movements. She denies having any fevers or chills. She reports to me that she has been
--- NOTE | 2020-12-09 11:00 | PM.IMPN ---
Progress Note: A&P Assessment and Plan (1) Nausea: Code(s): R11.0 - Nausea Status: Acute Assessment and Plan: the patient has nausea with reported right upper quadrant abdominal pain labs have improved significantly compared to last month no leukocytosis or evidence of acute infection She has been tolerating liquids at home Continue with IVF follow bmp Will provide pain medications with Tylenol not to exceed 3 g a day. P.r.n. Zofran q.6 hours for nausea. She is status post ERCP with removal of bile duct stone on 10/2020. On review of her lab work her bilirubin has improved along with her AST/ALT however she has persistent /worsening of her alkaline phosphatase. CT scan done this admission shows dilated common bile duct and pneumobilia. concern for persistence of stone /sludge/ other etiologies with her persistent open hospitalist elevation Pneumobilia likely due to her recent ERCP Will do ultrasound right upper quadrant. If negative may need to do MRCP. (2) Type 2 diabetes mellitus with hyperglycemia: Qualifiers: Diabetes mellitus roasterman insulin use: without senior care use Qualified Code(s): E11.65 - Type 2 diabetes mellitus with hyperglycemia Code(s): E11.65 - Type 2 diabetes mellitus with hyperglycemia Status: Acute Assessment and Plan: Will resume patient's home diabetic medications once med rec has been verified. Will start moderate sliding scale insulin and Accu-Cheks a.c. HS and hypoglycemia protocol Restart her home insulin Lantus twice a day and 70 30 with meals Will lower the insulin dose Due to lower oral intake (3) Hyperventilating: Code(s): R06.4 - Hyperventilation Status: Acute Assessment and Plan: hyperventilation due to acute anxiety and panic. Patient responds well to breathing Into a brown paper bag Patient received Valium in the ER and is requesting more Valium S/p 1 dose of p.o. Ativan and re-evaluate patient's condition (4) Anxiety: Code(s): F41.9 - Anxiety disorder, unspecified Status: Acute (5) Obstructive sleep apnea on CPAP: Code(s): G47.33 - Obstructive sleep apnea (adult) (pediatric); Z99.89 - Dependence on other enabling machines and devices Status: Acute Assessment and Plan: auto titrating CPAP/BiPAP ordered (6) Acute on chronic kidney failure: Code(s): N17.9 - Acute kidney failure, unspecified; N18.9 - Chronic kidney disease, unspecified Status: Acute Assessment and Plan: Cr 2.2, hx 1.7-3.10 Continue with IVF Avoid nephrotoxins Monitor Additional Plan 80-year-old female with past medical history of CHF, obstructive sleep apnea, type 2 diabetes, MARCUS, cirrhosis, anxiety and depression, and recent hospitalization for biliary duct stone who presented to the ER with nausea, abdominal pain and anxiety. patient reports that she has not been eating anything for a couple of weeks. But at the time my evaluation she told me that she was able to eat 2 scrambled eggs this morning without difficulty. She has been having persistent nausea but not really Any vomiting. She has been able to the tolerate fluids. The patient reports persistent constant right upper quadrant abdominal pain. His dull ache. It is moderate in intensity. It is worse with palpation. She denied any radiation of the pain at the time my evaluation but stated that the pain radiated to her back to the ER staff. She has been having normal bowel movements. She denies having any fevers or chills. She reports to me that she has been having shortness of breath. In the ER and at the time of my evaluation the patient was noted to be hyperventilating. She was quite anxious. She reports that she is going through some family stressors. Evidently her son who she was residing with was recently arrested. She does not want anyone to know that her son has been arrested. Every time she talk
[2020-12-09 12:03] LABS: Glucose Point of Care 416 mg/dl (65-105)
[2020-12-09 12:07] LABS: Basophils Absolute Auto 0.1 K/mm3 (0.0-0.1); Eosinophils Absolute Auto 0.1 K/mm3 (0-0.3); Eosinophils Percent Auto 1.9 % (0-4.4); Hematocrit 36.7 % (37.0-47.0); Hemoglobin 12.3 g/dL (12.0-15.0); Immature Granulocyte Absolute 0.01 K/mm3 (0.00-0.031); Immature Granulocyte Percent A 0.2 % (0-0.5); Immature Platelet Fraction Pct 4.8 % (0.9-11.2); Lymphocytes Absolute Auto 1.68 K/mm3 (0.9-3.2); Lymphocytes Percent Auto 31.9 % (18.3-44.2); Mean Corpuscular HGB Conc 33.5 g/dl (32-36); Mean Corpuscular Hemoglobin 32.3 pg (26-34); Mean Corpuscular Volume 96.3 fl (80-100); Monocytes Absolute Auto 0.3 K/mm3 (0.1-0.6); Monocytes Percent Auto 6.5 % (2.6-8.5); Neutrophils Absolute Auto 3.1 K/mm3 (1.3-6.7); Neutrophils Percent Auto 58.5 % (45.5-73.1); Platelet Count Result 104 k/mm3 (150-375); Red Blood Count 3.81 M/mm3 (4.2-5.4); Red Cell Distribution Width 13.2 % (11.5-14.5); White Blood Count 5.3 K/mm3 (4.5-10.0)
[2020-12-09] MEDS: OLOPATADINE 0.1% OPHTH SOLN 5 ML BTL 2 DROP EACH EYE ×2 (12:12→16:31)
[2020-12-09] MEDS: FEBUXOSTAT 40 MG TABLET PO (12:12)
[2020-12-09 12:15] LABS: Alanine Aminotransferase 50 U/L (4-35); Albumin Level 3.8 g/dL (3.5-5.1); Alkaline Phosphatase 342 U/L (38-126); Anion Gap 10 mmol/L (8-16); Aspartate Amino Transferase 61 U/L (14-36); Bilirubin,Total 1.4 mg/dL (0.2-1.3); Blood Urea Nitrogen 40 mg/dL (7-17); Calcium 8.5 mg/dL (8.4-10.2); Carbon Dioxide 24 mmol/L (22-30); Chloride 96 mmol/L (98-107); Estimated CRCL calculation 17 ml/min; Estimated Glomerular Filt Rate 18; Glucose 396 mg/dL (65-110); Potassium 5.4 mmol/L (3.4-5.0); Sodium 130 mmol/L (137-145)
[2020-12-09 12:17] LABS: INR 1.1; Prothrombin Time 13.9 Seconds (11.1-14.7)
[2020-12-09] MEDS: INSULIN GLARGINE (*BKC) 100 UNITS/ML 20 UNITS SUB-Q ×2 (12:47→20:13)
[2020-12-09] MEDS: SODIUM CHLORIDE 0.45% 1,000 ML 75 ML IV CONT (14:22)
[2020-12-09 17:10] LABS: Glucose Point of Care 334 mg/dl (65-105)
[2020-12-09] MEDS: LIPASE/AMYLASE/PROTEASE 12,000 UNITS CAP 2 CAP PO (20:13)
[2020-12-09] MEDS: amLODIPine BESYLATE 5 MG TABLET PO (20:13)
[2020-12-09 20:50] LABS: Glucose Point of Care 265 mg/dl (65-105)
[2020-12-10] VITALS (7 sets, daily range): BP systolic 134–149; BP diastolic 59–74; PULSE 68–79; RESP 17–20; TEMP 36.2–37.1; O2SAT 94–100
[2020-12-10] MEDS: SODIUM CHLORIDE 0.45% 1,000 ML 75 ML IV CONT (06:04)
[2020-12-10] MEDS: LEVOTHYROXINE SODIUM 150 MCG TABLET PO (06:05)
[2020-12-10] MEDS: CYANOCOBALAMIN 1,000 MCG TABLET 5000 MCG PO (09:19)
[2020-12-10] MEDS: OPTI-GEN TAB 1 TABLET PO (09:20)
[2020-12-10] MEDS: OLOPATADINE 0.1% OPHTH SOLN 5 ML BTL 2 DROP EACH EYE ×2 (09:20→16:03)
[2020-12-10] MEDS: GABAPENTIN 300 MG CAPSULE PO ×4 (09:20→21:14)
[2020-12-10] MEDS: LIPASE/AMYLASE/PROTEASE 12,000 UNITS CAP 1 CAP PO ×3 (09:20→16:03)
[2020-12-10] MEDS: ASPIRIN 81 MG CHEWABLE TABLET PO (09:20)
[2020-12-10] MEDS: polyethylene glycoL 3350 17 GM POWD.PACK PO (09:20)
[2020-12-10] MEDS: VENLAFAXINE HCL XR 75 MG CAP.ER.24H 150 MG PO (09:20)
[2020-12-10] MEDS: FEBUXOSTAT 40 MG TABLET PO (09:20)
[2020-12-10 09:21] LABS: Glucose Point of Care 249 mg/dl (65-105)
[2020-12-10] MEDS: LORATADINE 10 MG TABLET PO (09:21)
[2020-12-10] MEDS: PANTOPRAZOLE 40 MG TABLET PO ×2 (09:21→16:03)
[2020-12-10] MEDS: carvediloL 12.5 MG TABLET PO ×2 (09:21→16:09)
[2020-12-10] MEDS: INSULIN GLARGINE (*BKC) 100 UNITS/ML 20 UNITS SUB-Q (09:22)
[2020-12-10] MEDS: PYRIDOXINE HCL 50 MG TABLET 400 MG PO (10:50)
[2020-12-10 12:46] LABS: Glucose Point of Care 292 mg/dl (65-105)
--- NOTE | 2020-12-10 12:56 | P.PNIM_ITS ---
Progress Note: A&P Assessment and Plan (1) Nausea: Code(s): R11.0 - Nausea Status: Acute Assessment and Plan: * the patient has nausea with reported right upper quadrant abdominal pain * labs have improved significantly compared to last month * no leukocytosis or evidence of acute infection * She has been tolerating liquids at home * Continue with IVF * follow bmp * Will provide pain medications with Tylenol not to exceed 3 g a day. * P.r.n. Zofran q.6 hours for nausea. * She is status post ERCP with removal of bile duct stone on 10/2020. On review of her lab work her bilirubin has improved along with her AST/ALT however she has persistent /worsening of her alkaline phosphatase. CT scan done this admission shows dilated common bile duct and pneumobilia. * concern for persistence of stone /sludge/ other etiologies with her persistent open hospitalist elevation * Pneumobilia likely due to her recent ERCP * Will do ultrasound right upper quadrant. If negative may need to do MRCP. * Ultrasound right upper quadrant with mildly dilated CBD expected with status cholecystectomy with pneumobilia * MRCP cannot be done due to pacemaker status (2) Type 2 diabetes mellitus with hyperglycemia: Qualifiers: Diabetes mellitus skilled nursing insulin use: without terminal block assembler use Qualified Code(s): E11.65 - Type 2 diabetes mellitus with hyperglycemia Code(s): E11.65 - Type 2 diabetes mellitus with hyperglycemia Status: Acute Assessment and Plan: * Will resume patient's home diabetic medications once med rec has been verified. * Will start moderate sliding scale insulin and Accu-Cheks a.c. HS and hypoglycemia protocol * Restart her home insulin Lantus twice a day and 70 30 with meals * Will lower the insulin dose Due to lower oral intake (3) Hyperventilating: Code(s): R06.4 - Hyperventilation Status: Acute Assessment and Plan: * hyperventilation due to acute anxiety and panic. Patient responds well to breathing Into a brown paper bag * Patient received Valium in the ER and is requesting more Valium * S/p 1 dose of p.o. Ativan and re-evaluate patient's condition (4) Anxiety: Code(s): F41.9 - Anxiety disorder, unspecified Status: Acute (5) Obstructive sleep apnea on CPAP: Code(s): G47.33 - Obstructive sleep apnea (adult) (pediatric); Z99.89 - Dependence on other enabling machines and devices Status: Acute Assessment and Plan: * auto titrating CPAP/BiPAP ordered (6) Acute on chronic kidney failure: Code(s): N17.9 - Acute kidney failure, unspecified; N18.9 - Chronic kidney disease, unspecified Status: Acute Assessment and Plan: Cr 2.2, hx 1.7-3.10 Continue with IVF Avoid nephrotoxins Monitor Additional Plan Type 2 diabetes Obstructive sleep apnea CHF Pacemaker placement Hunter cirrhosis Anxiety depression Recent biliary duct stone status post ERCP and extraction Dysuria check urine and reflex culture Right eye conjunctivitis antibiotic eyedrop hyperkalemia recheck today DVT prophylaxis start heparin subcu Subjective Date/time seen: 12/10/20 12:56 Interval history: has multiple complaints today. Right eye is hurting in his red. she also complains of burning urination and going to the bathroom often. She denies any blood in her urine. No further nausea or vomiting. Discomfort in the lower abdomen but upper abdomen feels okay no fever chills Review of Systems Review of Systems: All system
--- NOTE | 2020-12-10 12:56 | PM.IMPN ---
Progress Note: A&P Assessment and Plan (1) Nausea: Code(s): R11.0 - Nausea Status: Acute Assessment and Plan: the patient has nausea with reported right upper quadrant abdominal pain labs have improved significantly compared to last month no leukocytosis or evidence of acute infection She has been tolerating liquids at home Continue with IVF follow bmp Will provide pain medications with Tylenol not to exceed 3 g a day. P.r.n. Zofran q.6 hours for nausea. She is status post ERCP with removal of bile duct stone on 10/2020. On review of her lab work her bilirubin has improved along with her AST/ALT however she has persistent /worsening of her alkaline phosphatase. CT scan done this admission shows dilated common bile duct and pneumobilia. concern for persistence of stone /sludge/ other etiologies with her persistent open hospitalist elevation Pneumobilia likely due to her recent ERCP Will do ultrasound right upper quadrant. If negative may need to do MRCP. Ultrasound right upper quadrant with mildly dilated CBD expected with status cholecystectomy with pneumobilia MRCP cannot be done due to pacemaker status (2) Type 2 diabetes mellitus with hyperglycemia: Qualifiers: Diabetes mellitus termite treater insulin use: without usp use Qualified Code(s): E11.65 - Type 2 diabetes mellitus with hyperglycemia Code(s): E11.65 - Type 2 diabetes mellitus with hyperglycemia Status: Acute Assessment and Plan: Will resume patient's home diabetic medications once med rec has been verified. Will start moderate sliding scale insulin and Accu-Cheks a.c. HS and hypoglycemia protocol Restart her home insulin Lantus twice a day and 70 30 with meals Will lower the insulin dose Due to lower oral intake (3) Hyperventilating: Code(s): R06.4 - Hyperventilation Status: Acute Assessment and Plan: hyperventilation due to acute anxiety and panic. Patient responds well to breathing Into a brown paper bag Patient received Valium in the ER and is requesting more Valium S/p 1 dose of p.o. Ativan and re-evaluate patient's condition (4) Anxiety: Code(s): F41.9 - Anxiety disorder, unspecified Status: Acute (5) Obstructive sleep apnea on CPAP: Code(s): G47.33 - Obstructive sleep apnea (adult) (pediatric); Z99.89 - Dependence on other enabling machines and devices Status: Acute Assessment and Plan: auto titrating CPAP/BiPAP ordered (6) Acute on chronic kidney failure: Code(s): N17.9 - Acute kidney failure, unspecified; N18.9 - Chronic kidney disease, unspecified Status: Acute Assessment and Plan: Cr 2.2, hx 1.7-3.10 Continue with IVF Avoid nephrotoxins Monitor Additional Plan Type 2 diabetes Obstructive sleep apnea CHF Pacemaker placement Hunter cirrhosis Anxiety depression Recent biliary duct stone status post ERCP and extraction Dysuria check urine and reflex culture Right eye conjunctivitis antibiotic eyedrop hyperkalemia recheck today DVT prophylaxis start heparin subcu Subjective Date/time seen: 12/10/20 12:56 Interval history: has multiple complaints today. Right eye is hurting in his red. she also complains of burning urination and going to the bathroom often. She denies any blood in her urine. No further nausea or vomiting. Discomfort in the lower abdomen but upper abdomen feels okay no fever chills Review of Systems Review of Systems: All systems reviewed & are unremarkable except as noted in HPI and below Exam Narrative: Exam Narrative: General: obese, in mild distress HEENT: mucous membranes are moist, Respiratory: respiratory distress, lungs bilaterally clear to auscultation Cardiovascular: regular rate, regular rhythm, no murmurs, 2+ bilateral radial pedal pulses Gastrointestinal: soft, nontender right upper quadrant tender suprapubic region, no guard
[2020-12-10 13:23] LABS: Basophils Percent Auto 0.6 % (0.2-1.2); Eosinophils Absolute Auto 0.2 K/mm3 (0-0.3); Eosinophils Percent Auto 2.3 % (0-4.4); Hematocrit 34.3 % (37.0-47.0); Hemoglobin 11.6 g/dL (12.0-15.0); Immature Granulocyte Absolute 0.02 K/mm3 (0.00-0.031); Immature Granulocyte Percent A 0.3 % (0-0.5); Lymphocytes Absolute Auto 1.83 K/mm3 (0.9-3.2); Lymphocytes Percent Auto 27.9 % (18.3-44.2); Mean Corpuscular HGB Conc 33.8 g/dl (32-36); Mean Corpuscular Hemoglobin 32.1 pg (26-34); Monocytes Absolute Auto 0.3 K/mm3 (0.1-0.6); Neutrophils Absolute Auto 4.2 K/mm3 (1.3-6.7); Neutrophils Percent Auto 63.9 % (45.5-73.1); Platelet Count Result 103 k/mm3 (150-375); Red Blood Count 3.61 M/mm3 (4.2-5.4); Red Cell Distribution Width 12.9 % (11.5-14.5); White Blood Count 6.6 K/mm3 (4.5-10.0)
[2020-12-10 13:33] LABS: Alanine Aminotransferase 45 U/L (4-35); Albumin Level 3.6 g/dL (3.5-5.1); Alkaline Phosphatase 316 U/L (38-126); Anion Gap 8 mmol/L (8-16); Aspartate Amino Transferase 54 U/L (14-36); Blood Urea Nitrogen 36 mg/dL (7-17); Calcium 8.5 mg/dL (8.4-10.2); Carbon Dioxide 24 mmol/L (22-30); Chloride 101 mmol/L (98-107); Estimated CRCL calculation 23 ml/min; Estimated Glomerular Filt Rate 25; Glucose 276 mg/dL (65-110); Potassium 4.9 mmol/L (3.4-5.0); Sodium 133 mmol/L (137-145)
[2020-12-10 13:55] LABS: Add Urine Microscopic? YES; Appearance Urine Cloudy (Clear); Bacteria Urine 1+ /hpf; Bilirubin Urine Negative (Negative); Blood Urine 1+ (Negative); Color Urine Yellow (Yellow); Glucose Urine UA 1+ mg/dL (Negative); Ketones Urine Negative (Negative); Leukocyte Esterase Ur 3+ LEU/UL (NEGATIVE); Nitrate Urine Positive (Negative); Protein Urine 2+ mg/dL (Negative); Specific Grav Ur 1.011 (1.001-1.035); Urobilinogen Urine Negative mg/dL (<2.0); WBC Urine >75 /hpf (0-3)
[2020-12-10] MEDS: ACETAMINOPHEN 325 MG TABLET 650 MG PO (16:08)
[2020-12-10 17:00] LABS: Glucose Point of Care 269 mg/dl (65-105)
[2020-12-10] MEDS: INSULIN GLARGINE (*BKC) 100 UNITS/ML 25 UNITS SUB-Q (21:06)
[2020-12-10] MEDS: amLODIPine BESYLATE 5 MG TABLET PO (21:14)
[2020-12-10] MEDS: HEPARIN SODIUM 5,000 UNITS/ML VIAL 5000 UNITS SUB-Q (21:14)
[2020-12-10] MEDS: POLYMYXIN/TRIMETHOPRIM OPHTH 10 ML DROPS 1 DROP RIGHT EYE (21:14)
[2020-12-10] MEDS: LIPASE/AMYLASE/PROTEASE 12,000 UNITS CAP 2 CAP PO (21:15)
[2020-12-10] MEDS: ONDANSETRON INJ 4 MG/2 ML VIAL IV PUSH (21:23)
[2020-12-11] VITALS (7 sets, daily range): BP systolic 129–140; BP diastolic 50–61; PULSE 70–86; RESP 16–20; TEMP 36.2–37.3; O2SAT 95–100
[2020-12-11 02:16] LABS: Glucose Point of Care 369 mg/dl (65-105)
[2020-12-11] MEDS: LEVOTHYROXINE SODIUM 150 MCG TABLET PO (05:52)
[2020-12-11 06:53] LABS: Basophils Percent Auto 0.6 % (0.2-1.2); Eosinophils Absolute Auto 0.2 K/mm3 (0-0.3); Eosinophils Percent Auto 2.7 % (0-4.4); Hematocrit 34.6 % (37.0-47.0); Hemoglobin 11.8 g/dL (12.0-15.0); Immature Granulocyte Absolute 0.03 K/mm3 (0.00-0.031); Immature Granulocyte Percent A 0.4 % (0-0.5); Immature Platelet Fraction Pct 6.5 % (0.9-11.2); Lymphocytes Absolute Auto 1.91 K/mm3 (0.9-3.2); Lymphocytes Percent Auto 27.3 % (18.3-44.2); Mean Corpuscular HGB Conc 34.1 g/dl (32-36); Mean Corpuscular Hemoglobin 32.2 pg (26-34); Mean Corpuscular Volume 94.3 fl (80-100); Mean Platelet Volume 11.4 fl (7.4-10.4); Monocytes Absolute Auto 0.5 K/mm3 (0.1-0.6); Monocytes Percent Auto 6.9 % (2.6-8.5); Neutrophils Absolute Auto 4.3 K/mm3 (1.3-6.7); Neutrophils Percent Auto 62.1 % (45.5-73.1); Platelet Count Result 104 k/mm3 (150-375); Red Blood Count 3.67 M/mm3 (4.2-5.4)
[2020-12-11 07:01] LABS: Alanine Aminotransferase 43 U/L (4-35); Albumin Level 3.6 g/dL (3.5-5.1); Alkaline Phosphatase 314 U/L (38-126); Anion Gap 6 mmol/L (8-16); Aspartate Amino Transferase 50 U/L (14-36); Bilirubin,Total 1.1 mg/dL (0.2-1.3); Blood Urea Nitrogen 32 mg/dL (7-17); Calcium 8.6 mg/dL (8.4-10.2); Carbon Dioxide 28 mmol/L (22-30); Chloride 101 mmol/L (98-107); Estimated CRCL calculation 26 ml/min; Estimated Glomerular Filt Rate 29; Glucose 191 mg/dL (65-110); Potassium 4.5 mmol/L (3.4-5.0); Sodium 135 mmol/L (137-145)
[2020-12-11 07:59] LABS: Glucose Point of Care 190 mg/dl (65-105)
[2020-12-11] MEDS: FEBUXOSTAT 40 MG TABLET PO (10:35)
[2020-12-11] MEDS: PYRIDOXINE HCL 50 MG TABLET 400 MG PO (10:36)
[2020-12-11] MEDS: CYANOCOBALAMIN 1,000 MCG TABLET 5000 MCG PO (10:36)
[2020-12-11] MEDS: HEPARIN SODIUM 5,000 UNITS/ML VIAL 5000 UNITS SUB-Q ×2 (10:37→20:33)
[2020-12-11] MEDS: LIPASE/AMYLASE/PROTEASE 12,000 UNITS CAP 1 CAP PO ×3 (10:37→18:16)
[2020-12-11] MEDS: PANTOPRAZOLE 40 MG TABLET PO ×2 (10:37→18:16)
[2020-12-11] MEDS: VENLAFAXINE HCL XR 75 MG CAP.ER.24H 150 MG PO (10:37)
[2020-12-11] MEDS: GABAPENTIN 300 MG CAPSULE PO ×4 (10:37→20:32)
[2020-12-11] MEDS: ASPIRIN 81 MG CHEWABLE TABLET PO (10:37)
[2020-12-11] MEDS: INSULIN GLARGINE (*BKC) 100 UNITS/ML 25 UNITS SUB-Q ×2 (10:38→20:33)
[2020-12-11] MEDS: ERGOCALCIFEROL 50,000 UNIT CAPSULE 50000 UNITS PO (10:41)
[2020-12-11] MEDS: OPTI-GEN TAB 1 TABLET PO (10:41)
[2020-12-11] MEDS: carvediloL 12.5 MG TABLET PO ×2 (10:41→18:16)
[2020-12-11] MEDS: OLOPATADINE 0.1% OPHTH SOLN 5 ML BTL 2 DROP EACH EYE ×2 (10:42→18:17)
[2020-12-11] MEDS: LORATADINE 10 MG TABLET PO (10:42)
[2020-12-11] MEDS: polyethylene glycoL 3350 17 GM POWD.PACK PO (10:42)
[2020-12-11] MEDS: POLYMYXIN/TRIMETHOPRIM OPHTH 10 ML DROPS 1 DROP RIGHT EYE ×2 (10:42→20:33)
--- NOTE | 2020-12-11 13:28 | P.PNIM_ITS ---
Progress Note: A&P Assessment and Plan (1) Nausea: Code(s): R11.0 - Nausea Status: Acute Assessment and Plan: * the patient has nausea with reported right upper quadrant abdominal pain * labs have improved significantly compared to last month * no leukocytosis or evidence of acute infection * She has been tolerating liquids at home * Continue with IVF * follow bmp * Will provide pain medications with Tylenol not to exceed 3 g a day. * P.r.n. Zofran q.6 hours for nausea. * She is status post ERCP with removal of bile duct stone on 10/2020. On review of her lab work her bilirubin has improved along with her AST/ALT however she has persistent /worsening of her alkaline phosphatase. CT scan done this admission shows dilated common bile duct and pneumobilia. * concern for persistence of stone /sludge/ other etiologies with her persistent ALP elevation * Pneumobilia likely due to her recent ERCP * Will do ultrasound right upper quadrant. If negative may need to do MRCP. * Ultrasound right upper quadrant with mildly dilated CBD expected with status cholecystectomy with pneumobilia * MRCP cannot be done due to pacemaker status * Unclear etiology however this has resolved. * Will get a ALP isoforms to check the origin of her alkaline phosphatase which is pending (2) Type 2 diabetes mellitus with hyperglycemia: Qualifiers: Diabetes mellitus senior care insulin use: without senior care use Qualified Code(s): E11.65 - Type 2 diabetes mellitus with hyperglycemia Code(s): E11.65 - Type 2 diabetes mellitus with hyperglycemia Status: Acute Assessment and Plan: * Will resume patient's home diabetic medications once med rec has been verified. * Will start moderate sliding scale insulin and Accu-Cheks a.c. HS and hypoglycemia protocol * Restart her home insulin Lantus twice a day and 70 30 with meals * Will lower the insulin dose Due to lower oral intake * Blood sugar at goal (3) Hyperventilating: Code(s): R06.4 - Hyperventilation Status: Acute Assessment and Plan: * hyperventilation due to acute anxiety and panic. Patient responds well to breathing Into a brown paper bag * Patient received Valium in the ER and is requesting more Valium * S/p 1 dose of p.o. Ativan and re-evaluate patient's condition (4) Anxiety: Code(s): F41.9 - Anxiety disorder, unspecified Status: Acute (5) Obstructive sleep apnea on CPAP: Code(s): G47.33 - Obstructive sleep apnea (adult) (pediatric); Z99.89 - Dependence on other enabling machines and devices Status: Acute Assessment and Plan: * auto titrating CPAP/BiPAP ordered (6) Acute on chronic kidney failure: Code(s): N17.9 - Acute kidney failure, unspecified; N18.9 - Chronic kidney disease, unspecified Status: Acute Assessment and Plan: Cr 2.2, hx 1.7-3.10 Continue with IVF Avoid nephrotoxins Monitor creatinine improving Stopped IV fluids and resume her diuretic monitor renal function (7) UTI (urinary tract infection): Code(s): N39.0 - Urinary tract infection, site not specified Status: Acute Assessment and Plan: on Rocephin Urine culture to be sent Follow urine culture (8) Conjunctivitis, right eye: Code(s): H10.9 - Unspecified conjunctivitis Status: Acute Assessment and Plan: eyedrops ordered Improving Additional Plan Type 2 diabetes Obstructive sleep apnea CHF Pacemaker placement Hunter cirrhosis An
--- NOTE | 2020-12-11 13:28 | PM.IMPN ---
Progress Note: A&P Assessment and Plan (1) Nausea: Code(s): R11.0 - Nausea Status: Acute Assessment and Plan: the patient has nausea with reported right upper quadrant abdominal pain labs have improved significantly compared to last month no leukocytosis or evidence of acute infection She has been tolerating liquids at home Continue with IVF follow bmp Will provide pain medications with Tylenol not to exceed 3 g a day. P.r.n. Zofran q.6 hours for nausea. She is status post ERCP with removal of bile duct stone on 10/2020. On review of her lab work her bilirubin has improved along with her AST/ALT however she has persistent /worsening of her alkaline phosphatase. CT scan done this admission shows dilated common bile duct and pneumobilia. concern for persistence of stone /sludge/ other etiologies with her persistent ALP elevation Pneumobilia likely due to her recent ERCP Will do ultrasound right upper quadrant. If negative may need to do MRCP. Ultrasound right upper quadrant with mildly dilated CBD expected with status cholecystectomy with pneumobilia MRCP cannot be done due to pacemaker status Unclear etiology however this has resolved. Will get a ALP isoforms to check the origin of her alkaline phosphatase which is pending (2) Type 2 diabetes mellitus with hyperglycemia: Qualifiers: Diabetes mellitus exterminator helper insulin use: without senior living use Qualified Code(s): E11.65 - Type 2 diabetes mellitus with hyperglycemia Code(s): E11.65 - Type 2 diabetes mellitus with hyperglycemia Status: Acute Assessment and Plan: Will resume patient's home diabetic medications once med rec has been verified. Will start moderate sliding scale insulin and Accu-Cheks a.c. HS and hypoglycemia protocol Restart her home insulin Lantus twice a day and 70 30 with meals Will lower the insulin dose Due to lower oral intake Blood sugar at goal (3) Hyperventilating: Code(s): R06.4 - Hyperventilation Status: Acute Assessment and Plan: hyperventilation due to acute anxiety and panic. Patient responds well to breathing Into a brown paper bag Patient received Valium in the ER and is requesting more Valium S/p 1 dose of p.o. Ativan and re-evaluate patient's condition (4) Anxiety: Code(s): F41.9 - Anxiety disorder, unspecified Status: Acute (5) Obstructive sleep apnea on CPAP: Code(s): G47.33 - Obstructive sleep apnea (adult) (pediatric); Z99.89 - Dependence on other enabling machines and devices Status: Acute Assessment and Plan: auto titrating CPAP/BiPAP ordered (6) Acute on chronic kidney failure: Code(s): N17.9 - Acute kidney failure, unspecified; N18.9 - Chronic kidney disease, unspecified Status: Acute Assessment and Plan: Cr 2.2, hx 1.7-3.10 Continue with IVF Avoid nephrotoxins Monitor creatinine improving Stopped IV fluids and resume her diuretic monitor renal function (7) UTI (urinary tract infection): Code(s): N39.0 - Urinary tract infection, site not specified Status: Acute Assessment and Plan: on Rocephin Urine culture to be sent Follow urine culture (8) Conjunctivitis, right eye: Code(s): H10.9 - Unspecified conjunctivitis Status: Acute Assessment and Plan: eyedrops ordered Improving Additional Plan Type 2 diabetes Obstructive sleep apnea CHF Pacemaker placement Hunter cirrhosis Anxiety depression Recent biliary duct stone status post ERCP and extraction Dysuria check urine and reflex culture Right eye conjunctivitis antibiotic eyedrop hyperkalemia recheck 10 has resolved DVT prophylaxis start heparin subcu Subjective Date/time seen: 12/11/20 13:28 Interval history: she still has burning urination. Her urine is cloudy. No fever. Right eye is better today. No blood in her urine. No nausea or vomiting.
[2020-12-11 14:09] LABS: Glucose Point of Care 282 mg/dl (65-105)
[2020-12-11 17:20] LABS: Glucose Point of Care 347 mg/dl (65-105)
[2020-12-11] MEDS: amLODIPine BESYLATE 5 MG TABLET PO (20:32)
[2020-12-11] MEDS: LIPASE/AMYLASE/PROTEASE 12,000 UNITS CAP 2 CAP PO (20:32)
[2020-12-11 21:19] LABS: Glucose Point of Care 382 mg/dl (65-105)
--- NOTE | 2020-12-11 21:46 | PC.NURSE ---
called Dr. Brown over patients high glucose reading. Orders received and will give accordingly
[2020-12-11] MEDS: INSULIN ASPART (*BKC) 100 UNITS/ML 8 UNITS SUB-Q (21:49)
[2020-12-12] VITALS (8 sets, daily range): BP systolic 137–148; BP diastolic 56–59; PULSE 77–86; RESP 14–18; TEMP 35.9–36.9; O2SAT 92–100
[2020-12-12 06:24] LABS: Basophils Percent Auto 0.7 % (0.2-1.2); Eosinophils Absolute Auto 0.2 K/mm3 (0-0.3); Eosinophils Percent Auto 4.3 % (0-4.4); Hematocrit 34.8 % (37.0-47.0); Hemoglobin 11.6 g/dL (12.0-15.0); Immature Granulocyte Absolute 0.03 K/mm3 (0.00-0.031); Immature Granulocyte Percent A 0.5 % (0-0.5); Lymphocytes Absolute Auto 2.14 K/mm3 (0.9-3.2); Lymphocytes Percent Auto 38.5 % (18.3-44.2); Mean Corpuscular HGB Conc 33.3 g/dl (32-36); Mean Corpuscular Hemoglobin 32.3 pg (26-34); Mean Corpuscular Volume 96.9 fl (80-100); Monocytes Absolute Auto 0.4 K/mm3 (0.1-0.6); Monocytes Percent Auto 6.8 % (2.6-8.5); Neutrophils Absolute Auto 2.7 K/mm3 (1.3-6.7); Neutrophils Percent Auto 49.2 % (45.5-73.1); Platelet Count Result 108 k/mm3 (150-375); Red Blood Count 3.59 M/mm3 (4.2-5.4); Red Cell Distribution Width 13.2 % (11.5-14.5); White Blood Count 5.6 K/mm3 (4.5-10.0)
[2020-12-12] MEDS: LEVOTHYROXINE SODIUM 150 MCG TABLET PO (06:38)
[2020-12-12 06:44] LABS: Alanine Aminotransferase 42 U/L (4-35); Albumin Level 3.4 g/dL (3.5-5.1); Alkaline Phosphatase 301 U/L (38-126); Anion Gap 6 mmol/L (8-16); Aspartate Amino Transferase 48 U/L (14-36); Bilirubin,Total 0.9 mg/dL (0.2-1.3); Blood Urea Nitrogen 30 mg/dL (7-17); Calcium 8.6 mg/dL (8.4-10.2); Carbon Dioxide 27 mmol/L (22-30); Chloride 103 mmol/L (98-107); Estimated CRCL calculation 26 ml/min; Estimated Glomerular Filt Rate 29; Glucose 200 mg/dL (65-110); Potassium 4.4 mmol/L (3.4-5.0); Sodium 136 mmol/L (137-145)
--- NOTE | 2020-12-12 08:29 | PCPTNOTE ---
Attempted therapy session at 08:25. Pt requested to have therapy after her breakfast comes. Will attempt again.
[2020-12-12 08:43] LABS: Glucose Point of Care 198 mg/dl (65-105)
[2020-12-12] MEDS: POLYMYXIN/TRIMETHOPRIM OPHTH 10 ML DROPS 1 DROP RIGHT EYE ×2 (08:54→20:48)
[2020-12-12] MEDS: carvediloL 12.5 MG TABLET PO ×2 (08:55→18:45)
[2020-12-12] MEDS: PYRIDOXINE HCL 50 MG TABLET 400 MG PO (08:55)
[2020-12-12] MEDS: CYANOCOBALAMIN 1,000 MCG TABLET 5000 MCG PO (08:55)
[2020-12-12] MEDS: OPTI-GEN TAB 1 TABLET PO (08:55)
[2020-12-12] MEDS: GABAPENTIN 300 MG CAPSULE PO ×4 (08:55→20:49)
[2020-12-12] MEDS: FEBUXOSTAT 40 MG TABLET PO (08:55)
[2020-12-12] MEDS: VENLAFAXINE HCL XR 75 MG CAP.ER.24H 150 MG PO (08:56)
[2020-12-12] MEDS: LIPASE/AMYLASE/PROTEASE 12,000 UNITS CAP 1 CAP PO ×3 (08:56→18:45)
[2020-12-12] MEDS: HEPARIN SODIUM 5,000 UNITS/ML VIAL 5000 UNITS SUB-Q ×2 (08:56→20:49)
[2020-12-12] MEDS: PANTOPRAZOLE 40 MG TABLET PO ×2 (08:57→18:45)
[2020-12-12] MEDS: LORATADINE 10 MG TABLET PO (08:57)
[2020-12-12] MEDS: FLUTICASONE PROPIONATE 0.05% NA SPR 16 GM BTL (*BKC) 2 SPRAY NASAL (08:57)
[2020-12-12] MEDS: ASPIRIN 81 MG CHEWABLE TABLET PO (08:57)
[2020-12-12] MEDS: OLOPATADINE 0.1% OPHTH SOLN 5 ML BTL 2 DROP EACH EYE ×2 (08:58→18:45)
[2020-12-12] MEDS: polyethylene glycoL 3350 17 GM POWD.PACK PO (08:58)
[2020-12-12] MEDS: INSULIN GLARGINE (*BKC) 100 UNITS/ML 25 UNITS SUB-Q ×2 (09:38→20:49)
[2020-12-12] MEDS: ACETAMINOPHEN 325 MG TABLET 650 MG PO ×2 (09:47→20:48)
[2020-12-12] MEDS: FUROSEMIDE 40 MG TABLET PO (11:00)
[2020-12-12] MEDS: SPIRONOLACTONE 25 MG TABLET PO (11:00)
[2020-12-12 12:20] LABS: Glucose Point of Care 290 mg/dl (65-105)
[2020-12-12] MEDS: INSULIN ASPART (*BKC) 100 UNITS/ML SUB-Q (12:39)
--- NOTE | 2020-12-12 14:25 | P.PNIM_ITS ---
Progress Note: A&P Assessment and Plan (1) Nausea: Code(s): R11.0 - Nausea Status: Acute Assessment and Plan: * the patient has nausea with reported right upper quadrant abdominal pain * labs have improved significantly compared to last month * no leukocytosis or evidence of acute infection * She has been tolerating liquids at home * Continue with IVF * follow bmp * Will provide pain medications with Tylenol not to exceed 3 g a day. * P.r.n. Zofran q.6 hours for nausea. * She is status post ERCP with removal of bile duct stone on 10/2020. On review of her lab work her bilirubin has improved along with her AST/ALT however she has persistent /worsening of her alkaline phosphatase. CT scan done this admission shows dilated common bile duct and pneumobilia. * concern for persistence of stone /sludge/ other etiologies with her persistent ALP elevation * Pneumobilia likely due to her recent ERCP * Will do ultrasound right upper quadrant. If negative may need to do MRCP. * Ultrasound right upper quadrant with mildly dilated CBD expected with status cholecystectomy with pneumobilia * MRCP cannot be done due to pacemaker status * Unclear etiology however this has resolved. * Will get a ALP isoforms to check the origin of her alkaline phosphatase which is pending * * 12/12/20 14:25 patient appears quite anxious and complained of right eye pain is more watery, and quite hyperemic, there is no drainage, patient kept insisting she has MRSA in her eyes patient treated with polymyxin b sulfate which would cover MRSA if it is present, patient with UTI being treated with ceftriaxone, culture is pending, will continue present management we will have PT OT evaluate the patient and further recommendation to follow. (2) Type 2 diabetes mellitus with hyperglycemia: Qualifiers: Diabetes mellitus penitentiary insulin use: without middle or intermediate school principal use Qualified Code(s): E11.65 - Type 2 diabetes mellitus with hyperglycemia Code(s): E11.65 - Type 2 diabetes mellitus with hyperglycemia Status: Acute Assessment and Plan: * Will resume patient's home diabetic medications once med rec has been verified. * Will start moderate sliding scale insulin and Accu-Cheks a.c. HS and hypoglycemia protocol * Restart her home insulin Lantus twice a day and 70 30 with meals * Will lower the insulin dose Due to lower oral intake * Blood sugar at goal (3) Hyperventilating: Code(s): R06.4 - Hyperventilation Status: Acute Assessment and Plan: * hyperventilation due to acute anxiety and panic. Patient responds well to breathing Into a brown paper bag * Patient received Valium in the ER and is requesting more Valium * S/p 1 dose of p.o. Ativan and re-evaluate patient's condition (4) Anxiety: Code(s): F41.9 - Anxiety disorder, unspecified Status: Acute (5) Obstructive sleep apnea on CPAP: Code(s): G47.33 - Obstructive sleep apnea (adult) (pediatric); Z99.89 - Dependence on other enabling machines and devices Status: Acute Assessment and Plan: * auto titrating CPAP/BiPAP ordered (6) Acute on chronic kidney failure: Code(s): N17.9 - Acute kidney failure, unspecified; N18.9 - Chronic kidney disease, unspecified Status: Acute Assessment and Plan: Cr 2.2, hx 1.7-3.10 Continue with IVF Avoid nephrotoxins Monitor creatinine improving Stopped IV fluids and resume her diuretic monitor renal function (7) UTI (urinary tract infection): Code(s): N39.0 - Urinary tract infection
--- NOTE | 2020-12-12 14:25 | PM.IMPN ---
Progress Note: A&P Assessment and Plan (1) Nausea: Code(s): R11.0 - Nausea Status: Acute Assessment and Plan: the patient has nausea with reported right upper quadrant abdominal pain labs have improved significantly compared to last month no leukocytosis or evidence of acute infection She has been tolerating liquids at home Continue with IVF follow bmp Will provide pain medications with Tylenol not to exceed 3 g a day. P.r.n. Zofran q.6 hours for nausea. She is status post ERCP with removal of bile duct stone on 10/2020. On review of her lab work her bilirubin has improved along with her AST/ALT however she has persistent /worsening of her alkaline phosphatase. CT scan done this admission shows dilated common bile duct and pneumobilia. concern for persistence of stone /sludge/ other etiologies with her persistent ALP elevation Pneumobilia likely due to her recent ERCP Will do ultrasound right upper quadrant. If negative may need to do MRCP. Ultrasound right upper quadrant with mildly dilated CBD expected with status cholecystectomy with pneumobilia MRCP cannot be done due to pacemaker status Unclear etiology however this has resolved. Will get a ALP isoforms to check the origin of her alkaline phosphatase which is pending 12/12/20 14:25 patient appears quite anxious and complained of right eye pain is more watery, and quite hyperemic, there is no drainage, patient kept insisting she has MRSA in her eyes patient treated with polymyxin b sulfate which would cover MRSA if it is present, patient with UTI being treated with ceftriaxone, culture is pending, will continue present management we will have PT OT evaluate the patient and further recommendation to follow. (2) Type 2 diabetes mellitus with hyperglycemia: Qualifiers: Diabetes mellitus jail insulin use: without jail use Qualified Code(s): E11.65 - Type 2 diabetes mellitus with hyperglycemia Code(s): E11.65 - Type 2 diabetes mellitus with hyperglycemia Status: Acute Assessment and Plan: Will resume patient's home diabetic medications once med rec has been verified. Will start moderate sliding scale insulin and Accu-Cheks a.c. HS and hypoglycemia protocol Restart her home insulin Lantus twice a day and 70 30 with meals Will lower the insulin dose Due to lower oral intake Blood sugar at goal (3) Hyperventilating: Code(s): R06.4 - Hyperventilation Status: Acute Assessment and Plan: hyperventilation due to acute anxiety and panic. Patient responds well to breathing Into a brown paper bag Patient received Valium in the ER and is requesting more Valium S/p 1 dose of p.o. Ativan and re-evaluate patient's condition (4) Anxiety: Code(s): F41.9 - Anxiety disorder, unspecified Status: Acute (5) Obstructive sleep apnea on CPAP: Code(s): G47.33 - Obstructive sleep apnea (adult) (pediatric); Z99.89 - Dependence on other enabling machines and devices Status: Acute Assessment and Plan: auto titrating CPAP/BiPAP ordered (6) Acute on chronic kidney failure: Code(s): N17.9 - Acute kidney failure, unspecified; N18.9 - Chronic kidney disease, unspecified Status: Acute Assessment and Plan: Cr 2.2, hx 1.7-3.10 Continue with IVF Avoid nephrotoxins Monitor creatinine improving Stopped IV fluids and resume her diuretic monitor renal function (7) UTI (urinary tract infection): Code(s): N39.0 - Urinary tract infection, site not specified Status: Acute Assessment and Plan: on Rocephin Urine culture to be sent Follow urine culture (8) Conjunctivitis, right eye: Code(s): H10.9 - Unspecified conjunctivitis Status: Acute Assessment and Plan: eyedrops ordered Improving Additional Plan Type 2 diabetes Obstructive sleep apnea CHF Pacemaker placement Hunter cirrhosis
[2020-12-12] MEDS: ONDANSETRON INJ 4 MG/2 ML VIAL IV PUSH (14:35)
[2020-12-12 17:30] LABS: Glucose Point of Care 284 mg/dl (65-105)
[2020-12-12] MEDS: LIPASE/AMYLASE/PROTEASE 12,000 UNITS CAP 2 CAP PO (20:49)
[2020-12-12] MEDS: MELATONIN 3 MG TABLET PO (20:50)
[2020-12-12] MEDS: amLODIPine BESYLATE 5 MG TABLET PO (20:50)
[2020-12-12 22:46] LABS: Glucose Point of Care 258 mg/dl (65-105)
[2020-12-13] VITALS (9 sets, daily range): BP systolic 135–139; BP diastolic 54–61; PULSE 73–91; RESP 16–20; TEMP 36.7–37.4; O2SAT 98–99
[2020-12-13] MEDS: LEVOTHYROXINE SODIUM 150 MCG TABLET PO (05:47)
[2020-12-13 08:25] LABS: Glucose Point of Care 179 mg/dl (65-105)
[2020-12-13] MEDS: POLYMYXIN/TRIMETHOPRIM OPHTH 10 ML DROPS 1 DROP RIGHT EYE ×2 (09:26→20:42)
[2020-12-13] MEDS: OLOPATADINE 0.1% OPHTH SOLN 5 ML BTL 2 DROP EACH EYE ×2 (09:26→17:10)
[2020-12-13] MEDS: polyethylene glycoL 3350 17 GM POWD.PACK PO (09:27)
[2020-12-13] MEDS: VENLAFAXINE HCL XR 75 MG CAP.ER.24H 150 MG PO (09:27)
[2020-12-13] MEDS: LIPASE/AMYLASE/PROTEASE 12,000 UNITS CAP 1 CAP PO ×3 (09:27→17:11)
[2020-12-13] MEDS: GABAPENTIN 300 MG CAPSULE PO ×4 (09:27→20:41)
[2020-12-13] MEDS: ASPIRIN 81 MG CHEWABLE TABLET PO (09:27)
[2020-12-13] MEDS: CYANOCOBALAMIN 1,000 MCG TABLET 5000 MCG PO (09:27)
[2020-12-13] MEDS: INSULIN GLARGINE (*BKC) 100 UNITS/ML 25 UNITS SUB-Q ×2 (09:28→20:42)
[2020-12-13] MEDS: LORATADINE 10 MG TABLET PO (09:28)
[2020-12-13] MEDS: HEPARIN SODIUM 5,000 UNITS/ML VIAL 5000 UNITS SUB-Q ×2 (09:28→20:41)
[2020-12-13] MEDS: SPIRONOLACTONE 25 MG TABLET PO (09:28)
[2020-12-13] MEDS: FEBUXOSTAT 40 MG TABLET PO (09:28)
[2020-12-13] MEDS: PANTOPRAZOLE 40 MG TABLET PO ×2 (09:28→17:13)
[2020-12-13] MEDS: PYRIDOXINE HCL 50 MG TABLET 400 MG PO (09:29)
[2020-12-13] MEDS: FLUTICASONE PROPIONATE 0.05% NA SPR 16 GM BTL (*BKC) 2 SPRAY NASAL (09:29)
[2020-12-13] MEDS: carvediloL 12.5 MG TABLET PO ×2 (09:29→17:12)
[2020-12-13] MEDS: FUROSEMIDE 40 MG TABLET PO (09:29)
[2020-12-13] MEDS: OPTI-GEN TAB 1 TABLET PO (09:29)
[2020-12-13 12:20] LABS: Glucose Point of Care 303 mg/dl (65-105)
[2020-12-13] MEDS: ONDANSETRON INJ 4 MG/2 ML VIAL IV PUSH (12:42)
[2020-12-13] MEDS: INSULIN ASPART (*BKC) 100 UNITS/ML SUB-Q (12:43)
--- NOTE | 2020-12-13 16:22 | P.PNIM_ITS ---
Progress Note: A&P Assessment and Plan (1) Nausea: Code(s): R11.0 - Nausea Status: Acute Assessment and Plan: * the patient has nausea with reported right upper quadrant abdominal pain * labs have improved significantly compared to last month * no leukocytosis or evidence of acute infection * She has been tolerating liquids at home * Continue with IVF * follow bmp * Will provide pain medications with Tylenol not to exceed 3 g a day. * P.r.n. Zofran q.6 hours for nausea. * She is status post ERCP with removal of bile duct stone on 10/2020. On review of her lab work her bilirubin has improved along with her AST/ALT however she has persistent /worsening of her alkaline phosphatase. CT scan done this admission shows dilated common bile duct and pneumobilia. * concern for persistence of stone /sludge/ other etiologies with her persistent ALP elevation * Pneumobilia likely due to her recent ERCP * Will do ultrasound right upper quadrant. If negative may need to do MRCP. * Ultrasound right upper quadrant with mildly dilated CBD expected with status cholecystectomy with pneumobilia * MRCP cannot be done due to pacemaker status * Unclear etiology however this has resolved. * Will get a ALP isoforms to check the origin of her alkaline phosphatase which is pending * * 12/12/20 14:25 patient appears quite anxious and complained of right eye pain is more watery, and quite hyperemic, there is no drainage, patient kept insisting she has MRSA in her eyes patient treated with polymyxin b sulfate which would cover MRSA if it is present, patient with UTI being treated with ceftriaxone, culture is pending, will continue present management we will have PT OT evaluate the patient and further recommendation to follow. 12/13 today patient is feeling much not as anxious and her pain has improved, her right eye appearing to be clear, and not as painful, patient with UTI urine culture is growing Enterococcus sensitive to ampicillin however patient is being treated with Rocephin a symptoms have improved, there is no fever and white counts remain close to normal, will continue Rocephin and monitor, continue PT OT and may plan to discharge patient possibly tomorrow. (2) Type 2 diabetes mellitus with hyperglycemia: Qualifiers: Diabetes mellitus intermediate insulin use: without salvage determiner use Qualified Code(s): E11.65 - Type 2 diabetes mellitus with hyperglycemia Code(s): E11.65 - Type 2 diabetes mellitus with hyperglycemia Status: Acute Assessment and Plan: * Will resume patient's home diabetic medications once med rec has been verified. * Will start moderate sliding scale insulin and Accu-Cheks a.c. HS and hypoglycemia protocol * Restart her home insulin Lantus twice a day and 70 30 with meals * Will lower the insulin dose Due to lower oral intake * Blood sugar at goal (3) Hyperventilating: Code(s): R06.4 - Hyperventilation Status: Acute Assessment and Plan: * hyperventilation due to acute anxiety and panic. Patient responds well to breathing Into a brown paper bag * Patient received Valium in the ER and is requesting more Valium * S/p 1 dose of p.o. Ativan and re-evaluate patient's condition (4) Anxiety: Code(s): F41.9 - Anxiety disorder, unspecified Status: Acute (5) Obstructive sleep apnea on CPAP: Code(s): G47.33 - Obstructive sleep apnea (adult) (pediatric); Z99.89 - Dependence on other enabling machines and devices Status: Acute Assessment and Plan: * auto titrating CPAP/BiPAP ordered (6) Acut
--- NOTE | 2020-12-13 16:22 | PM.IMPN ---
Progress Note: A&P Assessment and Plan (1) Nausea: Code(s): R11.0 - Nausea Status: Acute Assessment and Plan: the patient has nausea with reported right upper quadrant abdominal pain labs have improved significantly compared to last month no leukocytosis or evidence of acute infection She has been tolerating liquids at home Continue with IVF follow bmp Will provide pain medications with Tylenol not to exceed 3 g a day. P.r.n. Zofran q.6 hours for nausea. She is status post ERCP with removal of bile duct stone on 10/2020. On review of her lab work her bilirubin has improved along with her AST/ALT however she has persistent /worsening of her alkaline phosphatase. CT scan done this admission shows dilated common bile duct and pneumobilia. concern for persistence of stone /sludge/ other etiologies with her persistent ALP elevation Pneumobilia likely due to her recent ERCP Will do ultrasound right upper quadrant. If negative may need to do MRCP. Ultrasound right upper quadrant with mildly dilated CBD expected with status cholecystectomy with pneumobilia MRCP cannot be done due to pacemaker status Unclear etiology however this has resolved. Will get a ALP isoforms to check the origin of her alkaline phosphatase which is pending 12/12/20 14:25 patient appears quite anxious and complained of right eye pain is more watery, and quite hyperemic, there is no drainage, patient kept insisting she has MRSA in her eyes patient treated with polymyxin b sulfate which would cover MRSA if it is present, patient with UTI being treated with ceftriaxone, culture is pending, will continue present management we will have PT OT evaluate the patient and further recommendation to follow. 12/13 today patient is feeling much not as anxious and her pain has improved, her right eye appearing to be clear, and not as painful, patient with UTI urine culture is growing Enterococcus sensitive to ampicillin however patient is being treated with Rocephin a symptoms have improved, there is no fever and white counts remain close to normal, will continue Rocephin and monitor, continue PT OT and may plan to discharge patient possibly tomorrow. (2) Type 2 diabetes mellitus with hyperglycemia: Qualifiers: Diabetes mellitus long-term insulin use: without long-term use Qualified Code(s): E11.65 - Type 2 diabetes mellitus with hyperglycemia Code(s): E11.65 - Type 2 diabetes mellitus with hyperglycemia Status: Acute Assessment and Plan: Will resume patient's home diabetic medications once med rec has been verified. Will start moderate sliding scale insulin and Accu-Cheks a.c. HS and hypoglycemia protocol Restart her home insulin Lantus twice a day and 70 30 with meals Will lower the insulin dose Due to lower oral intake Blood sugar at goal (3) Hyperventilating: Code(s): R06.4 - Hyperventilation Status: Acute Assessment and Plan: hyperventilation due to acute anxiety and panic. Patient responds well to breathing Into a brown paper bag Patient received Valium in the ER and is requesting more Valium S/p 1 dose of p.o. Ativan and re-evaluate patient's condition (4) Anxiety: Code(s): F41.9 - Anxiety disorder, unspecified Status: Acute (5) Obstructive sleep apnea on CPAP: Code(s): G47.33 - Obstructive sleep apnea (adult) (pediatric); Z99.89 - Dependence on other enabling machines and devices Status: Acute Assessment and Plan: auto titrating CPAP/BiPAP ordered (6) Acute on chronic kidney failure: Code(s): N17.9 - Acute kidney failure, unspecified; N18.9 - Chronic kidney disease, unspecified Status: Acute Assessment and Plan: Cr 2.2, hx 1.7-3.10 Continue with IVF Avoid nephrotoxins Monitor creatinine improving Stopped IV fluids and resume her diuretic monitor renal function (7) UTI (urinary tract infection)
[2020-12-13 17:19] LABS: Glucose Point of Care 217 mg/dl (65-105)
[2020-12-13] MEDS: amLODIPine BESYLATE 5 MG TABLET PO (20:41)
[2020-12-13] MEDS: LIPASE/AMYLASE/PROTEASE 12,000 UNITS CAP 2 CAP PO (20:41)
[2020-12-13 21:50] LABS: Glucose Point of Care 265 mg/dl (65-105)
[2020-12-14] MEDS: LEVOTHYROXINE SODIUM 150 MCG TABLET PO (05:38)
[2020-12-14 05:41] VITALS: BP 130/53; PULSE 78; RESP 17; TEMP 36.9; O2SAT 98
[2020-12-14 06:42] LABS: Hematocrit 34.5 % (37.0-47.0); Hemoglobin 11.6 g/dL (12.0-15.0); Immature Platelet Fraction Pct 5.6 % (0.9-11.2); Mean Corpuscular HGB Conc 33.6 g/dl (32-36); Mean Corpuscular Hemoglobin 31.9 pg (26-34); Mean Corpuscular Volume 94.8 fl (80-100); Mean Platelet Volume 11.1 fl (7.4-10.4); Platelet Count Result 117 k/mm3 (150-375); Red Blood Count 3.64 M/mm3 (4.2-5.4); Red Cell Distribution Width 13.2 % (11.5-14.5); White Blood Count 5.2 K/mm3 (4.5-10.0)
[2020-12-14 06:52] LABS: Anion Gap 7 mmol/L (8-16); Blood Urea Nitrogen 33 mg/dL (7-17); Calcium 8.8 mg/dL (8.4-10.2); Carbon Dioxide 30 mmol/L (22-30); Chloride 100 mmol/L (98-107); Estimated CRCL calculation 26 ml/min; Estimated Glomerular Filt Rate 29; Glucose 143 mg/dL (65-110); Potassium 4.2 mmol/L (3.4-5.0); Sodium 137 mmol/L (137-145)
[2020-12-14 08:00] VITALS: O2SAT 98
[2020-12-14] MEDS: FLUTICASONE PROPIONATE 0.05% NA SPR 16 GM BTL (*BKC) 2 SPRAY NASAL (08:31)
[2020-12-14] MEDS: OLOPATADINE 0.1% OPHTH SOLN 5 ML BTL 2 DROP EACH EYE (08:31)
[2020-12-14] MEDS: FEBUXOSTAT 40 MG TABLET PO (08:31)
[2020-12-14] MEDS: POLYMYXIN/TRIMETHOPRIM OPHTH 10 ML DROPS 1 DROP RIGHT EYE (08:31)
[2020-12-14] MEDS: PYRIDOXINE HCL 50 MG TABLET 400 MG PO (08:32)
[2020-12-14] MEDS: CYANOCOBALAMIN 1,000 MCG TABLET 5000 MCG PO (08:32)
[2020-12-14] MEDS: GABAPENTIN 300 MG CAPSULE PO (08:32)
[2020-12-14] MEDS: LORATADINE 10 MG TABLET PO (08:32)
[2020-12-14] MEDS: OPTI-GEN TAB 1 TABLET PO (08:32)
[2020-12-14] MEDS: PANTOPRAZOLE 40 MG TABLET PO (08:32)
[2020-12-14] MEDS: VENLAFAXINE HCL XR 75 MG CAP.ER.24H 150 MG PO (08:32)
[2020-12-14 08:33] VITALS: PULSE 82
[2020-12-14] MEDS: carvediloL 12.5 MG TABLET PO (08:33)
[2020-12-14] MEDS: SPIRONOLACTONE 25 MG TABLET PO (08:33)
[2020-12-14] MEDS: ASPIRIN 81 MG CHEWABLE TABLET PO (08:34)
[2020-12-14] MEDS: FUROSEMIDE 40 MG TABLET PO (08:34)
[2020-12-14] MEDS: LIPASE/AMYLASE/PROTEASE 12,000 UNITS CAP 1 CAP PO ×2 (08:34→11:16)
[2020-12-14] MEDS: HEPARIN SODIUM 5,000 UNITS/ML VIAL 5000 UNITS SUB-Q (08:35)
[2020-12-14] MEDS: INSULIN GLARGINE (*BKC) 100 UNITS/ML 25 UNITS SUB-Q (09:02)
--- NOTE | 2020-12-14 09:29 | P.DS_ITS ---
DS: Admitting Diagnosis Admitting Diagnosis Admitting Diagnosis: Chief Complaint: Nausea, abdominal pain, anxiety DS: Discharge Diagnosis Discharge Diagnosis (1) Nausea: Code(s): R11.0 - Nausea Status: Acute Assessment and Plan: * the patient has nausea with reported right upper quadrant abdominal pain * labs have improved significantly compared to last month * no leukocytosis or evidence of acute infection * She has been tolerating liquids at home * Continue with IVF * follow bmp * Will provide pain medications with Tylenol not to exceed 3 g a day. * P.r.n. Zofran q.6 hours for nausea. * She is status post ERCP with removal of bile duct stone on 10/2020. On review of her lab work her bilirubin has improved along with her AST/ALT however she has persistent /worsening of her alkaline phosphatase. CT scan done this admission shows dilated common bile duct and pneumobilia. * concern for persistence of stone /sludge/ other etiologies with her persistent ALP elevation * Pneumobilia likely due to her recent ERCP * Will do ultrasound right upper quadrant. If negative may need to do MRCP. * Ultrasound right upper quadrant with mildly dilated CBD expected with status cholecystectomy with pneumobilia * MRCP cannot be done due to pacemaker status * Unclear etiology however this has resolved. * Will get a ALP isoforms to check the origin of her alkaline phosphatase which is pending * * 12/12/20 14:25 patient appears quite anxious and complained of right eye pain is more watery, and quite hyperemic, there is no drainage, patient kept insisting she has MRSA in her eyes patient treated with polymyxin b sulfate which would cover MRSA if it is present, patient with UTI being treated with ceftriaxone, culture is pending, will continue present management we will have PT OT evaluate the patient and further recommendation to follow. 12/13 today patient is feeling much not as anxious and her pain has improved, her right eye appearing to be clear, and not as painful, patient with UTI urine culture is growing Enterococcus sensitive to ampicillin however patient is being treated with Rocephin a symptoms have improved, there is no fever and white counts remain close to normal, will continue Rocephin and monitor, continue PT OT and may plan to discharge patient possibly tomorrow. (2) Type 2 diabetes mellitus with hyperglycemia: Qualifiers: Diabetes mellitus usp insulin use: without terminal superintendent use Qualified Code(s): E11.65 - Type 2 diabetes mellitus with hyperglycemia Code(s): E11.65 - Type 2 diabetes mellitus with hyperglycemia Status: Acute Assessment and Plan: * Will resume patient's home diabetic medications once med rec has been verified. * Will start moderate sliding scale insulin and Accu-Cheks a.c. HS and hypoglycemia protocol * Restart her home insulin Lantus twice a day and 70 30 with meals * Will lower the insulin dose Due to lower oral intake * Blood sugar at goal (3) Hyperventilating: Code(s): R06.4 - Hyperventilation Status: Acute Assessment and Plan: * hyperventilation due to acute anxiety and panic. Patient responds well to breathing Into a brown paper bag * Patient received Valium in the ER and is requesting more Valium * S/p 1 dose of p.o. Ativan and re-evaluate patient's condition (4) Anxiety: Code(s): F41.9 - Anxiety disorder, unspecified Status: Acute (5) Obstructive sleep apnea on CPAP: Code(s): G47.33 - Obstructive sleep apnea (adult) (pediatric); Z99.89 - Dependence on other enabling
--- NOTE | 2020-12-14 09:29 | PM.DS ---
DS: Admitting Diagnosis Admitting Diagnosis Admitting Diagnosis: Chief Complaint: Nausea, abdominal pain, anxiety DS: Discharge Diagnosis Discharge Diagnosis (1) Nausea: Code(s): R11.0 - Nausea Status: Acute Assessment and Plan: the patient has nausea with reported right upper quadrant abdominal pain labs have improved significantly compared to last month no leukocytosis or evidence of acute infection She has been tolerating liquids at home Continue with IVF follow bmp Will provide pain medications with Tylenol not to exceed 3 g a day. P.r.n. Zofran q.6 hours for nausea. She is status post ERCP with removal of bile duct stone on 10/2020. On review of her lab work her bilirubin has improved along with her AST/ALT however she has persistent /worsening of her alkaline phosphatase. CT scan done this admission shows dilated common bile duct and pneumobilia. concern for persistence of stone /sludge/ other etiologies with her persistent ALP elevation Pneumobilia likely due to her recent ERCP Will do ultrasound right upper quadrant. If negative may need to do MRCP. Ultrasound right upper quadrant with mildly dilated CBD expected with status cholecystectomy with pneumobilia MRCP cannot be done due to pacemaker status Unclear etiology however this has resolved. Will get a ALP isoforms to check the origin of her alkaline phosphatase which is pending 12/12/20 14:25 patient appears quite anxious and complained of right eye pain is more watery, and quite hyperemic, there is no drainage, patient kept insisting she has MRSA in her eyes patient treated with polymyxin b sulfate which would cover MRSA if it is present, patient with UTI being treated with ceftriaxone, culture is pending, will continue present management we will have PT OT evaluate the patient and further recommendation to follow. 12/13 today patient is feeling much not as anxious and her pain has improved, her right eye appearing to be clear, and not as painful, patient with UTI urine culture is growing Enterococcus sensitive to ampicillin however patient is being treated with Rocephin a symptoms have improved, there is no fever and white counts remain close to normal, will continue Rocephin and monitor, continue PT OT and may plan to discharge patient possibly tomorrow. (2) Type 2 diabetes mellitus with hyperglycemia: Qualifiers: Diabetes mellitus remote computer terminal operator insulin use: without remote computer terminal operator use Qualified Code(s): E11.65 - Type 2 diabetes mellitus with hyperglycemia Code(s): E11.65 - Type 2 diabetes mellitus with hyperglycemia Status: Acute Assessment and Plan: Will resume patient's home diabetic medications once med rec has been verified. Will start moderate sliding scale insulin and Accu-Cheks a.c. HS and hypoglycemia protocol Restart her home insulin Lantus twice a day and 70 30 with meals Will lower the insulin dose Due to lower oral intake Blood sugar at goal (3) Hyperventilating: Code(s): R06.4 - Hyperventilation Status: Acute Assessment and Plan: hyperventilation due to acute anxiety and panic. Patient responds well to breathing Into a brown paper bag Patient received Valium in the ER and is requesting more Valium S/p 1 dose of p.o. Ativan and re-evaluate patient's condition (4) Anxiety: Code(s): F41.9 - Anxiety disorder, unspecified Status: Acute (5) Obstructive sleep apnea on CPAP: Code(s): G47.33 - Obstructive sleep apnea (adult) (pediatric); Z99.89 - Dependence on other enabling machines and devices Status: Acute Assessment and Plan: auto titrating CPAP/BiPAP ordered (6) Acute on chronic kidney failure: Code(s): N17.9 - Acute kidney failure, unspecified; N18.9 - Chronic kidney disease, unspecified Status: Acute Assessment and Plan: Cr 2.2, hx 1.7-3.10 Continue with IVF Avoid nephrotoxins Monitor
[2020-12-14 09:55] LABS: Glucose Point of Care 148 mg/dl (65-105)
--- NOTE | 2020-12-14 11:11 | PCPTNOTE ---
Attempted to see patient for PT, patient refused due to anticipated discharge.
[2020-12-14] MEDS: ONDANSETRON INJ 4 MG/2 ML VIAL IV PUSH (11:14)
[2020-12-14 20:53] LABS: Alkaline Phosphatase 328 U/L (37-153); Macrohepatic Isoenzymes 0 % (<=0)
== END 2020-12-14 11:40 | DRG 683 ==
LOC: ANHED 19:08 → ANH3MEDSUR 12-08 00:04
PROVIDERS: Emergency Medicine; Internal Medicine; Admitting Provider Internal Medicine; Emergency Provider Emergency Medicine; PCP Nurse Practitioner Family; Visit Provider Family Medicine
DX: N17.9 Acute kidney failure, unspecified; I13.0 Hypertensive heart and chronic kidney disease with heart failure and stage 1 through stage 4 chronic kidney disease, or unspecified chronic kidney disease; N39.0 Urinary tract infection, site not specified; B95.2 Enterococcus as the cause of diseases classified elsewhere; R11.0 Nausea; E11.22 Type 2 diabetes mellitus with diabetic chronic kidney disease; N18.9 Chronic kidney disease, unspecified; I50.9 Heart failure, unspecified; H10.9 Unspecified conjunctivitis; E87.5 Hyperkalemia; R06.4 Hyperventilation; F41.9 Anxiety disorder, unspecified; G47.33 Obstructive sleep apnea (adult) (pediatric); R10.13 Epigastric pain; J44.9 Chronic obstructive pulmonary disease, unspecified; E11.65 Type 2 diabetes mellitus with hyperglycemia; E03.9 Hypothyroidism, unspecified; E78.5 Hyperlipidemia, unspecified; K75.81 Nonalcoholic steatohepatitis (NASH); K74.60 Unspecified cirrhosis of liver; Z66 Do not resuscitate; Z79.4 Long term (current) use of insulin; Z79.899 Other long term (current) drug therapy; Z95.810 Presence of automatic (implantable) cardiac defibrillator; Z98.42 Cataract extraction status, left eye; Z98.41 Cataract extraction status, right eye; Z96.1 Presence of intraocular lens; Z99.89 Dependence on other enabling machines and devices
CPT/HCPCS: 36415; 51701; 71045; 74176; 76705; 80048; 80053; 81001; 82948; 83690; 84075; 84080; 85025; 85027; 85055; 85610; 85730; 87077; 87086; 87088; 87186; 96361; 96374; 96375; 96376; 97110; 97162; 97165; 97530; 97535; 99285; A9270; G0378; J0696; J1644; J1815; J2405; J3360; J7030

== ENCOUNTER → 2021-02-05 15:40 | Outpatient (CLI) | payer MEDICARE, OTHER, SELFPAY ==
--- NOTE | ~2021-02-05 | XR_ITS ---
XR thoracic spine 2V DATE: 02/05/2021 16:54 INDICATION: Thoracic back pain, lumbago TECHNIQUE: AP, lateral, swimmer views COMPARISON: 07/14/2019 thoracic spine FINDINGS: The thoracic spine. Prominent diffuse osteopenia. Status post vertebroplasty at T11, T12 and L1. There is degenerative spurring of the mid and lower thoracic spine primarily. No recent fracture or b one destruction is detected. The thoracic pedicles are intact. No paraspinal soft tissue thickening i s evident. IMPRESSION: Diffuse osteopenia Status post vertebroplasty at T11, T12, L1 Reviewed, dictated and finalized at location A.
--- NOTE | ~2021-02-05 | XR_ITS ---
XR lumbar spine 2-3V DATE: 02/05/2021 16:54 INDICATION: Low back pain TECHNIQUE: AP, lateral, coned lateral lumbosacral views COMPARISON: 07/14/2019 lumbar spine FINDINGS: There is prominent diffuse osteopenia. Vertebroplasty is again noted at T11-L4 compression fractures. No interval fracture. No spondylolisthesis. The sacroiliac joints appear normal. IMPRESSION: No significant change since 07/14/2019 Reviewed, dictated and finalized at location A.
== END ==
PROVIDERS: PCP Nurse Practitioner Family; Visit Provider Nurse Practitioner Family
DX: M54.5 Low back pain (principal); M54.6 Pain in thoracic spine; M85.88 Other specified disorders of bone density and structure, other site; Z98.890 Other specified postprocedural states
CPT/HCPCS: 72070; 72100

== ENCOUNTER 2021-04-12 15:32 | Inpatient (IN) | payer MEDICARE, OTHER, SELFPAY ==
[2021-04-12] VITALS (18 sets, daily range): BP systolic 117–154; BP diastolic 38–74; PULSE 72–91; RESP 13–25; TEMP 36.4–36.9; O2SAT 94–100; BMI 41.0
--- NOTE | ~2021-04-12 | CT_ITS ---
EXAMINATION: CT abdomen pelvis wo con DATE: 04/12/2021 18:41 INDICATION: Lower abdominal tenderness with voiding. Urgency. TECHNIQUE: Computed tomography (CT) of the abdomen and pelvis was performed without intravenous contr ast. Automated exposure control and iterative reconstruction technique were employed. The dose-length product was 1274.29 mGy-cm. COMPARISON: 12/07/2020 FINDINGS: Small calcified nodules in the right middle lobe consistent with old granulomatous disease. Cardiomeg alee. Three lead pacemaker seen with lead tips at the right atrial appendage, apex of the right ventri rachelle and in a coronary vein overlying the lateral of the left ventricle having traversed the coronary sinus. No pericardial or pleural effusion. Small sliding-type hiatal hernia. Status post cholecystectomy with persistent intra and extra hepatic pneumobilia likely related to ass ociated sphincterotomy. Liver surface nodularity consistent with cirrhosis. Mild splenomegaly with mu ltiple splenic calcifications consistent with old granulomatous disease. Fatty atrophy of the pancrea s. Bilateral adrenal glands and right kidney are normal. Severe left renal atrophy with parenchymal s carring diffuse bladder wall thickening with mild stranding to the immediately surrounding fat which could be seen with cystitis either acute or chronic. There is mild scattered colonic diverticulosis w ith inflammatory stranding surrounding a diverticulum at the proximal sigmoid colon consistent with d iverticulitis. Bowels are otherwise unremarkable. The uterus is not identified and has likely been garcia rgically resected. No abscess or free intraperitoneal gas or fluid. No pathologically enlarged abdomi nal or pelvic lymphadenopathy. Multiple compression and burst fractures throughout the lumbar and low er thoracic spine with vertebral plasties at each level from T11 through L4. IMPRESSION: 1. Radiographically uncomplicated sigmoid diverticulitis. 2. Diffuse bladder wall thickening with mild surrounding stranding consistent with cystitis which cou ld be either acute or chronic. Correlate with urinalysis. 3. Cardiomegaly. 4. Cirrhosis. 5. Mild splenomegaly likely secondary to cirrhosis and portal venous hypertension. 6. Severe left renal atrophy with focal sparing. Reviewed, dictated and finalized at location A. AND GAS WELDER IMPRESSION: 1. Radiographically uncomplicated sigmoid diverticulitis. 2. Diffuse bladder wall thickening with mild surrounding stranding consistent w ith cystitis which could be either acute or chronic. Correlate with urinalysis. 3. Cardiomegaly. 4. Cirrhosis. 5. Mild splenomegaly likely secondary to cirrhosis and portal venous hypertensi on. 6. Severe left renal atrophy with focal sparing.
--- NOTE | ~2021-04-12 | XR_ITS ---
EXAMINATION: XR chest 2V EXAM DATE: 04/14/2021 10:35 INDICATION: Shortness of breath. TECHNIQUE: Frontal and lateral projections of the chest obtained and reviewed. Comparison is made to prior examination from 04/12/2021. FINDINGS: Triple lead pacemaker/AICD device. Right midlung zone calcified granuloma. Cardiomegaly an d pulmonary vascular congestion. No confluent consolidation, pneumothorax or pleural effusion suspect ed. Treated thoracolumbar vertebral body fractures. Accounting for differences in technique, there is no significant interval change. IMPRESSION: Cardiomegaly, pulmonary vascular congestion unchanged. Reviewed, dictated and finalized at location A. OR LINUX UNIX ENGINEER
--- NOTE | ~2021-04-12 | US_ITS ---
EXAMINATION: US renal BI EXAM DATE: 04/14/2021 10:26 INDICATION: Acute kidney injury. TECHNIQUE: Multiple grayscale and Doppler images of the kidneys were obtained (by a technologist who performed the scan) and subsequently reviewed. Comparison is made to prior examination from 12/09/2020 . FINDINGS: Right kidney: There is normal contour and echogenicity. It measures 10.6 x 4.8 x 5.8 centimeters. T here are no focal renal lesions identified. There is no hydronephrosis. Left kidney: There is normal contour and increased echogenicity. It measures 6.7 x 7.9 x 4.1 centime ters. There are no focal renal lesions identified. There is no hydronephrosis. Bladder unremarkable. IMPRESSION: 1. Moderate left renal atrophy. 2. No hydronephrosis. Reviewed, dictated and finalized at location A. HANGER
--- NOTE | ~2021-04-12 | US_ITS ---
EXAMINATION: US retroperitoneal duplex ltd EXAM DATE: 04/15/2021 08:54 INDICATION: Acute kidney insufficiency TECHNIQUE: Multiple grayscale and Doppler images of the kidneys and renal arteries were obtained. Co rrelation is made to CT 2016. FINDINGS: The aorta peak systolic velocity is 44 cm/s. RIGHT RENAL ARTERY: 27 cm/s. LEFT RENAL ARTERY: Could not be obtained. On CT which is able to be obtained with contrast in 2016, there was no right renal artery stenosis. T here was diminutive left renal artery which would be consistent with that kidney size. IMPRESSION: Significantly limited exam with only one normal right renal Doppler reading. Reviewed, dictated and finalized at location A. IME CAREGIVER
--- NOTE | ~2021-04-12 | XR_ITS ---
EXAMINATION: XR chest 2V DATE: 04/17/2021 08:21 INDICATION: Pulmonary congestion. TECHNIQUE: Frontal and lateral views of the chest were obtained. COMPARISON: Chest 2 views 04/14/2021, CT abdomen and pelvis 04/12/2021 FINDINGS: Calcified right lung nodules and calcified hilar and mediastinal lymph nodes are consistent with old granulomatous disease. There is mild atelectasis at the lung bases. No pleural effusion or pneumothorax. Cardiomegaly is noted. There is a left chest pacer with leads in right atrium, right ve ntricle, and coronary sinus. There are changes of vertebroplasty at multiple levels. IMPRESSION: 1. Mild atelectasis at the lung bases. 2. Cardiomegaly. Reviewed, dictated and finalized at location B. RNATIONAL GUEST COORDINATOR
--- NOTE | ~2021-04-12 | XR_ITS ---
EXAMINATION: XR chest 2V DATE: 04/12/2021 16:10 INDICATION: Shortness of breath. TECHNIQUE: Frontal and lateral views of the chest were obtained. COMPARISON: Chest single view 12/08/2020, CT abdomen and pelvis 12/07/2020 FINDINGS: Calcified right lung nodules and calcified right hilar lymph nodes are consistent with old granulomatous disease. No pleural effusion or pneumothorax. The heart size is normal. There is a left chest pacer with leads in right atrium, right ventricle, and coronary sinus. Mediastinal lipomatosis is noted. There are changes of vertebroplasty at multiple levels. IMPRESSION: 1. No acute cardiopulmonary disease. Reviewed, dictated and finalized at location A. SHOW HOST
--- NOTE | 2021-04-12 15:56 | ECG_ITS ---
Measurements Intervals [place] Rate: 83 P: 161 IN: 188 QRS: 234 QRSD: 160 T: 42 QT: 448 QTc: 527 Interpretive Statements ELECTRONIC ATRIAL PACEMAKER ELECTRONIC VENTRICULAR PACEMAKER NO FURTHER INTERPRETATION IS POSSIBLE ATYPICAL ECG Electronically Signed On 04-12-2021 20:09:10 [employer] by Yovany Forte D.O.
[2021-04-12 16:10] LABS: Basophils Percent Auto 0.6 % (0.2-1.2); Eosinophils Absolute Auto 0.2 K/mm3 (0-0.3); Eosinophils Percent Auto 2.5 % (0-4.4); Hematocrit 39.9 % (37.0-47.0); Hemoglobin 13.4 g/dL (12.0-15.0); Immature Granulocyte Absolute 0.02 K/mm3 (0.00-0.031); Immature Granulocyte Percent A 0.3 % (0-0.5); Lymphocytes Absolute Auto 1.86 K/mm3 (0.9-3.2); Lymphocytes Percent Auto 25.7 % (18.3-44.2); Mean Corpuscular HGB Conc 33.6 g/dl (32-36); Mean Corpuscular Hemoglobin 30.5 pg (26-34); Mean Corpuscular Volume 90.7 fl (80-100); Monocytes Absolute Auto 0.5 K/mm3 (0.1-0.6); Monocytes Percent Auto 6.3 % (2.6-8.5); Neutrophils Absolute Auto 4.7 K/mm3 (1.3-6.7); Neutrophils Percent Auto 64.6 % (45.5-73.1); Platelet Count Result 144 k/mm3 (150-375); Red Cell Distribution Width 13.6 % (11.5-14.5); White Blood Count 7.3 K/mm3 (4.5-10.0)
[2021-04-12 16:21] LABS: Alanine Aminotransferase 28 U/L (4-35); Albumin Level 4.3 g/dL (3.5-5.1); Alkaline Phosphatase 165 U/L (38-126); Anion Gap 10 mmol/L (8-16); Aspartate Amino Transferase 37 U/L (14-36); Bilirubin,Total 0.7 mg/dL (0.2-1.3); Blood Urea Nitrogen 72 mg/dL (7-17); Calcium 9.3 mg/dL (8.4-10.2); Carbon Dioxide 31 mmol/L (22-30); Chloride 87 mmol/L (98-107); Estimated CRCL calculation 17 ml/min; Estimated Glomerular Filt Rate 18; Glucose 433 mg/dL (65-110); Potassium 5.1 mmol/L (3.4-5.0); Sodium 128 mmol/L (137-145)
[2021-04-12 16:33] LABS: NT Pro B Type Natriuretic Pept 446 pg/mL (5-100); Troponin I < 0.012 ng/mL (0.000-0.034)
[2021-04-12 16:35] LABS: INR 1.1; Prothrombin Time 14.2 Seconds (11.1-14.7)
[2021-04-12 17:56] LABS: Alveolar/Arterial O2 Gradient 31.8 mmHg; Base Excess ABG 5.1 mEq/l (+/-2.0); Carboxyhemoglobin 0.7 % THb (0-2.0); Fractional Inspired Oxygen 21 %; HCO3 ABG 29.1 mEq/l (22.0-26.0); Methemoglobin ABG 0.3 %THb (0-1.5); Oxygen Content ABG 17.2 %vol (16.0-22.0); Oxyhemoglobin 92.4 % THb (90.0-100.0); PCO2 ABG 40.3 mmHg (35.0-45.0); PO2 ABG 69.7 mmHg (80.0-100.0); PO2 FiO2 Ratio Arterial Blood 3.32 %; Reduced Hemoglobin 6.6 %THb (0-5.0); Total Hemoglobin 13.2 g/dL (12.0-18.0); pH ABG 7.476 (7.350-7.450)
[2021-04-12 17:58] LABS: Device ROOM AIR; Modified Allen's Test Pass; Site Drawn LEFT RADIAL
--- NOTE | 2021-04-12 18:07 | ED.GENADULT ---
HPI - General Adult General Chief complaint: Shortness of Breath/Dyspnea Stated complaint: UTI, cough, fever Time Seen by Provider: 04/12/21 17:13 Source: patient, RN notes reviewed and old records reviewed Mode of arrival: ambulatory Limitations: no limitations History of Present Illness HPI narrative: This is an 81 year old female with history of CHF, DM, hypothyroidism who presents for evaluation of possible UTI and fluid overload. Patient complaints about cloudy urine, increased urinary frequency and dysuria for 4-5 days. She reported having UA at facility but she did not have a UTI. She is also complaining of constipation, nausea and lower abdominal pain. Her abdominal started today and it has been constant. Patient is also concerned that she may be fluid overloaded. She is having a cough with clear phlegm but she denies chest pain, leg swelling. She reports intermittent shortness of breath. Related Data Home Medications Medication Instructions Recorded Confirmed Creon 1 cap PO HS 02/10/20 12/08/20 Creon 1 cap PO TID 02/10/20 12/08/20 amlodipine 5 mg PO HS 02/10/20 12/08/20 aspirin 81 mg PO DAILY 02/10/20 12/08/20 carvedilol 12.5 mg PO BID 02/10/20 12/08/20 docusate sodium [Colace] 250 mg PO DAILY PRN 02/10/20 12/08/20 ergocalciferol (vitamin D2) 50,000 unit PO WEEKLY 02/10/20 12/08/20 fluticasone propionate [Flonase 2 spray INTRANASAL DAILY PRN 02/10/20 12/08/20 Allergy Relief] gabapentin 300 mg PO QID 02/10/20 12/08/20 pyridoxine (vitamin B6) 400 mg PO DAILY 02/10/20 12/08/20 spironolactone 25 mg PO DAILY 02/10/20 12/08/20 venlafaxine 150 mg PO DAILY 02/10/20 12/08/20 cetirizine [Zyrtec] 10 mg PO DAILY 10/24/20 12/08/20 cyanocobalamin (vitamin B-12) 5,000 mcg PO DAILY 10/24/20 12/08/20 melatonin 3 mg PO HS PRN 10/24/20 12/08/20 eulefqkmtbmj-lhmqxcso-[id number] 1 tablet PO DAILY 10/24/20 12/08/20 polyethylene glycol 3350 [Miralax] 17 g PO DAILY 10/24/20 12/08/20 Lantus U-100 Insulin 26 unit SUBCUT BID 12/08/20 12/08/20 insulin asp prt-insulin aspart 15 unit SUBCUT BID 12/08/20 12/08/20 [Novolog Mix 70-30FlexPen U-100] levothyroxine [Tirosint] 150 mcg PO DAILY 12/08/20 12/08/20 omeprazole 20 mg PO BID 12/08/20 12/08/20 budesonide mg 04/12/21 febuxostat mg 04/12/21 metolazone 04/12/21 pantoprazole 04/12/21 vortioxetine [Trintellix] mg 04/12/21 Allergies Allergy/AdvReac Type Severity Reaction Status Date / Time meperidine Allergy Mild Itching Verified 04/12/21 19:25 niacin Allergy Mild Rash Verified 04/12/21 19:25 quetiapine Allergy Mild Swelling Verified 04/12/21 19:25 allopurinol Allergy Unknown Unknown Verified 04/12/21 19:25 bupropion Allergy Unknown JERKY Verified 04/12/21 19:25 MOVEMENTS carbamazepine Allergy Unknown Unknown Verified 04/12/21 19:25 [From Carbatrol] codeine Allergy Unknown Unknown Verified 04/12/21 19:25 enalapril Allergy Unknown Unknown Verified 04/12/21 19:25 fluoxetine Allergy Unknown Unknown Verified 04/12/21 19:25 lorazepam Allergy Unknown Unknown Verified 04/12/21 19:25 morphine Allergy Unknown Unknown Verified 04/12/21 19:25 Penicillins Allergy Unknown Rash Verified 04/12/21 19:25 trazodone Allergy Unknown Dizziness Verified 04/12/21 19:25 promethazine [From Phenergan] AdvReac Intermediate Hallucinati Verified 04/12/21 19:25 ng enalaprilat AdvReac Mild PERSISTENT Verified 04/12/21 19:25 COUGH modafinil AdvReac Mild SORES Verified 04/12/21 19:25 oxycodone AdvReac Mild GI DISTRESS Verified 04/12/21 19:25 Review of Systems Review of Systems: All systems reviewed & are unremarkable except as noted in HPI and below Constitutional: Constitutional: Denies chills and Denies fever(s) Cardiovascular: Cardiovascular: Denies chest pain Respiratory: Respiratory: Reports cough, Reports dyspnea and Denies wheezing Gastrointestinal: Gastrointestinal: Reports abdominal pain, Reports constipation, Denies diarrhea, Reports nausea and Denies vomiting Genitourinary
--- NOTE | 2021-04-12 18:40 | PC.NURSE ---
Patient to radiology.
[2021-04-12] MEDS: SODIUM CHLORIDE 0.9% IV 500 ML 999 ML IV CONT (18:49)
[2021-04-12 18:54] LABS: Glucose Point of Care 372 mg/dl (65-105)
[2021-04-12] MEDS: INSULIN HUMAN REGULAR (*BKC) 100 UNITS/ML 10 UNITS SUB-Q (18:55)
[2021-04-12 19:08] LABS: Add Urine Microscopic? YES; Appearance Urine Cloudy (Clear); Bacteria Urine Trace /hpf; Bilirubin Urine Negative (Negative); Blood Urine Negative (Negative); Color Urine Yellow (Yellow); Glucose Urine UA 3+ mg/dL (Negative); Ketones Urine Negative (Negative); Leukocyte Esterase Ur 3+ LEU/UL (Negative); Nitrate Urine Negative (Negative); Protein Urine Negative (Negative); Specific Grav Ur 1.009 (1.001-1.035); Squamous Epithelial Cell Urine Rare /hpf (Few); Urobilinogen Urine Negative mg/dL (<2.0); WBC Clumps Urine Present /HPF; WBC Urine >75 /hpf
[2021-04-12] MEDS: metroNIDAZOLE 500 MG/ISO 100ML 500 MG/100 ML BAG 100 MG IVPB (19:42)
[2021-04-12 21:15] LABS: Glucose Point of Care 314 mg/dl (65-105)
[2021-04-12] MEDS: SODIUM CHLORIDE 0.9% IV 1,000 ML 100 ML IV CONT (21:24)
--- NOTE | 2021-04-12 22:56 | PM.IMHP ---
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 The patient reports for the last 5-7 days she has had increased urinary urgency, dysuria and cloudy urine. She had a UA performed at the [facility] and they told her she did not likely have a UTI. She has been having a accompanying lower abdominal pain that is moderate in intensity and is sharp. She reports that the pain will move across her abdomen any when her abdomen is palpated. She reports that the pain is [id number] on palpation of the abdomen. She does also have some associated upper abdominal discomfort as well. She has had associated constipation. She reports that she usually drinks a 4th of a bottle of magnesium citrate every 2 or 3 days gap a bowel movement. However she has been using her magnesium citrate with her usual frequency and has not had a complete bowel movement in about 2 weeks. She did have a small bowel movement 2 days ago that was brown without evidence of hematochezia or melena. She does report she has also had some decreased appetite over the last week or so. She denies any nausea or vomiting. With slightly more concerning is the patient has been having dysphagia of solid foods for the last month. She has stopped eating meat. Her diet now mostly consists of soft but to bowls and liquids due to her dysphagia. She has also had some difficulty swallowing some of her medications. She is on chronic PPI therapy. She reports reports that she has been having increased nasal congestion recently with some postnasal drip. She has had a cough productive of some sputum. She does not know color sputum is that she swallows it. She denies having any measured a fevers. She reports that the shortness of breath is worse when she lays down and will wake her from sleep despite wearing her CPAP. She does admit that she is quite anxious as her son is about to be sentenced to senior care term for child molestation. She does occasionally have some central chest discomfort with this shortness of breath when it wakes her up. It usually resolves without intervention. The discomfort is more of a tightness. She is not having any chest discomfort at this time. She is faithful in wearing her CPAP. Review of Systems Review of Systems: 12 systems were reviewed with pertinent positives and negatives per HPI. Except as documented in the HPI, all other systems were reviewed and are negative. [facility] Past Medical History Medical History (Updated 04/12/21 @ 23:33 by Shanita Mccormick DO) Anxiety and depression Atrial fibrillation Bladder prolapse CHF (congestive heart failure) Cholangitis Chronic kidney disease Cirrhosis Constipation COPD (chronic obstructive pulmonary disease) Diabetes mellitus Fibromyalgia Hyperlipidemia Hypertension Hypothyroidism Kidney stones MARCUS (nonalcoholic steatohepatitis) Obesity, morbid, BMI 40.0-49.9 Sleep apnea With CPAP use Thrombocytopenia Surgical History Surgical History (Updated 04/12/21 @ 23:14 by Shanita Mccormick DO) AICD (automatic cardioverter/defibrillator) present History of cholecystectomy History of ERCP With stone extraction Hx of thyroidectomy Pacemaker S/P cervical spinal fusion Status post cataract extraction of both eyes with insertion of intraocular lens Family History Family History (Updated 04/12/21 @ 23:23 by Shanita Mccormick DO) Father Carcinoma of colon, Onset Age: 86 Renal failure Mother Diabetes mellitus Daughter Brain tumor Son Family history of mental disorder Acute myocardial infarction
--- NOTE | 2021-04-12 23:01 | ADMGEN ---
This patient, Roosevelt Penn, was admitted to 3 Med Surg Room 316-01. Patient/family oriented to hospital policies and general routines including ID bracelet, bed and alarms, visiting hours, pain management, procedures, bathroom and other care routines, personal items, smoking policy, room service/diet, and visiting hours. Information on how to activate the Rapid Response Team has been discussed. Patient/Family are encouraged to report perceived risks to care and to ask questions if they do not understand what they are told or what they should do.
[2021-04-13] VITALS (14 sets, daily range): BP systolic 127–146; BP diastolic 61–76; PULSE 66–109; RESP 16–22; TEMP 36.4–37.1; O2SAT 95–100
[2021-04-13] MEDS: INSULIN GLARGINE (*BKC) 100 UNITS/ML 26 UNITS SUB-Q ×3 (03:05→16:58)
[2021-04-13] MEDS: GABAPENTIN 300 MG CAPSULE PO ×5 (04:26→20:17)
[2021-04-13] MEDS: LEVOTHYROXINE SODIUM 150 MCG TABLET PO (06:09)
[2021-04-13] MEDS: metroNIDAZOLE 250 MG TABLET 500 MG PO ×3 (06:09→20:17)
[2021-04-13] MEDS: BUDESONIDE RESPULE NEB 0.5 MG/2 ML AMP 0.25 MG INHALATION ×2 (08:20→20:02)
[2021-04-13 08:33] LABS: Glucose Point of Care 275 mg/dl (65-105)
[2021-04-13] MEDS: PSYLLIUM SUGAR FREE POWDER PACKET 1 PACKET PO (08:44)
[2021-04-13] MEDS: LIPASE/AMYLASE/PROTEASE 12,000 UNITS CAP 1 CAP PO ×3 (08:44→16:21)
[2021-04-13] MEDS: CYANOCOBALAMIN 1,000 MCG TABLET 5000 MCG PO (08:44)
[2021-04-13] MEDS: polyethylene glycoL 3350 17 GM POWD.PACK PO ×2 (08:44→16:20)
[2021-04-13] MEDS: FEBUXOSTAT 40 MG TABLET PO (08:45)
[2021-04-13] MEDS: amLODIPine BESYLATE 5 MG TABLET PO (08:45)
[2021-04-13] MEDS: ASPIRIN 81 MG CHEWABLE TABLET PO (08:45)
[2021-04-13] MEDS: MUPIROCIN 2% OINT 22 GM TUBE 1 APPLIC TOPICAL ×3 (08:46→16:21)
[2021-04-13] MEDS: carvediloL 12.5 MG TABLET PO ×2 (08:48→16:21)
[2021-04-13 09:07] LABS: Basophils Absolute Auto 0.1 K/mm3 (0.0-0.1); Eosinophils Absolute Auto 0.3 K/mm3 (0-0.3); Eosinophils Percent Auto 4.9 % (0-4.4); Hematocrit 36.5 % (37.0-47.0); Hemoglobin 12.1 g/dL (12.0-15.0); Immature Granulocyte Absolute 0.02 K/mm3 (0.00-0.031); Immature Granulocyte Percent A 0.3 % (0-0.5); Lymphocytes Absolute Auto 1.83 K/mm3 (0.9-3.2); Lymphocytes Percent Auto 29.9 % (18.3-44.2); Mean Corpuscular HGB Conc 33.2 g/dl (32-36); Mean Corpuscular Volume 90.3 fl (80-100); Mean Platelet Volume 10.3 fl (7.4-10.4); Monocytes Absolute Auto 0.5 K/mm3 (0.1-0.6); Monocytes Percent Auto 7.5 % (2.6-8.5); Neutrophils Absolute Auto 3.5 K/mm3 (1.3-6.7); Neutrophils Percent Auto 56.4 % (45.5-73.1); Platelet Count Result 125 k/mm3 (150-375); Red Blood Count 4.04 M/mm3 (4.2-5.4); White Blood Count 6.1 K/mm3 (4.5-10.0)
[2021-04-13 09:18] LABS: Alanine Aminotransferase 22 U/L (4-35); Albumin Level 3.7 g/dL (3.5-5.1); Alkaline Phosphatase 129 U/L (38-126); Anion Gap 6 mmol/L (8-16); Aspartate Amino Transferase 27 U/L (14-36); Bilirubin,Total 0.6 mg/dL (0.2-1.3); Blood Urea Nitrogen 64 mg/dL (7-17); Calcium 8.9 mg/dL (8.4-10.2); Carbon Dioxide 34 mmol/L (22-30); Chloride 97 mmol/L (98-107); Estimated CRCL calculation 21 ml/min; Estimated Glomerular Filt Rate 21; Glucose 314 mg/dL (65-110); Potassium 4.4 mmol/L (3.4-5.0); Sodium 137 mmol/L (137-145)
[2021-04-13 09:20] LABS: Anion Gap 9 mmol/L (8-16); Blood Urea Nitrogen 65 mg/dL (7-17); Calcium 8.9 mg/dL (8.4-10.2); Carbon Dioxide 33 mmol/L (22-30); Chloride 97 mmol/L (98-107); Estimated CRCL calculation 20 ml/min; Estimated Glomerular Filt Rate 20; Glucose 316 mg/dL (65-110); Potassium 4.4 mmol/L (3.4-5.0); Sodium 139 mmol/L (137-145)
[2021-04-13] MEDS: OLOPATADINE 0.1% OPHTH SOLN 5 ML BTL 1 DROP EACH EYE ×2 (10:07→16:21)
[2021-04-13 11:53] LABS: Glucose Point of Care 272 mg/dl (65-105)
[2021-04-13] MEDS: INSULIN ASPART (*BKC) 100 UNITS/ML SUB-Q ×2 (12:28→16:59)
[2021-04-13] MEDS: SODIUM CHLORIDE 0.9% IV 1,000 ML 100 ML IV CONT ×2 (12:33→18:36)
--- NOTE | 2021-04-13 12:46 | PM.IMPN ---
Progress Note: A&P Assessment and Plan (1) Sigmoid diverticulitis: Code(s): K57.32 - Diverticulitis of large intestine without perforation or abscess without bleeding Status: Acute Assessment and Plan: Presented with abdominal pain and CT findings consistent with uncomplicated sigmoid diverticulitis Remains on Rocephin and Flagyl, which also covers for her cystitis. Cipro or Levaquin being avoided given QT prolongation on EKG, though this is most likely associated with her AICD/pacemaker Appreciate gastroenterology consultation Tolerating her diet (2) Cystitis: Code(s): N30.90 - Cystitis, unspecified without hematuria Status: Acute Assessment and Plan: Presents with complaints of dysuria, cloudy urine, and grossly abnormal UA. Findings consistent with cystitis seen on CT Continue IV Rocephin Urine cultures are pending Noted history of both Proteus UTI and enterococcus UTI. At this time will continue with Rocephin given that the patient is remaining stable/ slightly improved, and this is also covering her diverticulitis. If clinical condition changes, or pending urine cultures, would need to adjust antibiotic regimen (3) Acute on chronic renal failure: Qualifiers: Acute renal failure type: unspecified Chronic kidney disease stage: stage 3 (moderate) Chronic kidney disease stage 3 subtype: unspecified whether 3a or 3b Qualified Code(s): N17.9 - Acute kidney failure, unspecified; N18.30 - Chronic kidney disease, stage 3 unspecified Code(s): N17.9 - Acute kidney failure, unspecified; N18.9 - Chronic kidney disease, unspecified Status: Acute Assessment and Plan: Baseline creatinine appears fluctuant, around 1.70. Acute on chronic renal failure with associated mild hyperkalemia likely due to decreased p.o. intake given abdominal pain in combination with continued diuretic use. Creatinine 2.3 today Lasix, spironolactone, metolazone are on hold Continue gentle IV fluid rehydration, monitoring volume status closely Potassium levels have normalized. 4.4 today Continue to monitor renal function closely and renally dose medications. (4) Dysphagia: Qualifiers: Dysphagia type: esophageal phase Qualified Code(s): R13.19 - Other dysphagia Code(s): R13.10 - Dysphagia, unspecified Status: Acute Assessment and Plan: Over the past several months, she has developed dysphagia to solids foods. Continue pantoprazole 40 mg b.i.d. Appreciate gastroenterology consultation (5) Constipation: Qualifiers: Constipation type: unspecified constipation type Qualified Code(s): K59.00 - Constipation, unspecified Code(s): K59.00 - Constipation, unspecified Status: Acute Assessment and Plan: Chronic constipation dependent upon magnesium citrate every 1-2 days. May be acutely worsened given her acute diverticulitis. She is passing gas but has not had a bowel movement today. Started on MiraLax b.i.d., will continue this Fiber supplementation. One packet psyllium daily Avoid further magnesium citrate (6) Type 2 diabetes mellitus with hyperglycemia: Qualifiers: Diabetes mellitus exterminator helper termite insulin use: without exterminator helper termite use Qualified Code(s): E11.65 - Type 2 diabetes mellitus with hyperglycemia Code(s): E11.65 - Type 2 diabetes mellitus with hyperglycemia Status: Acute Assessment and Plan: Most recent A1c 6.0 in October 2020. Blood sugars elevated on presentation up to 430 which may be related to dehydration. Improving today, last blood sugar 272 Updated A1c is pending Continue Accu-Cheks, high-dose sliding scale insulin, hypoglycemic protocol Lantus 26 units b.i.d. Monitor glucose trends and adjust medication as needed (7) Cirrhosis: Code(s): K74.60 - Unspecified cirrhosis of liver Status: Acute Assessment and Plan: No acute issues.
[2021-04-13 13:47] LABS: Hemoglobin A1C 8.6 % (<5.7)
--- NOTE | 2021-04-13 14:00 | PCPTNOTE ---
Attempted eval for PT. Pt unable to stay awake to talk or participate. Plan to try again in am. LARS
[2021-04-13 16:41] LABS: Glucose Point of Care 234 mg/dl (65-105)
--- NOTE | 2021-04-13 17:07 | WPDGICN ---
Assessment and Plan Assessment and plan (1) Sigmoid diverticulitis: Code(s): K57.32 - Diverticulitis of large intestine without perforation or abscess without bleeding Status: Acute Assessment and Plan: stared on antibiotics, CT scan reviewed also history of chronic constipation recently using more Mag citrate last colonoscopy about 2 years ago (2) Nausea: Code(s): R11.0 - Nausea Status: Acute Assessment and Plan: chronic probably uncontrolled DM playing a role antiemetics prn (3) Cirrhosis: Code(s): K74.60 - Unspecified cirrhosis of liver Status: Acute Assessment and Plan: probably from aguilera and DM I did recent ERCP for cholangitis and large stone in bile duct normal liver enzymes this time (4) Dysphagia: Qualifiers: Dysphagia type: esophageal phase Qualified Code(s): R13.19 - Other dysphagia Code(s): R13.10 - Dysphagia, unspecified Status: Acute Assessment and Plan: chronic when I performed ERCP few months ago without major findings in esophagus we can reassess at some point with egd (5) Acute on chronic renal failure: Qualifiers: Acute renal failure type: unspecified Chronic kidney disease stage: stage 3 (moderate) Chronic kidney disease stage 3 subtype: unspecified whether 3a or 3b Qualified Code(s): N17.9 - Acute kidney failure, unspecified; N18.30 - Chronic kidney disease, stage 3 unspecified Code(s): N17.9 - Acute kidney failure, unspecified; N18.9 - Chronic kidney disease, unspecified Status: Acute Assessment and Plan: by primary team (6) Constipation: Qualifiers: Constipation type: unspecified constipation type Qualified Code(s): K59.00 - Constipation, unspecified Code(s): K59.00 - Constipation, unspecified Status: Acute Assessment and Plan: chronic, lately more symptomatic (7) Uncontrolled diabetes mellitus: Code(s): E11.65 - Type 2 diabetes mellitus with hyperglycemia Status: Acute Assessment and Plan: high a1c, on medical treatment (8) Obesity, morbid, BMI 40.0-49.9: Code(s): E66.01 - Morbid (severe) obesity due to excess calories Status: Acute (9) Cystitis: Code(s): N30.90 - Cystitis, unspecified without hematuria Status: Acute GI Consult Note Consult date/time: 04/13/21 17:07 Reason for consult: abdominal pain, constipation, diverticulitis, cirrhosis HPI: Roosevelt Penn is a 81 year old female who I met her 10/2020 when she was in the hospital with cholangitis and symptomatic choledocholithiasis treated with ERCP and large stone destroyed using spyglass with EHL, also history of cirrhosis (diagnosed about 7 years ago with biopsy), previous cholecystectomy. She also has history of HTN, uncontrolled DM with glucose up to 400's, CKD stage 3, s/p pacemaker, constipation. She also had a recent hospitalization for nausea which is chronic. She is back here with worsening abdominal pain for the last 5-7 days with increased urinary urgency, dysuria and cloudy urine. She has chronic constipation used linzess in the past but also magnesium citrate sometimes every 2 days but lately has not been working as good with more abdominal pain. She had CT scan a/p (reviewed) that showed uncomplicated sigmoid diverticulitis, diffuse bladder wall thickening with mild surrounding stranding consistent with cystitis which could be either acute or chronic, cardiomegaly, cirrhosis, mild splenomegaly. Started on antibiotics and admitted to hospital. She also says that sometimes choking sensation after eating certain meals. Bili and trasnsaminases normal, elevated creatinine. Review of Systems Constitutional: Constitutional: Denies chills Eyes: Eyes: Reports no additional eye complaints ENT: Reports Normal hearing present Cardiovascular: Cardiovascular: Denies chest pain Respiratory: Respiratory: Denies dyspnea Gastrointestinal:
[2021-04-13] MEDS: ONDANSETRON INJ 4 MG/2 ML VIAL IV PUSH (20:19)
[2021-04-13 21:36] LABS: Glucose Point of Care 236 mg/dl (65-105)
--- NOTE | 2021-04-13 23:52 | PCRCNOTE ---
pt refusing CPAP stating she can sleep better without it
[2021-04-14] VITALS (11 sets, daily range): BP systolic 122–143; BP diastolic 43–48; PULSE 75–89; RESP 16–20; TEMP 36.6–37.7; O2SAT 94–99
[2021-04-14] MEDS: LEVOTHYROXINE SODIUM 150 MCG TABLET PO (06:32)
[2021-04-14] MEDS: SODIUM CHLORIDE 0.9% IV 1,000 ML 100 ML IV CONT (06:32)
[2021-04-14] MEDS: metroNIDAZOLE 250 MG TABLET 500 MG PO ×3 (06:32→20:26)
[2021-04-14 07:28] LABS: Glucose Point of Care 119 mg/dl (65-105)
[2021-04-14 08:01] LABS: Anion Gap 3 mmol/L (8-16); Blood Urea Nitrogen 58 mg/dL (7-17); Calcium 8.8 mg/dL (8.4-10.2); Carbon Dioxide 33 mmol/L (22-30); Chloride 100 mmol/L (98-107); Estimated CRCL calculation 24 ml/min; Estimated Glomerular Filt Rate 25; Glucose 129 mg/dL (65-110); Potassium 4.2 mmol/L (3.4-5.0); Sodium 136 mmol/L (137-145)
[2021-04-14 08:22] LABS: Hematocrit 35.5 % (37.0-47.0); Mean Corpuscular HGB Conc 33.8 g/dl (32-36); Mean Corpuscular Hemoglobin 31.4 pg (26-34); Mean Corpuscular Volume 92.9 fl (80-100); Mean Platelet Volume 10.7 fl (7.4-10.4); Platelet Count Result 122 k/mm3 (150-375); Red Blood Count 3.82 M/mm3 (4.2-5.4); Red Cell Distribution Width 14.2 % (11.5-14.5); White Blood Count 5.9 K/mm3 (4.5-10.0)
[2021-04-14] MEDS: BUDESONIDE RESPULE NEB 0.5 MG/2 ML AMP 0.25 MG INHALATION ×2 (08:38→21:00)
[2021-04-14] MEDS: CYANOCOBALAMIN 1,000 MCG TABLET 5000 MCG PO (08:43)
[2021-04-14] MEDS: ASPIRIN 81 MG CHEWABLE TABLET PO (08:44)
[2021-04-14] MEDS: carvediloL 12.5 MG TABLET PO ×2 (08:44→16:37)
[2021-04-14] MEDS: LIPASE/AMYLASE/PROTEASE 12,000 UNITS CAP 1 CAP PO ×3 (08:44→16:36)
[2021-04-14] MEDS: FEBUXOSTAT 40 MG TABLET PO (08:44)
[2021-04-14] MEDS: GABAPENTIN 300 MG CAPSULE PO ×4 (08:44→20:26)
[2021-04-14] MEDS: OLOPATADINE 0.1% OPHTH SOLN 5 ML BTL 1 DROP EACH EYE ×2 (08:46→19:49)
[2021-04-14] MEDS: FLUTICASONE PROPIONATE 0.05% NA SPR 16 GM BTL (*BKC) 2 SPRAY NASAL (08:46)
[2021-04-14] MEDS: MUPIROCIN 2% OINT 22 GM TUBE 1 APPLIC TOPICAL ×2 (08:47→16:37)
[2021-04-14] MEDS: polyethylene glycoL 3350 17 GM POWD.PACK PO ×2 (08:47→16:37)
[2021-04-14] MEDS: PSYLLIUM SUGAR FREE POWDER PACKET 1 PACKET PO (08:47)
[2021-04-14] MEDS: amLODIPine BESYLATE 5 MG TABLET PO (08:47)
[2021-04-14] MEDS: INSULIN GLARGINE (*BKC) 100 UNITS/ML 13 UNITS SUB-Q (09:59)
[2021-04-14] MEDS: INSULIN ASPART MIX 70/30 100 UNITS/ML 7 UNITS SUB-Q (09:59)
--- NOTE | 2021-04-14 10:08 | WPDGIPROGNO ---
Progress Note: A&P Assessment and Plan (1) Sigmoid diverticulitis: Code(s): K57.32 - Diverticulitis of large intestine without perforation or abscess without bleeding Status: Acute Assessment and Plan: Sigmoid diverticulitis evident on CT scan. Continue antibiotics. A colonoscopy was performed several years ago may not need to be repeated. (2) Constipation: Qualifiers: Constipation type: unspecified constipation type Qualified Code(s): K59.00 - Constipation, unspecified Code(s): K59.00 - Constipation, unspecified Status: Acute Assessment and Plan: Patient complains of chronic constipation. It may worsened recently. Will continue additional laxatives at this time. Defer enemas because of her diverticulitis. (3) Obesity, morbid, BMI 40.0-49.9: Code(s): E66.01 - Morbid (severe) obesity due to excess calories Status: Acute Assessment and Plan: Patient is significantly overweight and obese. Calorie restriction ultimately in weight loss encouraged. (4) Cirrhosis: Code(s): K74.60 - Unspecified cirrhosis of liver Status: Acute Assessment and Plan: Cirrhosis evident by CT scan suggest of this likely related to MARCUS. Related to obesity and diabetes. (5) Uncontrolled diabetes mellitus: Code(s): E11.65 - Type 2 diabetes mellitus with hyperglycemia Status: Acute Assessment and Plan: Followed by primary care service. (6) PAULA (acute kidney injury): Code(s): N17.9 - Acute kidney failure, unspecified Status: Acute Assessment and Plan: Followed by primary care service. Subjective Date/time seen: 04/14/21 10:08 Patient alert and comfortable this morning. Complains of no recent bowel movements. She reports that constipation is a chronic problem. She has taken MiraLax this morning and only a small bowel movement since admission. Currently denies any significant dysphagia with breakfast this morning. Review of Systems Review of Systems: All systems reviewed & are unremarkable except as noted in HPI and below Exam Narrative: Physical exam reveals patient be somewhat anxious. Vital signs are stable. HEENT exam reveals no icterus. Lungs are clear. Heart without murmur. Abdomen is obese. Soft no localized tenderness. Extremities without clubbing cyanosis or edema. Objective Data Vital Signs Vital Signs: Vital Signs - 24 hr 04/13/21 14:00 04/13/21 16:21 04/13/21 20:04 Temperature 97.7 F Pulse Rate 109 H 66 88 Respiratory Rate 16 16 Blood Pressure 127/76 Pulse Oximetry 100 04/13/21 20:05 04/13/21 21:43 04/14/21 05:37 Temperature 98.8 F 97.8 F Pulse Rate 80 77 Respiratory Rate 18 18 Blood Pressure 128/70 143/47 H Pulse Oximetry 98 100 95 04/14/21 08:38 04/14/21 08:41 04/14/21 08:44 Temperature Pulse Rate 77 76 Respiratory Rate 16 Blood Pressure Pulse Oximetry 94 04/14/21 08:45 Temperature Pulse Rate 80 Respiratory Rate 16 Blood Pressure Pulse Oximetry Intake/Output Intake/Output: Intake & Output 04/11/21 04/12/21 04/13/21 04/14/21 23:59 23:59 23:59 23:59 Intake Total 650 3070 1990 Output Total 1050 600 Balance 650 2020 1390 Meds/Results Medications: Active Medications Generic Name Dose Route Start Last Admin Trade Name Freq PRN Reason Stop Dose Admin Albuterol 2.5 mg 04/13/21 02:55 Albuterol Sulfate Neb 2.5 Mg/0.5 Ml Inh INHALATION 05/13/21 02:54 QID PRN Bronchospasm Amlodipine Besylate 5 mg 04/13/21 09:00 04/14/21 08:47 Amlodipine Besylate 5 Mg Tablet PO 5 mg DAILY MILIND Administration Lipase/Protease/Amylase 1 cap 04/13/21 09:00 04/14/21 08:44 Lipase/Amylase/Protease 12,000 Units Cap PO 1 cap TID MILIND Administration Aspirin 81 mg 04/13/21 08:00 04/14/21 08:44 Aspirin 81 Mg Chewable Tablet PO 81 mg DAILY@0800 [facility] Administration Budesonide 0.25 mg 04/13/21 08:00
--- NOTE | 2021-04-14 10:12 | PM.IMPN ---
Progress Note: A&P Assessment and Plan (1) Sigmoid diverticulitis: Code(s): K57.32 - Diverticulitis of large intestine without perforation or abscess without bleeding Status: Acute Assessment and Plan: Presented with abdominal pain and CT findings consistent with uncomplicated sigmoid diverticulitis Patient was appropriately started on Rocephin and Flagyl, which also covers for her cystitis. Cipro or Levaquin being avoided given QT prolongation on EKG, though this is most likely associated with her AICD/pacemaker per gastroenterology, no indication for a colonoscopy. Tolerating her diet (2) Cystitis: Code(s): N30.90 - Cystitis, unspecified without hematuria Status: Acute Assessment and Plan: Presents with complaints of dysuria, cloudy urine, and grossly abnormal UA. Findings consistent with cystitis seen on CT. Urine cultures growing Klebsiella. Continue IV Rocephin Noted history of both Proteus UTI and enterococcus UTI. At this time will continue with Rocephin given that the patient is remaining stable/ slightly improved, and this is also covering her diverticulitis. (3) Acute on chronic renal failure: Qualifiers: Acute renal failure type: unspecified Chronic kidney disease stage: stage 3 (moderate) Chronic kidney disease stage 3 subtype: unspecified whether 3a or 3b Qualified Code(s): N17.9 - Acute kidney failure, unspecified; N18.30 - Chronic kidney disease, stage 3 unspecified Code(s): N17.9 - Acute kidney failure, unspecified; N18.9 - Chronic kidney disease, unspecified Status: Acute Assessment and Plan: The patient 's renal function has fluctuated over the past couple years, with episodes of acute injury with renal recoveries. It appeads that carmella creatinine was 1.7 in November 2020. Renal US reveals moderate left renal atrophy; there was no hydronephrosis. We will obtain renal doppler given the discrepancy in sizes. This creatinine of 1.7 may represent his baseline creatinine. Acute non oliguric kidney injury in the setting of chronic renal failure associated with shortness of breath, mild bibasilar crackles and congestion on chest Xray. Creatinine 1.9 today We are resuming low dose furosemide with metolazone 2.5 mg PO daily. Stop IV fluid given symptomatic fluid overload and consult nephrology. Potassium levels have normalized. 4.2 today Continue to monitor renal function closely and renally dose medications. There is no emergent indication for renal replacement therapy. Preserve upper extremity vasculature in a patient who may require dialysis in her lifetime. (4) Dysphagia: Qualifiers: Dysphagia type: esophageal phase Qualified Code(s): R13.19 - Other dysphagia Code(s): R13.10 - Dysphagia, unspecified Status: Acute Assessment and Plan: Per chart there are reports of dysphagia to solids foods. currently tolerating oral intake. She denies any dysphagia symptoms. Continue pantoprazole 40 mg b.i.d. (5) Constipation: Qualifiers: Constipation type: unspecified constipation type Qualified Code(s): K59.00 - Constipation, unspecified Code(s): K59.00 - Constipation, unspecified Status: Acute Assessment and Plan: Chronic constipation dependent upon magnesium citrate every 1-2 days. May be acutely worsened given her acute diverticulitis. She is passing gas but has not had a bowel movement today. Continue MiraLax b.i.d., will continue this Fiber supplementation. One packet psyllium daily (6) Type 2 diabetes mellitus with hyperglycemia: Qualifiers: Diabetes mellitus fci insulin use: without tank terminal gauger use Qualified Code(s): E11.65 - Type 2 diabetes mellitus with hyperglycemia Code(s): E11.65 - Type 2 diabetes mellitus with hyperglycemia Status: Acute Assessment and Plan: Most recent A1c 6.0 in October 2020. Blood sugars wanda
--- NOTE | 2021-04-14 10:19 | PCOTNOTE ---
OT evaluation attempted x2 this date. Pt was unresponsive and nursing requested later evaluation. Upon second attempt, pt was in ultrasound.
[2021-04-14 11:36] LABS: Glucose Point of Care 246 mg/dl (65-105)
[2021-04-14] MEDS: INSULIN ASPART (*BKC) 100 UNITS/ML SUB-Q ×2 (12:23→16:50)
--- NOTE | 2021-04-14 13:13 | PCSTNOTE ---
Please refer to the Bedside Swallow Evaluation in the EMR. Please note, silent aspiration cannot be ruled out at bedside.
[2021-04-14 14:01] LABS: Creatinine Urine 88.8 mg/dL; Urea Random Urine 612 MG/DL
[2021-04-14 14:11] LABS: Sodium Urine Random 56 meq/L
[2021-04-14] MEDS: HEPARIN SODIUM 5,000 UNITS/ML VIAL 5000 UNITS SUB-Q ×2 (16:38→20:27)
[2021-04-14] MEDS: INSULIN GLARGINE (*BKC) 100 UNITS/ML 26 UNITS SUB-Q (16:48)
[2021-04-14 16:52] LABS: Glucose Point of Care 278 mg/dl (65-105)
--- NOTE | 2021-04-14 18:42 | PHAR ---
HOME MED TRINTELLIX 10 MG TABS (VORTIOXETINE) VERIFIED BY PHARMACY TABLET DESCRIPTION: MARKINGS: TL/10, ALMOND SHAPED YELLOW TABLET
[2021-04-14] MEDS: FUROSEMIDE 20 MG TABLET PO (20:26)
[2021-04-15] VITALS (10 sets, daily range): BP systolic 129–130; BP diastolic 51–67; PULSE 71–81; RESP 16–24; TEMP 36.2–37.6; O2SAT 93–97
[2021-04-15] MEDS: oxyCODONE HCL (*CRX) 5 MG TAB IR PO (00:01)
[2021-04-15] MEDS: HEPARIN SODIUM 5,000 UNITS/ML VIAL 5000 UNITS SUB-Q ×2 (06:06→12:38)
[2021-04-15] MEDS: metroNIDAZOLE 250 MG TABLET 500 MG PO ×3 (06:07→20:34)
[2021-04-15] MEDS: LEVOTHYROXINE SODIUM 150 MCG TABLET PO (06:08)
[2021-04-15 07:45] LABS: Glucose Point of Care 155 mg/dl (65-105)
--- NOTE | 2021-04-15 09:00 | WPDGIPROGNO ---
Progress Note: A&P Assessment and Plan (1) Sigmoid diverticulitis: Code(s): K57.32 - Diverticulitis of large intestine without perforation or abscess without bleeding Status: Acute Assessment and Plan: Patient with sigmoid diverticulitis by CT scan. Plan to continue broad-spectrum antibiotics. Patient has had relatively recent colonoscopy in follow-up is not anticipated at this time. (2) Constipation: Qualifiers: Constipation type: unspecified constipation type Qualified Code(s): K59.00 - Constipation, unspecified Code(s): K59.00 - Constipation, unspecified Status: Acute Assessment and Plan: Patient complains of chronic ongoing constipation. Recommend continuing MiraLax on at least a daily basis. We may need to supplement this with Kahn Koul Joselyn suppositories or enemas for relief of symptoms. (3) Obesity, morbid, BMI 40.0-49.9: Code(s): E66.01 - Morbid (severe) obesity due to excess calories Status: Acute Assessment and Plan: Patient is morbidly obese. Weight control with dietary restriction increase activity strongly encouraged. (4) Uncontrolled diabetes mellitus: Code(s): E11.65 - Type 2 diabetes mellitus with hyperglycemia Status: Acute (5) Cirrhosis: Code(s): K74.60 - Unspecified cirrhosis of liver Status: Acute Assessment and Plan: CT scan suggest underlying cirrhosis of the liver. Most likely on the basis of fatty liver. At this time no additional therapy is warranted. Continued monitoring. Dr. Talbert returns and assumes care tomorrow. Subjective Date/time seen: 04/15/21 09:00 Patient alert sitting on edge of bed today. Appears somewhat more comfortable. Still complains of constipation. Notes mild diffuse lower abdominal discomfort. No bleeding identified. Review of Systems Review of Systems: All systems reviewed & are unremarkable except as noted in HPI and below Exam Narrative: Physical exam reveals patient be alert. Comfortable at rest. HEENT exam reveals no icterus. Lungs are clear. Heart without murmur. Abdomen is obese bowel sounds are present no localized tenderness. Rectal exam deferred today. Objective Data Vital Signs Vital Signs: Vital Signs - 24 hr 04/14/21 14:00 04/14/21 16:37 04/14/21 20:00 Temperature 98.3 F Pulse Rate 89 84 75 Respiratory Rate 20 18 Blood Pressure 122/48 L Pulse Oximetry 99 96 04/14/21 21:01 04/14/21 21:07 04/14/21 21:51 Temperature 99.8 F H Pulse Rate 79 81 75 Respiratory Rate 18 16 18 Blood Pressure 125/43 L Pulse Oximetry 95 96 04/15/21 05:54 Temperature 99.6 F Pulse Rate 74 Respiratory Rate 18 Blood Pressure 130/51 L Pulse Oximetry 93 Intake/Output Intake/Output: Intake & Output 04/12/21 04/13/21 04/14/21 04/15/21 23:59 23:59 23:59 23:59 Intake Total 650 3120 3170 750 Output Total 1050 1200 2200 Balance 650 0 1970 -145 Meds/Results Medications: Active Medications Generic Name Dose Route Start Last Admin Trade Name Freq PRN Reason Stop Dose Admin Albuterol 2.5 mg 04/13/21 02:55 Albuterol Sulfate Neb 2.5 Mg/0.5 Ml Inh INHALATION 05/13/21 02:54 QID PRN Bronchospasm Amlodipine Besylate 5 mg 04/13/21 09:00 04/14/21 08:47 Amlodipine Besylate 5 Mg Tablet PO 5 mg DAILY MILIND Administration Lipase/Protease/Amylase 1 cap 04/13/21 09:00 04/14/21 16:36 Lipase/Amylase/Protease 12,000 Units Cap PO 1 cap TID MILIND Administration Aspirin 81 mg 04/13/21 08:00 04/14/21 08:44 Aspirin 81 Mg Chewable Tablet PO 81 mg DAILY@0800 MILIND Administration Budesonide 0.25 mg 04/13/21 08:00 04/14/21 21:00 Budesonide Respule Neb 0.5 Mg/2 Ml Amp INHALATION 0.25 mg Q12HRT MILIND Administration Carvedilol 12.5 mg 04/13/21 08:00 04/14/21 16:37 Carvedilol 12.5 Mg Tablet PO 12.5 mg BIDWM MILIND Administration Cyanocobalamin 5,000 mcg 04/13/21 09:00 04/14/21 08:43 Cyanoco
[2021-04-15] MEDS: INSULIN GLARGINE (*BKC) 100 UNITS/ML 26 UNITS SUB-Q (09:06)
[2021-04-15] MEDS: OLOPATADINE 0.1% OPHTH SOLN 5 ML BTL 1 DROP EACH EYE ×2 (09:08→18:08)
[2021-04-15] MEDS: FLUTICASONE PROPIONATE 0.05% NA SPR 16 GM BTL (*BKC) 2 SPRAY NASAL (09:08)
[2021-04-15] MEDS: ASPIRIN 81 MG CHEWABLE TABLET PO (09:09)
[2021-04-15] MEDS: GABAPENTIN 300 MG CAPSULE PO ×4 (09:09→20:34)
[2021-04-15] MEDS: CYANOCOBALAMIN 1,000 MCG TABLET 5000 MCG PO (09:10)
[2021-04-15] MEDS: FUROSEMIDE 20 MG TABLET PO (09:10)
[2021-04-15] MEDS: LIPASE/AMYLASE/PROTEASE 12,000 UNITS CAP 1 CAP PO ×3 (09:10→18:09)
[2021-04-15] MEDS: MUPIROCIN 2% OINT 22 GM TUBE 1 APPLIC TOPICAL ×3 (09:11→18:26)
[2021-04-15] MEDS: FEBUXOSTAT 40 MG TABLET PO (09:11)
[2021-04-15] MEDS: carvediloL 12.5 MG TABLET PO ×2 (09:11→18:10)
[2021-04-15] MEDS: amLODIPine BESYLATE 5 MG TABLET PO (09:11)
[2021-04-15] MEDS: PSYLLIUM SUGAR FREE POWDER PACKET 1 PACKET PO (09:12)
[2021-04-15] MEDS: polyethylene glycoL 3350 17 GM POWD.PACK PO ×2 (09:12→18:08)
[2021-04-15] MEDS: BUDESONIDE RESPULE NEB 0.5 MG/2 ML AMP 0.25 MG INHALATION ×2 (09:29→21:25)
[2021-04-15 10:07] LABS: Albumin Level 3.9 g/dL (3.5-5.1); Anion Gap 10 mmol/L (8-16); Blood Urea Nitrogen 53 mg/dL (7-17); Calcium 9.2 mg/dL (8.4-10.2); Carbon Dioxide 29 mmol/L (22-30); Chloride 97 mmol/L (98-107); Estimated CRCL calculation 25 ml/min; Estimated Glomerular Filt Rate 27; Glucose 181 mg/dL (65-110); Phosphorus 4.4 mg/dL (2.5-4.5); Potassium 4.1 mmol/L (3.4-5.0); Sodium 136 mmol/L (137-145)
[2021-04-15 12:18] LABS: Glucose Point of Care 269 mg/dl (65-105)
[2021-04-15] MEDS: ONDANSETRON INJ 4 MG/2 ML VIAL IV PUSH (12:32)
[2021-04-15] MEDS: INSULIN ASPART (*BKC) 100 UNITS/ML SUB-Q ×2 (12:35→18:06)
[2021-04-15] MEDS: DOCUSATE SODIUM 100 MG CAPSULE 200 MG PO (12:38)
[2021-04-15] MEDS: BISACODYL 10 MG SUPPOSITORY RECTAL (12:39)
--- NOTE | 2021-04-15 13:16 | PM.CNNEP ---
Assessment and Plan Assessment and plan (1) Chronic kidney disease, stage IV (severe): Code(s): N18.4 - Chronic kidney disease, stage 4 (severe) Status: Chronic Assessment and Plan: baseline creatinine seems to run 1.5 - 2.0mg/dl since 2019 suspect due to HTN, DM, previous PAULA/ARF, vascular disease, and age-related change seems relatively stable at this time - however, acute infections (#2 and #3) may be causing some fluctations follow trend of repeat labs and UOP (2) Sigmoid diverticulitis: Code(s): K57.32 - Diverticulitis of large intestine without perforation or abscess without bleeding Status: Acute Assessment and Plan: as noted my admission CT scan on antibiotics slow clinical improvement noted (3) UTI (urinary tract infection): Code(s): N39.0 - Urinary tract infection, site not specified Status: Acute Assessment and Plan: urine culture with Klebsiella aerogenes (Enterobacter) on antibiotic therapy (4) Obstructive sleep apnea on CPAP: Code(s): G47.33 - Obstructive sleep apnea (adult) (pediatric); Z99.89 - Dependence on other enabling machines and devices Status: Acute Assessment and Plan: continue CPAP at night (5) Diabetes: Code(s): E11.9 - Type 2 diabetes mellitus without complications Status: Chronic Assessment and Plan: follow accuchecks glycemic control Will continue to follow. History of Present Illness Reason for Consult Consult date: 04/15/21 Reason for consult: chronic renal failure Chief Complaint Chief complaint: Diverticulitis,Cystitis,AKA,Hyponatremia History of Present Illness Narrative: The patient is an 81-year-old female with a past medical history as outlined below who presented to [facility] Emergency room from her independent [facility] for further evaluation of cough, shortness of breath, and dysuria. The patient reports that for the last week she has had increased urinary urgency, dysuria, and cloudy urine. Reportedly, she had a urinalysis performed at her facility and mentioned to her that they did not think she had a urinary tract infection. Aside from this, she has had accompanying lower abdominal pain that fluctuates in intensity but more recently has become somewhat of a sharp sensation the pain apparently moved across her abdomen and there is increased discomfort/pain with palpation to her abdomen. She reports that she has had issues and problems with constipation despite the use of magnesium citrate as well. No reported nausea or vomiting either. She more recently had issues and problems with shortness of breath particularly when she lays down flat. Because of the multitude of these complaints, EMS was called and she was subsequent transferred to the emergency room for further evaluation Workup and evaluation emergency room demonstrated the patient to be hemodynamically stable. Routine labs demonstrated labs consistent with her known history of chronic kidney disease but her urinalysis this time seem to be quite consistent with a urinary tract infection. Given her ongoing abdominal symptoms, she underwent a CT scan of the abdomen pelvis which demonstrate evidence of sigmoid diverticulitis. Given the patient's constellation of symptoms that led to her presentation to the emergency room as well as the laboratory and imaging findings, appropriate cultures were obtained and she was started on IV antibiotic therapy with subsequent admission to the hospital. Since her admission to the hospital, she appears to be making slow and steady improvement. She feels that her abdominal pain is doing better and she has less urinary symptoms as well. Renal consultation was requested due to her known history of chronic kidney disease. As far as I am aware and per my discussion with the patient, she has never seen a surveillance observer with regard to her established chronic kidn
--- NOTE | 2021-04-15 16:17 | PM.IMPN ---
Progress Note: A&P Assessment and Plan (1) Sigmoid diverticulitis: Code(s): K57.32 - Diverticulitis of large intestine without perforation or abscess without bleeding Status: Acute Assessment and Plan: Presented with abdominal pain and CT findings consistent with uncomplicated sigmoid diverticulitis Patient was appropriately started on Rocephin and Flagyl, which also covers for her cystitis. Cipro or Levaquin being avoided given QT prolongation on EKG, though this is most likely associated with her AICD/pacemaker per gastroenterology, no indication for a colonoscopy. Tolerating her diet (2) Cystitis: Code(s): N30.90 - Cystitis, unspecified without hematuria Status: Acute Assessment and Plan: Presents with complaints of dysuria, cloudy urine, and grossly abnormal UA. Findings consistent with cystitis seen on CT. Urine cultures growing Klebsiella. Continue IV Rocephin Noted history of both Proteus UTI and enterococcus UTI. At this time will continue with Rocephin given that the patient is remaining stable/ slightly improved, and this is also covering her diverticulitis. (3) Acute on chronic renal failure: Qualifiers: Acute renal failure type: unspecified Chronic kidney disease stage: stage 3 (moderate) Chronic kidney disease stage 3 subtype: unspecified whether 3a or 3b Qualified Code(s): N17.9 - Acute kidney failure, unspecified; N18.30 - Chronic kidney disease, stage 3 unspecified Code(s): N17.9 - Acute kidney failure, unspecified; N18.9 - Chronic kidney disease, unspecified Status: Acute Assessment and Plan: The patient 's renal function has fluctuated over the past couple years, with episodes of acute injury with renal recoveries. 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 Her right kidney as a good blood flow and is morphologically intact. DC explains her creatinine of 1.7 in November 2020. Renal US reveals moderate left renal atrophy; there was no hydronephrosis. We will obtain renal doppler given the discrepancy in sizes. This creatinine of 1.7 may represent his baseline creatinine. functionally patient has a single well performing kidney. Creatinine is improving slowly down to 1.8 today. This is very close to her last known baseline. Continue low dose furosemide with metolazone 2.5 mg PO daily. follow-up nephrology recommendations Potassium levels have normalized. 4.1 today Continue to monitor renal function closely and renally dose medications. (4) Dysphagia: Qualifiers: Dysphagia type: esophageal phase Qualified Code(s): R13.19 - Other dysphagia Code(s): R13.10 - Dysphagia, unspecified Status: Acute Assessment and Plan: Per chart there are reports of dysphagia to solids foods. currently tolerating oral intake. She denies any dysphagia symptoms. In view of moderate thrombocytopenia we have stopped pantoprazole and start Pepcid. (5) Constipation: Qualifiers: Constipation type: unspecified constipation type Qualified Code(s): K59.00 - Constipation, unspecified Code(s): K59.00 - Constipation, unspecified Status: Acute Assessment and Plan: Chronic constipation dependent upon magnesium citrate every 1-2 days. May be acutely worsened given her acute diverticulitis. She is passing gas but has not had a bowel movement today. Continue MiraLax b.i.d., will continue this Fiber supplementation. One packet psyllium daily Patient started on Dulcolax. 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 Blood sugars elevated on pre
[2021-04-15 16:19] LABS: Glucose Point of Care 313 mg/dl (65-105)
[2021-04-15] MEDS: INSULIN GLARGINE (*BKC) 100 UNITS/ML 30 UNITS SUB-Q (18:07)
[2021-04-15] MEDS: ALBUTEROL SULFATE NEB 2.5 MG/0.5 ML INH INHALATION (21:25)
[2021-04-15] MEDS: IPRATROPIUM BR 0.02% INH SOLN 0.5 MG/2.5 ML VIAL INHALATION (21:26)
[2021-04-15] MEDS: SODIUM CHLORIDE 0.9% IV 1,000 ML 100 ML IV CONT (23:03)
[2021-04-16] VITALS (13 sets, daily range): BP systolic 131–140; BP diastolic 60–82; PULSE 67–81; RESP 18–24; TEMP 36.2–36.8; O2SAT 94–97
[2021-04-16 06:19] LABS: Albumin Level 3.4 g/dL (3.5-5.1); Anion Gap 6 mmol/L (8-16); Blood Urea Nitrogen 44 mg/dL (7-17); Calcium 8.9 mg/dL (8.4-10.2); Carbon Dioxide 31 mmol/L (22-30); Chloride 104 mmol/L (98-107); Estimated CRCL calculation 26 ml/min; Estimated Glomerular Filt Rate 29; Glucose 72 mg/dL (65-110); Phosphorus 4.6 mg/dL (2.5-4.5); Potassium 3.8 mmol/L (3.4-5.0); Sodium 141 mmol/L (137-145)
[2021-04-16] MEDS: LEVOTHYROXINE SODIUM 150 MCG TABLET PO (06:31)
[2021-04-16] MEDS: metroNIDAZOLE 250 MG TABLET 500 MG PO ×3 (06:31→20:34)
[2021-04-16 07:02] LABS: Glucose Point of Care 178 mg/dl (65-105)
[2021-04-16 07:58] LABS: Glucose Point of Care 84 mg/dl (65-105)
[2021-04-16] MEDS: BUDESONIDE RESPULE NEB 0.5 MG/2 ML AMP 0.25 MG INHALATION ×2 (08:10→20:06)
[2021-04-16] MEDS: SODIUM CHLORIDE 0.9% IV 1,000 ML 100 ML IV CONT ×2 (10:12→21:44)
[2021-04-16] MEDS: carvediloL 12.5 MG TABLET PO ×2 (10:13→17:16)
[2021-04-16] MEDS: FUROSEMIDE 20 MG TABLET PO (10:14)
[2021-04-16] MEDS: ASPIRIN 81 MG CHEWABLE TABLET PO (10:14)
[2021-04-16] MEDS: amLODIPine BESYLATE 5 MG TABLET PO (10:15)
[2021-04-16] MEDS: FEBUXOSTAT 40 MG TABLET PO (10:15)
[2021-04-16] MEDS: LIPASE/AMYLASE/PROTEASE 12,000 UNITS CAP 1 CAP PO ×3 (10:15→17:17)
[2021-04-16] MEDS: FAMOTIDINE 20 MG TABLET PO (10:15)
[2021-04-16] MEDS: CYANOCOBALAMIN 1,000 MCG TABLET 5000 MCG PO (10:16)
[2021-04-16] MEDS: GABAPENTIN 300 MG CAPSULE PO ×4 (10:16→20:34)
[2021-04-16] MEDS: FLUTICASONE PROPIONATE 0.05% NA SPR 16 GM BTL (*BKC) 2 SPRAY NASAL (10:16)
[2021-04-16] MEDS: BISACODYL 10 MG SUPPOSITORY RECTAL (10:17)
[2021-04-16] MEDS: PSYLLIUM SUGAR FREE POWDER PACKET 1 PACKET PO (10:18)
[2021-04-16] MEDS: polyethylene glycoL 3350 17 GM POWD.PACK PO ×2 (10:18→17:15)
[2021-04-16] MEDS: MUPIROCIN 2% OINT 22 GM TUBE 1 APPLIC TOPICAL ×3 (10:20→17:15)
[2021-04-16] MEDS: OLOPATADINE 0.1% OPHTH SOLN 5 ML BTL 1 DROP EACH EYE ×2 (10:21→17:15)
[2021-04-16 11:55] LABS: Glucose Point of Care 226 mg/dl (65-105)
--- NOTE | 2021-04-16 11:55 | WPDGIPROGNO ---
Progress Note: A&P Assessment and Plan (1) Sigmoid diverticulitis: Code(s): K57.32 - Diverticulitis of large intestine without perforation or abscess without bleeding Status: Acute Assessment and Plan: symptomatically doing better with no more pain home soon with oral antibiotics no need to repeat another colonoscopy (2) Acute on chronic renal failure: Qualifiers: Acute renal failure type: unspecified Chronic kidney disease stage: stage 3 (moderate) Chronic kidney disease stage 3 subtype: unspecified whether 3a or 3b Qualified Code(s): N17.9 - Acute kidney failure, unspecified; N18.30 - Chronic kidney disease, stage 3 unspecified Code(s): N17.9 - Acute kidney failure, unspecified; N18.9 - Chronic kidney disease, unspecified Status: Acute Assessment and Plan: creatinine at baseline 1.7 (3) Cystitis: Code(s): N30.90 - Cystitis, unspecified without hematuria Status: Acute (4) Uncontrolled diabetes mellitus: Code(s): E11.65 - Type 2 diabetes mellitus with hyperglycemia Status: Acute (5) Dysphagia: Qualifiers: Dysphagia type: esophageal phase Qualified Code(s): R13.19 - Other dysphagia Code(s): R13.10 - Dysphagia, unspecified Status: Acute Assessment and Plan: no new changes and eating she had upper endoscopy when I performed ERCP just few months ago and no major esophageal findings (6) Cirrhosis: Code(s): K74.60 - Unspecified cirrhosis of liver Status: Acute Assessment and Plan: will need follow-up in office in 5-6 months with liver ultrasound and labs probably from [place] (7) Pneumobilia: Code(s): K83.8 - Other specified diseases of biliary tract Status: Acute Assessment and Plan: from ERCP few months when she presented with large bile duct stone Subjective Date/time seen: 04/16/21 11:55 Interval history: no new issues, she says that abdominal pain is better and tolerating diet Review of Systems Review of Systems: All systems reviewed & are unremarkable except as noted in HPI and below Exam Const: General: comfortable, no acute distress and ill appearing chronically HENMT: General nose exam: Normal nares present Eyes: General: appearance normal, both eyes and all related structures Neck: Neck: no JVD Resp: Auscultation: clear to auscultation bilaterally Cardio: Rate: regular rate Rhythm: regular rhythm GI: Inspection: non-distended GI Palp: Yes Soft to palpation and No Guarding due to palpation present (GI) Auscultation: normal bowel sounds Skin: General skin exam: normal color Neuro: Speech: normal speech Extrem: General: normal to inspection Psych: Mental Status: mental status grossly normal Objective Data Vital Signs Vital Signs: Vital Signs - 24 hr 04/15/21 14:00 04/15/21 18:10 04/15/21 20:00 Temperature 98.9 F Pulse Rate 78 80 72 Respiratory Rate 16 24 H Blood Pressure 130/67 Pulse Oximetry 97 97 04/15/21 21:28 04/15/21 21:51 04/15/21 22:00 Temperature 97.1 F L Pulse Rate 72 71 Respiratory Rate 22 H 24 H 18 Blood Pressure 129/62 Pulse Oximetry 93 04/16/21 06:00 04/16/21 08:10 04/16/21 08:13 Temperature 97.1 F L Pulse Rate 78 67 Respiratory Rate 18 20 Blood Pressure 131/66 Pulse Oximetry 95 96 04/16/21 08:16 04/16/21 10:13 Temperature Pulse Rate 71 71 Respiratory Rate 20 Blood Pressure Pulse Oximetry Intake/Output Intake/Output: Intake & Output 04/13/21 04/14/21 04/15/21 04/16/21 23:59 23:59 23:59 23:59 Intake Total 3120 4220 2010 1000 Output Total 1050 1200 3300 850 Balance 2070 3020 -1290 150 Meds/Results Medications: Active Medications Generic Name Dose Route Start Last Admin Trade Name Freq PRN Reason Stop Dose Admin Albuterol 2.5 mg 04/13/21 02:55 04/15/21 21:25 Albuterol Sulfate Neb 2.5 Mg/0.5 Ml Inh INHALATION 05/13/21 02:54 2.5 mg QID PRN Ad
[2021-04-16] MEDS: INSULIN GLARGINE (*BKC) 100 UNITS/ML 30 UNITS SUB-Q ×2 (12:03→17:19)
[2021-04-16] MEDS: INSULIN ASPART (*BKC) 100 UNITS/ML SUB-Q ×2 (12:04→17:16)
--- NOTE | 2021-04-16 12:35 | PM.IMPN ---
Progress Note: A&P Assessment and Plan (1) Sigmoid diverticulitis: Code(s): K57.32 - Diverticulitis of large intestine without perforation or abscess without bleeding Status: Acute Assessment and Plan: Presented with abdominal pain and CT findings consistent with uncomplicated sigmoid diverticulitis Patient was appropriately started on Rocephin and Flagyl, which also covers for her cystitis. Continue rocephin and Flagyl. Cipro or Levaquin being avoided given QT prolongation on EKG, though this is most likely associated with her AICD/pacemaker per gastroenterology, no indication for a colonoscopy. Tolerating her diet (2) Cystitis: Code(s): N30.90 - Cystitis, unspecified without hematuria Status: Acute Assessment and Plan: Presents with complaints of dysuria, cloudy urine, and grossly abnormal UA. Findings consistent with cystitis seen on CT. Urine cultures growing Klebsiella. Continue IV Rocephin Noted history of both Proteus UTI and enterococcus UTI. At this time will continue with Rocephin given that the patient is remaining stable/ slightly improved, and this is also covering her diverticulitis. (3) Acute on chronic renal failure: Qualifiers: Acute renal failure type: unspecified Chronic kidney disease stage: stage 3 (moderate) Chronic kidney disease stage 3 subtype: unspecified whether 3a or 3b Qualified Code(s): N17.9 - Acute kidney failure, unspecified; N18.30 - Chronic kidney disease, stage 3 unspecified Code(s): N17.9 - Acute kidney failure, unspecified; N18.9 - Chronic kidney disease, unspecified Status: Acute Assessment and Plan: The patient's renal function has fluctuated over the past couple years, with episodes of acute injury with renal recoveries. 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 Her right kidney as a good blood flow and is morphologically intact. This explains her creatinine of 1.7 in November 2020. This creatinine of 1.7 may represent his baseline creatinine. Functionally, patient has a single well performing kidney. Creatinine is improving slowly down to 1.7 today. This is very close to her last known baseline. Continue low dose furosemide with metolazone 2.5 mg PO daily. follow-up nephrology recommendations Potassium levels have normalized, 3.8 today Continue to monitor renal function closely and renally dose medications. (4) Dysphagia: Qualifiers: Dysphagia type: esophageal phase Qualified Code(s): R13.19 - Other dysphagia Code(s): R13.10 - Dysphagia, unspecified Status: Acute Assessment and Plan: Per chart there are reports of dysphagia to solids foods. currently tolerating oral intake. She denies any dysphagia symptoms. In view of moderate thrombocytopenia we have stopped pantoprazole and started on Pepcid. (5) Constipation: Qualifiers: Constipation type: unspecified constipation type Qualified Code(s): K59.00 - Constipation, unspecified Code(s): K59.00 - Constipation, unspecified Status: Acute Assessment and Plan: Chronic constipation dependent upon magnesium citrate every 1-2 days. May be acutely worsened given her acute diverticulitis. She is passing gas but has not had a bowel movement today. Continue Miralax b.i.d., will continue this Fiber supplementation. One packet psyllium daily Patient started on Dulcolax. 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 Blood sugars elevated on presentation up to 430 which may be related to dehydration. Improving today, last blood sugar 272 Up
--- NOTE | 2021-04-16 15:40 | PM.PNNEP ---
Progress Note: A&P Assessment and Plan (1) Chronic kidney disease, stage IV (severe): Code(s): N18.4 - Chronic kidney disease, stage 4 (severe) Status: Chronic Assessment and Plan: baseline creatinine seems to run 1.5 - 2.0mg/dl since 2019 suspect due to HTN, DM, previous PAULA/ARF, vascular disease, and age-related change seems relatively stable at this time - however, acute infections (#2 and #3) may be causing some fluctations follow trend of repeat labs and UOP (2) Sigmoid diverticulitis: Code(s): K57.32 - Diverticulitis of large intestine without perforation or abscess without bleeding Status: Acute Assessment and Plan: as noted my admission CT scan on antibiotics slow clinical improvement noted (3) UTI (urinary tract infection): Code(s): N39.0 - Urinary tract infection, site not specified Status: Acute Assessment and Plan: urine culture with Klebsiella aerogenes (Enterobacter) on antibiotic therapy (4) Obstructive sleep apnea on CPAP: Code(s): G47.33 - Obstructive sleep apnea (adult) (pediatric); Z99.89 - Dependence on other enabling machines and devices Status: Acute Assessment and Plan: continue CPAP at night (5) Diabetes: Code(s): E11.9 - Type 2 diabetes mellitus without complications Status: Chronic Assessment and Plan: follow accuchecks glycemic control Will continue to follow. Subjective Date/time seen: 04/16/21 15:40 Abdominal pain seems to be doing significantly better; currently started on supplemental oxygen as when she was working with PT/OT, her oxygen saturations dropped; no other acute issues/events overnight or earlier this morning; no apparent distress voiced. Exam Narrative: General: WD/WN female in NAD Heart: normal S1 and S2; no rub Lungs: clear to auscultation Abdomen: soft, nontender, nondistended, positive bowel sounds Extremities: no cyanosis or clubbing; no edema Skin: warm and dry Objective Data Vital Signs Vital Signs: Vital Signs Temp Pulse Resp BP Pulse Ox 04/16/21 14:51 36.4 C L 81 24 H 138/82 95 04/16/21 14:00 36.6 C 76 19 137/60 95 04/16/21 10:13 71 04/16/21 08:16 71 20 04/16/21 08:13 96 04/16/21 08:10 67 20 04/16/21 06:00 36.2 C L 78 18 131/66 95 04/15/21 22:00 36.2 C L 71 18 129/62 93 04/15/21 21:51 24 H 04/15/21 21:28 72 22 H 04/15/21 20:00 72 24 H 97 Intake/Output Intake/Output: Intake & Output 04/13/21 04/14/21 04/15/21 04/16/21 23:59 23:59 23:59 23:59 Intake Total 3120 4220 2009 1830 Output Total 1050 1200 3300 850 Balance 2070 3020 -1290 980 Meds/Results Medications: Active Medications Generic Name Dose Route Start Last Admin Trade Name Freq PRN Reason Stop Dose Admin Albuterol 2.5 mg 04/13/21 02:55 04/15/21 21:25 Albuterol Sulfate Neb 2.5 Mg/0.5 Ml Inh INHALATION 05/13/21 02:54 2.5 mg QID PRN Administration Bronchospasm Amlodipine Besylate 5 mg 04/13/21 09:00 04/16/21 10:15 Amlodipine Besylate 5 Mg Tablet PO 5 mg DAILY MILIND Administration Lipase/Protease/Amylase 1 cap 04/13/21 09:00 04/16/21 17:17 Lipase/Amylase/Protease 12,000 Units Cap PO 1 cap TID MILIND Administration Aspirin 81 mg 04/13/21 08:00 04/16/21 10:14 Aspirin 81 Mg Chewable Tablet PO 81 mg DAILY@0800 MILIND Administration Bisacodyl 10 mg 04/15/21 09:00 04/16/21 10:17 Bisacodyl 10 Mg Suppository RECTAL 10 mg QAM MILIND Administration Bisacodyl 5 mg 04/15/21 16:34 Bisacodyl 5 Mg Tablet Ec PO QAM PRN Constipation Budesonide 0.25 mg 04/13/21 08:00 04/16/21 08:10 Budesonide Respule Neb 0.5 Mg/2 Ml Amp INHALATION 0.25 mg Q12HRT MILIND Administration Carvedilol 12.5 mg 04/13/21 08:00 04/16/21 17:16 Carvedilol 12.5 Mg Tablet PO 12.5 mg BIDWM MILIND Administration Cyanocobalamin 5,000 mcg 04/13/21 09:00 03/27
[2021-04-16 16:20] LABS: Glucose Point of Care 256 mg/dl (65-105)
[2021-04-16 21:43] LABS: Glucose Point of Care 181 mg/dl (65-105)
[2021-04-16] MEDS: MELATONIN 3 MG TABLET PO (21:51)
[2021-04-17] MEDS: LEVOTHYROXINE SODIUM 150 MCG TABLET PO (05:43)
[2021-04-17] MEDS: metroNIDAZOLE 250 MG TABLET 500 MG PO ×3 (05:43→21:00)
[2021-04-17 05:52] VITALS: BP 163/55; PULSE 85; RESP 18; TEMP 36.2; O2SAT 98
[2021-04-17 06:36] LABS: Basophils Absolute Auto 0.1 K/mm3 (0.0-0.1); Eosinophils Absolute Auto 0.3 K/mm3 (0-0.3); Eosinophils Percent Auto 6.7 % (0-4.4); Hematocrit 35.3 % (37.0-47.0); Hemoglobin 11.8 g/dL (12.0-15.0); Immature Granulocyte Absolute 0.02 K/mm3 (0.00-0.031); Immature Granulocyte Percent A 0.4 % (0-0.5); Lymphocytes Absolute Auto 1.81 K/mm3 (0.9-3.2); Lymphocytes Percent Auto 36.6 % (18.3-44.2); Mean Corpuscular HGB Conc 33.4 g/dl (32-36); Mean Corpuscular Hemoglobin 30.3 pg (26-34); Mean Corpuscular Volume 90.5 fl (80-100); Mean Platelet Volume 9.9 fl (7.4-10.4); Monocytes Absolute Auto 0.3 K/mm3 (0.1-0.6); Monocytes Percent Auto 6.7 % (2.6-8.5); Neutrophils Absolute Auto 2.4 K/mm3 (1.3-6.7); Neutrophils Percent Auto 48.6 % (45.5-73.1); Platelet Count Result 122 k/mm3 (150-375); Red Cell Distribution Width 14.1 % (11.5-14.5)
[2021-04-17 06:57] LABS: Albumin Level 3.4 g/dL (3.5-5.1); Anion Gap 8 mmol/L (8-16); Blood Urea Nitrogen 34 mg/dL (7-17); Calcium 8.6 mg/dL (8.4-10.2); Carbon Dioxide 25 mmol/L (22-30); Chloride 104 mmol/L (98-107); Estimated CRCL calculation 32 ml/min; Estimated Glomerular Filt Rate 36; Glucose 134 mg/dL (65-110); Phosphorus 4.1 mg/dL (2.5-4.5); Potassium 3.8 mmol/L (3.4-5.0); Sodium 137 mmol/L (137-145)
--- NOTE | 2021-04-17 07:51 | PM.IMPN ---
Progress Note: A&P Assessment and Plan (1) Sigmoid diverticulitis: Code(s): K57.32 - Diverticulitis of large intestine without perforation or abscess without bleeding Status: Acute Assessment and Plan: Presented with abdominal pain and CT findings consistent with uncomplicated sigmoid diverticulitis Patient was appropriately started on Rocephin and Flagyl, which also covers for her cystitis. Continue rocephin and Flagyl. Cipro or Levaquin being avoided given QT prolongation on EKG, though this is most likely associated with her AICD/pacemaker per gastroenterology, no indication for a colonoscopy. Tolerating her diet (2) Cystitis: Code(s): N30.90 - Cystitis, unspecified without hematuria Status: Acute Assessment and Plan: Presents with complaints of dysuria, cloudy urine, and grossly abnormal UA. Findings consistent with cystitis seen on CT. Urine cultures growing Klebsiella. Continue IV Rocephin Noted history of both Proteus UTI and enterococcus UTI. At this time will continue with Rocephin given that the patient is remaining stable/ slightly improved, and this is also covering her diverticulitis. (3) Acute on chronic renal failure: Qualifiers: Acute renal failure type: unspecified Chronic kidney disease stage: stage 3 (moderate) Chronic kidney disease stage 3 subtype: unspecified whether 3a or 3b Qualified Code(s): N17.9 - Acute kidney failure, unspecified; N18.30 - Chronic kidney disease, stage 3 unspecified Code(s): N17.9 - Acute kidney failure, unspecified; N18.9 - Chronic kidney disease, unspecified Status: Acute Assessment and Plan: The patient's renal function has fluctuated over the past couple years, with episodes of acute injury with renal recoveries. 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 Her right kidney as a good blood flow and is morphologically intact. This explains her creatinine of 1.7 in November 2020. This creatinine of 1.7 may represent his baseline creatinine. Functionally, patient has a single well performing kidney. Creatinine is improving slowly down to 1.4 today. This is very close to her last known baseline. Continue low dose furosemide with metolazone 2.5 mg PO daily. follow-up nephrology recommendations Potassium levels have normalized, 3.8 today Continue to monitor renal function closely and renally dose medications. (4) Dysphagia: Qualifiers: Dysphagia type: esophageal phase Qualified Code(s): R13.19 - Other dysphagia Code(s): R13.10 - Dysphagia, unspecified Status: Acute Assessment and Plan: Per chart there are reports of dysphagia to solids foods. currently tolerating oral intake. She denies any dysphagia symptoms. In view of moderate thrombocytopenia we have stopped pantoprazole and started on Pepcid. (5) Constipation: Qualifiers: Constipation type: unspecified constipation type Qualified Code(s): K59.00 - Constipation, unspecified Code(s): K59.00 - Constipation, unspecified Status: Acute Assessment and Plan: Chronic constipation dependent upon magnesium citrate every 1-2 days. May be acutely worsened given her acute diverticulitis. She is passing gas but has not had a bowel movement today. Continue Miralax b.i.d., will continue this Fiber supplementation. One packet psyllium daily. Continue Dulcolax. (6) Type 2 diabetes mellitus with hyperglycemia: Qualifiers: Diabetes mellitus detention insulin use: without manager intermediate use Qualified Code(s): E11.65 - Type 2 diabetes mellitus with hyperglycemia Code(s): E11.65 - Type 2 diabetes mellitus with hyperglycemia Status: Acute Assessment and Plan: Most recent A1c 6.0 in October 2020. Blood sugars elevated on presentation up to 430 which may be related to dehydration. Improving today, last blood sugar 272 Updated A1c i
[2021-04-17 08:28] LABS: Glucose Point of Care 123 mg/dl (65-105)
[2021-04-17] MEDS: LIPASE/AMYLASE/PROTEASE 12,000 UNITS CAP 1 CAP PO ×3 (08:28→17:19)
[2021-04-17] MEDS: GABAPENTIN 300 MG CAPSULE PO ×4 (08:28→20:55)
[2021-04-17] MEDS: carvediloL 12.5 MG TABLET PO ×2 (08:29→17:19)
[2021-04-17] MEDS: FUROSEMIDE 20 MG TABLET PO (08:29)
[2021-04-17] MEDS: amLODIPine BESYLATE 5 MG TABLET PO (08:29)
[2021-04-17] MEDS: ASPIRIN 81 MG CHEWABLE TABLET PO (08:29)
[2021-04-17] MEDS: PSYLLIUM SUGAR FREE POWDER PACKET 1 PACKET PO (08:29)
[2021-04-17] MEDS: CYANOCOBALAMIN 1,000 MCG TABLET 5000 MCG PO (08:29)
[2021-04-17] MEDS: FAMOTIDINE 20 MG TABLET PO (08:29)
[2021-04-17] MEDS: MUPIROCIN 2% OINT 22 GM TUBE 1 APPLIC TOPICAL ×3 (08:30→17:20)
[2021-04-17] MEDS: FEBUXOSTAT 40 MG TABLET PO (08:30)
[2021-04-17] MEDS: polyethylene glycoL 3350 17 GM POWD.PACK PO ×2 (08:31→17:28)
[2021-04-17] MEDS: INSULIN GLARGINE (*BKC) 100 UNITS/ML 30 UNITS SUB-Q ×2 (08:35→17:19)
[2021-04-17] MEDS: BISACODYL 10 MG SUPPOSITORY RECTAL (08:41)
[2021-04-17] MEDS: OLOPATADINE 0.1% OPHTH SOLN 5 ML BTL 1 DROP EACH EYE ×2 (08:43→17:29)
--- NOTE | 2021-04-17 10:10 | PCRCNOTE ---
Window of time for administration has passed. See next scheduled administration.
--- NOTE | 2021-04-17 11:03 | WPDGIPROGNO ---
Progress Note: A&P Assessment and Plan (1) Sigmoid diverticulitis: Code(s): K57.32 - Diverticulitis of large intestine without perforation or abscess without bleeding Status: Acute Assessment and Plan: symptomatically doing better with no more pain she can go home by GI standpoint with 3 more days of oral antibiotics no need to repeat another colonoscopy (2) Acute on chronic renal failure: Qualifiers: Acute renal failure type: unspecified Chronic kidney disease stage: stage 3 (moderate) Chronic kidney disease stage 3 subtype: unspecified whether 3a or 3b Qualified Code(s): N17.9 - Acute kidney failure, unspecified; N18.30 - Chronic kidney disease, stage 3 unspecified Code(s): N17.9 - Acute kidney failure, unspecified; N18.9 - Chronic kidney disease, unspecified Status: Acute Assessment and Plan: creatinine back down to her baseline (3) Cystitis: Code(s): N30.90 - Cystitis, unspecified without hematuria Status: Acute (4) Uncontrolled diabetes mellitus: Code(s): E11.65 - Type 2 diabetes mellitus with hyperglycemia Status: Acute Assessment and Plan: on medical treatment (5) Dysphagia: Qualifiers: Dysphagia type: esophageal phase Qualified Code(s): R13.19 - Other dysphagia Code(s): R13.10 - Dysphagia, unspecified Status: Acute Assessment and Plan: no new changes and eating she had upper endoscopy when I performed ERCP just few months ago and no major esophageal findings (6) Cirrhosis: Code(s): K74.60 - Unspecified cirrhosis of liver Status: Acute Assessment and Plan: will need follow-up in office in 5-6 months with liver ultrasound and labs probably from [place] (7) Pneumobilia: Code(s): K83.8 - Other specified diseases of biliary tract Status: Acute Assessment and Plan: from ERCP few months when she presented with large bile duct stone Subjective Date/time seen: 04/17/21 11:03 Interval history: no more pain, tolerating diet and having BM's Review of Systems Review of Systems: All systems reviewed & are unremarkable except as noted in HPI and below Exam Const: General: comfortable, no acute distress and ill appearing chronically HENMT: General nose exam: Normal nares present Eyes: General: appearance normal, both eyes and all related structures Neck: Neck: no JVD Resp: Auscultation: clear to auscultation bilaterally Cardio: Rate: regular rate Rhythm: regular rhythm GI: Inspection: non-distended GI Palp: Yes Soft to palpation and No Guarding due to palpation present (GI) Auscultation: normal bowel sounds Skin: General skin exam: normal color Neuro: Speech: normal speech Extrem: General: normal to inspection Psych: Mental Status: mental status grossly normal Objective Data Vital Signs Vital Signs: Vital Signs - 24 hr 04/16/21 14:00 04/16/21 14:51 04/16/21 17:16 Temperature 97.9 F 97.5 F L Pulse Rate 76 81 81 Respiratory Rate 19 24 H Blood Pressure 137/60 138/82 Pulse Oximetry 95 95 04/16/21 20:00 04/16/21 20:07 04/16/21 20:12 Temperature Pulse Rate 76 80 Respiratory Rate 18 20 Blood Pressure Pulse Oximetry 97 94 04/16/21 20:15 04/16/21 21:40 04/17/21 05:52 Temperature 98.3 F 97.2 F L Pulse Rate 78 76 85 Respiratory Rate 20 18 18 Blood Pressure 140/62 163/55 H Pulse Oximetry 97 98 Intake/Output Intake/Output: Intake & Output 04/14/21 04/15/21 04/16/21 04/17/21 23:59 23:59 23:59 23:59 Intake Total 4220 2009 2880 1110 Output Total 1200 3300 850 700 Balance 3020 -1290 2030 410 Meds/Results Medications: Active Medications Generic Name Dose Route Start Last Admin Trade Name Freq PRN Reason Stop Dose Admin Albuterol 2.5 mg 04/13/21 02:55 04/15/21 21:25 Albuterol Sulfate Neb 2.5 Mg/0.5 Ml Inh INHALATION 05/13/21 02:54 2.5 mg QID PRN Administration Bronchospasm Amlodipine
--- NOTE | 2021-04-17 11:31 | PM.PNNEP ---
Progress Note: A&P Assessment and Plan (1) Chronic kidney disease, stage IV (severe): Code(s): N18.4 - Chronic kidney disease, stage 4 (severe) Status: Chronic Assessment and Plan: baseline creatinine seems to run 1.5 - 2.0mg/dl since 2019 suspect due to HTN, DM, previous PAULA/ARF, vascular disease, and age-related change seems relatively stable at this time - however, acute infections (#2 and #3) may be causing some fluctations follow trend of repeat labs and UOP (2) Sigmoid diverticulitis: Code(s): K57.32 - Diverticulitis of large intestine without perforation or abscess without bleeding Status: Acute Assessment and Plan: as noted my admission CT scan on antibiotics slow clinical improvement noted (3) UTI (urinary tract infection): Code(s): N39.0 - Urinary tract infection, site not specified Status: Acute Assessment and Plan: urine culture with Klebsiella aerogenes (Enterobacter) on antibiotic therapy (4) Obstructive sleep apnea on CPAP: Code(s): G47.33 - Obstructive sleep apnea (adult) (pediatric); Z99.89 - Dependence on other enabling machines and devices Status: Acute Assessment and Plan: continue CPAP at night (5) Diabetes: Code(s): E11.9 - Type 2 diabetes mellitus without complications Status: Chronic Assessment and Plan: follow accuchecks glycemic control Will continue to follow. Subjective Date/time seen: 04/17/21 11:31 Abdominal pain appears to have resolved or minimally present; no other issues or problems voiced at this time; feels pretty good at the time of my visit. Exam Narrative: General: WD/WN female in NAD Heart: normal S1 and S2; no rub Lungs: clear to auscultation Abdomen: soft, nontender, nondistended, positive bowel sounds Extremities: no cyanosis or clubbing; no edema Skin: warm and intact Objective Data Vital Signs Vital Signs: Vital Signs Temp Pulse Resp BP Pulse Ox 04/17/21 05:52 36.2 C L 85 18 163/55 H 98 04/16/21 21:40 36.8 C 76 18 140/62 97 04/16/21 20:15 78 20 04/16/21 20:12 94 04/16/21 20:07 80 20 04/16/21 20:00 76 18 97 04/16/21 17:16 81 04/16/21 14:51 36.4 C L 81 24 H 138/82 95 04/16/21 14:00 36.6 C 76 19 137/60 95 Intake/Output Intake/Output: Intake & Output 04/14/21 04/15/21 04/16/21 04/17/21 23:59 23:59 23:59 23:59 Intake Total 4220 2009 2880 1110 Output Total 1200 3300 850 700 Balance 3020 -1290 2030 410 Meds/Results Medications: Active Medications Generic Name Dose Route Start Last Admin Trade Name Freq PRN Reason Stop Dose Admin Albuterol 2.5 mg 04/13/21 02:55 04/15/21 21:25 Albuterol Sulfate Neb 2.5 Mg/0.5 Ml Inh INHALATION 05/13/21 02:54 2.5 mg QID PRN Administration Bronchospasm Amlodipine Besylate 5 mg 04/13/21 09:00 04/17/21 08:29 Amlodipine Besylate 5 Mg Tablet PO 5 mg DAILY [facility] Administration Lipase/Protease/Amylase 1 cap 04/13/21 09:00 04/17/21 08:28 Lipase/Amylase/Protease 12,000 Units Cap PO 1 cap TID [facility] Administration Aspirin 81 mg 04/13/21 08:00 04/17/21 08:29 Aspirin 81 Mg Chewable Tablet PO 81 mg DAILY@0800 [facility] Administration Bisacodyl 10 mg 04/15/21 09:00 04/17/21 08:41 Bisacodyl 10 Mg Suppository RECTAL 10 mg QAM [facility] Administration Bisacodyl 5 mg 04/15/21 16:34 Bisacodyl 5 Mg Tablet Ec PO QAM PRN Constipation Budesonide 0.25 mg 04/13/21 08:00 04/17/21 10:08 Budesonide Respule Neb 0.5 Mg/2 Ml Amp INHALATION Not Given Q12HRT [facility] Carvedilol 12.5 mg 04/13/21 08:00 04/17/21 08:29 Carvedilol 12.5 Mg Tablet PO 12.5 mg BIDWM [facility] Administration Cyanocobalamin 5,000 mcg 04/13/21 09:00 04/17/21 08:29 Cyanocobalamin 1,000 Mcg Tablet PO 5,000 mcg DAILY [facility] Administration Dextrose 12.5 gm 04/13/21 08:36 Dextrose 50% 25 Gm/50 Ml Syringe IV PUSH
[2021-04-17] MEDS: SODIUM CHLORIDE 0.9% IV 1,000 ML 100 ML IV CONT (12:14)
[2021-04-17] MEDS: INSULIN ASPART (*BKC) 100 UNITS/ML SUB-Q ×2 (12:15→17:22)
[2021-04-17] MEDS: ONDANSETRON INJ 4 MG/2 ML VIAL IV PUSH (12:18)
[2021-04-17 12:41] LABS: Glucose Point of Care 242 mg/dl (65-105)
[2021-04-17 14:00] VITALS: BP 147/64; PULSE 78; RESP 20; TEMP 36.5; O2SAT 98
[2021-04-17 16:52] LABS: Glucose Point of Care 236 mg/dl (65-105)
[2021-04-17 20:57] LABS: Glucose Point of Care 226 mg/dl (65-105)
[2021-04-17 21:04] VITALS: PULSE 82; RESP 20
[2021-04-17] MEDS: BUDESONIDE RESPULE NEB 0.5 MG/2 ML AMP 0.25 MG INHALATION (21:04)
[2021-04-17 21:05] VITALS: O2SAT 95
[2021-04-17 21:11] VITALS: PULSE 79; RESP 20
[2021-04-17 22:15] VITALS: BP 140/68; PULSE 73; RESP 16; TEMP 36.4; O2SAT 100
[2021-04-18] MEDS: LEVOTHYROXINE SODIUM 150 MCG TABLET PO (05:39)
[2021-04-18] MEDS: metroNIDAZOLE 250 MG TABLET 500 MG PO ×2 (05:39→13:17)
[2021-04-18 06:39] LABS: Albumin Level 3.2 g/dL (3.5-5.1); Anion Gap 7 mmol/L (8-16); Blood Urea Nitrogen 25 mg/dL (7-17); Carbon Dioxide 30 mmol/L (22-30); Chloride 104 mmol/L (98-107); Estimated CRCL calculation 34 ml/min; Estimated Glomerular Filt Rate 39; Glucose 139 mg/dL (65-110); Phosphorus 3.8 mg/dL (2.5-4.5); Potassium 4.1 mmol/L (3.4-5.0); Sodium 141 mmol/L (137-145)
[2021-04-18 06:56] LABS: Basophils Absolute Auto 0.1 K/mm3 (0.0-0.1); Basophils Percent Auto 1.1 % (0.2-1.2); Eosinophils Absolute Auto 0.3 K/mm3 (0-0.3); Eosinophils Percent Auto 6.3 % (0-4.4); Hematocrit 35.2 % (37.0-47.0); Hemoglobin 11.9 g/dL (12.0-15.0); Immature Granulocyte Absolute 0.01 K/mm3 (0.00-0.031); Immature Granulocyte Percent A 0.2 % (0-0.5); Lymphocytes Percent Auto 39.1 % (18.3-44.2); Mean Corpuscular HGB Conc 33.8 g/dl (32-36); Mean Corpuscular Hemoglobin 30.7 pg (26-34); Mean Corpuscular Volume 90.7 fl (80-100); Mean Platelet Volume 10.6 fl (7.4-10.4); Monocytes Absolute Auto 0.4 K/mm3 (0.1-0.6); Monocytes Percent Auto 7.1 % (2.6-8.5); Neutrophils Absolute Auto 2.5 K/mm3 (1.3-6.7); Neutrophils Percent Auto 46.2 % (45.5-73.1); Platelet Count Result 130 k/mm3 (150-375); Red Blood Count 3.88 M/mm3 (4.2-5.4); Red Cell Distribution Width 14.4 % (11.5-14.5); White Blood Count 5.4 K/mm3 (4.5-10.0)
[2021-04-18] MEDS: BUDESONIDE RESPULE NEB 0.5 MG/2 ML AMP 0.25 MG INHALATION (08:10)
[2021-04-18 08:11] VITALS: PULSE 75; RESP 18
[2021-04-18 08:15] VITALS: O2SAT 96
[2021-04-18 08:17] VITALS: PULSE 77; RESP 18
[2021-04-18 09:02] LABS: Glucose Point of Care 169 mg/dl (65-105)
[2021-04-18] MEDS: SODIUM CHLORIDE 0.9% IV 1,000 ML 100 ML IV CONT (09:09)
[2021-04-18] MEDS: LIPASE/AMYLASE/PROTEASE 12,000 UNITS CAP 1 CAP PO ×2 (09:10→13:17)
[2021-04-18] MEDS: amLODIPine BESYLATE 5 MG TABLET PO (09:10)
[2021-04-18] MEDS: FLUTICASONE PROPIONATE 0.05% NA SPR 16 GM BTL (*BKC) 2 SPRAY NASAL (09:10)
[2021-04-18] MEDS: FEBUXOSTAT 40 MG TABLET PO (09:10)
[2021-04-18 09:11] VITALS: PULSE 68
[2021-04-18] MEDS: GABAPENTIN 300 MG CAPSULE PO ×2 (09:11→13:17)
[2021-04-18] MEDS: CYANOCOBALAMIN 1,000 MCG TABLET 5000 MCG PO (09:11)
[2021-04-18] MEDS: FUROSEMIDE 20 MG TABLET PO (09:11)
[2021-04-18] MEDS: FAMOTIDINE 20 MG TABLET PO (09:11)
[2021-04-18] MEDS: carvediloL 12.5 MG TABLET PO (09:11)
[2021-04-18] MEDS: PSYLLIUM SUGAR FREE POWDER PACKET 1 PACKET PO (09:12)
[2021-04-18] MEDS: ASPIRIN 81 MG CHEWABLE TABLET PO (09:12)
[2021-04-18] MEDS: INSULIN GLARGINE (*BKC) 100 UNITS/ML 30 UNITS SUB-Q (09:14)
[2021-04-18] MEDS: OLOPATADINE 0.1% OPHTH SOLN 5 ML BTL 1 DROP EACH EYE (09:15)
[2021-04-18] MEDS: MUPIROCIN 2% OINT 22 GM TUBE 1 APPLIC TOPICAL (09:15)
[2021-04-18] MEDS: BISACODYL 10 MG SUPPOSITORY RECTAL (09:20)
[2021-04-18] MEDS: polyethylene glycoL 3350 17 GM POWD.PACK PO (09:20)
[2021-04-18 12:28] LABS: Glucose Point of Care 234 mg/dl (65-105)
[2021-04-18] MEDS: INSULIN ASPART (*BKC) 100 UNITS/ML SUB-Q (13:16)
--- NOTE | 2021-04-18 13:24 | PM.PNNEP ---
Progress Note: A&P Assessment and Plan (1) Chronic kidney disease, stage IV (severe): Code(s): N18.4 - Chronic kidney disease, stage 4 (severe) Status: Chronic Assessment and Plan: baseline creatinine seems to run 1.5 - 2.0mg/dl since 2019 suspect due to HTN, DM, previous PAULA/ARF, vascular disease, and age-related change seems relatively stable at this time - however, acute infections (#2 and #3) may be causing some fluctations follow trend of repeat labs and UOP (2) Sigmoid diverticulitis: Code(s): K57.32 - Diverticulitis of large intestine without perforation or abscess without bleeding Status: Acute Assessment and Plan: as noted my admission CT scan on antibiotics slow clinical improvement noted (3) UTI (urinary tract infection): Code(s): N39.0 - Urinary tract infection, site not specified Status: Acute Assessment and Plan: urine culture with Klebsiella aerogenes (Enterobacter) on antibiotic therapy (4) Obstructive sleep apnea on CPAP: Code(s): G47.33 - Obstructive sleep apnea (adult) (pediatric); Z99.89 - Dependence on other enabling machines and devices Status: Acute Assessment and Plan: continue CPAP at night (5) Diabetes: Code(s): E11.9 - Type 2 diabetes mellitus without complications Status: Chronic Assessment and Plan: follow accuchecks glycemic control Will continue to follow. Subjective Date/time seen: 04/18/21 13:24 No new issues or problems to report at this time; feels reasonably well; no events overnight or earlier this morning; eating and drinking okay without any nausesa. vomiting, or abdominal pain. Exam Narrative: General: WD/WN female in NAD Heart: normal S1 and S2; no rub Lungs: clear to auscultation Abdomen: soft, nontender, nondistended, positive bowel sounds Extremities: no cyanosis or clubbing; no edema Skin: no rash or nodules Objective Data Vital Signs Vital Signs: Vital Signs Temp Pulse Resp BP Pulse Ox 04/18/21 09:11 68 04/18/21 08:17 77 18 04/18/21 08:15 96 04/18/21 08:11 75 18 04/17/21 22:15 36.4 C 73 16 140/68 100 04/17/21 21:11 79 20 04/17/21 21:05 95 04/17/21 21:04 82 20 04/17/21 14:00 36.5 C 78 20 147/64 H 98 Intake/Output Intake/Output: Intake & Output 04/15/21 04/16/21 04/17/21 04/18/21 23:59 23:59 23:59 23:59 Intake Total 2009 2879 3760 480 Output Total 3300 850 700 Balance -1290 2030 3060 480 Meds/Results Medications: Active Medications Generic Name Dose Route Start Last Admin Trade Name Freq PRN Reason Stop Dose Admin Albuterol 2.5 mg 04/13/21 02:55 04/15/21 21:25 Albuterol Sulfate Neb 2.5 Mg/0.5 Ml Inh INHALATION 05/13/21 02:54 2.5 mg QID PRN Administration Bronchospasm Amlodipine Besylate 5 mg 04/13/21 09:00 04/18/21 09:10 Amlodipine Besylate 5 Mg Tablet PO 5 mg DAILY [facility] Administration Lipase/Protease/Amylase 1 cap 04/13/21 09:00 04/18/21 13:17 Lipase/Amylase/Protease 12,000 Units Cap PO 1 cap TID [facility] Administration Aspirin 81 mg 04/13/21 08:00 04/18/21 09:12 Aspirin 81 Mg Chewable Tablet PO 81 mg DAILY@0800 [facility] Administration Bisacodyl 10 mg 04/15/21 09:00 04/18/21 09:20 Bisacodyl 10 Mg Suppository RECTAL 10 mg QAM [facility] Administration Bisacodyl 5 mg 04/15/21 16:34 Bisacodyl 5 Mg Tablet Ec PO QAM PRN Constipation Budesonide 0.25 mg 04/13/21 08:00 04/18/21 08:10 Budesonide Respule Neb 0.5 Mg/2 Ml Amp INHALATION 0.25 mg Q12HRT [facility] Administration Carvedilol 12.5 mg 04/13/21 08:00 04/18/21 09:11 Carvedilol 12.5 Mg Tablet PO 12.5 mg BIDWM [facility] Administration Cyanocobalamin 5,000 mcg 04/13/21 09:00 04/18/21 09:11 Cyanocobalamin 1,000 Mcg Tablet PO 5,000 mcg DAILY [facility] Administration Dextrose 12.5 gm 11/19/21 08:36 Dextrose 50% 25 Gm/50 Ml Syringe IV PUSH
--- NOTE | 2021-04-18 13:43 | PM.DS ---
DS: Admitting Diagnosis Discharge Date 04/18/2021 Admitting Diagnosis Sigmoid diverticulitis. Acute kidney injury. Cystitis. DS: Discharge Diagnosis Discharge Diagnosis (1) Sigmoid diverticulitis: Code(s): K57.32 - Diverticulitis of large intestine without perforation or abscess without bleeding Status: Acute Assessment and Plan: Presented with abdominal pain and CT findings consistent with uncomplicated sigmoid diverticulitis Patient was appropriately started on Rocephin and Flagyl, which also covers for her cystitis. Continue rocephin and Flagyl. Cipro or Levaquin being avoided given QT prolongation on EKG, though this is most likely associated with her AICD/pacemaker per gastroenterology, no indication for a colonoscopy. Tolerating her diet (2) Cystitis: Code(s): N30.90 - Cystitis, unspecified without hematuria Status: Acute Assessment and Plan: Presents with complaints of dysuria, cloudy urine, and grossly abnormal UA. Findings consistent with cystitis seen on CT. Urine cultures growing Klebsiella. Continue IV Rocephin Noted history of both Proteus UTI and enterococcus UTI. At this time will continue with Rocephin given that the patient is remaining stable/ slightly improved, and this is also covering her diverticulitis. (3) Acute on chronic renal failure: Qualifiers: Acute renal failure type: unspecified Chronic kidney disease stage: stage 3 (moderate) Chronic kidney disease stage 3 subtype: unspecified whether 3a or 3b Qualified Code(s): N17.9 - Acute kidney failure, unspecified; N18.30 - Chronic kidney disease, stage 3 unspecified Code(s): N17.9 - Acute kidney failure, unspecified; N18.9 - Chronic kidney disease, unspecified Status: Acute Assessment and Plan: The patient's renal function has fluctuated over the past couple years, with episodes of acute injury with renal recoveries. 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 Her right kidney as a good blood flow and is morphologically intact. This explains her creatinine of 1.7 in November 2020. This creatinine of 1.7 may represent his baseline creatinine. Functionally, patient has a single well performing kidney. Creatinine is improving slowly down to 1.4 today. This is very close to her last known baseline. Continue low dose furosemide with metolazone 2.5 mg PO daily. follow-up nephrology recommendations Potassium levels have normalized, 3.8 today Continue to monitor renal function closely and renally dose medications. (4) Dysphagia: Qualifiers: Dysphagia type: esophageal phase Qualified Code(s): R13.19 - Other dysphagia Code(s): R13.10 - Dysphagia, unspecified Status: Acute Assessment and Plan: Per chart there are reports of dysphagia to solids foods. currently tolerating oral intake. She denies any dysphagia symptoms. In view of moderate thrombocytopenia we have stopped pantoprazole and started on Pepcid. (5) Constipation: Qualifiers: Constipation type: unspecified constipation type Qualified Code(s): K59.00 - Constipation, unspecified Code(s): K59.00 - Constipation, unspecified Status: Acute Assessment and Plan: Chronic constipation dependent upon magnesium citrate every 1-2 days. May be acutely worsened given her acute diverticulitis. She is passing gas but has not had a bowel movement today. Continue Miralax b.i.d., will continue this Fiber supplementation. One packet psyllium daily. Continue Dulcolax. (6) Type 2 diabetes mellitus with hyperglycemia: Qualifiers: Diabetes mellitus assisted insulin use: without burring machine operator use Qualified Code(s): E11.65 - Type 2 diabetes mellitus with hyperglycemia Code(s): E11.65 - Type 2 diabetes mellitus with hyperglycemia Status: Acute Assessment and Plan: Most recent A1c 6.0 in October 2020. Bl
[2021-04-18 13:56] LABS: EDCOVIDSCREEN Negative (Negative)
[2021-04-18] MEDS: oxyCODONE HCL (*CRX) 5 MG TAB IR PO (14:21)
== END 2021-04-18 15:25 | DRG 392 ==
LOC: ANHED 20:11 → ANH3MEDSUR 21:25
PROVIDERS: Emergency Medicine; Internal Medicine Nephrology; Physician Assistant; Admitting Provider Internal Medicine; Emergency Provider General Practice; PCP Nurse Practitioner Family; Visit Provider Internal Medicine
DX: K57.32 Diverticulitis of large intestine without perforation or abscess without bleeding (principal); I13.0 Hypertensive heart and chronic kidney disease with heart failure and stage 1 through stage 4 chronic kidney disease, or unspecified chronic kidney disease; K76.6 Portal hypertension; Z68.41 Body mass index [BMI] 40.0-44.9, adult; N18.4 Chronic kidney disease, stage 4 (severe); E66.01 Morbid (severe) obesity due to excess calories; B96.89 Other specified bacterial agents as the cause of diseases classified elsewhere; N30.90 Cystitis, unspecified without hematuria; Z20.822 Contact with and (suspected) exposure to COVID-19; K83.8 Other specified diseases of biliary tract; K59.09 Other constipation; R13.19 Other dysphagia; G47.33 Obstructive sleep apnea (adult) (pediatric); E87.5 Hyperkalemia; E11.65 Type 2 diabetes mellitus with hyperglycemia; E11.22 Type 2 diabetes mellitus with diabetic chronic kidney disease; I50.9 Heart failure, unspecified; I48.91 Unspecified atrial fibrillation; E78.5 Hyperlipidemia, unspecified; K74.69 Other cirrhosis of liver; K75.81 Nonalcoholic steatohepatitis (NASH); J44.9 Chronic obstructive pulmonary disease, unspecified; E89.0 Postprocedural hypothyroidism; Z66 Do not resuscitate; Z79.82 Long term (current) use of aspirin; Z79.4 Long term (current) use of insulin; Z79.899 Other long term (current) drug therapy; Z95.810 Presence of automatic (implantable) cardiac defibrillator; Z98.42 Cataract extraction status, left eye; Z98.41 Cataract extraction status, right eye; Z96.1 Presence of intraocular lens; Z99.89 Dependence on other enabling machines and devices
CPT/HCPCS: 36415; 36600; 71046; 74176; 76775; 80048; 80053; 80069; 81001; 82375; 82570; 82805; 82948; 83036; 83050; 83880; 84300; 84484; 84540; 85025; 85027; 85610; 85730; 87077; 87086; 87088; 87186; 87426; 92610; 93005; 93976; 94640; 96361; 96365; 96368; 97116; 97162; 97165; 97530; 99285; A9270; C9803; G0378; J0696; J1644; J1815; J2405; J7030; J7040

== ENCOUNTER 2021-06-20 08:03 | Outpatient (CLI) | payer MEDICARE, OTHER, SELFPAY ==
--- NOTE | ~2021-06-20 | NM_ITS ---
EXAM: NM gastric emptying study DATE: 06/20/2021 14:24 INDICATION: Nausea. TECHNIQUE: A gastric emptying study was performed using the methodology of Gamaliel HERNANDES, et al. J Nucl Med 2007; 48:568-572. The patient was given a meal consisting of 2 scrambled eggs labeled with 0.962 mCi Tc-99m sulfur colloid, 2 slices of toast, two packages of jam, and approximately 120 mL of water . Simultaneous anterior and posterior 1-min images of the abdomen were obtained with the patient supi ne at multiple time points over a total period of 4 hours. The geometric mean of anterior and posteri or views was determined, and the percentage retention was calculated for each time point. COMPARISON: CT abdomen and pelvis 04/12/2021 FINDINGS: Gastric retention of the radiotracer-labeled meal was 52%, 35%, and 11% at the 1-hour, 2-h our, and 4-hour time points, respectively. With this technique, apparent rapid gastric emptying is garcia ggested by <30% gastric retention at 1 hour. Delayed gastric emptying is defined by gastric retention of >90% at 1 hour, >60% retention at 2 hours, or >10% retention at 4 hours. IMPRESSION: 1. Delayed gastric emptying. Reviewed, dictated and finalized at location A. [employer]
== END 2021-06-20 08:04 | disposition home or self-care (01) ==
LOC: ANHIMG 08:04
PROVIDERS: PCP Nurse Practitioner Family; Visit Provider Internal Medicine Gastroenterology
DX: R11.0 Nausea (principal); E08.10 Diabetes mellitus due to underlying condition with ketoacidosis without coma
CPT/HCPCS: 78264; A9541

== ENCOUNTER 2021-08-08 12:30 | Outpatient (CLI) | payer MEDICARE, OTHER, SELFPAY ==
--- NOTE | 2021-08-09 11:49 | WPDPFTINT ---
PFT Procedure Performed PFT Procedure Performed Spirometry with Pre/Post Bronchodilator Plethysmography (Lung Vol) Diffusing Cap (DLCO) Flow Vol Loop PFT Interpretation Lung volumes were measured with the body plethysmography method. The across the board diminished lung volumes are indicative of restrictive respiratory disease. Spirometry showed diminished expiratory flow rates and a normal FEV1 to FVC ratio 75%, also consistent with restrictive respiratory disease. Following administration of a bronchodilator there was no significant change in the expiratory flow rates. Lung diffusion capacity is moderately reduced at 59% predicted. Flow volume loop is consistent with restrictive respiratory disease. Impression: Moderate restrictive respiratory disease. Moderately reduced lung diffusion capacity.
--- NOTE | 2021-08-09 11:52 | WPDSIXMINUTE ---
Six Minute Walk Procedure Procedure Performed Pulmonary Stress Test (6 min walk) Six Minute Walk This 6 minute walk test was carried out with the patient breathing ambient air. The pre walk oxyhemoglobin saturation was 97%. The patient walked 150 ft. During the walk, the oxyhemoglobin saturation remained over 92%. Impression: No evidence of oxyhemoglobin desaturation on this testing.
== END 2021-08-08 12:31 | disposition home or self-care (01) ==
LOC: ANHPFT 12:32
PROVIDERS: Visit Provider Nurse Practitioner
DX: J44.9 Chronic obstructive pulmonary disease, unspecified (principal)
CPT/HCPCS: 94060; 94618; 94726; 94729

== ENCOUNTER 2021-09-13 04:27 | Emergency (ER) | payer MEDICARE, OTHER, SELFPAY ==
[2021-09-13] VITALS (12 sets, daily range): BP systolic 118–156; BP diastolic 53–74; PULSE 82–91; RESP 14–23; TEMP 36.7; O2SAT 94–99
--- NOTE | ~2021-09-13 | XR_ITS ---
EXAMINATION: XR chest 1V portable EXAM DATE: 09/13/2021 04:57 INDICATION: weakness, HX CHF, COPD, HTN, Eulogio Lower Ext Pain TECHNIQUE: Portable AP frontal chest x-ray was obtained. Comparison is made to prior examination from 04/17/2021. FINDINGS: Multi lead pacemaker/AICD device. There is cardiomegaly and pulmonary vascular congestion. Right midlung zone calcified granuloma unchanged. No confluent consolidation, pneumothorax or pleural effusion suspected. No degenerative There is no significant interval change. IMPRESSION: Cardiomegaly, pulmonary vascular congestion. Reviewed, dictated and finalized at location A.
--- NOTE | ~2021-09-13 | XR_ITS ---
EXAMINATION: XR tibia fibula LT 2V, XR ankle LT min 3V EXAM DATE: 09/13/2021 06:07 INDICATION: leg pain TECHNIQUE: Left tibia/fibula frontal and lateral projections obtained and reviewed. Left ankle front al, lateral and oblique projections obtained and reviewed. There is no prior study for comparison. FINDINGS: The left ankle mortise appears intact. There are no acute fractures or dislocations ident ified. There is no subcutaneous gas. The soft tissue is unremarkable. There are no radiopaque for eign bodies. Moderate size inferior calcaneal spur. IMPRESSION: 1. Left ankle, tibia/fibula exam without acute osseous findings. Reviewed, dictated and finalized at location A. IMPRESSION: 1. Left ankle, tibia/fibula exam without acute osseous findings.
--- NOTE | ~2021-09-13 | US_ITS ---
EXAMINATION: US venous doppler [facility] DATE: 09/13/2021 08:46 INDICATION: Lower limb pain TECHNIQUE: Grayscale ultrasound images without and with compression and Doppler ultrasound images of the bilateral lower extremity veins were obtained. COMPARISON: None. FINDINGS: The visualized portions of right common femoral vein, profunda (deep) femoral vein, femoral vein, pop liteal vein, posterior tibial veins, peroneal veins, lesser saphenous vein and greater saphenous vein outflow are patent. The visualized portions of left common femoral vein, profunda femoral vein, femoral vein, popliteal v ein, posterior tibial veins, peroneal veins, lesser saphenous vein and greater saphenous vein outflow are patent. IMPRESSION: 1. No deep venous thrombosis in either lower limb. Reviewed, dictated and finalized at location A.
--- NOTE | ~2021-09-13 | XR_ITS ---
EXAMINATION: XR ankle RT min 3V, XR tibia fibula RT 2V EXAM DATE: 09/13/2021 06:07 INDICATION: Bruising, fall. Initial encounter. TECHNIQUE: Right ankle frontal, lateral and oblique projections obtained and reviewed. Right tibia/f ibula frontal and lateral projections obtained and reviewed. There is no prior study for comparison. FINDINGS: Right tibial and fibular shafts unremarkable. The ankle mortise appears intact. Moderate size inferior calcaneal spur. There are no acute fractures or dislocations identified. There is no s ubcutaneous gas. The soft tissue is unremarkable. There are no radiopaque foreign bodies. IMPRESSION: 1. Right ankle, tibia-fibula exam without acute osseous findings. Reviewed, dictated and finalized at location A. IMPRESSION: 1. Right ankle, tibia-fibula exam without acute osseous findings.
--- NOTE | 2021-09-13 04:33 | ED.ANXIETY ---
HPI - Anxiety General Chief Complaint: Anxiety Stated Complaint: Bilat. 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 Patient has been taking percocet for the pain. Patient was worried her glucose was dropping for EMS although her glucose level was 71. Patient was given oral glucose gel in route. Patient was noted to be hyperventilating for EMS but is directable, able to slow her respirations. Patient is reporting bilateral lower extremity pain and ankle pain. Patient states this has been chronic for several months. Patient states the pain became severe tonight, also reporting mild nausea. She denies fever, chills, vomiting. Denies abdominal pain. Denies dysuria or hematuria. Patient denies chest pain or shortness of breath. No flank pain, back pain, jaw or neck pain. She denies cough or shortness of breath. Patient does report history of anxiety, reports that she currently feels anxious. She does deny calf swelling or leg pain. Denies recent fall or injury. I noticed that there are bruises to her bilateral feet, patient states that she does not know how they got there. Related Data Home Medications Medication Instructions Recorded Confirmed Creon 1 cap PO TID 02/10/20 06/25/21 amlodipine 5 mg PO DAILY 02/10/20 06/25/21 aspirin 81 mg PO DAILY 02/10/20 06/25/21 carvedilol 12.5 mg PO BID 02/10/20 06/25/21 docusate sodium [Colace] 250 mg PO DAILY PRN 02/10/20 06/25/21 ergocalciferol (vitamin D2) 50,000 unit PO WEEKLY 02/10/20 06/25/21 fluticasone propionate [Flonase 2 spray INTRANASAL DAILY PRN 02/10/20 06/25/21 Allergy Relief] gabapentin 300 mg PO QID 02/10/20 06/25/21 spironolactone 25 mg PO DAILY 02/10/20 06/25/21 cetirizine [Zyrtec] 10 mg PO DAILY 10/24/20 06/25/21 cyanocobalamin (vitamin B-12) 5,000 mcg PO DAILY 10/24/20 06/25/21 levothyroxine [Tirosint] 150 mcg PO DAILY 12/08/20 06/25/21 budesonide 0.25 mg INHALATION BID 04/12/21 06/25/21 febuxostat 40 mg PO DAILY 04/12/21 06/25/21 metolazone 2.5 mg PO DAILY 04/12/21 06/25/21 pantoprazole 40 mg PO BID 04/12/21 06/25/21 Narcan 4 mg INTRANASAL PRN PRN 04/13/21 06/25/21 hydrocortisone 1 applic PRN 04/13/21 06/25/21 insulin asp prt-insulin aspart 30 unit SUBCUT BID 04/13/21 06/25/21 [Novolog Mix 70-30FlexPen U-100] ipratropium-albuterol 2.5 ml INHALATION QID PRN 04/13/21 06/25/21 olopatadine 1 drp OPHTHALMIC (EYE) BID 04/13/21 06/25/21 omeprazole 20 mg PO DAILY 04/13/21 06/25/21 ondansetron HCl 4 mg PO PRN PRN 04/13/21 06/25/21 oxycodone [Roxicodone] 5 mg PO BID PRN 04/13/21 06/25/21 Allergies Allergy/AdvReac Type Severity Reaction Status Date / Time meperidine Allergy Mild Itching Verified 06/25/21 13:12 niacin Allergy Mild Rash Verified 06/25/21 13:12 quetiapine Allergy Mild Swelling Verified 06/25/21 13:12 allopurinol Allergy Unknown Unknown Verified 06/25/21 13:12 bupropion Allergy Unknown JERKY Verified 06/25/21 13:12 MOVEMENTS carbamazepine Allergy Unknown Unknown Verified 06/25/21 13:12 [From Carbatrol] codeine Allergy Unknown Unknown Verified 06/25/21 13:12 enalapril Allergy Unknown Unknown Verified 06/25/21 13:12 fluoxetine Allergy Unknown Unknown Verified 06/25/21 13:12 lorazepam Allergy Unknown Unknown Verified 06/25/21 13:12 morphine Allergy Unknown Unknown Verified 06/25/21 13:12 Penicillins Allergy Unknown Rash Verified 06/25/21 13:12 trazodone Allergy Unknown Dizziness Verified 06/25/21 13:12 promethazine [From Phenergan] AdvReac Intermediate Hallucinati Verified 06/25/21 13:12 ng enalaprilat AdvReac Mild PERSISTENT Verified 06/25/21 13:12 COUGH modafinil AdvReac Mild SORES Verified 06/25/21 13:12 oxycodone AdvReac Mild GI DISTRESS Verified 06/25/21 13:12
--- NOTE | 2021-09-13 04:45 | ECG_ITS ---
Measurements Intervals [place] Rate: 90 P: 224 [place]: 199 QRS: 214 QRSD: 139 T: 30 QT: 435 QTc: 533 Interpretive Statements ELECTRONIC ATRIAL PACEMAKER ELECTRONIC VENTRICULAR PACEMAKER NO FURTHER INTERPRETATION POSSIBLE COMPARED TO ECG 04/12/2021 18:47:08 NO SIGNIFICANT CHANGES Electronically Signed On 09-13-2021 16:47:42 CDT by Sony Oliveira M.D.
[2021-09-13] MEDS: SODIUM CHLORIDE 0.9% IV 1,000 ML 999 ML IV CONT (05:19)
[2021-09-13] MEDS: ONDANSETRON INJ 4 MG/2 ML VIAL IV PUSH (05:20)
[2021-09-13] MEDS: LORazepam (*CRX) 0.5 MG TABLET PO (05:21)
[2021-09-13 05:22] LABS: Glucose Point of Care 98 mg/dl (65-105)
[2021-09-13 05:35] LABS: Basophils Absolute Auto 0.1 K/mm3 (0.0-0.1); Eosinophils Absolute Auto 0.3 K/mm3 (0-0.3); Eosinophils Percent Auto 5.9 % (0-4.4); Hematocrit 35.9 % (37.0-47.0); Hemoglobin 11.7 g/dL (12.0-15.0); Immature Granulocyte Absolute 0.02 K/mm3 (0.00-0.031); Immature Granulocyte Percent A 0.4 % (0-0.5); Lymphocytes Absolute Auto 1.35 K/mm3 (0.9-3.2); Lymphocytes Percent Auto 26.6 % (18.3-44.2); Mean Corpuscular HGB Conc 32.6 g/dl (32-36); Mean Corpuscular Hemoglobin 30.4 pg (26-34); Mean Corpuscular Volume 93.2 fl (80-100); Mean Platelet Volume 10.5 fl (7.4-10.4); Monocytes Absolute Auto 0.4 K/mm3 (0.1-0.6); Monocytes Percent Auto 8.3 % (2.6-8.5); Neutrophils Absolute Auto 2.9 K/mm3 (1.3-6.7); Neutrophils Percent Auto 57.8 % (45.5-73.1); Platelet Count Result 121 k/mm3 (150-375); Red Blood Count 3.85 M/mm3 (4.2-5.4); Red Cell Distribution Width 13.8 % (11.5-14.5); White Blood Count 5.1 K/mm3 (4.5-10.0)
--- NOTE | 2021-09-13 05:39 | PC.NURSE ---
per still water nurse angelic pt had an unwitnessed fall a couple days ago that the patient did not report to them until earlier today.
[2021-09-13 05:53] LABS: Alanine Aminotransferase 36 U/L (4-35); Albumin Level 3.7 g/dL (3.5-5.1); Alkaline Phosphatase 134 U/L (38-126); Anion Gap 7 mmol/L (8-16); Aspartate Amino Transferase 60 U/L (14-36); Bilirubin,Total 0.9 mg/dL (0.2-1.3); Blood Urea Nitrogen 37 mg/dL (7-17); Calcium 8.6 mg/dL (8.4-10.2); Carbon Dioxide 26 mmol/L (22-30); Chloride 102 mmol/L (98-107); Estimated Glomerular Filt Rate 25; Glucose 129 mg/dL (65-110); Potassium 4.5 mmol/L (3.4-5.0); Sodium 135 mmol/L (137-145)
[2021-09-13 06:04] LABS: Troponin I < 0.012 ng/mL (0.000-0.034)
--- NOTE | 2021-09-13 07:28 | PC.NURSE ---
Patient report received from LARRY Brown. All questions answered and care of patient assumed. Patient resting comfortably in bed with call light within reach. Patient repositioned for comfort. VSS at this time. Awaiting US. Will address needs as they arise.
[2021-09-13 09:18] LABS: Glucose Point of Care 120 mg/dl (65-105)
[2021-09-13] MEDS: ONDANSETRON HCL ODT 4 MG TABLET PO (09:36)
== END 2021-09-13 10:17 | disposition home or self-care (01) ==
PROVIDERS: Emergency Medicine; Emergency Provider Emergency Medicine
DX: S90.02XA Contusion of left ankle, initial encounter (principal); S90.01XA Contusion of right ankle, initial encounter; F41.9 Anxiety disorder, unspecified; E11.22 Type 2 diabetes mellitus with diabetic chronic kidney disease; I13.0 Hypertensive heart and chronic kidney disease with heart failure and stage 1 through stage 4 chronic kidney disease, or unspecified chronic kidney disease; N18.9 Chronic kidney disease, unspecified; I50.9 Heart failure, unspecified; K75.81 Nonalcoholic steatohepatitis (NASH); K74.60 Unspecified cirrhosis of liver; J44.9 Chronic obstructive pulmonary disease, unspecified; E78.5 Hyperlipidemia, unspecified; E03.9 Hypothyroidism, unspecified; M79.7 Fibromyalgia; G47.30 Sleep apnea, unspecified; E66.01 Morbid (severe) obesity due to excess calories; D64.9 Anemia, unspecified; Z96.41 Presence of insulin pump (external) (internal); Z79.4 Long term (current) use of insulin; Z79.82 Long term (current) use of aspirin; Z95.810 Presence of automatic (implantable) cardiac defibrillator; Z87.442 Personal history of urinary calculi; Z98.1 Arthrodesis status; Z98.42 Cataract extraction status, left eye; Z98.41 Cataract extraction status, right eye; Z96.1 Presence of intraocular lens; Z66 Do not resuscitate; I51.7 Cardiomegaly; W19.XXXA Unspecified fall, initial encounter
CPT/HCPCS: 36415; 71045; 73590; 73610; 80053; 82948; 84484; 85025; 93005; 93970; 96361; 96374; 99284; A9270; J2405; J7030

== ENCOUNTER → 2021-09-24 07:33 | Outpatient (CLI) | payer MEDICARE, OTHER, SELFPAY ==
--- NOTE | ~2021-09-24 | US_ITS ---
EXAMINATION: US abdomen limited DATE: 09/24/2021 08:34 INDICATION: Unspecified cirrhosis of the liver TECHNIQUE: Multiple grayscale and Doppler ultrasound images of the abdomen were obtained. COMPARISON: CT, 04/12/2021 FINDINGS: The head and body of the pancreas are normal. The pancreatic tail is obscured by bowel gas. The liver demonstrates coarsened echotexture. There is mild nodularity of the liver surface. Normal hepatopetal flow in the main portal vein. The gallbladder is surgically absent. The normal common gillian e duct measures 8 mm. There was no sonographic Garcia sign. IMPRESSION: 1. Sonographic findings consistent with cirrhosis. Reviewed, dictated and finalized at location A.
== END ==
PROVIDERS: PCP Internal Medicine; Visit Provider Nurse Practitioner Family
DX: K74.60 Unspecified cirrhosis of liver (principal)
CPT/HCPCS: 76705

== ENCOUNTER → 2021-09-24 08:10 | Outpatient (CLI) | payer MEDICARE, OTHER, SELFPAY ==
--- NOTE | ~2021-09-24 | CT_ITS ---
EXAMINATION: CT diagnostic chest wo con DATE: 09/24/2021 08:30 INDICATION: Cough, COPD TECHNIQUE: Computed tomography (CT) of the chest was performed without intravenous contrast. The dose -length product (DLP) was 674.07 mGy-cm. Automated exposure control and iterative reconstruction tech [employer] were employed. COMPARISON: 02/10/2020 FINDINGS: There is mild atelectasis. The lungs are free of focal airspace opacities. A stable 3 mm no dule is present in the left lower lobe. Cardiomegaly is noted. Calcified pulmonary nodules and calcif ied right hilar and mediastinal lymph nodes are consistent with old granulomatous disease. There are no pathologically enlarged thoracic lymph nodes. A triple lead cardiac pacemaker of the left chest wa ll ends with leads in expected locations. There is chronic pneumobilia the left hepatic lobe. Vertebr oplasty change is noted in the thoracolumbar spine. IMPRESSION: 1. No CT correlate for the patient's symptoms. Reviewed, dictated and finalized at location A.
== END ==
PROVIDERS: PCP Internal Medicine; Visit Provider Nurse Practitioner
DX: J98.4 Other disorders of lung (principal)
CPT/HCPCS: 71250

== ENCOUNTER 2021-10-17 13:41 | Outpatient (CLI) | payer MEDICARE, OTHER, SELFPAY ==
--- NOTE | ~2021-10-17 | DEXA_ITS ---
Bone Density Report Name: JOSE LEES Age: 81 Sex: Female Ethnicity: White Date of : 1940 Indication: postmenopausal; screening for osteoporosis; height loss; prior fracture; Referring Provider: MANUEL, FAITH Study: Bone densitometry was performed. Exam Date: October 17, 2021 Accession number: [id number] Bone Density: Region BMD T-score Z-score Classification Femoral Neck (Left) 0.591 -2.3 0.1 Osteopenia Total Hip (Left) 0.747 -1.6 0.7 Osteopenia Femoral Neck (Right) 0.513 -3.0 -0.6 Osteoporosis Total Hip (Right) 0.657 -2.3 -0.1 Osteopenia Total Hip Mean 0.702 -2.0 0.3 Osteopenia World Health Organization criteria for BMD impression classify patients as: Normal (T-score at or above -1.0), Osteopenia (T-score between -1.0 and -2.5), or Osteoporosis (T-score at or below -2.5). 10-year Fracture Risk: FRAX not reported because: Some T-score for Spine Total or Hip Total or Femoral Neck at or below -2.5 Prior hip or vertebral fracture Previous Exams: Region Exam Age BMD T-score BMD Change BMD Change Date g/cm2 vs Baseline vs Previous Total Hip(Left) 10/17/2021 81 0.747 -1.6 -0.139 (-15.7% -0.139 (-15.7% 05/03/2016 76 0.886 -0.5 Total Hip(Right) 10/17/2021 81 0.657 -2.3 -0.198 (-23.2% -0.198 (-23.2% 05/03/2016 76 0.855 -0.7 *Denotes significance at 95% confidence level, LSC for Total Hip = 0.027 g/cm2 Clinical Information Provided by Patient: Have had a previous hip or vertebral fracture Has had a low trauma fracture Patient maximum height was 64 Menopause Age: 43 No regular weight bearing exercise Drinks caffeinated beverages Onset of menses at age 12 Number of children 3 Impression: The patient has established osteoporosis, based on the Right Femoral Neck T-score and the existence of a prior fracture. The patient has risk factors, including: previous fracture. The BMD for the Total Hip(Left) decreased, changing by -15.7% since the last DXA exam. The BMD for the Total Hip(Right) decreased, changing by -23.2% since the last DXA exam. Discussion: HIGH RISK OF FRACTURE. BONE DENSITY IS UNDESIRABLY LOW AT ONE OR MORE SKELETAL SITES, CONSISTENT WITH POSTMENOPAUSAL OSTEOPOROSIS. This patient's lowest T-score, in a patient who has previously fractured, meets the World Health Organization's (WHO) criteria for severe osteoporosis. In untreated patients, the risk of osteoporotic fracture increases approximately two-fold for each 1.0 SD decrease in T-score. Low bone dens
== END 2021-10-17 13:42 | disposition home or self-care (01) ==
LOC: ANHIMG 13:45
PROVIDERS: PCP Internal Medicine; Visit Provider Internal Medicine
DX: Z13.820 Encounter for screening for osteoporosis (principal); M81.0 Age-related osteoporosis without current pathological fracture; M85.851 Other specified disorders of bone density and structure, right thigh; M85.852 Other specified disorders of bone density and structure, left thigh
CPT/HCPCS: 77080

== ENCOUNTER 2021-11-01 09:43 | Inpatient (IN) | payer MEDICARE, OTHER, SELFPAY ==
[2021-11-01] VITALS (27 sets, daily range): BP systolic 98–147; BP diastolic 58–92; PULSE 71–92; RESP 13–22; TEMP 36.6–36.8; O2SAT 90–100; BMI 40.2
--- NOTE | ~2021-11-01 | XR_ITS ---
XR knee RT 3V DATE: 11/01/2021 20:36 INDICATION: Right knee pain and swelling after fall TECHNIQUE: 4 portable views COMPARISON: 12/15/2017 right knee FINDINGS: There is suggestion of suprapatellar knee joint effusion. There is osteopenia. There is moderately prominent loss of medial compartment joint space. There is slight periarticular s purring of the patella. No fracture, dislocation, periosteal reaction or bone destruction is evident. No radiopaque intra-articular loose body or chondrocalcinosis. IMPRESSION: Possible knee joint effusion; no fracture or dislocation is detected Osteopenia Osteoarthritis Reviewed, dictated and finalized at location A. IMPRESSION: Possible knee joint effusion; no fracture or dislocation is detecte d Osteopenia Osteoarthritis
--- NOTE | ~2021-11-01 | XR_ITS ---
EXAMINATION: XR hip RT 2V w AP pelvis DATE: 11/01/2021 11:50 INDICATION: Right hip injury. TECHNIQUE: An anteroposterior pelvis and 2 views of right hip were obtained. COMPARISON: CT abdomen and pelvis 04/12/2021 FINDINGS: There is lumbar levocurvature. There is a chronic L4 fracture with changes of vertebroplast y. There is moderate lower lumbar spondylosis. The hip joint spaces are normal. IMPRESSION: 1. No acute fracture. Reviewed, dictated and finalized at location A. IMPRESSION: 1. No acute fracture.
--- NOTE | ~2021-11-01 | XR_ITS ---
XR chest 1V 11/01/2021 11:50 Indication: Altered mental status Procedure: AP portable chest Comparison: Comparison to multiple prior studies sequentially, with oldest reviewed study dated 03/26. Findings: Cardiomegaly. Calcified granuloma right mid thorax. Pacemaker leads are in expected positio n. No focal air space disease, pulmonary edema, pleural effusion or suspected pneumothorax. Multiple compression fractures of the lower thoracic and lumbar spine with vertebroplasty changes. Impression: 1: No acute cardiopulmonary disease. Reviewed, dictated and finalized at location B. Impression: 1: No acute cardiopulmonary disease.
--- NOTE | ~2021-11-01 | CT_ITS ---
EXAMINATION: CT brain wo con DATE: 11/01/2021 11:40 INDICATION: Altered mental status. Minor head injury. TECHNIQUE: Computed tomography (CT) of the head was performed without intravenous contrast. The mA wa s adjusted according to patient size. Iterative reconstruction technique was employed. The dose-lengt h product was 605.33 mGy-cm. COMPARISON: Head CT 10/26/2020 FINDINGS: There are scattered areas of low attenuation in the cerebral white matter. There is an old lacunar infarct in left lentiform nucleus. There is an old lacunar infarct in the canelo. There is no i ntracranial hemorrhage, acute infarction, or abnormal intracranial mass lesion. The ventricles are no rmal in size. There are likely changes of ocular lens replacement surgeries. The paranasal sinuses ar e clear. The mastoid air cells are normal. IMPRESSION: 1. 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 2. Stable moderate nonspecific cerebral white matter disease, which likely represents chronic small v essel ischemic disease. Reviewed, dictated and finalized at location A. IMPRESSION: 1. 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 2. Stable moderate nonspecific cerebral white matter disease, which likely repr esents chronic small vessel ischemic disease.
--- NOTE | 2021-11-01 09:44 | ECG_ITS ---
Measurements Intervals [place] Rate: 74 P: 213 [place]: 183 QRS: 228 QRSD: 163 T: 36 QT: 463 QTc: 514 Interpretive Statements ELECTRONIC ATRIAL PACEMAKER ELECTRONIC VENTRICULAR PACEMAKER ABNORMAL RHYTHM ECG COMPARED TO ECG 09/13/2021 05:13:23 NO SIGNIFICANT CHANGES Electronically Signed On 11-01-2021 20:34:45 CDT by Jasmina Naik M.D.
[2021-11-01 10:37] LABS: Basophils Absolute Auto 0.1 K/mm3 (0.0-0.1); Basophils Percent Auto 0.8 % (0.2-1.2); Eosinophils Absolute Auto 0.2 K/mm3 (0-0.3); Eosinophils Percent Auto 2.7 % (0-4.4); Hemoglobin 11.8 g/dL (12.0-15.0); Immature Granulocyte Absolute 0.02 K/mm3 (0.00-0.031); Immature Granulocyte Percent A 0.3 % (0-0.5); Lymphocytes Absolute Auto 1.52 K/mm3 (0.9-3.2); Mean Corpuscular HGB Conc 33.7 g/dl (32-36); Mean Corpuscular Hemoglobin 30.8 pg (26-34); Mean Corpuscular Volume 91.4 fl (80-100); Mean Platelet Volume 10.6 fl (7.4-10.4); Monocytes Absolute Auto 0.5 K/mm3 (0.1-0.6); Monocytes Percent Auto 7.9 % (2.6-8.5); Neutrophils Absolute Auto 4.3 K/mm3 (1.3-6.7); Neutrophils Percent Auto 65.3 % (45.5-73.1); Platelet Count Result 134 k/mm3 (150-375); Red Blood Count 3.83 M/mm3 (4.2-5.4); Red Cell Distribution Width 13.1 % (11.5-14.5); White Blood Count 6.6 K/mm3 (4.5-10.0)
[2021-11-01 10:43] LABS: Alveolar/Arterial O2 Gradient 67.2 mmHg; Base Excess ABG 4.9 mEq/l (+/-2.0); Fractional Inspired Oxygen 28 %; HCO3 ABG 29.8 mEq/l (22.0-26.0); Methemoglobin ABG 0.3 %THb (0-1.5); Oxygen Content ABG 16.6 %vol (16.0-22.0); PCO2 ABG 45.3 mmHg (35.0-45.0); PO2 FiO2 Ratio Arterial Blood 2.82 %; Reduced Hemoglobin 4.7 %THb (0-5.0); Total Hemoglobin 12.5 g/dL (12.0-18.0); pH ABG 7.436 (7.350-7.450)
[2021-11-01 10:44] LABS: Device NASAL CANNULA; Modified Allen's Test Pass; Site Drawn LEFT RADIAL
[2021-11-01 10:48] LABS: Ammonia < 9 umol/L (9-30)
--- NOTE | 2021-11-01 10:49 | PC.NURSE ---
Patient off unit to CT.
[2021-11-01 10:57] LABS: INR 1.2; Prothrombin Time 14.4 Seconds (11.1-14.7)
[2021-11-01 10:58] LABS: Partial Thromboplastin Time 33.3 SECONDS (22.3-36.8)
[2021-11-01 11:01] LABS: Alanine Aminotransferase 67 U/L (6-35); Albumin Level 3.9 g/dL (3.5-5.1); Alkaline Phosphatase 304 U/L (38-126); Anion Gap 9 mmol/L (8-16); Aspartate Amino Transferase 74 U/L (14-36); Bilirubin,Total 1.7 mg/dL (0.2-1.3); Blood Urea Nitrogen 90 mg/dL (7-17); Calcium 9.1 mg/dL (8.4-10.2); Carbon Dioxide 32 mmol/L (22-30); Chloride 93 mmol/L (98-107); Estimated Glomerular Filt Rate 12; Glucose 149 mg/dL (65-110); Potassium 4.1 mmol/L (3.4-5.0); Sodium 134 mmol/L (137-145)
[2021-11-01] MEDS: SODIUM CHLORIDE 0.9% IV 1,000 ML 999 ML IV CONT (11:31)
--- NOTE | 2021-11-01 11:39 | PC.NURSE ---
Patient report given to LARRY Burnett. All questions answered and care of patient transferred.
[2021-11-01 12:13] LABS: Appearance Urine Clear (Clear); Bilirubin Urine Negative (Negative); Blood Urine Negative (Negative); Color Urine Yellow (Yellow); Glucose Urine UA Negative (Negative); Ketones Urine Negative (Negative); Leukocyte Esterase Ur 2+ LEU/UL (Negative); Nitrate Urine Negative (Negative); Protein Urine Negative (Negative); pH Urine 5.5 (5.0-9.0)
[2021-11-01 12:18] LABS: Bacteria Urine Trace /hpf; RBC Urine 0-2 /hpf (0-2); Squamous Epithelial Cell Urine Occasional /hpf (Few)
[2021-11-01 12:19] LABS: Add Urine Microscopic? YES
--- NOTE | 2021-11-01 12:58 | ED.GENADULT ---
HPI - General Adult General Chief complaint: Altered Mental Status Stated complaint: AMS, Fall,Pain Time Seen by Provider: 11/01/21 09:57 History of Present Illness HPI narrative: Patient is an 81-year-old female who presents ER with altered mental status and fall. According her fluoroscope operator patient has developed diarrhea. She fell last night which was unwitnessed. Unsure if she hit her head. Was unable to get up today and was reporting hip pain. Patient has not changed her close over the last day which is atypical. No reported fevers or chills or sweats. Patient is alert and oriented x2-3 but cannot provide history. Related Data Home Medications Medication Instructions Recorded Confirmed amlodipine 5 mg tablet 5 mg PO DAILY 02/10/20 10/01/21 aspirin 81 mg chewable tablet 81 mg PO DAILY 02/10/20 10/01/21 carvedilol 12.5 mg tablet 12.5 mg PO BID 02/10/20 10/01/21 docusate sodium 100 mg capsule 250 mg PO DAILY PRN Constipation 02/10/20 10/01/21 (Colace) ergocalciferol (vitamin D2) 1,250 50,000 unit PO WEEKLY 02/10/20 10/01/21 mcg (50,000 unit) capsule fluticasone propionate 50 2 spray intranasal DAILY PRN 02/10/20 10/01/21 mcg/actuation nasal Allergy Symptoms spray,suspension (Flonase Allergy Relief) gabapentin 300 mg capsule 300 mg PO QID 02/10/20 10/01/21 spironolactone 25 mg tablet 25 mg PO DAILY 02/10/20 10/01/21 cetirizine 10 mg tablet (Zyrtec) 10 mg PO DAILY 10/24/20 10/01/21 cyanocobalamin (vitamin B-12) 5,000 mcg PO DAILY 10/24/20 10/01/21 5,000 mcg capsule levothyroxine 150 mcg capsule 150 mcg PO DAILY 12/08/20 10/01/21 (Tirosint) budesonide 0.25 mg/2 mL suspension 0.25 mg inhalation BID 04/12/21 10/01/21 for nebulization febuxostat 40 mg tablet 40 mg PO DAILY 04/12/21 10/01/21 metolazone 2.5 mg tablet 2.5 mg PO DAILY 04/12/21 10/01/21 hydrocortisone 1 % topical cream 1 applic PRN 04/13/21 10/01/21 insulin aspar prot-insulin aspart 30 unit subcut BID 04/13/21 06/25/21 100 unit/mL (70-30) subcutaneous pen (Novolog Mix 70-30FlexPen U-100) ipratropium 0.5 mg-albuterol 3 mg 2.5 ml inhalation QID PRN 04/13/21 10/01/21 (2.5 mg base)/3 mL nebulization Bronchospasm soln naloxone 4 mg/actuation nasal 4 mg intranasal PRN PRN Sedation 04/13/21 10/01/21 spray (Narcan) olopatadine 0.1 % eye drops 1 drp ophthalmic (eye) BID 04/13/21 10/01/21 ondansetron HCl 4 mg tablet 4 mg PO PRN PRN Nausea And Vomiting 04/13/21 10/01/21 oxycodone 5 mg tablet (Roxicodone) 5 mg PO BID PRN Pain 04/13/21 10/01/21 subcutaneous insulin pump 10/01/21 10/01/21 Allergies Allergy/AdvReac Type Severity Reaction Status Date / Time meperidine Allergy Mild Itching Verified 10/01/21 10:23 niacin Allergy Mild Rash Verified 10/01/21 10:23 quetiapine Allergy Mild Swelling Verified 10/01/21 10:23 allopurinol Allergy Unknown Unknown Verified 10/01/21 10:23 bupropion Allergy Unknown JERKY Verified 10/01/21 10:23 MOVEMENTS carbamazepine Allergy Unknown Unknown Verified 10/01/21 10:23 [From Carbatrol] codeine Allergy Unknown Unknown Verified 10/01/21 10:23 enalapril Allergy Unknown Unknown Verified 10/01/21 10:23 fluoxetine Allergy Unknown Unknown Verified 10/01/21 10:23 lorazepam Allergy Unknown Unknown Verified 10/01/21 10:23 morphine Allergy Unknown Unknown Verified 10/01/21 10:23 Penicillins Allergy Unknown Rash Verified 10/01/21 10:23 trazodone Allergy Unknown Dizziness Verified 10/01/21 10:23 promethazine [From Phenergan] AdvReac Intermediate Hallucinati Verified 10/01/21 10:23 ng enalaprilat AdvReac Mild PERSISTENT Verified 10/01/21 10:23 COUGH modafinil AdvReac Mild SORES Verified 10/01/21 10:23 oxycodone AdvReac Mild GI DISTRESS Verified 10/01/21 10:23 Review of Systems Review of Systems: ROS unobtainable: Yes unobtainable due to medical condition PMFSH Past Medical History Medical History (Updated 11/01/21 @ 13:00 by Norman Tam MD) Anxiety and depression Atrial fibrillation Bladder prol
--- NOTE | 2021-11-01 13:02 | PC.NURSE ---
Julia Delgado [phone]
[2021-11-01] MEDS: SODIUM CHLORIDE 0.9% IV 1,000 ML 125 ML IV CONT (15:29)
--- NOTE | 2021-11-01 19:00 | PM.IMHP ---
H&P: HPI History of Present Illness Date/Time: 11/01/21 19:00 Chief Complaint: Fall and increased confusion. 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 She is not a reliable historian and has apparently told several different stories as to how she fell and as such some of the following is obtained via a review of her electronic medical records. She lives in assisted living at [place] and is typically able to get up and about in her room though she does use a walker most of the time. When going to the dining room she will use an electric scooter, however. Sometime last evening she was trying to get out of her recliner and it sounds as though the foot of the recliner may have gotten stuck and she used her right leg to take it back into place. Unfortunately she believes that she struck her right leg, more so the right knee, on the wood frame of the chair and this caused her to lose her balance and fall onto her buttocks. Eventually she used her call light and staff helped her to bed at which time they gave her a dose of her oxycodone that she is prescribed for chronic back pain. It is my understanding that this morning she was more confused than usual and she was complaining of pain in the right leg which prompted her visit to the ER today. Brain CT and imaging of the pelvis, right hip and knee were unremarkable for acute findings. Her BUN and creatinine are quite a bit higher than what she typically runs and she is being admitted in this setting. At the time my evaluation she is resting comfortably and only complains of right knee pain She denies fever and chills but she does report mild sweats. Her appetite has not been good and she reports that she is always nauseated which is unchanged. She has had mild dysuria and urgency. She denies abdominal pain, bloating, dysuria, and diarrhea. She denies head trauma and loss of consciousness in her fall yesterday. Review of Systems Review of Systems: Twelve systems were reviewed. No cold or flu symptoms. No chest pain or shortness of breath. She is on insulin pump with good control of her diabetes with a recent A1c of less than 7%. She is unable to use her insulin pump alone and will not be using it while in the hospital. No blurry vision, polydipsia, or polyuria. Except as documented, all other systems were reviewed and are negative. [facility] Past Medical History Medical History (Updated 11/01/21 @ 22:45 by Jenny Peters PA-C) Anxiety and depression Atrial fibrillation Bladder prolapse Cholangitis Chronic kidney disease, stage IV (severe) Chronic obstructive pulmonary disease Cirrhosis Congestive heart failure Constipation Diabetes mellitus Fibromyalgia Hyperlipidemia Hypertension Hypothyroidism Insulin dependent type 2 diabetes mellitus Kidney stones Nonalcoholic steatohepatitis (MARCUS) Obesity, morbid, BMI 40.0-49.9 Obstructive sleep apnea on CPAP Thrombocytopenia Surgical History Surgical History (Updated 11/01/21 @ 22:32 by Jenny Peters PA-C) AICD (automatic cardioverter/defibrillator) present History of cholecystectomy History of ERCP With stone extraction History of fusion of cervical spine History of thyroidectomy Pacemaker Status post cataract extraction of both eyes with insertion of intraocular lens Family History Family History Father Carcinoma of colon, Onset Age: 86 Renal failure Mother Diabetes mellitus Daughter Brain tumor Son Family history of mental disorder Acute myocardial infarction Premature coronary disease Social History Social History (Updated 0
[2021-11-01] MEDS: ONDANSETRON INJ 4 MG/2 ML VIAL IV PUSH (19:09)
[2021-11-01 21:05] LABS: Hemoglobin A1C 8.6 % (<5.7)
[2021-11-01] MEDS: INSULIN GLARGINE (*BKC) 100 UNITS/ML 40 UNITS SUB-Q (21:20)
[2021-11-01 21:41] LABS: Glucose Point of Care 226 mg/dl (65-105)
[2021-11-01 23:11] LABS: Creatine Kinase 66 U/L (30-135)
[2021-11-01] MEDS: SODIUM CHLORIDE 0.9% IV 1,000 ML 75 ML IV CONT (23:45)
[2021-11-01] MEDS: oxyCODONE HCL (*CRX) 2.5 MG TAB IR PO (23:46)
[2021-11-01] MEDS: MELATONIN 5 MG TABLET 10 MG PO (23:59)
[2021-11-02] VITALS (17 sets, daily range): BP systolic 103–139; BP diastolic 63–74; PULSE 63–86; RESP 16–24; TEMP 35.6–36.7; O2SAT 94–100
[2021-11-02] MEDS: CYANOCOBALAMIN 1,000 MCG TABLET 1000 MCG PO (00:09)
[2021-11-02] MEDS: LEVOTHYROXINE SODIUM 150 MCG TABLET PO (07:09)
[2021-11-02 07:41] LABS: Hematocrit 32.3 % (37.0-47.0); Hemoglobin 10.8 g/dL (12.0-15.0); Mean Corpuscular HGB Conc 33.4 g/dl (32-36); Mean Corpuscular Hemoglobin 30.9 pg (26-34); Mean Corpuscular Volume 92.6 fl (80-100); Mean Platelet Volume 11.1 fl (7.4-10.4); Platelet Count Result 122 k/mm3 (150-375); Red Blood Count 3.49 M/mm3 (4.2-5.4); Red Cell Distribution Width 13.2 % (11.5-14.5)
[2021-11-02 07:47] LABS: Glucose Point of Care 251 mg/dl (65-105)
[2021-11-02 08:08] LABS: Alanine Aminotransferase 52 U/L (6-35); Albumin Level 3.4 g/dL (3.5-5.1); Alkaline Phosphatase 251 U/L (38-126); Anion Gap 8 mmol/L (8-16); Aspartate Amino Transferase 52 U/L (14-36); Bilirubin,Total 1.5 mg/dL (0.2-1.3); Blood Urea Nitrogen 79 mg/dL (7-17); Calcium 8.2 mg/dL (8.4-10.2); Carbon Dioxide 30 mmol/L (22-30); Chloride 98 mmol/L (98-107); Estimated CRCL calculation 17 ml/min; Estimated Glomerular Filt Rate 17; Glucose 243 mg/dL (65-110); Phosphorus 4.7 mg/dL (2.5-4.5); Potassium 3.9 mmol/L (3.4-5.0); Sodium 136 mmol/L (137-145)
[2021-11-02] MEDS: INSULIN ASPART (*BKC) 100 UNITS/ML SUB-Q ×3 (08:32→17:01)
[2021-11-02] MEDS: GABAPENTIN 300 MG CAPSULE PO ×3 (08:35→13:42)
[2021-11-02] MEDS: PANTOPRAZOLE 40 MG TABLET PO (08:35)
[2021-11-02] MEDS: CALCIUM CARBONATE (TUMS) 500 MG (200 MG ELEMENTAL) PO (08:36)
[2021-11-02] MEDS: FEBUXOSTAT 40 MG TABLET PO (08:36)
[2021-11-02] MEDS: ASPIRIN 81 MG CHEWABLE TABLET PO (08:36)
[2021-11-02] MEDS: MULTIVITAMINS THERAPEUTIC TAB (*BKC) 1 TABLET PO (08:36)
[2021-11-02] MEDS: LIPASE/AMYLASE/PROTEASE 12,000 UNITS CAP 1 CAP PO ×2 (08:36→13:42)
[2021-11-02] MEDS: carvediloL 12.5 MG TABLET PO ×3 (08:37→21:02)
[2021-11-02] MEDS: LORATADINE 10 MG TABLET PO (08:37)
[2021-11-02] MEDS: LINACLOTIDE 145 MCG CAPSULE PO (08:37)
[2021-11-02] MEDS: amLODIPine BESYLATE 5 MG TABLET PO (08:37)
[2021-11-02] MEDS: OLOPATADINE 0.1% OPHTH SOLN 5 ML BTL 1 DROP EACH EYE (08:38)
[2021-11-02] MEDS: oxyCODONE HCL (*CRX) 2.5 MG TAB IR PO (08:41)
[2021-11-02 08:50] LABS: Thyroid Stimulating Hormone Reflex 0.029 uIU/mL (0.465-4.68)
[2021-11-02] MEDS: BUDESONIDE RESPULE NEB 0.5 MG/2 ML AMP 0.25 MG INHALATION ×2 (09:09→21:23)
[2021-11-02] MEDS: ALBUTEROL SULFATE NEB 2.5 MG/0.5 ML INH INHALATION (09:11)
[2021-11-02] MEDS: IPRATROPIUM BR 0.02% INH SOLN 0.5 MG/2.5 ML VIAL INHALATION (09:11)
[2021-11-02 11:34] LABS: Glucose Point of Care 300 mg/dl (65-105)
--- NOTE | 2021-11-02 12:23 | PCCCNOTE ---
On 11/02/21, the student, [Latricia Frausto], provided care and completed [facility] documentation on this patient. I have reviewed the student's documentation and agree with the findings.
[2021-11-02 12:35] LABS: Free T4 Free Thyroxine Reflex 3.66 ng/dL (0.78-2.19)
[2021-11-02 12:37] LABS: Alveolar/Arterial O2 Gradient 48.1 mmHg; Base Excess ABG 2.1 mEq/l (+/-2.0); Fractional Inspired Oxygen 28 %; HCO3 ABG 28.1 mEq/l (22.0-26.0); Oxygen Content ABG 17.1 %vol (16.0-22.0); Oxygen Saturation ABG 96.9 % (95.0-100.0); Oxyhemoglobin 95.7 % THb (90.0-100.0); PCO2 ABG 49.3 mmHg (35.0-45.0); PO2 ABG 93.4 mmHg (80.0-100.0); PO2 FiO2 Ratio Arterial Blood 3.34 %; Total Hemoglobin 12.6 g/dL (12.0-18.0); pH ABG 7.373 (7.350-7.450)
[2021-11-02 12:39] LABS: Device NASAL CANNULA; Modified Allen's Test Pass; Site Drawn LEFT RADIAL
--- NOTE | 2021-11-02 12:52 | PM.IMPN ---
Progress Note: A&P Assessment and Plan (1) Acute on chronic kidney failure: Code(s): N17.9 - Acute kidney failure, unspecified; N18.9 - Chronic kidney disease, unspecified Status: Acute Assessment and Plan: -According to the patient's daughter, her home restoration service cleaner thinks that she may be nearing dialysis. Baseline creatinine 1.90 about a month and a half ago. -Renal function improved with IV hydration. GFR 17. Repeat labs tomorrow. -close monitoring of volume status and I/O. -Avoid nephrotoxic agents. Renally dose home medications. (2) Confusion: Code(s): R41.0 - Disorientation, unspecified Status: Acute Assessment and Plan: -May very well be related to worsening renal function/uremia, UTI, or polypharmacy. -Brain CT was unremarkable. -confusion waxes & wanes. ?underlying dementia. -check B12 level. -TSH low, free T4 high - decrease levothyroxine dose -ABG with mildly elevated pCO2 49 but normal pH 7.3, bicarb 28, likely chronic. Continue bipap daytime naps & HS. (3) Transaminitis: Code(s): R74.01 - Elevation of levels of liver transaminase levels Status: Acute Assessment and Plan: Known cirrhosis related to MARCUS. Abdominal exam is benign. CK normal. -monitor trend. -Ammonia <9 (4) Abnormal urinalysis: Code(s): R82.90 - Unspecified abnormal findings in urine Status: Acute Assessment and Plan: Urine is positive for 2+ leukocyte esterase, trace bacteria, and 10 to 15 wbc's. Will treat -start renally dosed levaquin and adjust pending culture results. -Lactic acid normal. (5) Fall from ground level: Code(s): W18.30XA - Fall on same level, unspecified, initial encounter Status: Acute Assessment and Plan: Patient apparently had a ground level fall sometime last evening, uncertain how long she was down. -Initiate fall precautions. -PT/OT consulted. -Right knee x-ray has been ordered due to complaints after fall. -CK normal. May be secondary to acute infection, dehydration and/or polypharmacy. (6) Insulin dependent type 2 diabetes mellitus: Code(s): E11.9 - Type 2 diabetes mellitus without complications; Z79.4 - [facility] (current) use of insulin Status: Acute Assessment and Plan: Remove insulin pump while hospitalized as she has difficulties doing it herself. -Start Lantus 40 units q.h.s. -Initiate sliding scale insulin, Accu-Cheks, and hypoglycemic protocol. -hemoglobin A1c 8.6% (7) Liver cirrhosis secondary to MARCUS: Code(s): K75.81 - Nonalcoholic steatohepatitis (MARCUS); K74.60 - Unspecified cirrhosis of liver Status: Acute Assessment and Plan: -No evidence of decompensation. -Continue home medications except hold lasix and spironolactone while hydration with IV fluids. Time Spent With Patient Time with patient: 25 - 35 minutes Subjective Date/time seen: 11/02/21 12:52 Patient is an 81 yo female with medical history of CKD, CHF, COPD, diabetes, hypertension and CATARINO, who was admitted for altered mental status, fall, and presumed acute on chronic renal disease. Patient was found lying in bed. She is lethargic and opens eyes to commands. She is not answering questions at this time. Nursing reports the patient was like this earlier in the day, however, a few minutes later she was awake and oriented x3, answering all questions. Per nursing, assisted living facility reports the patient's baseline is AOx1-2. Review of Systems Review of Systems: ROS unobtainable: Yes unobtainable due to mental status Exam Narrative: General: Chronically ill-appearing elderly female lying in bed. Obese. O2 2L NC. HEENT: Normocephalic. Atraumatic. PERRL, EOMI. Sclerae anicteric. Neck: Supple. Exam limited due to neck circumference. No obvious JVD. Respiratory: RR shallow and unlabored. Lung sounds are diminished due to body habitus. Cardiovascular: Regular rate and rhythm
[2021-11-02 13:12] LABS: Lactic Acid Reflex 0.8 mmol/L (0.7-2.0)
[2021-11-02 13:12] LABS: Ammonia < 9 umol/L (9-30)
[2021-11-02 14:02] LABS: Procalcitonin 0.3 ng/mL; Vitamin D 25 Hydroxy 76.1 ng/mL
--- NOTE | 2021-11-02 15:31 | PCPTNOTE ---
attempted PT evaluation ~ 1430; pt lethargic and unable to arouse her. She would not open her eyes or vocalize;
[2021-11-02 16:29] LABS: Folic Acid > 20.0 ng/mL (2.76->20)
[2021-11-02] MEDS: SODIUM CHLORIDE 0.9% IV 1,000 ML 75 ML IV CONT (16:35)
[2021-11-02 16:44] LABS: Glucose Point of Care 378 mg/dl (65-105)
[2021-11-02 17:24] LABS: Vitamin B12 > 1000.0 pg/mL (239-931)
[2021-11-02] MEDS: INSULIN GLARGINE (*BKC) 100 UNITS/ML 40 UNITS SUB-Q (21:00)
[2021-11-02] MEDS: MELATONIN 5 MG TABLET 10 MG PO (21:01)
[2021-11-02] MEDS: HEPARIN SODIUM 5,000 UNITS/ML VIAL 5000 UNITS SUB-Q (21:05)
[2021-11-03] VITALS (13 sets, daily range): BP systolic 130–138; BP diastolic 56–65; PULSE 64–88; RESP 15–20; TEMP 36.3–36.7; O2SAT 94–98
[2021-11-03 00:51] LABS: Glucose Point of Care 328 mg/dl (65-105)
[2021-11-03] MEDS: LEVOTHYROXINE SODIUM 125 MCG TABLET PO (06:10)
[2021-11-03 07:00] LABS: Basophils Percent Auto 0.8 % (0.2-1.2); Eosinophils Absolute Auto 0.2 K/mm3 (0-0.3); Hematocrit 33.5 % (37.0-47.0); Hemoglobin 11.2 g/dL (12.0-15.0); Immature Granulocyte Absolute 0.02 K/mm3 (0.00-0.031); Immature Granulocyte Percent A 0.4 % (0-0.5); Lymphocytes Percent Auto 25.2 % (18.3-44.2); Mean Corpuscular HGB Conc 33.4 g/dl (32-36); Mean Corpuscular Volume 92.8 fl (80-100); Monocytes Absolute Auto 0.4 K/mm3 (0.1-0.6); Monocytes Percent Auto 7.8 % (2.6-8.5); Neutrophils Percent Auto 61.8 % (45.5-73.1); Platelet Count Result 128 k/mm3 (150-375); Red Blood Count 3.61 M/mm3 (4.2-5.4); Red Cell Distribution Width 13.1 % (11.5-14.5); White Blood Count 4.8 K/mm3 (4.5-10.0)
[2021-11-03 07:20] LABS: Anion Gap 5 mmol/L (8-16); Blood Urea Nitrogen 64 mg/dL (7-17); Calcium 8.6 mg/dL (8.4-10.2); Carbon Dioxide 32 mmol/L (22-30); Chloride 101 mmol/L (98-107); Estimated CRCL calculation 21 ml/min; Estimated Glomerular Filt Rate 22; Glucose 245 mg/dL (65-110); Potassium 4.4 mmol/L (3.4-5.0); Sodium 138 mmol/L (137-145)
[2021-11-03 08:20] LABS: Glucose Point of Care 249 mg/dl (65-105)
[2021-11-03] MEDS: BUDESONIDE RESPULE NEB 0.5 MG/2 ML AMP 0.25 MG INHALATION ×2 (09:13→20:06)
[2021-11-03] MEDS: INSULIN ASPART (*BKC) 100 UNITS/ML SUB-Q ×3 (09:35→18:32)
[2021-11-03] MEDS: ASPIRIN 81 MG CHEWABLE TABLET PO (09:45)
[2021-11-03] MEDS: LIPASE/AMYLASE/PROTEASE 12,000 UNITS CAP 1 CAP PO ×3 (09:45→18:31)
[2021-11-03] MEDS: oxyCODONE HCL (*CRX) 2.5 MG TAB IR PO ×2 (09:45→21:20)
[2021-11-03] MEDS: GABAPENTIN 300 MG CAPSULE PO ×3 (09:45→18:31)
[2021-11-03] MEDS: FEBUXOSTAT 40 MG TABLET PO (09:46)
[2021-11-03] MEDS: carvediloL 12.5 MG TABLET PO ×2 (09:46→21:21)
[2021-11-03] MEDS: amLODIPine BESYLATE 5 MG TABLET PO (09:47)
[2021-11-03] MEDS: HEPARIN SODIUM 5,000 UNITS/ML VIAL 5000 UNITS SUB-Q ×2 (09:47→21:21)
[2021-11-03] MEDS: PANTOPRAZOLE 40 MG TABLET PO (09:48)
[2021-11-03] MEDS: MULTIVITAMINS THERAPEUTIC TAB (*BKC) 1 TABLET PO (09:48)
[2021-11-03] MEDS: OLOPATADINE 0.1% OPHTH SOLN 5 ML BTL 1 DROP EACH EYE ×2 (09:52→18:32)
--- NOTE | 2021-11-03 10:25 | PM.IMPN ---
Progress Note: A&P Assessment and Plan (1) Acute on chronic kidney failure: Code(s): N17.9 - Acute kidney failure, unspecified; N18.9 - Chronic kidney disease, unspecified Status: Acute Assessment and Plan: -According to the patient's daughter, her bilingual teacher thinks that she may be nearing dialysis. Baseline creatinine 1.90 about a month and a half ago. -Renal function improving with IV hydration. GFR 22. Decrease IV fluids to 50 mL/hour and encourage oral water intake. -close monitoring of volume status and I/O. -Avoid nephrotoxic agents. Renally dose home medications. -if renal function continues to improve tomorrow will resume diuretic therapy for MARCUS. (2) Confusion: Code(s): R41.0 - Disorientation, unspecified Status: Acute Assessment and Plan: -May very well be related to worsening renal function/uremia, UTI, or polypharmacy. -Brain CT was unremarkable. -confusion waxes & wanes. ?underlying dementia. - B12 level within normal limits -TSH low, free T4 high - decrease levothyroxine dose by 25 mcg -ABG with mildly elevated pCO2 49 but normal pH 7.3, bicarb 28, likely chronic. Continue bipap daytime naps & HS. -patient is more alert today although tearful and anxious. Altered mental status may be secondary to worsening depression, although patient has not had her Trintellix in the past 48 hours as this is not available on the hospital formulary and family is to bring medication in. Given patient is visibly distressed we will give Haldol 1 mg p.o. x1 and resume Trintellix when available. (3) Transaminitis: Code(s): R74.01 - Elevation of levels of liver transaminase levels Status: Acute Assessment and Plan: Known cirrhosis related to MARCUS. Abdominal exam is benign. CK normal. -monitor trend. -Ammonia within normal limits (4) Abnormal urinalysis: Code(s): R82.90 - Unspecified abnormal findings in urine Status: Acute Assessment and Plan: Urine is positive for 2+ leukocyte esterase, trace bacteria, and 10 to 15 wbc's. Will treat -urine culture shows mixed jenny. Antibiotics stopped. -Lactic acid normal. (5) Fall from ground level: Code(s): W18.30XA - Fall on same level, unspecified, initial encounter Status: Acute Assessment and Plan: Patient apparently had a ground level fall sometime last evening, uncertain how long she was down. -Initiate fall precautions. -PT/OT consulted. -Right knee x-ray without acute fracture -CK normal. (6) Insulin dependent type 2 diabetes mellitus: Code(s): E11.9 - Type 2 diabetes mellitus without complications; Z79.4 - terminal makeup operator (current) use of insulin Status: Acute Assessment and Plan: Remove insulin pump while in the ER as she has difficulties doing it herself. -was started on Lantus 40 units q. HS while in the hospital. -patient has had significant hyperglycemia. Blood glucose 300s to 408 this afternoon. -give aspart 20 units subQ x1 for lunch today. -start aspart 4 units subcu plus high-dose sliding scale with meals -continue Accu-Cheks, and hypoglycemic protocol. -hemoglobin A1c 8.6% -nursing attempting to find out patient's insulin pump settings. 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 -Continue home medications except hold lasix and spironolactone while hydration with IV fluids. (8) Depression: Code(s): F32.A - Depression, unspecified Status: Acute Assessment and Plan: Continue Trintellix Time Spent With Patient Time with patient: 25 - 35 minutes Subjective Date/time seen: 11/03/21 10:25 81-year-old female with medical history significant for chronic kidney disease, CHF unspecified, COPD, insulin-dependent diabetes, hypertension, and sle
[2021-11-03 11:40] LABS: Glucose Point of Care 408 mg/dl (65-105)
[2021-11-03] MEDS: INSULIN ASPART (*BKC) 100 UNITS/ML 20 UNITS SUB-Q (12:31)
[2021-11-03] MEDS: TROLAMINE SALICYLATE 10% (*BKC) 113 GM CREAM 1 APPLIC TOPICAL ×3 (12:32→21:22)
[2021-11-03] MEDS: HALOPERIDOL 1 MG TABLET PO (12:32)
[2021-11-03] MEDS: SODIUM CHLORIDE 0.9% IV 1,000 ML 50 ML IV CONT (14:00)
[2021-11-03 16:58] LABS: Glucose Point of Care 363 mg/dl (65-105)
[2021-11-03] MEDS: ALBUTEROL SULFATE NEB 2.5 MG/0.5 ML INH INHALATION (20:06)
[2021-11-03] MEDS: IPRATROPIUM BR 0.02% INH SOLN 0.5 MG/2.5 ML VIAL INHALATION (20:06)
[2021-11-03] MEDS: INSULIN GLARGINE (*BKC) 100 UNITS/ML 40 UNITS SUB-Q (21:19)
[2021-11-03] MEDS: MELATONIN 5 MG TABLET 10 MG PO (21:22)
[2021-11-03] MEDS: INSULIN ASPART (*BKC) 100 UNITS/ML 8 UNITS SUB-Q (21:23)
[2021-11-03 22:08] LABS: Glucose Point of Care 355 mg/dl (65-105)
--- NOTE | 2021-11-03 23:04 | PCRCNOTE ---
Patient refused to wear CPAP tonight stating, the mask was too tight last night . Needle Bar Molder offered to adjust mask for comfort and compliance but the patient still refused. Needle Bar Molder reminded patient of importance of wearing a CPAP but patient still refused.
[2021-11-04 06:00] VITALS: BP 148/75; PULSE 91; RESP 18; TEMP 36.6; O2SAT 100
[2021-11-04] MEDS: LEVOTHYROXINE SODIUM 125 MCG TABLET PO (06:31)
[2021-11-04 06:44] LABS: Basophils Percent Auto 0.6 % (0.2-1.2); Eosinophils Absolute Auto 0.3 K/mm3 (0-0.3); Eosinophils Percent Auto 5.3 % (0-4.4); Hematocrit 34.5 % (37.0-47.0); Hemoglobin 11.5 g/dL (12.0-15.0); Immature Granulocyte Absolute 0.02 K/mm3 (0.00-0.031); Immature Granulocyte Percent A 0.4 % (0-0.5); Lymphocytes Absolute Auto 1.47 K/mm3 (0.9-3.2); Lymphocytes Percent Auto 31.2 % (18.3-44.2); Mean Corpuscular HGB Conc 33.3 g/dl (32-36); Mean Corpuscular Hemoglobin 30.9 pg (26-34); Mean Corpuscular Volume 92.7 fl (80-100); Mean Platelet Volume 10.6 fl (7.4-10.4); Monocytes Absolute Auto 0.3 K/mm3 (0.1-0.6); Monocytes Percent Auto 6.8 % (2.6-8.5); Neutrophils Absolute Auto 2.6 K/mm3 (1.3-6.7); Neutrophils Percent Auto 55.7 % (45.5-73.1); Platelet Count Result 129 k/mm3 (150-375); Red Blood Count 3.72 M/mm3 (4.2-5.4); Red Cell Distribution Width 12.9 % (11.5-14.5); White Blood Count 4.7 K/mm3 (4.5-10.0)
[2021-11-04 07:02] LABS: Anion Gap 4 mmol/L (8-16); Blood Urea Nitrogen 48 mg/dL (7-17); Calcium 8.7 mg/dL (8.4-10.2); Carbon Dioxide 31 mmol/L (22-30); Chloride 104 mmol/L (98-107); Estimated CRCL calculation 27 ml/min; Estimated Glomerular Filt Rate 29; Glucose 206 mg/dL (65-110); Potassium 4.1 mmol/L (3.4-5.0); Sodium 139 mmol/L (137-145)
[2021-11-04 08:00] VITALS: O2SAT 96
[2021-11-04 08:21] LABS: Glucose Point of Care 197 mg/dl (65-105)
[2021-11-04] MEDS: BUDESONIDE RESPULE NEB 0.5 MG/2 ML AMP 0.25 MG INHALATION (08:38)
[2021-11-04 08:40] VITALS: PULSE 77; RESP 18; O2SAT 99
[2021-11-04 08:47] VITALS: PULSE 100; RESP 18
[2021-11-04] MEDS: PANTOPRAZOLE 40 MG TABLET PO (09:35)
[2021-11-04] MEDS: LIPASE/AMYLASE/PROTEASE 12,000 UNITS CAP 1 CAP PO ×2 (09:35→13:40)
[2021-11-04] MEDS: GABAPENTIN 300 MG CAPSULE PO ×2 (09:35→13:41)
[2021-11-04] MEDS: LINACLOTIDE 145 MCG CAPSULE PO (09:35)
[2021-11-04] MEDS: MULTIVITAMINS THERAPEUTIC TAB (*BKC) 1 TABLET PO (09:35)
[2021-11-04 09:36] VITALS: PULSE 74
[2021-11-04] MEDS: ASPIRIN 81 MG CHEWABLE TABLET PO (09:36)
[2021-11-04] MEDS: carvediloL 12.5 MG TABLET PO (09:36)
[2021-11-04] MEDS: amLODIPine BESYLATE 5 MG TABLET PO (09:36)
[2021-11-04] MEDS: FEBUXOSTAT 40 MG TABLET PO (09:36)
[2021-11-04] MEDS: HEPARIN SODIUM 5,000 UNITS/ML VIAL 5000 UNITS SUB-Q (09:41)
[2021-11-04] MEDS: SPIRONOLACTONE 25 MG TABLET PO (09:42)
[2021-11-04] MEDS: FUROSEMIDE 40 MG TABLET PO (09:42)
[2021-11-04] MEDS: OLOPATADINE 0.1% OPHTH SOLN 5 ML BTL 1 DROP EACH EYE (09:42)
[2021-11-04] MEDS: TROLAMINE SALICYLATE 10% (*BKC) 113 GM CREAM 1 APPLIC TOPICAL ×2 (09:42→13:41)
[2021-11-04] MEDS: INSULIN ASPART (*BKC) 100 UNITS/ML SUB-Q ×2 (09:42→13:40)
[2021-11-04] MEDS: ACETAMINOPHEN 325 MG TABLET 650 MG PO (11:27)
[2021-11-04 12:00] LABS: Glucose Point of Care 423 mg/dl (65-105)
[2021-11-04] MEDS: LIDOCAINE 5% PATCH 2 PATCH TRANSDERM (13:41)
[2021-11-04 14:00] VITALS: BP 125/57; PULSE 75; RESP 20; TEMP 36.5; O2SAT 98
--- NOTE | 2021-11-04 14:20 | PM.DS ---
DS: Admitting Diagnosis Discharge Date 11/04/2021 1438 Admitting Diagnosis Acute on chronic kidney failure Altered mental status MARCUS with transaminitis Abnormal urinalysis Fall from ground level Right knee pain DS: Discharge Diagnosis Discharge Diagnosis (1) Acute on chronic renal failure: Qualifiers: Acute renal failure type: unspecified Chronic kidney disease stage: stage 4 (severe) Qualified Code(s): N17.9 - Acute kidney failure, unspecified; N18.4 - Chronic kidney disease, stage 4 (severe) Code(s): N17.9 - Acute kidney failure, unspecified; N18.9 - Chronic kidney disease, unspecified Status: Acute (2) Acute encephalopathy: Code(s): G93.40 - Encephalopathy, unspecified Status: Acute (3) Hypercarbia: Code(s): R06.89 - Other abnormalities of breathing Status: Chronic (4) Chronic back pain: Qualifiers: Back pain location: low back pain Back pain laterality: left Sciatica presence: without sciatica Qualified Code(s): M54.50 - Low back pain, unspecified; G89.29 - Other chronic pain Code(s): M54.9 - Dorsalgia, unspecified; G89.29 - Other chronic pain Status: Chronic (5) Obstructive sleep apnea on CPAP: Code(s): G47.33 - Obstructive sleep apnea (adult) (pediatric); Z99.89 - Dependence on other enabling machines and devices Status: Chronic (6) Insulin dependent type 2 diabetes mellitus: Code(s): E11.9 - Type 2 diabetes mellitus without complications; Z79.4 - retirement (current) use of insulin Status: Chronic (7) 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 DS: Summary Hospital Course Reason for hospitalization: Altered mental status Hospital Course: Roosevelt Penn is an 81-year-old female, with insulin-dependent type 2 diabetes mellitus, hypothyroidism, cirrhosis due to MARCUS, congestive heart failure, obstructive sleep apnea, chronic kidney disease stage 4, and hypertension, who presented to the emergency department via EMS from [facility] for evaluation following a fall and increased confusion. She apparently told several different stories as to how she fell and as such some of the following is obtained via a review of her electronic medical records. She typically is able to get up and about in her room though she does use a walker most of the time. When going to the dining room she will use an electric scooter, however. Sometime the evening prior to admission, she was trying to get out of her recliner and it sounds as though the foot of the recliner may have gotten stuck and she used her right leg to take it back into place.? Unfortunately she believes that she struck her right leg, more so the right knee, on the wood frame of the chair and this caused her to lose her balance and fall onto her buttocks. Eventually she used her call light and staff helped her to bed at which time they gave her a dose of her oxycodone that she is prescribed for chronic back pain. On the morning of admission, she was more confused than usual and she was complaining of pain in the right leg which prompted her visit to the ER. Brain CT and imaging of the pelvis, right hip and knee were unremarkable for acute findings. Her BUN and creatinine are quite a bit higher than what she typically runs. She denies fever and chills but she does report mild sweats. Her appetite has not been good and she reports that she is always nauseated which is unchanged. She has had mild dysuria and urgency. She denied abdominal pain, bloating, dysuria, and diarrhea. She denies head trauma and loss of consciousness following her fall. The patient was admitted to the medical floor and
[2021-11-04 16:09] LABS: EDCOVIDSCREEN Negative (Negative)
[2021-11-04 16:22] LABS: Glucose Point of Care 423 mg/dl (65-105)
== END 2021-11-04 17:14 | DRG 682 ==
LOC: ANHED 13:00 → ANH3MEDSUR 13:47
PROVIDERS: Physician Assistant; Admitting Provider Student in an Organized Health Care Education/Training Program; Emergency Provider Emergency Medicine; PCP Internal Medicine; Visit Provider Nurse Practitioner Family
DX: N17.9 Acute kidney failure, unspecified (principal); G93.41 Metabolic encephalopathy; I13.0 Hypertensive heart and chronic kidney disease with heart failure and stage 1 through stage 4 chronic kidney disease, or unspecified chronic kidney disease; Z68.41 Body mass index [BMI] 40.0-44.9, adult; N18.4 Chronic kidney disease, stage 4 (severe); I50.9 Heart failure, unspecified; M54.50 Low back pain, unspecified; Z20.822 Contact with and (suspected) exposure to COVID-19; G89.29 Other chronic pain; G47.33 Obstructive sleep apnea (adult) (pediatric); K75.81 Nonalcoholic steatohepatitis (NASH); K74.60 Unspecified cirrhosis of liver; R82.71 Bacteriuria; M25.561 Pain in right knee; W18.39XA Other fall on same level, initial encounter; I48.91 Unspecified atrial fibrillation; E78.5 Hyperlipidemia, unspecified; E11.22 Type 2 diabetes mellitus with diabetic chronic kidney disease; N18.9 Chronic kidney disease, unspecified; M79.7 Fibromyalgia; E03.9 Hypothyroidism, unspecified; E66.01 Morbid (severe) obesity due to excess calories; F41.8 Other specified anxiety disorders; Z79.4 Long term (current) use of insulin; Z87.442 Personal history of urinary calculi; Z95.810 Presence of automatic (implantable) cardiac defibrillator; Z90.49 Acquired absence of other specified parts of digestive tract; Z98.1 Arthrodesis status; Z98.42 Cataract extraction status, left eye; Z98.41 Cataract extraction status, right eye; Z96.1 Presence of intraocular lens; Z66 Do not resuscitate; Z79.82 Long term (current) use of aspirin; E86.0 Dehydration
CPT/HCPCS: 36415; 36600; 70450; 71045; 73502; 73562; 80048; 80053; 81001; 82140; 82306; 82375; 82550; 82607; 82746; 82805; 82948; 83036; 83050; 83605; 83735; 84100; 84145; 84439; 84443; 85025; 85027; 85610; 85730; 87086; 87088; 87426; 93005; 94640; 96361; 96365; 96366; 96375; 97110; 97161; 97165; 97530; 97535; 99285; A9270; C9803; G0378; J1644; J1815; J1956; J2405; J7030

== ENCOUNTER 2022-03-17 10:33 | Emergency (ER) | payer MEDICARE, OTHER, SELFPAY ==
[2022-03-17] VITALS (7 sets, daily range): BP systolic 135–172; BP diastolic 55–86; PULSE 79–93; RESP 15–29; O2SAT 94–99
--- NOTE | ~2022-03-17 | XR_ITS ---
EXAMINATION: XR chest 2V DATE: 03/17/2022 11:32 INDICATION: Chest pain. COPD. TECHNIQUE: frontal view of the chest was obtained. COMPARISON: Chest radiograph dated 11/11/2021 FINDINGS: Calcified nodules in the right lung and calcified right hilar and mediastinal lymph nodes consistent with old granulomatous disease. No other airspace opacities, pulmonary edema, pleural effusion or pne umothorax. Cardiomegaly with bilateral paracardial fat pads. Three lead pacemaker seen with leads pro jecting over the expected locations of the right atrial appendage, apex of the right ventricle and ov erlying the left ventricle likely having traversed the coronary sinus. Multiple vertebral plasties at the lower thoracic and upper lumbar spine. IMPRESSION: 1. No acute cardiopulmonary disease. 2. Cardiomegaly. Reviewed, dictated and finalized at location A.
--- NOTE | ~2022-03-17 | CT_ITS ---
EXAMINATION: CT abdomen pelvis wo con DATE: 03/17/2022 12:48 INDICATION: Upper abdominal pain. Recent urinary tract infection. TECHNIQUE: Computed tomography (CT) of the abdomen and pelvis was performed without intravenous contr ast. Automated exposure control and iterative reconstruction technique were employed. The dose-length product was 1415.19 mGy-cm. COMPARISON: 12/10/2020 FINDINGS: Ossified right middle lobe nodules, calcified right hilar lymph nodes and a few hepatic and multiple splenic calcifications, all consistent with old granulomatous disease. Mild dependent atelectasis in the bilateral lower lobes. Cardiomegaly. Three lead pacemaker with lead tips terminating at the right atrial appendage, apex of the right ventricle and in a coronary vein overlying the lateral wall of t he left ventricle having traversed the coronary sinus. No pericardial or pleural effusion. Small slid ing-type hiatal hernia. Chronic intra-and extra hepatic biliary ductal dilation with pneumobilia like ly related to prior cholecystectomy with sphincterotomy. Liver surface nodularity consistent with cir rhosis. Borderline splenomegaly measuring 13 cm in length with small splenule along side the caudal t ip of the spleen. Chronic fatty atrophy of the pancreas with multiple tiny dystrophic calcification a t the pancreatic tail, likely sequela of chronic pancreatitis. Bilateral adrenal glands and right kid yessenia are normal. Severe left renal atrophy with regions of pancreatic scarring. [address] one at the mid left kidney. 1 cm cyst at the lower pole of the left kidney. Bladder is normal. The ut erus is not identified and has likely been surgically resected. Small fat-containing bilateral inguin al hernias. There is mild colonic diverticulosis with a sigmoid predominance. There is no adjacent i nflammatory change to suggest diverticulitis. No bowel obstruction. No free intraperitoneal gas or fl uid. No pathologically enlarged abdominal or pelvic lymphadenopathy. Stable appearance of multiple co mpression and burst fractures throughout the lumbar and lower thoracic spine with vertebral plasties at each level from T11 through L4. IMPRESSION: 1. No acute intra-abdominal/pelvic process. 2. Cardiomegaly. 3. Cirrhosis and borderline splenomegaly which could be related to body habitus or secondary portal v enous hypertension. 4. Severe left renal atrophy with cortical scarring. 5. Small sliding-type hiatal hernia. 6. Small bilateral fat-containing inguinal hernias. Reviewed, dictated and finalized at location A. IMPRESSION: 1. No acute intra-abdominal/pelvic process. 2. Cardiomegaly. 3. Cirrhosis and borderline splenomegaly which could be related to body habitus or secondary portal venous hypertension. 4. Severe left renal atrophy with cortical scarring. 5. Small sliding-type hiatal hernia. 6. Small bilateral fat-containing inguinal hernias.
--- NOTE | 2022-03-17 11:00 | ECG_ITS ---
Measurements Intervals [place] Rate: 78 P: 134 RI: 202 QRS: 217 QRSD: 145 T: 30 QT: 439 QTc: 502 Interpretive Statements ELECTRONIC ATRIAL PACEMAKER ELECTRONIC VENTRICULAR PACEMAKER ABNORMAL RHYTHM ECG COMPARED TO ECG 11/01/2021 09:51:20 NO SIGNIFICANT CHANGES Electronically Signed On 03-17-2022 19:47:13 CDT by Jasmina Naik M.D.
--- NOTE | 2022-03-17 11:13 | ED.CHESTPAIN ---
HPI - Chest Pain General Chief Complaint: Chest Pain Stated Complaint: CHEST PAIN Time Seen by Provider: 03/17/22 10:43 History of Present Illness HPI narrative: Patient is an 82-year-old female with a history of CKD, COPD, CHF here for evaluation of upper abdominal pain over the past day. Patient states the pain is sharp and stabbing in nature in her upper abdomen, does not radiate. Came on when she was at rest, no exertional component. Mildly relieved with her home oxycodone. Denies history of previous similar sensation. Patient denies any chest pain or tightness. Denies any nausea, vomiting, diarrhea, constipation, fevers or chills. Patient underwent eval by her golf ball cover treater last week for confusion and weakness, was found to have UTI and is currently being treated with Cipro. Patient's daughter states that confusion and weakness has markedly improved. Related Data Home Medications Medication Instructions Recorded Confirmed amlodipine 5 mg tablet 5 mg PO DAILY 02/10/20 11/01/21 aspirin 81 mg chewable tablet 81 mg PO DAILY 02/10/20 11/01/21 carvedilol 12.5 mg tablet 12.5 mg PO BID 02/10/20 11/01/21 ergocalciferol (vitamin D2) 1,250 50,000 unit PO WEEKLY 02/10/20 11/01/21 mcg (50,000 unit) capsule fluticasone propionate 50 1 spray intranasal BID PRN Allergy 02/10/20 11/01/21 mcg/actuation nasal Symptoms spray,suspension (Flonase Allergy Relief) spironolactone 25 mg tablet 25 mg PO DAILY 02/10/20 11/01/21 budesonide 0.25 mg/2 mL suspension 0.25 mg inhalation BID 04/12/21 11/01/21 for nebulization febuxostat 40 mg tablet 40 mg PO DAILY 04/12/21 11/01/21 metolazone 2.5 mg tablet 2.5 mg PO DAILY 04/12/21 11/01/21 hydrocortisone 1 % topical cream 1 applic topical PRN PRN Itching 04/13/21 11/01/21 ipratropium 0.5 mg-albuterol 3 mg 2.5 ml inhalation QID PRN 04/13/21 11/01/21 (2.5 mg base)/3 mL nebulization Bronchospasm soln naloxone 4 mg/actuation nasal 4 mg intranasal PRN PRN Sedation 04/13/21 11/01/21 spray (Narcan) olopatadine 0.1 % eye drops 1 drp ophthalmic (eye) BID 04/13/21 11/01/21 ondansetron HCl 4 mg tablet 4 mg PO PRN PRN Nausea And Vomiting 04/13/21 11/01/21 subcutaneous insulin pump 10/01/21 11/01/21 cyanocobalamin (vitamin B-12) 1 tablet PO QPM 11/01/21 11/01/21 1,000 mcg tablet linaclotide 145 mcg capsule 145 mcg PO EVERY OTHER DAY 11/01/21 11/01/21 (Linzess) aznizu-aymxlpcj-ptezuwk 1 cap PO TID 11/01/21 11/01/21 12,000-38,000-60,000 unit capsule,delayed rel (Creon) melatonin 10 mg tablet 10 mg PO HS 11/01/21 11/01/21 multivitamin with folic acid 400 1 tablet PO DAILY 11/01/21 11/01/21 mcg tablet (Tab-A-Altagracia) polyethylene glycol 3350 17 17 g PO DAILY PRN Constipation 11/01/21 11/01/21 gram/dose oral powder (Miralax) vortioxetine 20 mg tablet 1 tablet PO DAILY 11/01/21 11/01/21 (Trintellix) Allergies Allergy/AdvReac Type Severity Reaction Status Date / Time meperidine Allergy Mild Itching Verified 11/01/21 15:28 niacin Allergy Mild Rash Verified 11/01/21 15:28 quetiapine Allergy Mild Swelling Verified 11/01/21 15:28 allopurinol Allergy Unknown Unknown Verified 11/01/21 15:28 bupropion Allergy Unknown JERKY Verified 11/01/21 15:28 MOVEMENTS carbamazepine Allergy Unknown Unknown Verified 11/01/21 15:28 [From Carbatrol] codeine Allergy Unknown Unknown Verified 11/01/21 15:28 enalapril Allergy Unknown Unknown Verified 11/01/21 15:28 fluoxetine Allergy Unknown Unknown Verified 11/01/21 15:28 lorazepam Allergy Unknown Unknown Verified 11/01/21 15:28 morphine Allergy Unknown Unknown Verified 11/01/21 15:28 Penicillins Allergy Unknown Rash Verified 11/01/21 15:28 trazodone Allergy Unknown Dizziness Verified 11/01/21 15:28 promethazine [From Phenergan] AdvReac Intermediate Hallucinati Verified 11/01/21 15:28 ng enalaprilat AdvReac Mild PERSISTENT Verified 11/01/21 15:28 COUGH modafinil AdvReac Mild SORES Verified 11/01/21 15:28 oxycodone AdvReac Mild GI DISTRESS Verified
[2022-03-17 11:16] LABS: Basophils Absolute Auto 0.1 K/mm3 (0.0-0.1); Basophils Percent Auto 0.7 % (0.2-1.2); Eosinophils Absolute Auto 0.2 K/mm3 (0-0.3); Eosinophils Percent Auto 3.2 % (0-4.4); Hematocrit 37.5 % (37.0-47.0); Hemoglobin 12.1 g/dL (12.0-15.0); Immature Granulocyte Absolute 0.02 K/mm3 (0.00-0.031); Immature Granulocyte Percent A 0.3 % (0-0.5); Lymphocytes Absolute Auto 1.17 K/mm3 (0.9-3.2); Lymphocytes Percent Auto 16.4 % (18.3-44.2); Mean Corpuscular HGB Conc 32.3 g/dl (32-36); Mean Corpuscular Hemoglobin 29.9 pg (26-34); Mean Corpuscular Volume 92.6 fl (80-100); Mean Platelet Volume 9.6 fl (7.4-10.4); Monocytes Absolute Auto 0.5 K/mm3 (0.1-0.6); Monocytes Percent Auto 6.3 % (2.6-8.5); Neutrophils Absolute Auto 5.2 K/mm3 (1.3-6.7); Neutrophils Percent Auto 73.1 % (45.5-73.1); Platelet Count Result 131 k/mm3 (150-375); Red Blood Count 4.05 M/mm3 (4.2-5.4); Red Cell Distribution Width 13.4 % (11.5-14.5); White Blood Count 7.1 K/mm3 (4.5-10.0)
[2022-03-17 11:29] LABS: Alanine Aminotransferase 38 U/L (6-35); Albumin Level 4.2 g/dL (3.5-5.1); Alkaline Phosphatase 124 U/L (38-126); Anion Gap 13 mmol/L (8-16); Aspartate Amino Transferase 40 U/L (14-36); Bilirubin,Total 0.6 mg/dL (0.2-1.3); Blood Urea Nitrogen 55 mg/dL (7-17); Carbon Dioxide 31 mmol/L (22-30); Chloride 97 mmol/L (98-107); Estimated Glomerular Filt Rate 22; Glucose 272 mg/dL (65-110); Lipase 102 U/L (23-300); Potassium 4.4 mmol/L (3.4-5.0); Sodium 141 mmol/L (137-145)
[2022-03-17 11:30] LABS: INR 1.2; Partial Thromboplastin Time 31.6 SECONDS (22.3-36.8); Prothrombin Time 14.5 Seconds (11.1-14.7)
[2022-03-17 11:41] LABS: NT Pro B Type Natriuretic Pept 491 pg/mL (5-100); Troponin I < 0.012 ng/mL (0.000-0.034)
[2022-03-17 12:03] LABS: Add Urine Microscopic? YES; Appearance Urine Clear (Clear); Bilirubin Urine Negative (Negative); Blood Urine Negative (Negative); Color Urine Yellow (Yellow); Glucose Urine UA 2+ mg/dL (Negative); Ketones Urine Negative (Negative); Leukocyte Esterase Ur 1+ LEU/UL (Negative); Mucus Urine Rare /lpf; Nitrate Urine Negative (Negative); Protein Urine Negative (Negative); RBC Urine 0-2 /hpf (0-2); Specific Grav Ur 1.013 (1.001-1.035); Squamous Epithelial Cell Urine Rare /hpf (Few); Urobilinogen Urine Negative mg/dL (<2.0)
[2022-03-17] MEDS: FAMOTIDINE 20 MG/2 ML VIAL IV PUSH (13:20)
[2022-03-17 14:30] LABS: Troponin I < 0.012 ng/mL (0.000-0.034)
[2022-03-17] MEDS: oxyCODONE HCL (*CRX) 5 MG TAB IR 2.5 MG PO (15:12)
== END 2022-03-17 15:25 | disposition home or self-care (01) ==
PROVIDERS: Physician Assistant; Emergency Provider Emergency Medicine; PCP Internal Medicine
DX: K29.70 Gastritis, unspecified, without bleeding (principal); J44.9 Chronic obstructive pulmonary disease, unspecified; E11.22 Type 2 diabetes mellitus with diabetic chronic kidney disease; I13.0 Hypertensive heart and chronic kidney disease with heart failure and stage 1 through stage 4 chronic kidney disease, or unspecified chronic kidney disease; N18.4 Chronic kidney disease, stage 4 (severe); I50.9 Heart failure, unspecified; I48.91 Unspecified atrial fibrillation; K74.60 Unspecified cirrhosis of liver; E78.5 Hyperlipidemia, unspecified; K75.81 Nonalcoholic steatohepatitis (NASH); E89.0 Postprocedural hypothyroidism; M79.7 Fibromyalgia; G47.33 Obstructive sleep apnea (adult) (pediatric); E66.01 Morbid (severe) obesity due to excess calories; Z87.442 Personal history of urinary calculi; Z95.810 Presence of automatic (implantable) cardiac defibrillator; Z98.1 Arthrodesis status; Z98.42 Cataract extraction status, left eye; Z98.41 Cataract extraction status, right eye; Z96.1 Presence of intraocular lens; Z66 Do not resuscitate; Z79.82 Long term (current) use of aspirin
CPT/HCPCS: 36415; 71046; 74176; 80053; 81001; 83690; 83880; 84484; 85025; 85610; 85730; 87086; 93005; 96374; 99284; A9270

== ENCOUNTER 2022-03-26 10:40 | Inpatient (IN) | payer MEDICARE, OTHER, SELFPAY ==
[2022-03-26] VITALS (41 sets, daily range): BP systolic 98–142; BP diastolic 52–98; PULSE 70–119; RESP 14–22; TEMP 36.2–36.8; O2SAT 95–100; BMI 40.7; BMI 42.3
--- NOTE | ~2022-03-26 | CT_ITS ---
EXAMINATION: CT abdomen pelvis wo con DATE: 03/27/2022 15:53 INDICATION: abdominal pain TECHNIQUE: Computed tomography (CT) of the abdomen and pelvis was performed without intravenous contr ast. Automated exposure control and iterative reconstruction technique were employed. The dose-length product was 1244.28 mGy-cm. COMPARISON: 03/17/2022. FINDINGS: Lower thorax: Cardiomegaly. Partially visualized pacing wires. Hiatal hernia. Liver: Nodular border. Heterogeneous parenchyma. Pneumobilia. Biliary/Gallbladder: Surgically absent. Intra and extrahepatic bile duct dilation, stable. Pancreas: Atrophy with calcifications as can be seen in chronic pancreatitis Spleen: Mildly enlarged. Granulomatous calcifications. Adrenals:No mass. Kidneys: Left renal scarring and atrophy with simple cysts. Bilateral perinephric stranding. No suspi cious mass, obstructing calcification, or hydronephrosis. GI tract: No small or large bowel dilation. Appendix not visualized Diverticulosis without diverticul itis. Mesentery/Peritoneum: No ascites, mass, or free air. Retroperitoneum: No mass. Atherosclerotic abdominal aortic and/or arterial calcifications. Pelvis: Absent uterus. Distended urinary bladder with wall thickening. Soft Tissues: Soft tissues and body wall unremarkable. Bones: No acute osseous finding. Stable multilevel vertebral body compression fractures. Vertebropla sty cement at multiple levels. IMPRESSION: Possible cystitis. Otherwise, no acute abdominal pelvic process detected. Chronic and incidental find ings detailed above. Reviewed, dictated and finalized at location K. IMPRESSION: Possible cystitis. Otherwise, no acute abdominal pelvic process detected. Chron ic and incidental findings detailed above.
--- NOTE | ~2022-03-26 | CT_ITS ---
EXAMINATION: CT brain wo con DATE: 03/26/2022 11:11 INDICATION: Altered mental status. TECHNIQUE: Computed tomography (CT) of the head was performed without intravenous contrast. The mA wa s adjusted according to patient size. Iterative reconstruction technique was employed. The dose-lengt h product was 605.33 mGy-cm. COMPARISON: Head CT 11/01/2021 FINDINGS: There are scattered areas of low attenuation in the cerebral white matter. There are old la cunar infarcts in the canelo and left basal ganglia. There is no intracranial hemorrhage, acute infarct ion, or abnormal intracranial mass lesion. The ventricles are normal in size. There are likely change s of ocular lens replacement surgeries. There is mild mucosal thickening in the paranasal sinuses. Th e mastoid air cells are normal. IMPRESSION: 1. Old lacunar infarcts in the canelo and left basal ganglia. 2. Stable moderate nonspecific cerebral white matter disease, which likely represents chronic small v essel ischemic disease. Reviewed, dictated and finalized at location A. IMPRESSION: 1. Old lacunar infarcts in the canelo and left basal ganglia. 2. Stable moderate nonspecific cerebral white matter disease, which likely repr esents chronic small vessel ischemic disease.
--- NOTE | 2022-03-26 10:46 | ECG_ITS ---
Measurements Intervals [place] Rate: 80 P: -64 MD: 186 QRS: 221 QRSD: 162 T: 35 QT: 473 QTc: 548 Interpretive Statements ELECTRONIC ATRIAL PACEMAKER ELECTRONIC VENTRICULAR PACEMAKER BASELINE ARTIFACT- I, II, III, AVL, AVF NO FURTHER INTERPRETATION IS POSSIBLE ATYPICAL ECG COMPARED TO ECG 03/17/2022 10:41:51 NO SIGNIFICANT CHANGES Electronically Signed On 03-26-2022 11:44:53 CDT by Yovany Forte D.O.
--- NOTE | 2022-03-26 10:52 | ED.AMS ---
HPI - Altered Mental Status General Chief Complaint: Altered Mental Status Stated Complaint: altered LOC History of Present Illness HPI narrative: 82-year-old female presenting to the emergency department from local assisted for evaluation of decreased responsiveness. Staff states that since the middle of the evening patient has had decreased responsiveness. Patient does quietly respond to our verbal questioning. Patient states she does feels tired. Patient denies any falls or injuries. Patient denies any nausea vomiting diarrhea. Patient denies any other complaints other than feeling tired. Patient's daughter states that the patient does have history of chronic kidney disease but has previously declined dialysis. Daughter states that the patient has had worsening mental status previously. Related Data Home Medications Medication Instructions Recorded Confirmed amlodipine 5 mg tablet 5 mg PO DAILY 02/10/20 03/26/22 aspirin 81 mg chewable tablet 81 mg PO DAILY 02/10/20 03/26/22 carvedilol 12.5 mg tablet 12.5 mg PO BID 02/10/20 03/26/22 ergocalciferol (vitamin D2) 1,250 50,000 unit PO WEEKLY 02/10/20 03/26/22 mcg (50,000 unit) capsule fluticasone propionate 50 1 spray intranasal BID PRN Allergy 02/10/20 03/26/22 mcg/actuation nasal Symptoms spray,suspension (Flonase Allergy Relief) spironolactone 25 mg tablet 25 mg PO DAILY 02/10/20 03/26/22 budesonide 0.25 mg/2 mL suspension 0.25 mg inhalation BID 04/12/21 03/26/22 for nebulization febuxostat 40 mg tablet 40 mg PO DAILY 04/12/21 03/26/22 metolazone 2.5 mg tablet 2.5 mg PO DAILY 04/12/21 03/26/22 hydrocortisone 1 % topical cream 1 applic topical PRN PRN Itching 04/13/21 03/26/22 ipratropium 0.5 mg-albuterol 3 mg 2.5 ml inhalation QID PRN 04/13/21 03/26/22 (2.5 mg base)/3 mL nebulization Bronchospasm soln naloxone 4 mg/actuation nasal 4 mg intranasal PRN PRN Sedation 04/13/21 03/26/22 spray (Narcan) olopatadine 0.1 % eye drops 1 drp ophthalmic (eye) BID 04/13/21 03/26/22 ondansetron HCl 4 mg tablet 4 mg PO PRN PRN Nausea And Vomiting 04/13/21 03/26/22 subcutaneous insulin pump 10/01/21 11/01/21 cyanocobalamin (vitamin B-12) 1 tablet PO QPM 11/01/21 03/26/22 1,000 mcg tablet linaclotide 145 mcg capsule 145 mcg PO EVERY OTHER DAY 11/01/21 03/26/22 (Linzess) zcjduq-lsdfsqyx-odqiqua 1 cap PO TID 11/01/21 03/26/22 12,000-38,000-60,000 unit capsule,delayed rel (Creon) melatonin 10 mg tablet 10 mg PO HS 11/01/21 03/26/22 multivitamin with folic acid 400 1 tablet PO DAILY 11/01/21 03/26/22 mcg tablet (Tab-A-Altagracia) polyethylene glycol 3350 17 17 g PO DAILY PRN Constipation 11/01/21 03/26/22 gram/dose oral powder (Miralax) vortioxetine 20 mg tablet 1 tablet PO DAILY 11/01/21 03/26/22 (Trintellix) icosapent ethyl 1 gram capsule 2 g PO BID 03/26/22 03/26/22 (Vascepa) insulin regular hum U-500 conc 500 25 unit subcut BID 03/26/22 03/26/22 unit/mL(3 mL) subcut pen (Humulin R U-500 (Conc) Insulin Kwikpen) Allergies Allergy/AdvReac Type Severity Reaction Status Date / Time meperidine Allergy Mild Itching Verified 11/01/21 15:28 niacin Allergy Mild Rash Verified 11/01/21 15:28 quetiapine Allergy Mild Swelling Verified 11/01/21 15:28 allopurinol Allergy Unknown Unknown Verified 11/01/21 15:28 bupropion Allergy Unknown JERKY Verified 11/01/21 15:28 MOVEMENTS carbamazepine Allergy Unknown Unknown Verified 11/01/21 15:28 [From Carbatrol] codeine Allergy Unknown Unknown Verified 11/01/21 15:28 enalapril Allergy Unknown Unknown Verified 11/01/21 15:28 fluoxetine Allergy Unknown Unknown Verified 11/01/21 15:28 lorazepam Allergy Unknown Unknown Verified 11/01/21 15:28 morphine Allergy Unknown Unknown Verified 11/01/21 15:28 Penicillins Allergy Unknown Rash Verified 11/01/21 15:28 trazodone Allergy Unknown Dizziness Verified 11/01/21 15:28 promethazine [From Phenergan] AdvReac Intermediate Hallucinati Verified 11/01/21 15:28 ng enalaprilat
[2022-03-26 11:09] LABS: Basophils Percent Auto 0.6 % (0.2-1.2); Eosinophils Absolute Auto 0.3 K/mm3 (0-0.3); Eosinophils Percent Auto 6.1 % (0-4.4); Hematocrit 36.4 % (37.0-47.0); Immature Granulocyte Absolute 0.01 K/mm3 (0.00-0.031); Immature Granulocyte Percent A 0.2 % (0-0.5); Immature Platelet Fraction Pct 3.4 % (0.9-11.2); Lymphocytes Absolute Auto 1.65 K/mm3 (0.9-3.2); Lymphocytes Percent Auto 30.4 % (18.3-44.2); Mean Corpuscular Hemoglobin 30.1 pg (26-34); Mean Corpuscular Volume 91.2 fl (80-100); Mean Platelet Volume 9.7 fl (7.4-10.4); Monocytes Absolute Auto 0.4 K/mm3 (0.1-0.6); Monocytes Percent Auto 8.1 % (2.6-8.5); Neutrophils Percent Auto 54.6 % (45.5-73.1); Platelet Count Result 157 k/mm3 (150-375); Red Blood Count 3.99 M/mm3 (4.2-5.4); Red Cell Distribution Width 13.4 % (11.5-14.5); White Blood Count 5.4 K/mm3 (4.5-10.0)
[2022-03-26 11:19] LABS: Alanine Aminotransferase 50 U/L (6-35); Albumin Level 4.1 g/dL (3.5-5.1); Alkaline Phosphatase 162 U/L (38-126); Anion Gap 9 mmol/L (8-16); Aspartate Amino Transferase 55 U/L (14-36); Bilirubin,Total 0.7 mg/dL (0.2-1.3); Blood Urea Nitrogen 70 mg/dL (7-17); Calcium 8.9 mg/dL (8.4-10.2); Carbon Dioxide 34 mmol/L (22-30); Chloride 97 mmol/L (98-107); Estimated CRCL calculation 20 ml/min; Estimated Glomerular Filt Rate 19; Glucose 102 mg/dL (65-110); Potassium 3.7 mmol/L (3.4-5.0); Sodium 140 mmol/L (137-145)
[2022-03-26 11:21] LABS: INR 1.2; Prothrombin Time 15.1 Seconds (11.1-14.7)
[2022-03-26 11:23] LABS: Alveolar/Arterial O2 Gradient 27.2 mmHg; Base Excess ABG 5.4 mEq/l (+/-2.0); Fractional Inspired Oxygen 21 %; HCO3 ABG 30.8 mEq/l (22.0-26.0); Oxygen Content ABG 15.9 %vol (16.0-22.0); Oxygen Saturation ABG 92.8 % (95.0-100.0); Oxyhemoglobin 91.3 % THb (90.0-100.0); PCO2 ABG 48.4 mmHg (35.0-45.0); PO2 ABG 64.6 mmHg (80.0-100.0); PO2 FiO2 Ratio Arterial Blood 3.08 %; Total Hemoglobin 12.4 g/dL (12.0-18.0); pH ABG 7.421 (7.350-7.450)
[2022-03-26 11:24] LABS: Device ROOM AIR; Modified Allen's Test Pass; Site Drawn LEFT RADIAL
[2022-03-26 11:43] LABS: Influenza A QL RT-PCR Negative (Negative); Influenza B QL RT-PCR Negative (Negative); SARS-CoV-2 RNA PCR Negative
[2022-03-26 11:56] LABS: Appearance Urine Clear (Clear); Bilirubin Urine Negative (Negative); Blood Urine Negative (Negative); Color Urine Yellow (Yellow); Glucose Urine UA Negative (Negative); Ketones Urine Negative (Negative); Leukocyte Esterase Ur Negative LEU/UL (Negative); Nitrate Urine Negative (Negative); Protein Urine Negative (Negative); Specific Grav Ur 1.015 (1.001-1.035); Urobilinogen Urine 0.2 mg/dL (<2.0)
[2022-03-26 12:37] LABS: Add Urine Microscopic? NO
--- NOTE | 2022-03-26 13:55 | PM.IMHP ---
H&P: HPI History of Present Illness Date/Time: 03/26/22 13:55 Chief Complaint: Altered mental status. Narrative: This is an 82-year-old female patient who has stage 4-5 renal failure. 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 bettencourt as her coin machine supervisor. The patient has been at the [facility] [place]. She has become more weak. And less responsive. It the patient is not answering questions at this time and her zkobkpcj-jg-ktc's answering the questions for her. The yravninw-lt-wyd is at the bedside. The patient denies any nausea vomiting or diarrhea. She recently was started on a statin drug and feels even more tired and is complaining of muscle aches. The patient is not able to take care of herself at this distant living. The daughter in-law has been speaking with hospice and may consider this as an option. We discussed that the patient may need to go into a a facility or may be able to go home with her and be on hospice. The daughter in-law and stated that she needed at least 24 hours to think about it and will let us know tomorrow. BUN is 70 and creatinine 2.40. AST is 55 ALT is 50 alkaline phosphatase 162. The patient does have a history of ascites and cirrhosis of the liver. The patient has not been eating or drinking very well. The patient is being admitted to observation status on the date of service of 03/26/2022. Review of Systems Review of Systems: All systems reviewed & are unremarkable except as noted in HPI and below Constitutional: Constitutional: Reports as per HPI and Reports no additional constitutional complaints Eyes: Eyes: Reports as per HPI and Reports no additional eye complaints ENT: Reports system reviewed and no additional complaints, except as documented and Reports Normal hearing present Cardiovascular: Cardiovascular: Reports no additional cardiovascular complaints Respiratory: Respiratory: Reports no additional respiratory complaints and Reports no additional respiratory complaints Gastrointestinal: Gastrointestinal: Reports as per HPI and Reports no additional gastrointestinal complaints Musculoskeletal: Musculoskeletal: Reports no additional musculoskeletal complaints Integumentary/Breasts: Skin/Breast: Reports system reviewed and no additional complaints, except as docu and Reports as per HPI Neurologic: Reports system reviewed and no additional complaints, except as documented, Reports as per HPI and Reports Normal hearing present Psychiatric: Psychiatric: Reports no additional psychiatric complaints and Reports as per HPI Endocrine: Endocrine: Reports no additional endocrine complaints Hematologic/Lymphatic: Hematologic/Lymphatic: Reports no additional hematologic/lymphatic complaints Allergic/Immunologic: Allergic/Immunologic: Reports no additional allergic/immunologic complaints FOR[facility]LY [facility] Past Medical History Medical History (Updated 03/26/22 @ 16:00 by Allegra Hinton NP) Anxiety and depression Atrial fibrillation Bladder prolapse Cholangitis Choledocholithiasis Chronic kidney disease, stage IV (severe) Chronic obstructive pulmonary disease Cirrhosis Cirrhosis Congestive heart failure Conjunctivitis, right eye Constipation Diabetes Diabetes mellitus Fibromyalgia History of CVA (cerebrovascular accident) As per his head CT Hyperlipidemia Hypertension Hypothyroidism Hypothyroidism Insulin dependent type 2 diabetes mellitus Kidney stones Nausea Nonalcoholic steatohepatitis (MARCUS) Obesity, morbid, BMI 40.0-49.9 Obstructive sleep apnea on CPAP Thrombocytopenia Type 2 diabetes mellitus with hyperglycemia UTI (urinary tract infection) UTI due to Klebsiella species Surgical History Surgical History AICD (automatic cardioverter/defibrillator) present History of cholecystectomy History of ERCP With stone extraction History of fusion of cervical spine History of thyroidectomy Pacemaker Status post cataract extraction of
--- NOTE | 2022-03-26 13:59 | PCCCNOTE ---
Mounika ([facility]) has meet with pt and spoken to daughter. Pt is currently to lethargic and confused to make decisions. Daughter Sandy Bryant received information from Mounika and is considering next course of action. Pt is being admitted obs for AMS. Jesenia nurse stated she would follow up tomorrow.
--- NOTE | 2022-03-26 16:59 | ADMGEN ---
This patient, Roosevelt Penn, was admitted to Medical Room 247-. Patient/family oriented to hospital policies and general routines including ID bracelet, bed and alarms, visiting hours, pain management, procedures, bathroom and other care routines, personal items, smoking policy, room service/diet, and visiting hours. Information on how to activate the Rapid Response Team has been discussed. Patient/Family are encouraged to report perceived risks to care and to ask questions if they do not understand what they are told or what they should do.
[2022-03-26 17:27] LABS: Ammonia < 9 umol/L (9-30)
[2022-03-26 17:39] LABS: Glucose Point of Care 90 mg/dl (65-105)
[2022-03-26] MEDS: SODIUM CHLORIDE 0.9% IV 1,000 ML 75 ML IV CONT (18:34)
--- NOTE | 2022-03-26 19:29 | PC.NURSE ---
PT EXAMINED AND THEN ASKED IF SHE HAS INSULIN PUMP AND SHE STATES NO
[2022-03-26 21:26] LABS: Glucose Point of Care 104 mg/dl (65-105)
[2022-03-27] VITALS (17 sets, daily range): BP systolic 122–142; BP diastolic 45–56; PULSE 67–85; RESP 16–18; TEMP 36.4–37.1; O2SAT 96–99
[2022-03-27 05:41] LABS: Basophils Percent Auto 0.8 % (0.2-1.2); Eosinophils Absolute Auto 0.2 K/mm3 (0-0.3); Eosinophils Percent Auto 4.1 % (0-4.4); Hematocrit 35.3 % (37.0-47.0); Hemoglobin 11.4 g/dL (12.0-15.0); Immature Granulocyte Absolute 0.01 K/mm3 (0.00-0.031); Immature Granulocyte Percent A 0.2 % (0-0.5); Lymphocytes Absolute Auto 1.26 K/mm3 (0.9-3.2); Lymphocytes Percent Auto 25.6 % (18.3-44.2); Mean Corpuscular HGB Conc 32.3 g/dl (32-36); Mean Corpuscular Hemoglobin 29.5 pg (26-34); Mean Corpuscular Volume 91.2 fl (80-100); Mean Platelet Volume 10.5 fl (7.4-10.4); Monocytes Absolute Auto 0.4 K/mm3 (0.1-0.6); Monocytes Percent Auto 7.7 % (2.6-8.5); Neutrophils Percent Auto 61.6 % (45.5-73.1); Platelet Count Result 132 k/mm3 (150-375); Red Blood Count 3.87 M/mm3 (4.2-5.4); Red Cell Distribution Width 13.3 % (11.5-14.5); White Blood Count 4.9 K/mm3 (4.5-10.0)
[2022-03-27 05:56] LABS: Lactic Acid Reflex 1.1 mmol/L (0.7-2.0)
[2022-03-27 06:01] LABS: Alanine Aminotransferase 45 U/L (6-35); Albumin Level 3.7 g/dL (3.5-5.1); Alkaline Phosphatase 168 U/L (38-126); Anion Gap 8 mmol/L (8-16); Aspartate Amino Transferase 52 U/L (14-36); Bilirubin,Total 0.8 mg/dL (0.2-1.3); Blood Urea Nitrogen 60 mg/dL (7-17); Calcium 8.5 mg/dL (8.4-10.2); Carbon Dioxide 33 mmol/L (22-30); Chloride 99 mmol/L (98-107); Estimated CRCL calculation 21 ml/min; Estimated Glomerular Filt Rate 21; Glucose 130 mg/dL (65-110); Lactate Dehydrogenase 178 U/L (120-246); Magnesium 1.9 mg/dL (1.6-2.3); Potassium 4.1 mmol/L (3.4-5.0); Sodium 140 mmol/L (137-145)
[2022-03-27] MEDS: LEVOTHYROXINE SODIUM 125 MCG TABLET PO (06:01)
[2022-03-27 06:08] LABS: Hemoglobin A1C 8.1 % (<5.7)
[2022-03-27 06:45] LABS: Thyroid Stimulating Hormone Reflex 0.742 uIU/mL (0.465-4.68)
[2022-03-27] MEDS: SODIUM CHLORIDE 0.9% IV 1,000 ML 75 ML IV CONT ×2 (08:07→23:58)
[2022-03-27] MEDS: ONDANSETRON HCL ODT 4 MG TABLET PO ×2 (08:12→20:17)
[2022-03-27] MEDS: ASPIRIN 81 MG CHEWABLE TABLET PO (08:12)
[2022-03-27] MEDS: MULTIVITAMINS THERAPEUTIC TAB (*BKC) 1 TABLET PO (08:12)
[2022-03-27] MEDS: OMEGA 3 POLYUNSAT FATTY ACIDS 1 GM CAP 2 GM PO ×2 (08:12→17:30)
[2022-03-27] MEDS: carvediloL 12.5 MG TABLET PO ×2 (08:13→20:17)
[2022-03-27] MEDS: metOLazone 2.5 MG TABLET PO (08:13)
[2022-03-27] MEDS: DOCUSATE SODIUM 100 MG CAPSULE PO (08:13)
[2022-03-27] MEDS: FUROSEMIDE 40 MG TABLET PO (08:13)
[2022-03-27] MEDS: OLOPATADINE 0.1% OPHTH SOLN 5 ML BTL 1 DROP EACH EYE ×2 (08:13→17:30)
[2022-03-27] MEDS: amLODIPine BESYLATE 5 MG TABLET PO (08:13)
[2022-03-27] MEDS: FEBUXOSTAT 40 MG TABLET PO (08:13)
[2022-03-27] MEDS: PANTOPRAZOLE 40 MG TABLET PO ×2 (08:13→17:30)
[2022-03-27] MEDS: LIPASE/AMYLASE/PROTEASE 12,000 UNITS CAP 1 CAP PO ×3 (08:13→17:27)
[2022-03-27] MEDS: GABAPENTIN 300 MG CAPSULE PO ×3 (08:13→17:27)
[2022-03-27] MEDS: LINACLOTIDE 145 MCG CAPSULE PO (08:13)
[2022-03-27 08:57] LABS: Glucose Point of Care 160 mg/dl (65-105)
[2022-03-27] MEDS: BUDESONIDE RESPULE NEB 0.5 MG/2 ML AMP 0.25 MG INHALATION ×2 (09:42→19:59)
[2022-03-27] MEDS: oxyCODONE/ACETAMINOPHEN (*CRX) 5-325 MG TABLET 1 TABLET PO ×2 (10:19→20:17)
[2022-03-27] MEDS: INSULIN ASPART (*BKC) 100 UNITS/ML SUB-Q ×2 (12:25→17:27)
[2022-03-27 12:32] LABS: Glucose Point of Care 283 mg/dl (65-105)
[2022-03-27] MEDS: LIDOCAINE 5% PATCH 2 PATCH TOPICAL (12:38)
--- NOTE | 2022-03-27 13:20 | PC.NURSE ---
On 03/27/22, the student, [Stephanie Hughes], provided care and completed [facility] documentation on this patient. I have reviewed the student's documentation and agree with the findings.
--- NOTE | 2022-03-27 13:41 | PM.IMPN ---
Progress Note: A&P Assessment and Plan (1) AMS (altered mental status): Code(s): R41.82 - Altered mental status, unspecified Status: Acute Assessment and Plan: -Ammonia level is normal Patient have cirrhosis of the liver. -could be worsening dementia -it could be uremia encephalopathy. -urine was negative. -no other signs and symptoms of any bacterial infection. A has diarrhea and abdominal pain get CT abdomen to further evaluate (2) CKD (chronic kidney disease): Code(s): N18.9 - Chronic kidney disease, unspecified Status: Acute Assessment and Plan: -consultation for Nephrology with greatly be appreciated. -gently hydrate -The family is considering hospice as the patient does not want to go on dialysis. 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 Which is chronic. 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 (6) Transaminitis: Code(s): R74.01 - Elevation of levels of liver transaminase levels Status: Resolved Assessment and Plan: -continue to monitor -the patient has a history of cirrhosis of the liver. (7) Acute on chronic kidney failure: Code(s): N17.9 - Acute kidney failure, unspecified; N18.9 - Chronic kidney disease, unspecified Status: Resolved Assessment and Plan: -gently hydrate -nephrology consult was greatly be appreciated. -hold any nephrotoxic medications. (8) Obstructive sleep apnea on CPAP: Code(s): G47.33 - Obstructive sleep apnea (adult) (pediatric); Z99.89 - Dependence on other enabling machines and devices Status: Acute Assessment and Plan: Resume CPAP as per home settings. (9) Insulin dependent type 2 diabetes mellitus: Code(s): E11.9 - Type 2 diabetes mellitus without complications; Z79.4 - terminal computer operator (current) use of insulin Status: Chronic Assessment and Plan: -Accu-Cheks AC and HS with sliding scale insulin. A1c is 8.1 (10) Congestive heart failure: Code(s): I50.9 - Heart failure, unspecified Status: Acute Assessment and Plan: The patient has been on Lasix daily. along with metolazone which will be held due to PAULA (11) Chronic obstructive pulmonary disease: Code(s): J44.9 - Chronic obstructive pulmonary disease, unspecified Status: Acute Assessment and Plan: Continue with home inhalers (12) Hypothyroidism: Code(s): E03.9 - Hypothyroidism, unspecified Status: Acute Assessment and Plan: -continue with levothyroxine TSH normal Subjective Date/time seen: 03/27/22 13:42 Interval history: HPI: This is an 82-year-old female patient who has stage 4-5 renal failure.? 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 bettencourt as her air motor repairer.? The patient has been at the [facility] [place] She has become more weak.? And less responsive.? It the patient is not answering questions at this time and her pgqyphht-li-tmm's answering the questions for her.? The yklhgrwo-mh-amg is at the bedside.? The patient denies any nausea vomiting or diarrhea.? She recently was started on a statin drug and feels even more tired and is complaining of muscle aches.? The patient is not able to take care of herself at this distant living.? The daughter in-law has been speaking with hospice and may consider this as an option.? We discussed red
[2022-03-27 17:08] LABS: Glucose Point of Care 283 mg/dl (65-105)
[2022-03-27] MEDS: CYANOCOBALAMIN 1,000 MCG TABLET 1000 MCG PO (17:30)
--- NOTE | 2022-03-27 18:27 | PM.CNNEP ---
Assessment and Plan Assessment and plan (1) Chronic kidney disease, stage IV (severe): Code(s): N18.4 - Chronic kidney disease, stage 4 (severe) Status: Chronic Assessment and Plan: the patient has chronic kidney disease. Her GFR is in the high teens in low 20s. This seems to good to cause nausea. The only possibility is that because of her sedentary state her muscle mass might be low and so the creatinine is underestimating her true kidney function. Will get a 24hour urine creatinine. We can place a Irby in order to do this. I had a long conversation with the daughter in the patient. They are concerned that she might not do well on dialysis. She certainly has many comorbidities which make it harder for her to be on dialysis. She is 82. We can do all these things if she wants this to or she could proceed to hospice if she wanted. It depends on how eager she is to continue to fight. They are going to ponder these questions. Will get a 24hour urine to see what her creatinine clearance is. Hospice will be seeing her tomorrow. (2) Nausea: Code(s): R11.0 - Nausea Status: Acute Assessment and Plan: The patient has nausea and diarrhea. This does not show anything intra-abdominally. It does show possible cystitis. Her urinalysis is clear. Hospitalist evaluating the GI system. (3) AMS (altered mental status): Code(s): R41.82 - Altered mental status, unspecified Status: Acute Assessment and Plan: She has multiple issues which could lead to altered mental status such as cirrhosis, possible kidney issues but as stated above the GFR seems to good for this. Her TSH is normal now so I do not think this is a thyroid problem. Her electrolytes look pretty good. CT of the brain was nothing acute. Low sugars could possibly do it. CO2 narcosis could do this as well. Will check an ammonia level, blood gas, B12, folate. (4) Insulin dependent type 2 diabetes mellitus: Code(s): E11.9 - Type 2 diabetes mellitus without complications; Z79.4 - long term care social worker (current) use of insulin Status: Chronic Assessment and Plan: She is on Accu-Cheks and sliding-scale insulin per hospitalist. (5) Obstructive sleep apnea on CPAP: Code(s): G47.33 - Obstructive sleep apnea (adult) (pediatric); Z99.89 - Dependence on other enabling machines and devices Status: Acute Assessment and Plan: Continue to use the CPAP machine. (6) Congestive heart failure: Code(s): I50.9 - Heart failure, unspecified Status: Acute Assessment and Plan: she seems well compensated by physical exam. (7) Hypothyroidism: Code(s): E03.9 - Hypothyroidism, unspecified Status: Acute Assessment and Plan: TSH is normal History of Present Illness Reason for Consult Consult date: 03/27/22 Chief Complaint Chief complaint: AMS/CKD/Elevated BUN History of Present Illness Narrative: Roosevelt is a very pleasant 82-year-old female who has multiple medical problems including stage 4 chronic kidney disease, anxiety, depression, atrial fibrillation, recurrent UTIs, diabetes, sleep apnea, COPD, cirrhosis, CHF, diabetes, Hunter, stroke, fibromyalgia, hypothyroidism. The patient has been having problems with nausea for several months. He has she has been getting on dancer try an as needed. They have been seeing Dr. Steve in the off he has been encouraging her to start dialysis. She refused each time that he asked her. Lately she has developed diarrhea as well. She has not been eating very well. Her daughter says that she will have occasional spells where she is unresponsive and sometimes has twitching well she is like that. The daughter says she tries sternal rubs to wake her up but she does not respond and then a few hours later she is wide awake and talking as if nothing happened. Because of the frequent refusals to do dialysis
[2022-03-27 20:10] LABS: Alveolar/Arterial O2 Gradient 41.2 mmHg; Base Excess ABG 6.5 mEq/l (+/-2.0); Device NASAL CANNULA; Fractional Inspired Oxygen 28 %; HCO3 ABG 31.5 mEq/l (22.0-26.0); Modified Allen's Test Pass; Oxygen Content ABG 16.4 %vol (16.0-22.0); Oxygen Saturation ABG 97.9 % (95.0-100.0); Oxyhemoglobin 96.2 % THb (90.0-100.0); PO2 FiO2 Ratio Arterial Blood 3.68 %; Site Drawn RIGHT RADIAL; pH ABG 7.444 (7.350-7.450)
[2022-03-27] MEDS: MELATONIN 5 MG TABLET 10 MG PO (20:18)
[2022-03-27 20:23] LABS: Ammonia < 9 umol/L (9-30)
[2022-03-27 20:24] LABS: Creatine Kinase 113 U/L (30-135)
[2022-03-27 20:26] LABS: Glucose Point of Care 326 mg/dl (65-105)
[2022-03-27 21:13] LABS: Cortisol Random 9.64 ug/dL
[2022-03-27 23:35] LABS: Folic Acid > 20.0 ng/mL (2.76->20); Vitamin B12 > 1000.0 pg/mL (239-931)
[2022-03-27 23:57] LABS: Glucose Point of Care 248 mg/dl (65-105)
[2022-03-28] VITALS (14 sets, daily range): BP systolic 136–147; BP diastolic 55–64; PULSE 70–80; RESP 14–19; TEMP 36.4–36.6; O2SAT 97–100
[2022-03-28 05:53] LABS: Basophils Percent Auto 0.7 % (0.2-1.2); Eosinophils Absolute Auto 0.2 K/mm3 (0-0.3); Eosinophils Percent Auto 5.2 % (0-4.4); Hematocrit 34.9 % (37.0-47.0); Hemoglobin 11.6 g/dL (12.0-15.0); Immature Granulocyte Absolute 0.01 K/mm3 (0.00-0.031); Immature Granulocyte Percent A 0.2 % (0-0.5); Lymphocytes Absolute Auto 1.58 K/mm3 (0.9-3.2); Lymphocytes Percent Auto 35.6 % (18.3-44.2); Mean Corpuscular HGB Conc 33.2 g/dl (32-36); Mean Corpuscular Hemoglobin 30.1 pg (26-34); Mean Corpuscular Volume 90.6 fl (80-100); Mean Platelet Volume 10.4 fl (7.4-10.4); Monocytes Absolute Auto 0.3 K/mm3 (0.1-0.6); Monocytes Percent Auto 7.7 % (2.6-8.5); Neutrophils Absolute Auto 2.3 K/mm3 (1.3-6.7); Neutrophils Percent Auto 50.6 % (45.5-73.1); Platelet Count Result 123 k/mm3 (150-375); Red Blood Count 3.85 M/mm3 (4.2-5.4); Red Cell Distribution Width 13.2 % (11.5-14.5); White Blood Count 4.4 K/mm3 (4.5-10.0)
[2022-03-28 06:22] LABS: Alanine Aminotransferase 40 U/L (6-35); Albumin Level 3.8 g/dL (3.5-5.1); Alkaline Phosphatase 127 U/L (38-126); Anion Gap 9 mmol/L (8-16); Aspartate Amino Transferase 51 U/L (14-36); Bilirubin,Total 0.9 mg/dL (0.2-1.3); Blood Urea Nitrogen 62 mg/dL (7-17); Calcium 8.2 mg/dL (8.4-10.2); Carbon Dioxide 29 mmol/L (22-30); Chloride 98 mmol/L (98-107); Estimated CRCL calculation 23 ml/min; Estimated Glomerular Filt Rate 24; Glucose 206 mg/dL (65-110); Magnesium 1.8 mg/dL (1.6-2.3); Phosphorus 4.3 mg/dL (2.5-4.5); Potassium 4.2 mmol/L (3.4-5.0); Sodium 136 mmol/L (137-145)
[2022-03-28] MEDS: LEVOTHYROXINE SODIUM 125 MCG TABLET PO (06:22)
[2022-03-28] MEDS: BUDESONIDE RESPULE NEB 0.5 MG/2 ML AMP 0.25 MG INHALATION ×2 (08:17→21:00)
[2022-03-28 08:52] LABS: Glucose Point of Care 212 mg/dl (65-105)
[2022-03-28] MEDS: INSULIN ASPART (*BKC) 100 UNITS/ML SUB-Q ×3 (09:13→17:32)
[2022-03-28] MEDS: carvediloL 12.5 MG TABLET PO ×2 (09:18→19:47)
[2022-03-28] MEDS: MULTIVITAMINS THERAPEUTIC TAB (*BKC) 1 TABLET PO (09:18)
[2022-03-28] MEDS: GABAPENTIN 300 MG CAPSULE PO ×3 (09:18→17:37)
[2022-03-28] MEDS: OMEGA 3 POLYUNSAT FATTY ACIDS 1 GM CAP 2 GM PO ×2 (09:18→17:37)
[2022-03-28] MEDS: OLOPATADINE 0.1% OPHTH SOLN 5 ML BTL 1 DROP EACH EYE ×2 (09:18→17:37)
[2022-03-28] MEDS: LIPASE/AMYLASE/PROTEASE 12,000 UNITS CAP 1 CAP PO ×3 (09:18→17:37)
[2022-03-28] MEDS: PANTOPRAZOLE 40 MG TABLET PO ×2 (09:18→17:37)
[2022-03-28] MEDS: DOCUSATE SODIUM 100 MG CAPSULE PO (09:19)
[2022-03-28] MEDS: ASPIRIN 81 MG CHEWABLE TABLET PO (09:19)
[2022-03-28] MEDS: amLODIPine BESYLATE 5 MG TABLET PO (09:19)
[2022-03-28] MEDS: LIDOCAINE 5% PATCH 2 PATCH TOPICAL (09:19)
[2022-03-28] MEDS: FEBUXOSTAT 40 MG TABLET PO (09:19)
[2022-03-28] MEDS: ONDANSETRON HCL ODT 4 MG TABLET PO (09:50)
[2022-03-28 12:19] LABS: Glucose Point of Care 290 mg/dl (65-105)
--- NOTE | 2022-03-28 13:03 | PM.IMPN ---
Progress Note: A&P Assessment and Plan (1) AMS (altered mental status): Code(s): R41.82 - Altered mental status, unspecified Status: Acute Assessment and Plan: -Ammonia level is normal Patient have cirrhosis of the liver. -could be worsening dementia -it could be uremia encephalopathy. -urine was negative. -no other signs and symptoms of any bacterial infection. She has diarrhea and abdominal pain . CT abdomen with no acute findings other than cystitis however her urinalysis was negative. (2) CKD (chronic kidney disease): Code(s): N18.9 - Chronic kidney disease, unspecified Status: Acute Assessment and Plan: -consultation for Nephrology with greatly be appreciated. -gently hydrate -The family is considering hospice as the patient does not want to go on dialysis. Had in continues to improve baseline creatinine around 1.7 admission creatinine 0.4 on IV fluid will hold metolazone and Lasix Creatinine continues to improve Twenty-four urine collection ordered by Nephrology For which Irby has been placed Continue to hold metolazone and Lasix. Will stop her IV fluid today. Labs in a.m. 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 Which is chronic. 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 (6) Transaminitis: Code(s): R74.01 - Elevation of levels of liver transaminase levels Status: Resolved Assessment and Plan: -continue to monitor -the patient has a history of cirrhosis of the liver. (7) Acute on chronic kidney failure: Code(s): N17.9 - Acute kidney failure, unspecified; N18.9 - Chronic kidney disease, unspecified Status: Resolved Assessment and Plan: -gently hydrate -nephrology consult was greatly be appreciated. -hold any nephrotoxic medications. (8) Obstructive sleep apnea on CPAP: Code(s): G47.33 - Obstructive sleep apnea (adult) (pediatric); Z99.89 - Dependence on other enabling machines and devices Status: Acute Assessment and Plan: Resume CPAP as per home settings. (9) Insulin dependent type 2 diabetes mellitus: Code(s): E11.9 - Type 2 diabetes mellitus without complications; Z79.4 - data processing auditor (current) use of insulin Status: Chronic Assessment and Plan: -Accu-Cheks AC and HS with sliding scale insulin. A1c is 8.1 (10) Congestive heart failure: Code(s): I50.9 - Heart failure, unspecified Status: Acute Assessment and Plan: The patient has been on Lasix daily. along with metolazone which will be held due to PAULA (11) Chronic obstructive pulmonary disease: Code(s): J44.9 - Chronic obstructive pulmonary disease, unspecified Status: Acute Assessment and Plan: Continue with home inhalers (12) Hypothyroidism: Code(s): E03.9 - Hypothyroidism, unspecified Status: Acute Assessment and Plan: -continue with levothyroxine TSH normal Subjective Date/time seen: 03/28/22 13:03 Interval history: HPI: This is an 82-year-old female patient who has stage 4-5 renal failure.? 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 bettencourt as her services delivery driver.? The patient has been at the [facility] [place], [place] She has become more weak.? And less responsive.? It the patient is not answering questions at this time and her yrjqekyt-fe-ena's answering the questions for her.? The feybqfwe-fo-spv is at the bedside.? The patient denies any nausea vomiting or diarrhea.? She recently was
--- NOTE | 2022-03-28 14:27 | PC.NURSE ---
On 03/28/22, the student, [Yamileth Liz], provided care and completed [facility] documentation on this patient. I have reviewed the student's documentation and agree with the findings.
--- NOTE | 2022-03-28 14:55 | PM.PNNEP ---
Progress Note: A&P Assessment and Plan (1) Chronic kidney disease, stage IV (severe): Code(s): N18.4 - Chronic kidney disease, stage 4 (severe) Status: Chronic Assessment and Plan: the patient has chronic kidney disease. Her GFR is in the high teens in low 20s. This seems to good to cause nausea. The only possibility is that because of her sedentary state her muscle mass might be low and so the creatinine is underestimating her true kidney function. a 24hour urine creatinine is underway. I talked with nursing. Hospice has not been consulted yet. family is unsure of direction here. will see what eval shows. check rfp tomorrow. (2) Nausea: Code(s): R11.0 - Nausea Status: Acute Assessment and Plan: The patient has nausea and diarrhea. this seems better. (3) AMS (altered mental status): Code(s): R41.82 - Altered mental status, unspecified Status: Acute Assessment and Plan: alert today. (4) Insulin dependent type 2 diabetes mellitus: Code(s): E11.9 - Type 2 diabetes mellitus without complications; Z79.4 - teamcenter solution architect (current) use of insulin Status: Chronic Assessment and Plan: She is on Accu-Cheks and sliding-scale insulin per hospitalist. (5) Obstructive sleep apnea on CPAP: Code(s): G47.33 - Obstructive sleep apnea (adult) (pediatric); Z99.89 - Dependence on other enabling machines and devices Status: Acute Assessment and Plan: Continue to use the CPAP machine. (6) Congestive heart failure: Code(s): I50.9 - Heart failure, unspecified Status: Acute Assessment and Plan: she seems well compensated on physical exam. (7) Hypothyroidism: Code(s): E03.9 - Hypothyroidism, unspecified Status: Acute Assessment and Plan: TSH is normal Subjective Date/time seen: 03/28/22 14:55 Interval history: alert. still has a cough no sob today Review of Systems Cardiovascular: Cardiovascular: Reports no additional cardiovascular complaints Respiratory: Respiratory: Reports no additional respiratory complaints Gastrointestinal: Gastrointestinal: Reports no additional gastrointestinal complaints Genitourinary: Genitourinary: Reports no additional female genitourinary complaints Exam Narrative: WDWN in NAD skin no rash head ncat lungs clear cor reg no rub abd BS+ nontender and soft ext no edema. Objective Data Vital Signs Vital Signs: Vital Signs - 24 hr 03/27/22 16:00 03/27/22 20:16 03/27/22 20:18 Temperature Pulse Rate 77 77 Respiratory Rate 16 Blood Pressure Pulse Oximetry 98 Oxygen Delivery Nasal Cannula Oxygen Flow Rate 2 03/27/22 20:21 03/27/22 20:17 03/27/22 20:00 Temperature Pulse Rate 79 85 74 Respiratory Rate 16 Blood Pressure Pulse Oximetry Oxygen Delivery Oxygen Flow Rate 03/27/22 20:00 03/27/22 21:53 03/28/22 00:00 Temperature 37.1 C Pulse Rate 67 76 Respiratory Rate 16 Blood Pressure 142/53 H Pulse Oximetry 97 96 Oxygen Delivery Nasal Cannula Oxygen Flow Rate 2 03/28/22 04:00 03/28/22 06:55 03/28/22 08:18 Temperature 36.4 C Pulse Rate 72 80 Respiratory Rate 16 Blood Pressure 136/60 Pulse Oximetry 97 98 Oxygen Delivery Nasal Cannula Oxygen Flow Rate 2 03/28/22 08:18 03/28/22 08:25 Temperature Pulse Rate 77 76 Respiratory Rate 17 19 Blood Pressure Pulse Oximetry Oxygen Delivery Oxygen Flow Rate Intake/Output Intake/Output: Intake & Output 03/25/22 03/26/22 03/27/22 03/28/22 23:59 23:59 23:59 23:59 Intake Total 0 3720 1600 Output Total 500 1400 850 Balance -500 2320 750 Meds/Results Medications: Active Medications Generic Name Dose Route Start Last Admin Trade Name Freq PRN Reason Stop Dose Admin Albuterol 2.5 mg 03/26/22 23:32 Albuterol Sulfate Neb 2.5 Mg/0.5 Ml Inh INHALATION QID PRN Broncho
[2022-03-28 17:22] LABS: Glucose Point of Care 305 mg/dl (65-105)
[2022-03-28] MEDS: CYANOCOBALAMIN 1,000 MCG TABLET 1000 MCG PO (17:37)
--- NOTE | 2022-03-28 19:14 | PHAR ---
PT HOME MED TRINTELLIX (VORTIOXETINE) 20 MG TABS VERIFIED BY PHARMACY
[2022-03-28 19:40] LABS: Glucose Point of Care 326 mg/dl (65-105)
[2022-03-28] MEDS: MELATONIN 5 MG TABLET 10 MG PO (19:47)
[2022-03-28 20:11] LABS: Creatinine Urine 63.4 mg/dL
[2022-03-28 20:12] LABS: Creatinine 24 Hour Urine 0.8 gm/24 (0.8-1.8); Total Volume 24 Hour Urine 1400 ml
[2022-03-29] VITALS (16 sets, daily range): BP systolic 112–137; BP diastolic 43–56; PULSE 68–90; RESP 14–18; TEMP 36.4; O2SAT 87–99
[2022-03-29 05:52] LABS: Basophils Absolute Auto 0.1 K/mm3 (0.0-0.1); Eosinophils Absolute Auto 0.3 K/mm3 (0-0.3); Eosinophils Percent Auto 6.6 % (0-4.4); Hematocrit 33.9 % (37.0-47.0); Immature Granulocyte Absolute 0.01 K/mm3 (0.00-0.031); Immature Granulocyte Percent A 0.2 % (0-0.5); Lymphocytes Absolute Auto 1.65 K/mm3 (0.9-3.2); Lymphocytes Percent Auto 33.1 % (18.3-44.2); Mean Corpuscular HGB Conc 32.4 g/dl (32-36); Mean Corpuscular Hemoglobin 29.7 pg (26-34); Mean Corpuscular Volume 91.6 fl (80-100); Mean Platelet Volume 10.3 fl (7.4-10.4); Monocytes Absolute Auto 0.4 K/mm3 (0.1-0.6); Monocytes Percent Auto 7.2 % (2.6-8.5); Neutrophils Absolute Auto 2.6 K/mm3 (1.3-6.7); Neutrophils Percent Auto 51.9 % (45.5-73.1); Platelet Count Result 113 k/mm3 (150-375); Red Cell Distribution Width 13.1 % (11.5-14.5)
[2022-03-29 06:17] LABS: Alanine Aminotransferase 35 U/L (6-35); Albumin Level 3.5 g/dL (3.5-5.1); Alkaline Phosphatase 122 U/L (38-126); Anion Gap 10 mmol/L (8-16); Aspartate Amino Transferase 36 U/L (14-36); Bilirubin,Total 0.5 mg/dL (0.2-1.3); Blood Urea Nitrogen 46 mg/dL (7-17); Calcium 8.4 mg/dL (8.4-10.2); Carbon Dioxide 31 mmol/L (22-30); Chloride 100 mmol/L (98-107); Estimated CRCL calculation 27 ml/min; Estimated Glomerular Filt Rate 29; Glucose 219 mg/dL (65-110); Magnesium 1.8 mg/dL (1.6-2.3); Phosphorus 3.5 mg/dL (2.5-4.5); Potassium 4.2 mmol/L (3.4-5.0); Sodium 141 mmol/L (137-145)
[2022-03-29] MEDS: LEVOTHYROXINE SODIUM 125 MCG TABLET PO (06:28)
[2022-03-29] MEDS: LINACLOTIDE 145 MCG CAPSULE PO (06:29)
[2022-03-29 08:41] LABS: Glucose Point of Care 243 mg/dl (65-105)
[2022-03-29] MEDS: BUDESONIDE RESPULE NEB 0.5 MG/2 ML AMP 0.25 MG INHALATION ×2 (09:20→21:46)
[2022-03-29] MEDS: INSULIN ASPART (*BKC) 100 UNITS/ML SUB-Q ×4 (09:21→20:11)
[2022-03-29] MEDS: GABAPENTIN 300 MG CAPSULE PO ×3 (09:54→17:36)
[2022-03-29] MEDS: ASPIRIN 81 MG CHEWABLE TABLET PO (09:54)
[2022-03-29] MEDS: LIPASE/AMYLASE/PROTEASE 12,000 UNITS CAP 1 CAP PO ×3 (09:54→17:36)
[2022-03-29] MEDS: PANTOPRAZOLE 40 MG TABLET PO ×2 (09:54→17:37)
[2022-03-29] MEDS: DOCUSATE SODIUM 100 MG CAPSULE PO (09:54)
[2022-03-29] MEDS: MULTIVITAMINS THERAPEUTIC TAB (*BKC) 1 TABLET PO (09:54)
[2022-03-29] MEDS: amLODIPine BESYLATE 5 MG TABLET PO (09:54)
[2022-03-29] MEDS: carvediloL 12.5 MG TABLET PO ×2 (09:55→20:14)
[2022-03-29] MEDS: FEBUXOSTAT 40 MG TABLET PO (09:57)
[2022-03-29] MEDS: OMEGA 3 POLYUNSAT FATTY ACIDS 1 GM CAP 2 GM PO ×2 (09:57→17:37)
[2022-03-29] MEDS: LIDOCAINE 5% PATCH 2 PATCH TOPICAL (09:58)
[2022-03-29] MEDS: OLOPATADINE 0.1% OPHTH SOLN 5 ML BTL 1 DROP EACH EYE ×2 (09:58→17:37)
[2022-03-29] MEDS: ONDANSETRON HCL ODT 4 MG TABLET PO (10:18)
--- NOTE | 2022-03-29 10:30 | PM.IMPN ---
Progress Note: A&P Assessment and Plan (1) AMS (altered mental status): Code(s): R41.82 - Altered mental status, unspecified Status: Acute Assessment and Plan: -Ammonia level is normal Patient have cirrhosis of the liver. -could be worsening dementia -it could be uremia encephalopathy. -urine was negative. -no other signs and symptoms of any bacterial infection. She has diarrhea and abdominal pain . CT abdomen with no acute findings other than cystitis however her urinalysis was negative. (2) CKD (chronic kidney disease): Code(s): N18.9 - Chronic kidney disease, unspecified Status: Acute Assessment and Plan: -consultation for Nephrology with greatly be appreciated. -gently hydrate -The family is considering hospice as the patient does not want to go on dialysis. Had in continues to improve baseline creatinine around 1.7 admission creatinine 0.4 on IV fluid will hold metolazone and Lasix Creatinine continues to improve Twenty-four urine collection ordered by Nephrology For which Irby has been placed Continue to hold metolazone and Lasix. stopped ivf 03/28 cr back to baseline. 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 Which is chronic. 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 (6) Transaminitis: Code(s): R74.01 - Elevation of levels of liver transaminase levels Status: Resolved Assessment and Plan: -continue to monitor -the patient has a history of cirrhosis of the liver. (7) Acute on chronic kidney failure: Code(s): N17.9 - Acute kidney failure, unspecified; N18.9 - Chronic kidney disease, unspecified Status: Resolved Assessment and Plan: started on iv hydration and improved -nephrology consult was greatly be appreciated. -hold any nephrotoxic medications. (8) Obstructive sleep apnea on CPAP: Code(s): G47.33 - Obstructive sleep apnea (adult) (pediatric); Z99.89 - Dependence on other enabling machines and devices Status: Acute Assessment and Plan: Resume CPAP as per home settings. 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 A1c is 8.1 restart her home insulin which she states is 70 30 him but charted as U 500. Will need to verify from pharmacy (10) Congestive heart failure: Code(s): I50.9 - Heart failure, unspecified Status: Acute Assessment and Plan: The patient has been on Lasix daily. along with metolazone which will be held due to PAULA (11) Chronic obstructive pulmonary disease: Code(s): J44.9 - Chronic obstructive pulmonary disease, unspecified Status: Acute Assessment and Plan: Continue with home inhalers (12) Hypothyroidism: Code(s): E03.9 - Hypothyroidism, unspecified Status: Acute Assessment and Plan: -continue with levothyroxine TSH normal Subjective Date/time seen: 03/29/22 10:30 Interval history: HPI: This is an 82-year-old female patient who has stage 4-5 renal failure.? 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 [place] [facility] [place] become more weak.? And less responsive.? It the
--- NOTE | 2022-03-29 11:47 | PCRCNOTE ---
HOME O2 EVAL COMPLETED. PT COMPLETED ARM AND LEG EXERCISES FOR EXERTION. PT NEEDS 2 L WITH EXERTION/ACTIVITY, ROOM AIR AT REST. PT HAS HOME OXYGEN AT HOME WELL HOME CPAP
[2022-03-29 12:17] LABS: Glucose Point of Care 318 mg/dl (65-105)
[2022-03-29] MEDS: ERGOCALCIFEROL 50,000 UNITS CAPSULE 50000 UNITS PO (12:27)
--- NOTE | 2022-03-29 14:40 | PM.PNNEP ---
Progress Note: A&P Assessment and Plan (1) Chronic kidney disease, stage IV (severe): Code(s): N18.4 - Chronic kidney disease, stage 4 (severe) Status: Chronic Assessment and Plan: the patient has chronic kidney disease. her creatinine has improved such that the EGFR is now 29. The 24hour urine was done and agrees with that ( creatinine clearance 28 mils per minute per 1.73m2 ) I do not think she has any kidney symptoms at all. Certainly the nausea is not from the kidneys. She is eager for discharge. She said she is going home tomorrow. (2) Nausea: Code(s): R11.0 - Nausea Status: Acute Assessment and Plan: The patient has nausea and diarrhea. this seems better. (3) AMS (altered mental status): Code(s): R41.82 - Altered mental status, unspecified Status: Acute Assessment and Plan: alert today. 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 (5) Obstructive sleep apnea on CPAP: Code(s): G47.33 - Obstructive sleep apnea (adult) (pediatric); Z99.89 - Dependence on other enabling machines and devices Status: Acute Assessment and Plan: Continue to use the CPAP machine. (6) Congestive heart failure: Code(s): I50.9 - Heart failure, unspecified Status: Acute Assessment and Plan: No signs of volume overload (7) Hypothyroidism: Code(s): E03.9 - Hypothyroidism, unspecified Status: Acute Assessment and Plan: TSH is normal Subjective Date/time seen: 03/29/22 14:40 Interval history: alert. cough is much better. in good spirits. no sob today Exam Narrative: WDWN in NAD skin no rash head ncat lungs clear bilaterally cor reg no rub abd BS+ nontender and soft ext no edema. Objective Data Vital Signs Vital Signs: Vital Signs - 24 hr 03/28/22 15:08 03/28/22 16:00 03/28/22 19:47 Temperature 36.4 C L Pulse Rate 73 73 74 Respiratory Rate 14 Blood Pressure 136/55 L Pulse Oximetry 100 Oxygen Delivery Oxygen Flow Rate 11/03/22 20:00 03/28/22 20:00 03/28/22 21:12 Temperature 36.6 C Pulse Rate 70 76 Respiratory Rate 16 Blood Pressure 147/64 H Pulse Oximetry 100 97 Oxygen Delivery Nasal Cannula Oxygen Flow Rate 2 03/28/22 21:00 03/28/22 21:14 03/29/22 00:00 Temperature Pulse Rate 75 78 76 Respiratory Rate 18 18 Blood Pressure Pulse Oximetry Oxygen Delivery Oxygen Flow Rate 03/29/22 04:00 03/29/22 06:35 03/29/22 09:10 Temperature 36.4 C Pulse Rate 77 77 72 Respiratory Rate 14 18 Blood Pressure 137/56 L Pulse Oximetry 99 Oxygen Delivery Oxygen Flow Rate 03/29/22 09:20 03/29/22 09:55 03/29/22 11:25 Temperature Pulse Rate 75 68 73 Respiratory Rate 18 Blood Pressure Pulse Oximetry 98 Oxygen Delivery Room Air Oxygen Flow Rate 03/29/22 11:27 03/29/22 11:28 03/29/22 11:30 Temperature Pulse Rate 86 90 Respiratory Rate Blood Pressure Pulse Oximetry 87 L 88 L 93 Oxygen Delivery Room Air Nasal Cannula Nasal Cannula Oxygen Flow Rate 1 2 03/29/22 11:40 Temperature Pulse Rate 74 Respiratory Rate Blood Pressure Pulse Oximetry 98 Oxygen Delivery Room Air Oxygen Flow Rate Intake/Output Intake/Output: Intake & Output 03/26/22 03/27/22 03/28/22 03/29/22 23:59 23:59 23:59 23:59 Intake Total 0 3720 1920 840 Output Total 500 1400 1825 900 Balance -500 2320 95 -60 Meds/Results Medications: Active Medications Generic Name Dose Route Start Last Admin Trade Name Freq PRN Reason Stop Dose Admin Albuterol 2.5 mg 03/26/22 23:32 Albuterol Sulfate Neb 2.5 Mg/0.5 Ml Inh INHALATION QID PRN Bronchospasm
[2022-03-29 17:10] LABS: Glucose Point of Care 301 mg/dl (65-105)
[2022-03-29] MEDS: CYANOCOBALAMIN 1,000 MCG TABLET 1000 MCG PO (17:37)
[2022-03-29 19:59] LABS: Glucose Point of Care 352 mg/dl (65-105)
[2022-03-29] MEDS: MELATONIN 5 MG TABLET 10 MG PO (20:13)
--- NOTE | 2022-03-29 21:48 | PCRCNOTE ---
per pt she does not want to wear cpap tonight.
[2022-03-29] MEDS: oxyCODONE/ACETAMINOPHEN (*CRX) 5-325 MG TABLET 1 TABLET PO (22:29)
[2022-03-30] MEDS: LEVOTHYROXINE SODIUM 125 MCG TABLET PO (05:30)
[2022-03-30 06:00] VITALS: BP 110/47; PULSE 81; RESP 21; TEMP 36.2; O2SAT 100
[2022-03-30 06:07] LABS: Albumin Level 3.5 g/dL (3.5-5.1); Anion Gap 12 mmol/L (8-16); Blood Urea Nitrogen 41 mg/dL (7-17); Calcium 8.6 mg/dL (8.4-10.2); Carbon Dioxide 31 mmol/L (22-30); Chloride 98 mmol/L (98-107); Estimated CRCL calculation 27 ml/min; Estimated Glomerular Filt Rate 29; Glucose 243 mg/dL (65-110); Phosphorus 3.4 mg/dL (2.5-4.5); Potassium 3.9 mmol/L (3.4-5.0); Sodium 141 mmol/L (137-145)
[2022-03-30] MEDS: HYDROCORTISONE 1% 30 GM CREAM 1 APPLIC TOPICAL (07:59)
[2022-03-30] MEDS: ONDANSETRON HCL ODT 4 MG TABLET PO ×2 (08:00→14:40)
[2022-03-30 08:12] VITALS: PULSE 80; RESP 16; O2SAT 98
[2022-03-30] MEDS: BUDESONIDE RESPULE NEB 0.5 MG/2 ML AMP 0.25 MG INHALATION (08:16)
[2022-03-30] MEDS: INSULIN HUMAN REGULAR (*BKC) 100 UNITS/ML 20 UNITS SUB-Q ×3 (08:17→17:48)
[2022-03-30] MEDS: INSULIN ASPART (*BKC) 100 UNITS/ML SUB-Q ×2 (08:18→12:10)
[2022-03-30 08:21] VITALS: PULSE 76; RESP 16
[2022-03-30 08:23] VITALS: PULSE 76
[2022-03-30] MEDS: MULTIVITAMINS THERAPEUTIC TAB (*BKC) 1 TABLET PO (08:23)
[2022-03-30] MEDS: carvediloL 12.5 MG TABLET PO (08:23)
[2022-03-30] MEDS: GABAPENTIN 300 MG CAPSULE PO ×3 (08:23→17:44)
[2022-03-30] MEDS: FLUTICASONE PROPIONATE 0.05% NA SPR 16 GM BTL (*BKC) 1 SPRAY NASAL (08:23)
[2022-03-30] MEDS: LIPASE/AMYLASE/PROTEASE 12,000 UNITS CAP 1 CAP PO ×3 (08:24→17:44)
[2022-03-30] MEDS: DOCUSATE SODIUM 100 MG CAPSULE PO (08:24)
[2022-03-30] MEDS: OMEGA 3 POLYUNSAT FATTY ACIDS 1 GM CAP 2 GM PO ×2 (08:24→17:45)
[2022-03-30] MEDS: PANTOPRAZOLE 40 MG TABLET PO ×2 (08:24→17:45)
[2022-03-30] MEDS: ASPIRIN 81 MG CHEWABLE TABLET PO (08:24)
[2022-03-30] MEDS: amLODIPine BESYLATE 5 MG TABLET PO (08:24)
[2022-03-30] MEDS: FEBUXOSTAT 40 MG TABLET PO (08:24)
[2022-03-30] MEDS: OLOPATADINE 0.1% OPHTH SOLN 5 ML BTL 1 DROP EACH EYE ×2 (08:25→17:45)
[2022-03-30] MEDS: LIDOCAINE 5% PATCH 2 PATCH TOPICAL (08:25)
[2022-03-30 10:30] LABS: Glucose Point of Care 255 mg/dl (65-105)
--- NOTE | 2022-03-30 11:09 | PM.PNNEP ---
Progress Note: A&P Assessment and Plan (1) Chronic kidney disease, stage IV (severe): Code(s): N18.4 - Chronic kidney disease, stage 4 (severe) Status: Chronic Assessment and Plan: the patient has chronic kidney disease. her creatinine has improved such that the EGFR is now 29 By EGFR and also by creatinine clearance. She needs to follow-up with a diamond setter when she gets home. discussed with Dr. Lloyd . He will check a postvoid residual. (2) Nausea: Code(s): R11.0 - Nausea Status: Acute Assessment and Plan: The patient has nausea again. She is still hoping to go home today (3) AMS (altered mental status): Code(s): R41.82 - Altered mental status, unspecified Status: Acute Assessment and Plan: alert today. (4) Insulin dependent type 2 diabetes mellitus: Code(s): E11.9 - Type 2 diabetes mellitus without complications; Z79.4 - rn long term care (current) use of insulin Status: Chronic Assessment and Plan: She is on Accu-Cheks and sliding-scale insulin per hospitalist. (5) Obstructive sleep apnea on CPAP: Code(s): G47.33 - Obstructive sleep apnea (adult) (pediatric); Z99.89 - Dependence on other enabling machines and devices Status: Acute Assessment and Plan: Continue to use the CPAP machine. (6) Congestive heart failure: Code(s): I50.9 - Heart failure, unspecified Status: Acute Assessment and Plan: No signs of volume overload (7) Hypothyroidism: Code(s): E03.9 - Hypothyroidism, unspecified Status: Acute Assessment and Plan: TSH is normal Subjective Date/time seen: 03/30/22 11:09 Interval history: Patient is alert. She is nauseated again. No cough for shortness of breath Exam Narrative: WDWN in NAD skin no rash or subQ nodules head ncat lungs clear bilaterally cor regular rate and rhythm. No rub or gallop. abd BS+ nontender and soft ext no edema. Objective Data Vital Signs Vital Signs: Vital Signs - 24 hr 03/29/22 11:25 03/29/22 11:27 03/29/22 11:28 Temperature Pulse Rate 73 86 Respiratory Rate Blood Pressure Pulse Oximetry 98 87 L 88 L Oxygen Delivery Room Air Room Air Nasal Cannula Oxygen Flow Rate 1 03/29/22 11:30 03/29/22 11:40 03/29/22 14:20 Temperature 36.4 C Pulse Rate 90 74 78 Respiratory Rate 18 Blood Pressure 128/56 L Pulse Oximetry 93 98 96 Oxygen Delivery Nasal Cannula Room Air Oxygen Flow Rate 2 03/29/22 20:14 03/29/22 21:36 03/29/22 20:00 Temperature 36.4 C Pulse Rate 76 81 Respiratory Rate 18 Blood Pressure 112/43 L Pulse Oximetry 97 Oxygen Delivery Room Air Oxygen Flow Rate 03/29/22 21:46 03/30/22 06:00 03/30/22 08:23 Temperature 36.2 C L Pulse Rate 77 81 76 Respiratory Rate 17 21 H Blood Pressure 110/47 L Pulse Oximetry 100 Oxygen Delivery Oxygen Flow Rate 03/30/22 08:12 03/30/22 08:12 03/30/22 08:21 Temperature Pulse Rate 80 80 76 Respiratory Rate 16 16 Blood Pressure Pulse Oximetry 98 Oxygen Delivery Nasal Cannula Oxygen Flow Rate 2 Intake/Output Intake/Output: Intake & Output 03/27/22 03/28/22 03/29/22 03/30/22 23:59 23:59 23:59 23:59 Intake Total 3720 1920 1530 870 Output Total 1400 1825 1950 1000 Balance 3591 22 -317 -115 Meds/Results Medications: Active Medications Generic Name Dose Route Start Last Admin Trade Name Freq PRN Reason Stop Dose Admin Albuterol 2.5 mg 03/26/22 23:32 Albuterol Sulfate Neb 2.5 Mg/0.5 Ml Inh INHALATION QID PRN Bronchospasm Amlodipine Besylate 5 mg 03/27/22 09:00 03/30/22 08:24 Amlodipine Besylate 5 Mg Tablet PO 5 mg DAILY MILIND Administration Lipase/Protease/Amylase 1 cap 03/27/22 09:00 03/30/22 08:24 Lipase/Amylase/Protease 12,000 Units Cap PO 1 cap TID MILIND Administration Aspirin 81 mg 03/27/22 09:00 03/30/22 08:
[2022-03-30 12:04] LABS: Glucose Point of Care 290 mg/dl (65-105)
[2022-03-30 15:00] VITALS: BP 126/53; PULSE 76; RESP 18; TEMP 36.8; O2SAT 100
--- NOTE | 2022-03-30 15:31 | PM.IMPN ---
Progress Note: A&P Assessment and Plan (1) AMS (altered mental status): Code(s): R41.82 - Altered mental status, unspecified Status: Acute Assessment and Plan: -Ammonia level is normal Patient have cirrhosis of the liver. -could be worsening dementia -it could be uremia encephalopathy. -urine was negative. -no other signs and symptoms of any bacterial infection. She has diarrhea and abdominal pain . CT abdomen with no acute findings other than cystitis however her urinalysis was negative. (2) CKD (chronic kidney disease): Code(s): N18.9 - Chronic kidney disease, unspecified Status: Acute Assessment and Plan: -consultation for Nephrology with greatly be appreciated. -gently hydrate -The family is considering hospice as the patient does not want to go on dialysis. Had in continues to improve baseline creatinine around 1.7 admission creatinine 0.4 on IV fluid will hold metolazone and Lasix Creatinine continues to improve Twenty-four urine collection ordered by Nephrology For which Irby has been placed Continue to hold metolazone and Lasix. stopped ivf 03/28 cr back to baseline. 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 Which is chronic. 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 (6) Transaminitis: Code(s): R74.01 - Elevation of levels of liver transaminase levels Status: Resolved Assessment and Plan: -continue to monitor -the patient has a history of cirrhosis of the liver. (7) Acute on chronic kidney failure: Code(s): N17.9 - Acute kidney failure, unspecified; N18.9 - Chronic kidney disease, unspecified Status: Resolved Assessment and Plan: started on iv hydration and improved -nephrology consult was greatly be appreciated. -hold any nephrotoxic medications. (8) Obstructive sleep apnea on CPAP: Code(s): G47.33 - Obstructive sleep apnea (adult) (pediatric); Z99.89 - Dependence on other enabling machines and devices Status: Acute Assessment and Plan: Resume CPAP as per home settings. 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 A1c is 8.1 restart her home insulin which she states is 70 30 him but charted as U 500. Will need to verify from pharmacy (10) Congestive heart failure: Code(s): I50.9 - Heart failure, unspecified Status: Acute Assessment and Plan: The patient has been on Lasix daily. along with metolazone which will be held due to PAULA (11) Chronic obstructive pulmonary disease: Code(s): J44.9 - Chronic obstructive pulmonary disease, unspecified Status: Acute Assessment and Plan: Continue with home inhalers (12) Hypothyroidism: Code(s): E03.9 - Hypothyroidism, unspecified Status: Acute Assessment and Plan: -continue with levothyroxine TSH normal Subjective Date/time seen: 03/30/22 15:31 Interval history: HPI: This is an 82-year-old female patient who has stage 4-5 renal failure.? 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 The patient has been at the [facility] [place] She has become more weak.? And less responsive.? It the
--- NOTE | 2022-03-30 17:18 | PM.DS ---
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); K74.60 - Unspecified cirrhosis of liver Status: Chronic (5) Dementia: Code(s): F03.90 - Unspecified dementia, unspecified severity, without behavioral disturbance, psychotic disturbance, mood disturbance, and anxiety Status: Acute (6) Transaminitis: Code(s): R74.01 - Elevation of levels of liver transaminase levels Status: Resolved (7) Acute on chronic kidney failure: Code(s): N17.9 - Acute kidney failure, unspecified; N18.9 - Chronic kidney disease, unspecified Status: Resolved (8) Obstructive sleep apnea on CPAP: Code(s): G47.33 - Obstructive sleep apnea (adult) (pediatric); Z99.89 - Dependence on other enabling machines and devices Status: Acute (9) Insulin dependent type 2 diabetes mellitus: Code(s): E11.9 - Type 2 diabetes mellitus without complications; Z79.4 - [facility] (current) use of insulin Status: Chronic (10) Congestive heart failure: Code(s): I50.9 - Heart failure, unspecified Status: Acute (11) Chronic obstructive pulmonary disease: Code(s): J44.9 - Chronic obstructive pulmonary disease, unspecified Status: Acute (12) Hypothyroidism: Code(s): E03.9 - Hypothyroidism, unspecified Status: Acute DS: Summary Hospital Course Reason for hospitalization: HPI: This is an 82-year-old female patient who has stage 4-5 renal failure.? 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 The patient has been at the [facility] [place] She has become more weak.? And less responsive.? It the patient is not answering questions at this time and her [id number]'s answering the questions for her.? The [id number] is at the bedside.? The patient denies any nausea vomiting or diarrhea.? She recently was started on a statin drug and feels even more tired and is complaining of muscle aches.? The patient is not able to take care of herself at this distant living.? The daughter in-law has been speaking with hospice and may consider this as an option.? We discussed that the patient may need to go into a a facility or may be able to go home with her and be on hospice.? The daughter in-law and stated that she needed at least 24 hours to think about it and will let us know tomorrow.? BUN is 70 and creatinine 2.40.? AST is 55 ALT is 50 alkaline phosphatase 162.? The patient does have a history of ascites and cirrhosis of the liver.? The patient has not been eating or drinking very well.? The patient is being admitted to observation status on the date of service of 03/26/2022. Hospital Course: # AMS (altered mental status): -Ammonia level is normal Patient have cirrhosis of the liver. -could be worsening dementia -it could be uremia encephalopathy. -urine was negative. -no other signs and symptoms of any bacterial infection. ? She has diarrhea and abdominal pain .? CT abdomen with no acute findings other than cystitis however her urinalysis was negative. Altered mental status improved during the hospital stay and back to baseline # PAULA and CKD stage 3: -consultation for Nephrology with greatly be appreciated. -Admission creatinine of 2.4. started on gentle IV hydration. Continue to improve and creatinine time discharge 1.7. Held metolazone and Lasix 24 hour urine collected for creatinine clearance by Nephrology suggested his creatinine clearance to be around
[2022-03-30 17:23] LABS: Glucose Point of Care 175 mg/dl (65-105)
[2022-03-30] MEDS: CYANOCOBALAMIN 1,000 MCG TABLET 1000 MCG PO (17:45)
== END 2022-03-30 18:02 | DRG 683 ==
LOC: ANHED 14:10 → ANH2MED 15:15
PROVIDERS: Internal Medicine Nephrology; Nurse Practitioner; Admitting Provider Internal Medicine; Emergency Provider Emergency Medicine; PCP Internal Medicine; Visit Provider Internal Medicine
DX: N17.9 Acute kidney failure, unspecified (principal); I13.0 Hypertensive heart and chronic kidney disease with heart failure and stage 1 through stage 4 chronic kidney disease, or unspecified chronic kidney disease; I50.32 Chronic diastolic (congestive) heart failure; E11.22 Type 2 diabetes mellitus with diabetic chronic kidney disease; N18.30 Chronic kidney disease, stage 3 unspecified; E11.65 Type 2 diabetes mellitus with hyperglycemia; K75.81 Nonalcoholic steatohepatitis (NASH); K74.69 Other cirrhosis of liver; E89.0 Postprocedural hypothyroidism; F03.90 Unspecified dementia, unspecified severity, without behavioral disturbance, psychotic disturbance, mood disturbance, and anxiety; F32.A Depression, unspecified; G47.33 Obstructive sleep apnea (adult) (pediatric); J44.9 Chronic obstructive pulmonary disease, unspecified; R11.0 Nausea; R19.7 Diarrhea, unspecified; I48.91 Unspecified atrial fibrillation; R74.01 Elevation of levels of liver transaminase levels; M79.7 Fibromyalgia; Z20.822 Contact with and (suspected) exposure to COVID-19; Z66 Do not resuscitate; Z95.810 Presence of automatic (implantable) cardiac defibrillator; Z98.42 Cataract extraction status, left eye; Z96.1 Presence of intraocular lens; Z98.41 Cataract extraction status, right eye; Z99.89 Dependence on other enabling machines and devices; Z87.440 Personal history of urinary (tract) infections; Z86.73 Personal history of transient ischemic attack (TIA), and cerebral infarction without residual deficits
CPT/HCPCS: 36415; 36600; 51701; 70450; 74176; 80053; 80069; 81003; 81050; 82140; 82533; 82550; 82570; 82607; 82728; 82746; 82805; 82948; 83036; 83605; 83615; 83735; 84100; 84443; 85025; 85055; 85610; 85730; 87502; 93005; 94618; 94640; 96360; 96361; 97110; 97116; 97161; 97166; 97530; 99285; A9270; G0378; J1815; J7030; U0003; U0005